=== PATIENT | male | born 1950 | race Caucasian/White ===

== ENCOUNTER → 2017-08-14 14:09 | Outpatient (CLI) | payer MEDICARE, OTHER, SELFPAY ==
--- NOTE | 2017-08-14 14:46 | RAD_ITS ---
STUDY: X-RAY - ORBITS REASON FOR EXAM: Male, 66 years old. This study is being performed as a clearance examination for exclusion of orbital metal, prior to the performance of an MRI examination. TECHNIQUE: 2 view(s) of the orbits (looking up and looking down) were obtained. COMPARISON: None. FINDINGS: Normal bilateral orbits without a metallic orbital foreign body. Normal visualized facial bones. Normal paranasal sinuses. The soft tissue structures are unremarkable. RAD/Orbits for Foreign Body IMPRESSION: No demonstrated metallic orbital foreign body. The patient is cleared for an MRI examination. Electronically Signed: Roberth Mcfarland MD at 15:44 EST , Service support ,
[2017-08-14 15:30] LABS: Creatinine, Serum 1.25 mg/dL (0.70-1.30); EST Glomerular Filtration Rate 62 mL/min (>60); Est Glom Filt Rate - Afr Amer 74 mL/min (>60)
== END ==
PROVIDERS: Family Provider Family Medicine; PCP Family Medicine; Visit Provider Orthopaedic Surgery
DX: M48.061 Spinal stenosis, lumbar region without neurogenic claudication (principal)
CPT/HCPCS: 36415; 70030; 82565

== ENCOUNTER → 2017-09-05 10:27 | Outpatient (CLI) | payer MEDICARE, OTHER, SELFPAY ==
[2017-09-05 12:12] LABS: Absolute Lymphocyte Count 1.59 X10^3/ul (0.83-4.51); Absolute Neutrophil Count 5.8 X10^3/uL (2.0-7.7); Basophil# 0.04 X10^3/uL; Basophil% 0.5 % (0-1); Eosinophil# 0.51 X10^3/uL; Eosinophils% 5.9 % (0-5); Hematocrit 40.7 % (40-54); Hemoglobin 13.5 g/dl (13.0-16.5); Lymphocyte # 1.59 X10^3/ul (4.0); Lymphocyte % 18.5 % (19-41); Mean Corp Hgb Conc 33.2 g/gl (32-36); Mean Corpuscular Hgb 29.7 pg (27.0-32.0); Mean Corpuscular Volume 89.5 fL (80-94); Mean Platelet Vol. 11.3 fl (6.2-12.0); Monocyte# 0.65 X10^3/uL; Monocyte% 7.6 % (0-10); Neutrophil # 5.78 X10^3/uL (2.7-7.7); Neutrophil % 67.3 % (47-70); Platelet Count 188 K/mm3 (150-450); RBC Distribution Width CV 14.3 % (11.6-14.6); RBC Distribution Width SD 46.7 fl (35.1-43.9); Red Blood Count 4.55 M/mm3 (4.6-6.2); White Blood Count 8.6 K/mm3 (4.4-11.0)
[2017-09-05 12:28] LABS: POSITIVE COUNT NO; POSITIVE DIFFERENTIAL NO; POSITIVE MORPHOLOGY NO
[2017-09-05 12:36] LABS: ALB/GLOB Ratio 1.1 RATIO (0.9-2.4); AST(SGOT) 24 U/L (15-37); Alanine Aminotransfer ALT/SGPT 26 U/L (16-61); Albumin, Serum 3.9 g/dL (3.2-5.0); Alkaline Phosphatase 67 U/L (45-117); Anion Gap 7 (5-15); BUN 30 mg/dL (7-18); BUN/Creat Ratio 24.2 RATIO (10-20); Calcium,Total 8.8 mg/dL (8.5-10.1); Chloride 109 mmol/L (98-107); Cholesterol 122 mg/dL (200); Creatinine, Serum 1.24 mg/dL (0.70-1.30); EST Glomerular Filtration Rate 62 mL/min (>60); Est Glom Filt Rate - Afr Amer 75 mL/min (>60); Globulin 3.5 g/dL (2.2-4.2); Glucose 93 mg/dL (74-106); High Density Lipoprotein 37 mg/dL; Protein, Total 7.4 g/dL (6.4-8.2); Sodium Level 141 mmol/L (136-145); Thyroid Stim Hormone (TSH) 0.94 uIU/mL (0.358-3.74); Triglycerides 99 mg/dL; Very Low Density Lipoprotein 20 mg/dL (5-40)
[2017-09-05 12:48] LABS: Microalbumin,Random Urine 6.2 mg/L (NO RANGE EST.); Microalbumin:Creatinine Ratio 6.3 mg/g CRE (<30 mg/g CRE)
[2017-09-05 13:25] LABS: Vitamin D,25 Hydroxy 61.8 ng/mL (29.95-100.01)
== END ==
PROVIDERS: Family Provider Family Medicine; PCP Family Medicine; Visit Provider Family Medicine
DX: R07.89 Other chest pain (principal); I10 Essential (primary) hypertension; E55.9 Vitamin D deficiency, unspecified
CPT/HCPCS: 36415; 80053; 80061; 82043; 82306; 82570; 84443; 85025

== ENCOUNTER → 2018-03-08 09:29 | Outpatient (CLI) | payer MEDICARE, OTHER, SELFPAY ==
[2018-03-08 12:07] LABS: Absolute Lymphocyte Count 1.42 X10^3/ul (0.83-4.51); Absolute Neutrophil Count 6.1 X10^3/uL (2.0-7.7); Basophil# 0.03 X10^3/uL; Basophil% 0.3 % (0-1); Eosinophil# 0.34 X10^3/uL; Eosinophils% 3.9 % (0-5); Hematocrit 40.9 % (40-54); Hemoglobin 13.3 g/dl (13.0-16.5); Lymphocyte # 1.42 X10^3/ul (4.0); Lymphocyte % 16.4 % (19-41); Mean Corp Hgb Conc 32.5 g/gl (32-36); Mean Corpuscular Hgb 29.4 pg (27.0-32.0); Mean Corpuscular Volume 90.5 fL (80-94); Mean Platelet Vol. 11.1 fl (6.2-12.0); Monocyte# 0.73 X10^3/uL; Monocyte% 8.4 % (0-10); Neutrophil # 6.13 X10^3/uL (2.7-7.7); Neutrophil % 70.8 % (47-70); Platelet Count 189 K/mm3 (150-450); RBC Distribution Width CV 14.3 % (11.6-14.6); RBC Distribution Width SD 46.8 fl (35.1-43.9); Red Blood Count 4.52 M/mm3 (4.6-6.2); White Blood Count 8.7 K/mm3 (4.4-11.0)
[2018-03-08 12:13] LABS: POSITIVE COUNT NO; POSITIVE DIFFERENTIAL NO; POSITIVE MORPHOLOGY NO
[2018-03-08 12:25] LABS: Vitamin D,25 Hydroxy 69.4 ng/mL (29.95-100.01)
[2018-03-08 12:30] LABS: AST(SGOT) 25 U/L (15-37); Alanine Aminotransfer ALT/SGPT 27 U/L (16-61); Albumin, Serum 3.8 g/dL (3.2-5.0); Alkaline Phosphatase 63 U/L (45-117); Anion Gap 8 (5-15); BUN 31 mg/dL (7-18); BUN/Creat Ratio 24.8 RATIO (10-20); Chloride 105 mmol/L (98-107); Creatinine, Serum 1.25 mg/dL (0.70-1.30); EST Glomerular Filtration Rate 61 mL/min (>60); Est Glom Filt Rate - Afr Amer 74 mL/min (>60); Glucose 91 mg/dL (74-106); Potassium 4.7 mmol/L (3.5-5.1); Protein, Total 7.8 g/dL (6.4-8.2); Sodium Level 137 mmol/L (136-145); Thyroid Stim Hormone (TSH) 1.19 uIU/mL (0.358-3.74)
== END ==
PROVIDERS: Family Provider Family Medicine; PCP Family Medicine; Visit Provider Family Medicine
DX: R53.83 Other fatigue (principal); E55.9 Vitamin D deficiency, unspecified
CPT/HCPCS: 36415; 80053; 82306; 84443; 85025

== ENCOUNTER 2018-03-20 08:30 | Emergency (ER) | payer MEDICARE, OTHER, SELFPAY ==
[2018-03-20 08:32] VITALS: BP 130/86; PULSE 63; RESP 15; TEMP 36.2; O2SAT 98
--- NOTE | 2018-03-20 08:48 | RAD_ITS ---
STUDY: X-RAY - UNILATERAL RIBS ( RIGHT ) WITH CHEST REASON FOR EXAM: Male, 67 years old. Posterior right shoulder pain and rib pain following a fall. TECHNIQUE - RIBS: 4 view(s) of the ribs. TECHNIQUE - CHEST: Single PA view of the chest. COMPARISON: None. FINDINGS - RIBS: There is a nondisplaced fracture involving the posterior-lateral aspect of the right fourth rib. FINDINGS - CHEST: The lungs are clear and expanded. There is no demonstrated pleural abnormality. Normal size heart. Normal mediastinum and gilbert. Normal visualized pulmonary arteries. There is atherosclerotic calcification of the aortic arch with tortuosity. There are diffuse degenerative changes of the visualized thoracic spine. Normal visualized ribs, clavicles, and shoulders. There is no demonstrated abnormality of the visualized soft tissue structures of the upper abdomen. RAD/Ribs Uni Min 3V w/PA Chest IMPRESSION: RIBS: Nondisplaced fracture of the posterolateral aspect of the right fourth rib. CHEST: Normal x-ray examination of the chest. Electronically Signed: Miguelito Holland MD at 9:30 EDT Tel [phone], Service support ,
--- NOTE | 2018-03-20 08:48 | RAD_ITS ---
STUDY: X-RAY - RIGHT SHOULDER REASON FOR EXAM: Male, 67 years old. Posterior right shoulder pain following a fall. TECHNIQUE: 4 view(s) of the shoulder. COMPARISON: Comparison is made with prior study dated April 10, 2009. FINDINGS: Nondisplaced fracture along the posterolateral aspect of the right fourth rib. Normal glenohumeral articulation. Normal acromioclavicular joint. Normal acromion. Normal humeral head and visualized proximal humerus. Soft tissue swelling. Normal visualized pulmonary apex. RAD/Shoulder min 2 Views IMPRESSION: Nondisplaced fracture along the posterolateral aspect of the right fourth rib. Electronically Signed: Miguelito Holland MD at 9:20 EDT Tel [phone], Service support ,
--- NOTE | 2018-03-20 09:33 | ED.VISSUMM ---
- ER Visit Summary Date of Service: 03/20/18 Chief Complaint: Fall History of Present Illness: The patient is a 67 M who fell while getting down off of a tractor last night. He estimates the height of the fall between 3-4 feet. He fell onto his right side. He states that he was dazed and saw stars but there was no loss of consciousness. He states he felt dizzy initially for a few minutes but then this rapidly resolved. He denies headache loss of consciousness or amnesia. He denies any paresthesias or weakness. He does complain of right upper posterior chest pain and shortness of breath. He also complains of right shoulder pain. No abdominal pain. No back pain. No nausea or vomiting. Physical Examination: Afebrile vitals are unremarkable Neck nontender to palpation Heart regular rate and rhythm Lungs are clear with equal breath sounds bilaterally No reproducible chest tenderness Active full range of motion x4 extremities without pain Alert and oriented with a GCS of 15 no focal or lateralizing neurological deficits Test Results: X-rays were obtained of the right shoulder and rib series with a PA chest was obtained. These show a right posterolateral rib fracture. No pneumothorax. Emergency Department Course and Treatment: Patient declined any medications here. He is resting comfortably no distress. X-rays as above. He was given an incentive spirometer. I did write a prescription for short course of [place] in case he would need it at home and he was also instructed on supportive care. He was instructed on specific signs and symptoms to monitor for and understands to return for new or worsening symptoms. He will otherwise follow-up with his primary care physician. Treatment Plan: [] Disposition: Discharge Impression: Fracture of right fourth rib This note was generated with [employer] dictation software. It may contain incorrect words, spelling, and punctuation that were not noted in review of the chart prior to signing ED Disposition - Plan for ED Patient: Chief Complaint: Upper Extremity Injury Referrals: Jose L Li MD [Primary Care Provider] -
--- NOTE | 2018-03-20 09:36 | ED.DCSUM_ITS ---
- ER Visit Summary Date of Service: 03/20/18 Chief Complaint: Fall History of Present Illness: The patient is a 67 M who fell while getting down off of a tractor last night. He estimates the height of the fall between 3-4 feet. He fell onto his right side. He states that he was dazed and saw stars but there was no loss of consciousness. He states he felt dizzy initially for a few minutes but then this rapidly resolved. He denies headache loss of consciousness or amnesia. He denies any paresthesias or weakness. He does complain of right upper posterior chest pain and shortness of breath. He also complains of right shoulder pain. No abdominal pain. No back pain. No nausea or vomiting. Physical Examination: Afebrile vitals are unremarkable Neck nontender to palpation Heart regular rate and rhythm Lungs are clear with equal breath sounds bilaterally No reproducible chest tenderness Active full range of motion x4 extremities without pain Alert and oriented with a GCS of 15 no focal or lateralizing neurological deficits Test Results: X-rays were obtained of the right shoulder and rib series with a PA chest was obtained. These show a right posterolateral rib fracture. No pneumothorax. Emergency Department Course and Treatment: Patient declined any medications here. He is resting comfortably no distress. X-rays as above. He was given an incentive spirometer. I did write a prescription for short course of [place] in case he would need it at home and he was also instructed on supportive care. He was instructed on specific signs and symptoms to monitor for and understands to return for new or worsening symptoms. He will otherwise follow-up with his primary care physician. Treatment Plan: [] Disposition: Discharge Impression: Fracture of right fourth rib This note was generated with [employer] dictation software. It may contain incorrect words, spelling, and punctuation that were not noted in review of the chart pr ior to signing ED Disposition - Plan for ED Patient: Chief Complaint: Upper Extremity Injury Referrals: Jose L Li MD [Primary Care Provider] -
--- NOTE | 2018-03-20 09:36 | ED.DEP ---
ED Disposition - Plan for ED Patient: Chief Complaint: Upper Extremity Injury Instructions: ED Fx Rib Prescriptions: Hydrocodone Bitart/Apap 5-325 [Heath 5MG-325MG] 1 tab PO Q6H PRN PRN 3 Days #10 tab PRN Reason: Pain Referrals: Jose L Li MD [Primary Care Provider] -
[2018-03-20 10:05] VITALS: BP 124/77; PULSE 68; RESP 15; O2SAT 98
== END 2018-03-20 10:06 | disposition home or self-care (01) ==
PROVIDERS: Emergency Provider Emergency Medicine; Family Provider Family Medicine; PCP Family Medicine
DX: S22.31XA Fracture of one rib, right side, initial encounter for closed fracture (principal); W17.89XA Other fall from one level to another, initial encounter; Y93.9 Activity, unspecified; Y92.89 Other specified places as the place of occurrence of the external cause; Y99.9 Unspecified external cause status; I10 Essential (primary) hypertension; E78.00 Pure hypercholesterolemia, unspecified; Z86.73 Personal history of transient ischemic attack (TIA), and cerebral infarction without residual deficits
CPT/HCPCS: 71101; 73030; 99282

== ENCOUNTER → 2018-09-06 11:20 | Outpatient (CLI) | payer MEDICARE, OTHER, SELFPAY ==
[2018-09-06 14:18] LABS: Absolute Lymphocyte Count 1.74 X10^3/ul (0.83-4.51); Absolute Neutrophil Count 6.3 X10^3/uL (2.0-7.7); Basophil# 0.05 X10^3/uL; Basophil% 0.5 % (0-1); Eosinophil# 0.28 X10^3/uL; Eosinophils% 3.1 % (0-5); Hematocrit 40.5 % (40-54); Hemoglobin 12.7 g/dl (13.0-16.5); Lymphocyte # 1.74 X10^3/ul (4.0); Mean Corp Hgb Conc 31.4 g/gl (32-36); Mean Corpuscular Hgb 28.5 pg (27.0-32.0); Mean Platelet Vol. 11.4 fl (6.2-12.0); Monocyte# 0.78 X10^3/uL; Monocyte% 8.5 % (0-10); Neutrophil # 6.28 X10^3/uL (2.7-7.7); Neutrophil % 68.7 % (47-70); Platelet Count 209 K/mm3 (150-450); RBC Distribution Width CV 14.4 % (11.6-14.6); RBC Distribution Width SD 47.7 fl (35.1-43.9); Red Blood Count 4.45 M/mm3 (4.6-6.2); White Blood Count 9.2 K/mm3 (4.4-11.0)
[2018-09-06 14:19] LABS: POSITIVE COUNT NO; POSITIVE DIFFERENTIAL NO; POSITIVE MORPHOLOGY NO
[2018-09-06 14:25] LABS: ALB/GLOB Ratio 1.1 RATIO (0.9-2.4); AST(SGOT) 25 U/L (15-37); Alanine Aminotransfer ALT/SGPT 25 U/L (16-61); Albumin, Serum 3.8 g/dL (3.2-5.0); Alkaline Phosphatase 87 U/L (45-117); Anion Gap 7 (5-15); BUN 26 mg/dL (7-18); Chloride 108 mmol/L (98-107); Cholesterol 104 mg/dL (200); Creatinine, Serum 1.24 mg/dL (0.70-1.30); EST Glomerular Filtration Rate 62 mL/min (>60); Est Glom Filt Rate - Afr Amer 75 mL/min (>60); Globulin 3.6 g/dL (2.2-4.2); Glucose 89 mg/dL (74-106); High Density Lipoprotein 39 mg/dL; Potassium 4.7 mmol/L (3.5-5.1); Protein, Total 7.4 g/dL (6.4-8.2); Sodium Level 139 mmol/L (136-145); Triglycerides 46 mg/dL; Very Low Density Lipoprotein 9 mg/dL (5-40)
[2018-09-06 14:40] LABS: Microalbumin,Random Urine < 5.0 mg/L (NO RANGE EST.)
== END ==
PROVIDERS: Family Provider Family Medicine; PCP Family Medicine; Referring Provider Family Medicine; Visit Provider Family Medicine
DX: I10 Essential (primary) hypertension (principal)
CPT/HCPCS: 36415; 80053; 80061; 82043; 82570; 85025

== ENCOUNTER → 2018-11-26 06:06 | Outpatient (CLI) | payer MEDICARE, OTHER, SELFPAY ==
[2018-11-14 13:59] VITALS: BMI 26.6
--- NOTE | 2018-11-26 14:14 | STRESSREP ---
Stress Test Report Exercise myocardial perfusion stress test. 67-year-old male with a history of chest pain. Medications: Clopidogrel metoprolol and losartan rosuvastatin. Stress protocol: Resting EKG demonstrates normal sinus rhythm with a rate of 53 bpm normal intervals are noted resting blood pressures 118/72 mmHg. The patient exercised according to regular Edouard protocol for a total duration of 8 minutes and 37 seconds. The maximum heart rate attained was 134 bpm which was 87% of maximum predicted heart rate. Patient completed 2 minutes and 37 seconds into stage III of the Edouard protocol. The maximum workload attained was 10.1 metabolic equivalents. At rest there were no ST or T wave changes noted suggest ischemia peak exercise upsloping ST changes only were noted with no meet the criteria for ischemia. No clinical angina was noted. The test was terminated due to leg fatigue. Myocardial perfusion protocol. 11.2 mCi of technetium 99m sestamibi was injected at rest. The patient exercised according to regular Edouard protocol for 8 minutes and 30 seconds. At peak exercise 32.7 mCi of technetium 99m sestamibi was injected stress images were obtained stress and rest images were reconstructed and compared in the short axis vertical long horizontal long axis. Gated images were also obtained Perfusion SPECT analysis: Review of the stress images demonstrate normal uptake of tracer noted in all areas of the myocardium. The resting images similarly demonstrate normal uptake of tracer noted in all areas of the myocardium. No areas of reversibility are noted suggest ischemia no previous infarct is noted. Gated SPECT analysis: The gated ejection fraction is noted to be 70% with no wall motion abnormalities present. Conclusion: Normal exercise myocardial perfusion stress test with no evidence of ischemia at a high workload. Preserved ejection fraction. Excellent functional aerobic capacity.
== END ==
PROVIDERS: Family Provider Family Medicine; PCP Family Medicine; Referring Provider Internal Medicine Cardiovascular Disease; Visit Provider Internal Medicine Cardiovascular Disease
DX: R07.9 Chest pain, unspecified (principal)
CPT/HCPCS: 78452; 93017; A9500; A4216

== ENCOUNTER 2019-02-03 18:39 | Emergency (ER) | payer MEDICARE, OTHER, SELFPAY ==
[2018-11-14 13:59] VITALS: BMI 26.6
[2019-02-03] VITALS (7 sets, daily range): BP systolic 101–138; BP diastolic 59–89; PULSE 54–76; RESP 13–22; TEMP 36.1; O2SAT 91–99; BMI 26.6
--- NOTE | 2019-02-03 19:40 | RAD_ITS ---
STUDY: X-RAY - RIGHT SHOULDER REASON FOR EXAM: Male, 68 years old. Right shoulder pain, working on the forearm. TECHNIQUE: 2 view(s) of the shoulder. COMPARISON: 03/20/2018. FINDINGS: Complete anterior dislocation of the shoulder. No demonstrated fracture. Mild degenerative arthrosis of the acromioclavicular joint and lateral acromion. The soft tissue structures are unremarkable. Normal visualized pulmonary apex. RAD/Shoulder min 2 Views IMPRESSION: Anterior shoulder dislocation. Electronically Signed: Kelsey Anand MD at 20:06 EDT Tel , Service support ,
[2019-02-03] MEDS: Ondansetron 4 MG/2 ML Vial IV (20:17)
[2019-02-03] MEDS: Morphine 4 MG/ML Syringe IV (20:17)
--- NOTE | 2019-02-03 20:42 | RAD_ITS ---
STUDY: X-RAY - RIGHT SHOULDER REASON FOR EXAM: Male, 68 years old. Post reduction. TECHNIQUE: 2 view(s) of the shoulder. COMPARISON: 03/20/2018. FINDINGS: Normal shoulder alignment status post reduction. No acute fracture or dislocation. Old healed right fourth rib fracture is noted. Soft tissues and bony structures are otherwise unremarkable. RAD/Shoulder min 2 Views IMPRESSION: Anatomic alignment status post reduction of the right shoulder. Electronically Signed: Kelsey Anand MD at 21:59 EDT Tel , Service support ,
--- NOTE | 2019-02-03 20:48 | ED.DCSUM_ITS ---
- ER Visit Summary Date of Service: 02/03/19 Chief Complaint: Right shoulder pain History of Present Illness: The patient is a 68 M history of TIA and hypertension.. Patient states he was pulling himself up to step into a tractor. And he felt a pop and pain immediately in his right shoulder with decreased range of motion. He states about a week ago he did something similar but it seemed to resolve on its own. He is never had right shoulder surgery or any significant injury to the shoulder. He is right-hand dominant. Physical Examination: Older male complaining of pain. Vital signs are stable he is afebrile. He does not look septic or toxic. He is on his right shoulder w ith his right elbow flexed at 90 degrees. HEENT exam unremarkable. Neck nontender. Lungs clear to auscultation. Heart regular rhythm no murmur. Abdomen soft nontender. Left upper and both lower extremities are unremarkable. Right shoulder appears to be deformed and appears to have an anterior shoulder dislocation. Distal humerus, elbow, forearm, wrist and hand are nontender neurovascular intact he has normal tensile tester strength in his right hand. Normal sensation. Palpable radial pulse. Neurologically is awake and alert. Test Results: X-ray right shoulder 2 view shows an anterior right shoulder dislocation. Postreduction x-ray shows proper alignment. Emergency Department Course and Treatment: Patient appears to have a right anterior shoulder dislocation. He was consented for conscious sedation. He was given a total of 70 mg of IV propofol. And using traction countertraction the shoulder went back in the place. He was then placed in a sling and post reduction films were obtained. Patient tolerated the conscious sedation well. His vital signs and pulse ox were unremarkable the entire time. He never became hypoxic. Repeat exam at 20 1:15 PM patient is doing well. He feels comfortable being discharged home. I did go over his x-rays with him. Treatment Plan: Sling and swath. Follow-up with local orthopedic physician. Disposition: Discharge Impression: Acute right shoulder anterior dislocation Conscious sedation using propofol by ER physician Right shoulder dislocation reduction by ER using traction and countertraction. This note was generated with [employer] dictation software. It may contain incorrect words, spelling, and punctuation that were not noted in review of the chart prior to signing ED Disposition - Plan for ED Patient: Disposition: Home or Assisted Living Instructions: DISLOCATION: SHOULDER (Reduced) Referrals: Wesley Bird DO [STAFF PHYSICIAN] - As soon as possible Additional Instructions: You to dislocated right shoulder. We put it back in place. Need to follow-up with orthopedic doctor. You may or may not have damage to the tendons and ligaments of your right shoulder called the rotator cuff.
[2019-02-03] MEDS: Propofol 200 MG/20 ML Vial IV BOLUS (20:50)
--- NOTE | 2019-02-03 20:51 | ED.DEP ---
ED Disposition - Plan for ED Patient: Disposition: Home or Assisted Living Instructions: DISLOCATION: SHOULDER (Reduced) Referrals: Wesley Bird DO [STAFF PHYSICIAN] - As soon as possible Additional Instructions: You to dislocated right shoulder. We put it back in place. Need to follow-up with orthopedic doctor. You may or may not have damage to the tendons and ligaments of your right shoulder called the rotator cuff.
== END 2019-02-03 21:28 | disposition home or self-care (01) ==
PROVIDERS: Emergency Provider Emergency Medicine; Family Provider Family Medicine; PCP Family Medicine
DX: S43.014A Anterior dislocation of right humerus, initial encounter (principal); X50.9XXA Other and unspecified overexertion or strenuous movements or postures, initial encounter; Y93.89 Activity, other specified; Y92.818 Other transport vehicle as the place of occurrence of the external cause; Y99.9 Unspecified external cause status; I10 Essential (primary) hypertension; Z86.73 Personal history of transient ischemic attack (TIA), and cerebral infarction without residual deficits
CPT/HCPCS: 23650; 73030; 96374; 96375; 99284; A4216; J2405

== ENCOUNTER → 2019-02-14 11:22 | Outpatient (CLI) | payer MEDICARE, OTHER, SELFPAY ==
[2019-02-03 18:40] VITALS: BMI 26.6
[2019-02-14 14:35] LABS: Creatinine, Serum 1.33 mg/dL (0.70-1.30); EST Glomerular Filtration Rate 57 mL/min (>60); Est Glom Filt Rate - Afr Amer 69 mL/min (>60)
== END ==
PROVIDERS: Family Provider Family Medicine; PCP Family Medicine; Referring Provider Family Medicine; Visit Provider Orthopaedic Surgery
DX: Z01.812 Encounter for preprocedural laboratory examination (principal)
CPT/HCPCS: 36415; 82565

== ENCOUNTER 2019-03-23 10:25 | Emergency (ER) | payer MEDICARE, OTHER, SELFPAY ==
[2019-02-03 18:40] VITALS: BMI 26.6
[2019-03-23] VITALS (9 sets, daily range): BP systolic 93–148; BP diastolic 67–92; PULSE 47–60; RESP 10–19; TEMP 36.4; O2SAT 96–100; BMI 26.6
[2019-03-23] MEDS: Ondansetron 4 MG/2 ML Vial IV (10:52)
[2019-03-23] MEDS: morphine 8 MG/ML Syringe IV (10:54)
[2019-03-23] MEDS: LORazepam 2 MG/ML Syringe 1 MG IV (10:54)
--- NOTE | 2019-03-23 11:05 | RAD_ITS ---
STUDY: X-RAY - RIGHT SHOULDER REASON FOR EXAM: Male, 68 years old. Dislocation TECHNIQUE: 2 view(s) of the shoulder. COMPARISON: February 03, 2019, history of dislocation. FINDINGS: Study is limited. There is a visualized anterior inferior dislocation. There is visualized degenerative change in the acromioclavicular joint. RAD/Shoulder min 2 Views IMPRESSION: Anterior inferior dislocation of the right humeral head. Electronically Signed: Leonor Mchugh MD at 11:41 EDT Tel , Service support ,
--- NOTE | 2019-03-23 11:40 | RAD_ITS ---
STUDY: X-RAY - RIGHT SHOULDER REASON FOR EXAM: Male, 68 years old. Dislocation post reduction attempt 1 TECHNIQUE: 1 view(s) of the shoulder. COMPARISON: March 23, 2019 FINDINGS: There is persistent anterior inferior dislocation of the right humeral head. There is degenerative change of the acromioclavicular joint. RAD/Shoulder One View IMPRESSION: Persistent dislocation. Electronically Signed: Leonor Mchugh MD at 12:27 EDT Tel , Service support ,
--- NOTE | 2019-03-23 12:15 | ED.VIS.GEN ---
History of Present Illness Chief Complaint: Upper Extremity Injury Informant: Patient Onset: Today Current Severity: Mild Narrative: The patient presents complaining that basically he was some work he stretched his right arm out and he dislocated his right shoulder with the stretching motion, has a history of prior injury to the rotator cuff, rotator cuff tear, prior right shoulder dislocation a few months ago was seen into the emergency department, followed with orthopedics and there was no specific other therapy recommended. He had no direct trauma he has no numbness weeks paresthesias he has no other complaints he has hypertension has been stable he thought he was able to reposition his body in such a way that he self reduced the shoulder but he presents complaining of pain, He had no direct trauma his health is been very good Past Medical History - Allergies and Home Meds Allergies/Adverse Reactions: Allergies Sulfa (Sulfonamide Antibiotics) Allergy (Intermediate, Verified 03/23/19 10:30) fever, hives Penicillins [PCN] Allergy (Verified 03/23/19 10:30) Unknown lisinopril Adverse Reaction (Intermediate, Verified 03/23/19 10:30) cough Primary Care Physician: Jose L Li MD [Primary Care Provider] - Past Medical History: - - As above Smoking Status: Never smoker Review of Systems General: Denies: Chills, Fever, Sweats Eyes: Denies: Visual changes - bilaterally, Diplopia ENT: Denies: Rhinorrhea, Sore throat Cardiovascular: Denies: Chest pain, Palpitations Respiratory: Denies: Dyspnea, Cough, Dyspnea on exertion Gastrointestinal: Denies: Abdominal pain, Nausea, Vomiting, Diarrhea, Melena, Hematochezia Genitourinary: Denies: Dysuria, Hematuria, Frequency Musculoskeletal: Reports: Extremity Pain. Denies: Back pain Skin: Denies: Rash, Wounds Neurological: Denies: Headache, Weakness, Numbness Physical Exam Vital Signs/Narrative: Vital Signs Temp Pulse Pulse Pulse Pulse Pulse Pulse 03/23/19 12:11 52 L 03/23/19 12:01 47 L 50 L 52 L 57 L 60 03/23/19 11:59 48 L 03/23/19 10:26 97.5 F L 59 L Resp Resp Resp Resp Resp Resp BP 03/23/19 12:11 12 121/78 H 03/23/19 12:01 16 13 11 L 19 H 13 10/05/19 11:59 11 L 03/23/19 10:26 18 148/92 H BP BP BP BP Pulse Ox 03/23/19 12:11 99 03/23/19 12:01 122/81 H 117/77 120/75 120/75 03/23/19 11:59 96 03/23/19 10:26 97 General: Well nourished, Well developed, No Acute Distress Head: Normocephalic, Atraumatic Eyes: Perrl, EOMI ENT: Moist mucous membranes, No rhinorrhea Neck: Supple, Nontender Cardiovascular: Regular rate, Regular rhythm, No murmurs Respiratory: No distress, CTA bilaterally, Chest nontender Abdomen: Soft, Nontender, Nondistended, Normal bowel sounds Back: Nontender, Normal Inspection Extremities: No edema, Tenderness, - - He appears to have a anterior dislocated right shoulder there is a defect over the glenoid area, he has no direct trauma his head neck chest abdomen upper lower extremities otherwise unremarkable hand function is normal elbow forearm wrist function unremarkable neurovascular normal Skin: Normal color, No rash Neurological: Alert, Oriented x3, Cranial nerves II-XII grossly intact, Normal Strength, Normal Sensation Psychological: Normal affect, Normal Mood Diagnostic/Tx/Re-eval - Medical Decision Making Had a long conversation with the patient x-ray does showed anterior dislocation see that report, no fracture, we did medicate the patient with IM morphine, Ativan, he was awake and alert we did try to gently manipulate using local Melick type technique that was ineffective in reducing the shoulder, he then underwent conscious sedation protocol timeout he was medicated with incremental doses of fentanyl Versed and propofol, and then we used gentle countertraction with reduction of the shoulder, he tolerated procedure well with no complications normal vital signs throughout, he woke with no complaints remains hemodynamically stable respiratory stable, reports feeling much better Postprocedure x-ray shows appropriate reduction see those reports discussed all the above with him, he is seen orthopedics has had this condition before he is fitted with a sling and swath device she will follow with orthopedic surgeon Seema for pain ice elevation in the return for change in symptoms Home stable Final impression Right anterior shoulder dislocation, conscious sedation, reduction of shoulder dislocation ED Disposition - Plan for ED Patient: Diagnosis: Shoulder dislocation Instructions: DISLOCATION: SHOULDER (Reduced) Prescriptions: Naproxen [Naprosyn] 500 mg PO BID PRN #20 tab Prescription Printed Referrals: Jose L Li MD [Primary Care Provider] - Additional Instructions: Follow-up with your orthopedic surgeon sling and swath ice rest return for change in symptoms
[2019-03-23] MEDS: fentaNYL 100 MCG/2 ML Ampul IV (12:20)
[2019-03-23] MEDS: Propofol 200 MG/20 ML Vial 30 MG IV BOLUS (12:20)
[2019-03-23] MEDS: Midazolam 2 MG/2 ML Syringe IV (12:21)
--- NOTE | 2019-03-23 12:28 | RAD_ITS ---
STUDY: X-RAY - RIGHT SHOULDER REASON FOR EXAM: Male, 68 years old. Post reduction shoulder dislocation TECHNIQUE: 2 view(s) of the shoulder. COMPARISON: Earlier today FINDINGS: Normal alignment of the glenohumeral articulation. Normal acromioclavicular joint. Normal acromion. Normal humeral head and visualized proximal humerus. The soft tissue structures are unremarkable. Normal visualized pulmonary apex. RAD/Shoulder min 2 Views IMPRESSION: Normal alignment of the glenohumeral joint. No fracture. Electronically Signed: Hitesh Farias MD ([place]) at 13:01 EDT , Service support ,
== END 2019-03-23 13:37 | disposition home or self-care (01) ==
LOC: ED 10:51
PROVIDERS: Emergency Provider Emergency Medicine; Family Provider Family Medicine; PCP Family Medicine
DX: M24.411 Recurrent dislocation, right shoulder (principal); I10 Essential (primary) hypertension; Z79.899 Other long term (current) drug therapy
CPT/HCPCS: 23650; 73020; 73030; 96361; 96374; 96375; 99285; J7030; J7040; A4216; J2405

== ENCOUNTER → 2019-06-25 15:28 | Outpatient (CLI) | payer MEDICARE, OTHER, SELFPAY ==
[2019-03-23 10:26] VITALS: BMI 26.6
[2019-06-25 17:46] LABS: Anion Gap 5 (5-15); BUN 36 mg/dL (7-18); BUN/Creat Ratio 27.7 RATIO (10-20); Calcium,Total 8.9 mg/dL (8.5-10.1); Chloride 109 mmol/L (98-107); EST Glomerular Filtration Rate 58 mL/min (>60); Est Glom Filt Rate - Afr Amer 71 mL/min (>60); Glucose 87 mg/dL (74-106); Potassium 5.1 mmol/L (3.5-5.1); Sodium Level 140 mmol/L (136-145)
== END ==
PROVIDERS: Family Provider Family Medicine; PCP Family Medicine; Referring Provider Family Medicine; Visit Provider Family Medicine
DX: E87.5 Hyperkalemia (principal)
CPT/HCPCS: 36415; 80048

== ENCOUNTER → 2019-09-02 09:14 | Outpatient (CLI) | payer MEDICARE, OTHER, SELFPAY ==
[2019-03-23 10:26] VITALS: BMI 26.6
[2019-09-02 12:45] LABS: Absolute Lymphocyte Count 1.84 X10^3/uL (0.83-4.51); Basophil# 0.07 X10^3/uL; Basophil% 0.8 % (0-1); Eosinophil# 0.24 X10^3/uL; Eosinophils% 2.7 % (0-5); Hematocrit 40.5 % (40-54); Hemoglobin 12.6 g/dL (13.0-16.5); Lymphocyte # 1.84 X10^3/ul (4.0); Lymphocyte % 20.5 % (19-41); Mean Corp Hgb Conc 31.1 g/dL (32-36); Mean Corpuscular Hgb 28.4 pg (27.0-32.0); Mean Corpuscular Volume 91.2 fL (80-94); Mean Platelet Vol. 10.8 fl (6.2-12.0); Monocyte# 0.81 X10^3/uL; NRBC Flagged by Analyzer 0 % (0-5); Neutrophil # 5.99 X10^3/uL (2.7-7.7); Neutrophil % 66.7 % (47-70); Platelet Count 199 K/mm3 (150-450); RBC Distribution Width SD 47.7 fl (35.1-43.9); Red Blood Count 4.44 M/mm3 (4.6-6.2)
[2019-09-02 13:03] LABS: Vitamin D,25 Hydroxy 65.4 ng/mL
[2019-09-02 13:06] LABS: Hemoglobin A1c 5.8 % (4.2-6.3)
[2019-09-02 13:39] LABS: ALB/GLOB Ratio 0.9 RATIO (0.9-2.4); AST(SGOT) 22 U/L (15-37); Alanine Aminotransfer ALT/SGPT 25 U/L (16-61); Albumin, Serum 3.6 g/dL (3.2-5.0); Alkaline Phosphatase 91 U/L (45-117); Anion Gap 7 (5-15); BUN 29 mg/dL (7-18); BUN/Creat Ratio 23.8 RATIO (10-20); Calcium,Total 9.3 mg/dL (8.5-10.1); Chloride 107 mmol/L (98-107); Creatinine, Serum 1.22 mg/dL (0.70-1.30); EST Glomerular Filtration Rate 63 mL/min (>60); Est Glom Filt Rate - Afr Amer 76 mL/min (>60); Ferritin 34 ng/mL (26-388); Globulin 4.2 g/dL (2.2-4.2); Glucose 92 mg/dL (74-106); Magnesium 2.2 mg/dL (1.6-2.6); Potassium 4.8 mmol/L (3.5-5.1); Protein, Total 7.8 g/dL (6.4-8.2); Sodium Level 137 mmol/L (136-145)
[2019-09-03 16:11] LABS: ANTINUCLEAR ANTIBODIES DIRECT Positive (Negative)
== END ==
PROVIDERS: PCP Family Medicine; Referring Provider Family Medicine; Visit Provider Family Medicine
DX: R20.2 Paresthesia of skin (principal); N18.3 Chronic kidney disease, stage 3 (moderate)
CPT/HCPCS: 36415; 80053; 82306; 82728; 83036; 83735; 83970; 85025; 86038

== ENCOUNTER → 2020-03-06 09:22 | Outpatient (CLI) | payer MEDICARE, OTHER, SELFPAY ==
[2019-11-14 09:25] VITALS: BMI 26.6
[2020-03-06 10:15] LABS: Absolute Lymphocyte Count 1.43 X10^3/uL (0.83-4.51); Absolute Neutrophil Count 4.1 X10^3/uL (2.0-7.7); Basophil# 0.06 X10^3/uL; Basophil% 0.9 % (0-1); Eosinophil# 0.38 X10^3/uL; Eosinophils% 5.7 % (0-5); Hematocrit 39.3 % (40-54); Hemoglobin 12.5 g/dL (13.0-16.5); Lymphocyte # 1.43 X10^3/ul (4.0); Lymphocyte % 21.4 % (19-41); Mean Corp Hgb Conc 31.8 g/dL (32-36); Mean Corpuscular Hgb 29.8 pg (27.0-32.0); Mean Corpuscular Volume 93.8 fL (80-94); Mean Platelet Vol. 11.1 fl (6.2-12.0); Monocyte% 10.5 % (0-10); NRBC Flagged by Analyzer 0 % (0-5); Neutrophil # 4.09 X10^3/uL (2.7-7.7); Neutrophil % 61.2 % (47-70); Platelet Count 174 K/mm3 (150-450); RBC Distribution Width CV 13.2 % (11.6-14.6); RBC Distribution Width SD 45.2 fl (35.1-43.9); Red Blood Count 4.19 M/mm3 (4.6-6.2); White Blood Count 6.7 K/mm3 (4.4-11.0)
[2020-03-06 11:03] LABS: ALB/GLOB Ratio 0.9 RATIO (0.9-2.4); AST(SGOT) 20 U/L (15-37); Alanine Aminotransfer ALT/SGPT 24 U/L (16-61); Albumin, Serum 3.7 g/dL (3.2-5.0); Alkaline Phosphatase 82 U/L (45-117); Anion Gap 5 (5-15); BUN 31 mg/dL (7-18); BUN/Creat Ratio 24.4 RATIO (10-20); Chloride 108 mmol/L (98-107); Cholesterol 108 mg/dL (200); Creatinine, Serum 1.27 mg/dL (0.70-1.30); EST Glomerular Filtration Rate 60 mL/min (>60); Est Glom Filt Rate - Afr Amer 73 mL/min (>60); Globulin 3.9 g/dL (2.2-4.2); Glucose 98 mg/dL (74-106); High Density Lipoprotein 36 mg/dL; Potassium 4.9 mmol/L (3.5-5.1); Protein, Total 7.6 g/dL (6.4-8.2); Sodium Level 138 mmol/L (136-145); Triglycerides 50 mg/dL; Very Low Density Lipoprotein 10 mg/dL (5-40)
[2020-03-06 12:46] LABS: Microalbumin,Random Urine 9.5 mg/L (NO RANGE EST.); Microalbumin:Creatinine Ratio 7.1 mg/g CRE (<30 mg/g CRE)
== END ==
PROVIDERS: PCP Family Medicine; Referring Provider Family Medicine; Visit Provider Family Medicine
DX: N18.3 Chronic kidney disease, stage 3 (moderate) (principal); E66.3 Overweight
CPT/HCPCS: 36415; 80053; 80061; 82043; 82570; 85025

== ENCOUNTER → 2020-03-09 10:43 | Outpatient (CLI) | payer MEDICARE, OTHER, SELFPAY ==
[2019-11-14 09:25] VITALS: BMI 26.6
--- NOTE | 2020-03-09 10:47 | VDLE_ITS ---
Reason For Study: Pain left calf Procedure LEFT Exam performed in department. GSV is normal. A preliminary report was called and/or faxed CFV is compressible, spontaneous, phasic, to Jolene. competent, and demonstrates normal augmentation. FV is compressible, spontaneous, phasic, competent and demonstrates normal augmentation. POP V is compressible, spontaneous, phasic, competent and demonstrates normal augmentation. T/P Trunk is compressible. PTV is compressible. LT PerV is compressible. Interpretation Summary Deep veins of the left lower extremity are patent and compressible segmentally. There is no evidence of left lower extremity deep vein thrombosis. Valvular competence appears intact within the proximal deep venous system on the left . The left great saphenous vein appears patent and compressible segmentally. Ordering Physician: Ro Fernández Referring Physician: Jose L Li MD Performed By: Natasha Gómez RVT and Student
== END ==
PROVIDERS: PCP Family Medicine; Referring Provider Nurse Practitioner Adult Health; Visit Provider Nurse Practitioner Adult Health
DX: M79.662 Pain in left lower leg (principal)
CPT/HCPCS: 93971

== ENCOUNTER → 2020-06-03 07:26 | Outpatient (CLI) | payer MEDICARE, OTHER, SELFPAY ==
[2019-11-14 09:25] VITALS: BMI 26.6
--- NOTE | 2020-06-03 07:36 | MRI_ITS ---
STUDY: MRI LEFT KNEE REASON FOR EXAM: Medial left knee pain since late January, osteoarthritis, concern for internal derangement. TECHNIQUE: Standardized fat and water weighted pulse sequences were obtained in all 3 orthogonal planes. COMPARISON: None. FINDINGS: There is tear/degeneration of the posterior horn and body of the medial meniscus (proton-density sagittal images 10-18; proton-density coronal images 19-22). There is arthrosis of the medial femorotibial compartment with chondral loss (T2 sagittal image 7). There is subchondral bone edema of the medial femoral condyle and tibial plateau (T2 coronal images 13-21), a stress phenomenon. There is mild periligamentous inflammation of the medial collateral ligament (T2 coronal image 18). Normal distal semimembranosus, gracilis and semitendinosus tendons. Normal lateral meniscus. Normal hyaline cartilage of the lateral femorotibial compartment. Normal lateral femoral condyle and tibial plateau. Normal proximal tibiofibular articulation. There is mild periligamentous inflammation of the fibular collateral ligament (T2 coronal image 15). Normal popliteus tendon. Normal biceps femoris tendon. Normal anterior cruciate ligament (ACL). Normal posterior cruciate ligament (PCL). Normal congruent patellofemoral articulation. There is a focal chondral defect of the lateral femoral trochlea (T2 sagittal image 18) measuring 1.7 cm in length. Normal medial and lateral patellar retinaculum. Normal visualized quadriceps tendon. Normal patellar tendon. Normal Hoffa''s fat pad. There is a [id number] sized joint effusion. There is a thin medial patellar plica. There is extravasated fluid from a ruptured popliteal cyst (T2 sagittal images 4-11). There is edema in the subcutis adipose space. There is a small metallic foreign body at the anterior lateral aspect of the tibial plateau. There is a small ganglion cyst posterior to the posterior cruciate ligament (T2 sagittal image 14) measuring 1 cm in length. The otherwise visualized osseous structures are unremarkable. MRI/Lower Ext Joint Only (Routine) IMPRESSION: Medial meniscal tear/degeneration. Subchondral bone edema of the medial femoral condyle and medial tibial plateau, a stress phenomenon. Arthrosis of the medial femorotibial compartment. Focal chondral defect of the lateral femoral trochlea. Mild periligamentous inflammation of the medial collateral and fibular collateral ligaments. Joint effusion. Ruptured popliteal cyst. Small ganglion cyst posterior to the posterior cruciate ligament. Electronically Signed: Albert Madden MD at 8:49 EST Tel , Service support ,
== END ==
PROVIDERS: PCP Family Medicine; Referring Provider Family Medicine; Visit Provider Family Medicine
DX: M17.12 Unilateral primary osteoarthritis, left knee (principal)
CPT/HCPCS: 73721

== ENCOUNTER → 2020-06-24 08:51 | Outpatient (CLI) | payer MEDICARE, OTHER, SELFPAY ==
[2019-11-14 09:25] VITALS: BMI 26.6
[2020-06-24 10:55] LABS: ALB/GLOB Ratio 0.9 RATIO (0.9-2.4); AST(SGOT) 17 U/L (15-37); Alanine Aminotransfer ALT/SGPT 22 U/L (16-61); Albumin, Serum 3.7 g/dL (3.2-5.0); Alkaline Phosphatase 88 U/L (45-117); Anion Gap 4 (5-15); BUN 32 mg/dL (7-18); BUN/Creat Ratio 24.8 RATIO (10-20); Calcium,Total 8.9 mg/dL (8.5-10.1); Chloride 110 mmol/L (98-107); Creatinine, Serum 1.29 mg/dL (0.70-1.30); EST Glomerular Filtration Rate 59 mL/min (>60); Est Glom Filt Rate - Afr Amer 71 mL/min (>60); Glucose 88 mg/dL (74-106); Protein, Total 7.7 g/dL (6.4-8.2); Sodium Level 138 mmol/L (136-145)
[2020-06-24 11:08] LABS: International Normalized Ratio 1.1; Prothrombin Time (Protime)PT. 13.8 SECONDS (11.7-14.9)
[2020-06-24 11:09] LABS: Partial Thromboplast Time 29.6 Seconds (24.1-36.2)
[2020-06-24 11:31] LABS: Absolute Lymphocyte Count 1.68 X10^3/uL (0.83-4.51); Absolute Neutrophil Count 5.6 X10^3/uL (2.0-7.7); Basophil# 0.08 X10^3/uL; Basophil% 0.9 % (0-1); Eosinophil# 0.51 X10^3/uL; Eosinophils% 5.8 % (0-5); Hematocrit 41.9 % (40-54); Hemoglobin 13.3 g/dL (13.0-16.5); Lymphocyte # 1.68 X10^3/ul (4.0); Lymphocyte % 19.1 % (19-41); Mean Corp Hgb Conc 31.7 g/dL (32-36); Mean Corpuscular Hgb 28.4 pg (27.0-32.0); Mean Corpuscular Volume 89.3 fL (80-94); Mean Platelet Vol. 11.6 fl (6.2-12.0); Monocyte# 0.91 X10^3/uL; Monocyte% 10.4 % (0-10); NRBC Flagged by Analyzer 0 % (0-5); Neutrophil # 5.56 X10^3/uL (2.7-7.7); Neutrophil % 63.3 % (47-70); Platelet Count 194 K/mm3 (150-450); RBC Distribution Width CV 13.6 % (11.6-14.6); RBC Distribution Width SD 44.4 fl (35.1-43.9); Red Blood Count 4.69 M/mm3 (4.6-6.2); White Blood Count 8.8 K/mm3 (4.4-11.0)
== END ==
PROVIDERS: PCP Family Medicine; Referring Provider Family Medicine; Visit Provider Family Medicine
DX: Z01.818 Encounter for other preprocedural examination (principal)
CPT/HCPCS: 36415; 80053; 85025; 85610; 85730

== ENCOUNTER → 2020-11-17 09:50 | Outpatient (CLI) | payer MEDICARE, OTHER, SELFPAY ==
[2020-11-17 09:03] VITALS: BMI 30.7
[2020-11-17 10:43] LABS: Absolute Lymphocyte Count 1.35 X10^3/uL (0.83-4.51); Absolute Neutrophil Count 6.8 X10^3/uL (2.0-7.7); Basophil# 0.04 X10^3/uL; Basophil% 0.4 % (0-1); Eosinophil# 0.23 X10^3/uL; Eosinophils% 2.4 % (0-5); Hematocrit 41.6 % (40-54); Hemoglobin 13.1 g/dL (13.0-16.5); Lymphocyte # 1.35 X10^3/ul (0.83-4.51); Lymphocyte % 14.2 % (19-41); Mean Corp Hgb Conc 31.5 g/dL (32-36); Mean Corpuscular Hgb 28.7 pg (27.0-32.0); Mean Platelet Vol. 10.8 fl (6.2-12.0); Monocyte# 1.04 X10^3/uL; Monocyte% 10.9 % (0-10); NRBC Flagged by Analyzer 0 % (0-5); Neutrophil # 6.82 X10^3/uL (2.7-7.7); Neutrophil % 71.7 % (47-70); Platelet Count 236 K/mm3 (150-450); RBC Distribution Width CV 13.6 % (11.6-14.6); RBC Distribution Width SD 45.8 fl (35.1-43.9); Red Blood Count 4.57 M/mm3 (4.6-6.2); White Blood Count 9.5 K/mm3 (4.4-11.0)
[2020-11-17 11:15] LABS: ALB/GLOB Ratio 0.7 RATIO (0.9-2.4); AST(SGOT) 22 U/L (15-37); Alanine Aminotransfer ALT/SGPT 23 U/L (16-61); Albumin, Serum 3.4 g/dL (3.2-5.0); Alkaline Phosphatase 81 U/L (45-117); Anion Gap 6 (5-15); BUN 36 mg/dL (7-18); BUN/Creat Ratio 25.9 RATIO (10-20); Bilirubin, Direct 0.22 mg/dL (0.00-0.30); Calcium,Total 9.5 mg/dL (8.5-10.1); Chloride 107 mmol/L (98-107); Cholesterol 98 mg/dL (200); Creatinine, Serum 1.39 mg/dL (0.70-1.30); EST Glomerular Filtration Rate 54 mL/min (>60); Est Glom Filt Rate - Afr Amer 65 mL/min (>60); Globulin 4.9 g/dL (2.2-4.2); Glucose 102 mg/dL (74-106); High Density Lipoprotein 35 mg/dL; Potassium 5.9 mmol/L (3.5-5.1); Protein, Total 8.3 g/dL (6.4-8.2); Sodium Level 137 mmol/L (136-145); Triglycerides 56 mg/dL; Very Low Density Lipoprotein 11 mg/dL (5-40)
== END ==
PROVIDERS: PCP Family Medicine; Referring Provider Nurse Practitioner Family; Visit Provider Nurse Practitioner Family
DX: G45.9 Transient cerebral ischemic attack, unspecified (principal); E78.5 Hyperlipidemia, unspecified; I10 Essential (primary) hypertension; Z79.02 Long term (current) use of antithrombotics/antiplatelets
CPT/HCPCS: 36415; 80053; 80061; 82248; 85025

== ENCOUNTER 2021-03-11 17:17 | Emergency (ER) | payer MEDICARE, OTHER, SELFPAY ==
[2021-03-11 17:18] VITALS: BP 142/89; PULSE 75; RESP 16; TEMP 35.4; O2SAT 98; BMI 30.7
--- NOTE | 2021-03-11 18:06 | US_ITS ---
STUDY: VENOUS DOPPLER ULTRASOUND - LEFT LOWER EXTREMITY REASON FOR EXAM: Male, 70 years old. LT KNEE REDNESS, PAIN SWELLING TECHNIQUE: Ultrasound evaluation of the deep vein system to include back-scale imaging and compression was performed. Back-scale imaging and Doppler sonographic evaluation, including duplex spectral analysis and qualitative color flow sonography, was performed. COMPARISON: None. FINDINGS: Common Femoral Vein: Normal compression, spontaneity and augmentation. Normal color Doppler. Common Femoral Vein/Greater Saphenous Junction: Normal compression, spontaneity and augmentation. Normal color Doppler. Femoral Proximal: Normal compression, spontaneity and augmentation. Normal color Doppler. Femoral Middle: Normal compression, spontaneity and augmentation. Normal color Doppler. Femoral Distal: Normal compression, spontaneity and augmentation. Normal color Doppler. Popliteal Vein: Normal compression, spontaneity and augmentation. Normal color Doppler. Posterior Tibial Vein: Normal compression, spontaneity and augmentation. Normal color Doppler. Peroneal Vein: Normal compression, spontaneity and augmentation. Normal color Doppler. Debris-filled small Buckner''s cyst noted in the posterior aspect of the knee joint. Mild of subcutaneous edema is present in the left calf. The right common femoral vein was evaluated and is normal. US/Venous Duplex Imag/Limited/Uni IMPRESSION: 1. Normal venous Doppler ultrasound of the left lower extremity. 2. Mild of subcutaneous edema is present in the left calf. Electronically Signed: Brian Miller MD at 20:16 EDT , Service support ,
--- NOTE | 2021-03-11 18:09 | EDS_ITS ---
HPI History of Present Illness Chief Complaint: Lower Extremity Injury Narrative Narrative: Patient is a 70-year-old male who states that he had his left knee replaced approximately 1 year ago. He states he has been doing well but is been having some increased swelling off and on. He states that he saw the surgeon a few months ago and I told him that he needs to stop stressing the knee somewhat and he went through repeat physical therapy. Patient states this did help but he has noticed in the past few weeks increased redness and swelling of the lower leg from the knee down. He denies any injury fevers or chills. He denies any chest pain or shortness of breath. He states he went and saw his family doctor today who has concern for possible blood clot and therefore sent to the hospital for evaluation [facility] Medical History BPH (benign prostatic hyperplasia) Essential (primary) hypertension Hyperlipidemia Osteoarthritis Transient ischemic attack (12/2007) Varicose veins of both lower extremities Vitamin D deficiency Home Medications clopidogrel 75 mg tablet 75 mg PO DAILY 11/08/18 [History Last Taken Unknown] ergocalciferol (vitamin D2) 1,250 mcg (50,000 unit) capsule 50,000 unit PO QWEEK 11/08/18 [History Last Taken Unknown] folic acid 0.8 mg capsule 0.8 mg PO DAILY 11/08/18 [History Last Taken Unknown] losartan 100 mg tablet 100 mg PO DAILY 11/08/18 [History Last Taken Unknown] metoprolol tartrate 25 mg tablet 25 mg PO BID 11/08/18 [History Last Taken Unknown] rosuvastatin 5 mg tablet 5 mg PO QHS 11/08/18 [History Last Taken Unknown] tamsulosin 0.4 mg capsule 0.4 mg PO QHS 11/08/18 [History Last Taken Unknown] loratadine 10 mg PO DAILY 02/03/19 [History Last Taken Unknown] ipratropium bromide 21 mcg (0.03 %) nasal spray 2 spray INTRANASAL BID 11/14/19 [History Last Taken Unknown] Allergy/AdvReac Type Severity Reaction Status Date / Time Sulfa (Sulfonamide Allergy Intermediate fever, Verified 03/11/21 17:18 Antibiotics) hives Penicillins [PCN] Allergy Unknown Verified 03/11/21 17:18 lisinopril AdvReac Intermediate cough Verified 03/11/21 17:18 Family History (Reviewed 11/17/20 @ 09:08 by Cooper Linton MACHINE SHOP REPAIR TECHNICIAN, MACHINE SHOP REPAIR TECHNICIAN-C) Father Cancer Mother Heart disease Surgical History (Updated 03/11/21 @ 17:50 by Yobani Pollard) History of carpal tunnel release History of left heart catheterization (02/04/08) History of lumbar spinal fusion (06/2019) History of shoulder replacement (03/2019) History of total left knee replacement (~06/19/20) History of total right knee replacement Social History (Reviewed 11/17/20 @ 09:08 by Cooper Linton MACHINE SHOP REPAIR TECHNICIAN, MACHINE SHOP REPAIR TECHNICIAN-C) Smoking Status: Never smoker ROS ROS ED Constitutional Constitutional ED: Denies chills or fever(s) ENT ENT ED: Denies sore throat Cardiovascular Cardiovascular: Denies chest pain Respiratory/Chest Respiratory/Chest: Denies cough or dyspnea Gastrointestinal Gastrointestinal: Denies abdominal pain, diarrhea, nausea or vomiting Genitourinary Genitourinary ED: Denies dysuria Musculoskeletal Musculoskeletal: Reports other Details: Positive left knee/leg pain ; Denies myalgias Integumentary Denies rash Neurologic Neurologic: Denies headache(s) Hematologic/Lymphatic Hematologic/Lymphatic: Denies easy bleeding or easy bruising EXAM Physical Exam Const Vital Signs: 03/11/21 17:18 03/11/21 19:34 Temperature 95.8 F L Temperature Source Temporal Pulse Rate 75 67 Respiratory Rate 16 16 Blood Pressure 142/89 H 139/88 H Blood Pressure Mean 106 105 Pulse Ox 98 99 Oxygen Delivery Method Room Air Room Air Positive well nourished and well developed General Appearance ED: well developed HEENT Reports moist mucous membranes Eyes PERRL and EOMs intact bilaterally Neck supple Chest Wall palpation of chest normal Resp normal respiratory effort and clear to auscultation bilaterally Cardio regular rate and regular rhythm GI normal to inspection, nondistended, normoactive bowel sounds, non-tender and non-distended Auscultation: normoactive bowel sounds Palpation: soft Extremity Extremity Narrative: Left lower extremity is neurovascularly intact. He has asymmetric pitting edema to the left leg compared to right. There is also some faint overlying erythema but no excessive or asymmetric warmth. No obvious cellulitis or lymphangitic streaking. Negative Homans' sign bilaterally Neuro oriented x3 and CN's II-XII intact bilaterally Sensorium / Orientation: alert Psych mental status grossly normal Skin Skin Narrative: Soft tissue changes to the left lower leg as documented above MDM MDM MDM Narrative Medical decision making narrative: Patient presented to the ER afebrile and was able to walk on his leg. He did have asymmetric swelling and there was concern for DVT so a duplex was obtained which was negative. I also concern for possible infected joint so I did perform basic labs. His white count and lactic acid are normal but his ESR and CRP are elevated. I did discuss the case with orthopedics on-call but as the joint is a prosthetic joint the patient is able to bend and ambulate does not have a fever or white count I do not feel this is truly infected. Therefore patient will follow up with his orthopedic surgeon and have the area possibly tapped secondary to the soft tissue changes but I do not feel there is need for further work-up in the ER Lab Data Attestation: I reviewed the patient's lab results. Labs: Laboratory Results - last 24 hr 03/11/21 03/11/21 03/11/21 18:20 18:20 18:20 WBC 10.2 RBC 4.27 L Hgb 11.6 L Hct 37.7 L MCV 88.3 MCH 27.2 MCHC 30.8 L RDW Std Deviation 46.6 H RDW Coeff of Mary 14.6 Plt Count 293 MPV 10.3 Immature Gran % (Auto) 0.400 Neut % (Auto) 65.8 Lymph % (Auto) 18.5 L [place] % (Auto) 11.8 H Eos % (Auto) 3.0 Baso % (Auto) 0.5 Absolute Neuts (auto) 6.7 Absolute Lymphs (auto) 1.89 Nucleated RBC % 0 ESR 29 H Sodium 135 L Potassium 4.5 Chloride 106 Carbon Dioxide 26.0 Anion Gap 3 L BUN 30 H Creatinine 1.12 Estim Creat Clear Calc 56.17 Est GFR (MDRD) Af Amer 84 Est GFR (MDRD) Non-Af 69 BUN/Creatinine Ratio 26.8 H Glucose 98 Lactic Acid 0.7 Calcium 9.2 C-React Prot Ext Range 47.60 H Radiography Diagnostic Testing: Radiology Impression Venous Duplex 03/11/21 18:06 IMPRESSION: 1. Normal venous Doppler ultrasound of the left lower extremity. 2. Mild of subcutaneous edema is present in the left calf. Electronically Signed: Brian Miller MD at 20:16 EDT , Service support , Knee X-Ray 03/11/21 18:41 IMPRESSION: 1. Mild to moderate anterior soft tissue swelling. Small to moderate size joint effusion. Electronically Signed: Brian Miller MD at 19:49 EDT , Service support , Discharge Plan Triage Chief Complaint: Lower Extremity Injury ED Provider: Jovani Figueroa Dx/Rx/DC Orders Clinical Impression: Effusion of knee joint, left Instructions: ED Knee Effusion Prescriptions: No Action metoprolol tartrate 25 mg tablet 25 mg PO BID RF: 0 losartan 100 mg tablet 100 mg PO DAILY RF: 0 clopidogrel 75 mg tablet 75 mg PO DAILY RF: 0 folic acid 0.8 mg capsule 0.8 mg PO DAILY RF: 0 tamsulosin 0.4 mg capsule 0.4 mg PO QHS RF: 0 rosuvastatin 5 mg tablet 5 mg PO QHS RF: 0 ergocalciferol (vitamin D2) 50,000 unit capsule 50,000 unit PO QWEEK RF: 0 ipratropium bromide 0.03 % spray,non-aerosol 2 spray INTRANASAL BID RF: 0 loratadine 10 MG tablet 10 mg PO DAILY RF: 0 Primary Care Provider: Jose L Li Referrals: Jose L Li MD [Primary Care Provider] - Disposition Disposition: Home, Self Care
[2021-03-11 18:36] LABS: Absolute Lymphocyte Count 1.89 X10^3/uL (0.83-4.51); Absolute Neutrophil Count 6.7 X10^3/uL (2.0-7.7); Basophil# 0.05 X10^3/uL; Basophil% 0.5 % (0-1); Eosinophil# 0.31 X10^3/uL; Hematocrit 37.7 % (40-54); Hemoglobin 11.6 g/dL (13.0-16.5); Lymphocyte # 1.89 X10^3/ul (0.83-4.51); Lymphocyte % 18.5 % (19-41); Mean Corp Hgb Conc 30.8 g/dL (32-36); Mean Corpuscular Hgb 27.2 pg (27.0-32.0); Mean Corpuscular Volume 88.3 fL (80-94); Mean Platelet Vol. 10.3 fl (6.2-12.0); Monocyte% 11.8 % (0-10); NRBC Flagged by Analyzer 0 % (0-5); Neutrophil # 6.71 X10^3/uL (2.7-7.7); Neutrophil % 65.8 % (47-70); Platelet Count 293 K/mm3 (150-450); RBC Distribution Width CV 14.6 % (11.6-14.6); RBC Distribution Width SD 46.6 fl (35.1-43.9); Red Blood Count 4.27 M/mm3 (4.6-6.2); White Blood Count 10.2 K/mm3 (4.4-11.0)
--- NOTE | 2021-03-11 18:41 | RAD_ITS ---
STUDY: X-RAY - LEFT KNEE REASON FOR EXAM: Male, 70 years old. pain TECHNIQUE: 3 view(s) of the knee. COMPARISON: MRI of the left knee dated June 03, 2020 FINDINGS: Tricompartmental knee prosthetic components noted demonstrating good bony contact and alignment. No demonstrated hardware complications. A small to moderate size joint effusion is present and mild to moderate anterior soft tissue swelling is also visualized. Normal proximal tibiofibular articulation. There is no demonstrated fracture. Ossification of the quadriceps tendon noted. RAD/Knee 3 Views IMPRESSION: 1. Mild to moderate anterior soft tissue swelling. Small to moderate size joint effusion. Electronically Signed: Brian Miller MD at 19:49 EDT , Service support ,
[2021-03-11 18:42] LABS: Erythrocyte Sedimentation Rate 29 mm/hr (0-20)
[2021-03-11 19:06] LABS: Anion Gap 3 (5-15); BUN 30 mg/dL (7-18); BUN/Creat Ratio 26.8 RATIO (10-20); Calcium,Total 9.2 mg/dL (8.5-10.1); Chloride 106 mmol/L (98-107); Creatinine, Serum 1.12 mg/dL (0.70-1.30); EST Glomerular Filtration Rate 69 mL/min (>60); Est Glom Filt Rate - Afr Amer 84 mL/min (>60); Estimated Creatinine Clearance 56.17 ml/min; Glucose 98 mg/dL (74-106); Potassium 4.5 mmol/L (3.5-5.1); Sodium Level 135 mmol/L (136-145)
[2021-03-11 19:09] LABS: Lactic Acid 0.7 mmol/L (0.4-1.9)
[2021-03-11 19:34] VITALS: BP 139/88; PULSE 67; RESP 16; O2SAT 99
[2021-03-11 21:14] VITALS: BP 139/78; PULSE 84; RESP 20; O2SAT 97
--- NOTE | 2021-03-11 21:15 | ED.RN ---
THIS NURSE REVIEWED D/C INSTRUCTIONS WITH PT. PT VERBALIZED UNDERSTANDING OF INSTRUCTIONS. IV D/C IV CATHETER INTACT. PT TOLERATED WELL. PT DENIES FURTHER NEEDS OR QUESTIONS AT THIS TIME. PT AMBULATES FROM ROOM ON OWN WITHOUT ASISTANCE FROM STAFF
== END 2021-03-11 21:16 | disposition home or self-care (01) ==
PROVIDERS: Emergency Provider Emergency Medicine; PCP Family Medicine
DX: M25.462 Effusion, left knee (principal); R60.0 Localized edema; E78.5 Hyperlipidemia, unspecified; I10 Essential (primary) hypertension; M19.90 Unspecified osteoarthritis, unspecified site; N40.0 Benign prostatic hyperplasia without lower urinary tract symptoms; Z86.73 Personal history of transient ischemic attack (TIA), and cerebral infarction without residual deficits; Z79.899 Other long term (current) drug therapy
CPT/HCPCS: 73562; 80048; 83605; 85025; 85652; 86140; 93971; 99283

== ENCOUNTER → 2021-03-29 09:09 | Outpatient (CLI) | payer MEDICARE, OTHER, SELFPAY ==
[2021-03-29 10:30] LABS: PSA,Total - Annual Screen 2.79 ng/mL (0.00-4.00)
== END ==
PROVIDERS: Nurse Practitioner Family; PCP Family Medicine; Visit Provider Family Medicine
DX: N40.0 Benign prostatic hyperplasia without lower urinary tract symptoms (principal)
CPT/HCPCS: 36415; 84153; G0103

== ENCOUNTER → 2021-04-07 12:13 | Outpatient (CLI) | payer MEDICARE, OTHER, SELFPAY ==
[2021-04-07 13:12] LABS: Absolute Lymphocyte Count 1.93 X10^3/uL (0.83-4.51); Absolute Neutrophil Count 5.9 X10^3/uL (2.0-7.7); Basophil# 0.07 X10^3/uL; Basophil% 0.8 % (0-1); Eosinophil# 0.36 X10^3/uL; Eosinophils% 3.9 % (0-5); Hematocrit 35.9 % (40-54); Hemoglobin 11.3 g/dL (13.0-16.5); Lymphocyte # 1.93 X10^3/ul (0.83-4.51); Lymphocyte % 20.9 % (19-41); Mean Corp Hgb Conc 31.5 g/dL (32-36); Mean Corpuscular Hgb 27.2 pg (27.0-32.0); Mean Corpuscular Volume 86.3 fL (80-94); Mean Platelet Vol. 10.4 fl (6.2-12.0); Monocyte# 0.95 X10^3/uL; Monocyte% 10.3 % (0-10); NRBC Flagged by Analyzer 0 % (0-5); Neutrophil # 5.89 X10^3/uL (2.7-7.7); Neutrophil % 63.7 % (47-70); Platelet Count 296 K/mm3 (150-450); RBC Distribution Width CV 14.4 % (11.6-14.6); RBC Distribution Width SD 45.3 fl (35.1-43.9); Red Blood Count 4.16 M/mm3 (4.6-6.2); White Blood Count 9.2 K/mm3 (4.4-11.0)
[2021-04-07 13:23] LABS: Erythrocyte Sedimentation Rate 62 mm/hr (0-20)
== END ==
PROVIDERS: PCP Family Medicine
DX: Z47.1 Aftercare following joint replacement surgery (principal); Z96.652 Presence of left artificial knee joint
CPT/HCPCS: 36415; 85025; 85652; 86140

== ENCOUNTER → 2021-06-17 16:26 | Outpatient (CLI) | payer MEDICARE, OTHER, SELFPAY | PROVIDERS: PCP Family Medicine; Visit Provider Family Medicine | DX: U07.1 COVID-19 (principal) | CPT/HCPCS: 87635; U0003; U0005 ==

== ENCOUNTER 2021-06-22 13:05 | Outpatient (CLI) | payer MEDICARE, OTHER, SELFPAY ==
[2021-06-22 13:32] VITALS: BP 143/79; PULSE 69; RESP 16; TEMP 36.6; O2SAT 98; BMI 29.0
[2021-06-22] MEDS: 0.9% Saline Lock 10 ML Syringe IV (13:38)
[2021-06-22 14:00] VITALS: BP 112/72; PULSE 65; RESP 16; TEMP 37.1; O2SAT 99
[2021-06-22 14:52] VITALS: BP 139/94; PULSE 73; RESP 18; TEMP 36.7; O2SAT 100
== END 2021-06-22 23:59 | disposition home or self-care (01) ==
LOC: MS3OUT 13:05 → MS3 13:06
PROVIDERS: PCP Family Medicine; Referring Provider Nurse Practitioner Adult Health; Visit Provider Nurse Practitioner Adult Health
DX: U07.1 COVID-19 (principal)
CPT/HCPCS: J7050; M0243; A4216; Q0240

== ENCOUNTER → 2021-10-08 | Outpatient (CLI) | payer MEDICARE, OTHER, SELFPAY ==
[2021-10-08 10:20] LABS: Absolute Lymphocyte Count 1.88 X10^3/uL (0.83-4.51); Absolute Neutrophil Count 5.1 X10^3/uL (2.0-7.7); Basophil# 0.07 X10^3/uL; Basophil% 0.9 % (0-1); Eosinophil# 0.25 X10^3/uL; Eosinophils% 3.1 % (0-5); Hematocrit 39.7 % (40-54); Hemoglobin 12.4 g/dL (13.0-16.5); Lymphocyte # 1.88 X10^3/ul (0.83-4.51); Lymphocyte % 23.3 % (19-41); Mean Corp Hgb Conc 31.2 g/dL (32-36); Mean Corpuscular Hgb 28.8 pg (27.0-32.0); Mean Corpuscular Volume 92.1 fL (80-94); Mean Platelet Vol. 10.9 fl (6.2-12.0); Monocyte# 0.79 X10^3/uL; Monocyte% 9.8 % (0-10); NRBC Flagged by Analyzer 0 % (0-5); Neutrophil # 5.06 X10^3/uL (2.7-7.7); Neutrophil % 62.7 % (47-70); Platelet Count 228 K/mm3 (150-450); RBC Distribution Width CV 13.8 % (11.6-14.6); RBC Distribution Width SD 47.1 fl (35.1-43.9); Red Blood Count 4.31 M/mm3 (4.6-6.2); White Blood Count 8.1 K/mm3 (4.4-11.0)
[2021-10-08 10:34] LABS: ALB/GLOB Ratio 0.8 RATIO (0.9-2.4); AST(SGOT) 21 U/L (15-37); Alanine Aminotransfer ALT/SGPT 23 U/L (16-61); Albumin, Serum 3.8 g/dL (3.2-5.0); Alkaline Phosphatase 90 U/L (45-117); Anion Gap 5 (5-15); BUN 32 mg/dL (7-18); BUN/Creat Ratio 24.8 RATIO (10-20); CRP 4.38 mg/L (0.0-3.0); Calcium,Total 8.9 mg/dL (8.5-10.1); Chloride 109 mmol/L (98-107); Creatinine, Serum 1.29 mg/dL (0.70-1.30); EST Glomerular Filtration Rate 59 mL/min (>60); Est Glom Filt Rate - Afr Amer 71 mL/min (>60); Globulin 4.7 g/dL (2.2-4.2); Glucose 104 mg/dL (74-106); Potassium 4.8 mmol/L (3.5-5.1); Protein, Total 8.5 g/dL (6.4-8.2); Sodium Level 137 mmol/L (136-145)
[2021-10-08 10:47] LABS: Microalbumin,Random Urine 74.4 mg/L (NO RANGE EST.); Microalbumin:Creatinine Ratio 70.9 mg/g CRE (<30 mg/g CRE)
== END | disposition home or self-care (01) ==
LOC: MTLAB 08:28
PROVIDERS: PCP Family Medicine; Referring Provider Family Medicine; Visit Provider Family Medicine
DX: I10 Essential (primary) hypertension (principal); Z96.652 Presence of left artificial knee joint
CPT/HCPCS: 36415; 80053; 82043; 82570; 85025; 86140

== ENCOUNTER 2021-11-19 08:30 | Outpatient (RCR) | payer MEDICARE, OTHER, SELFPAY ==
--- NOTE | 2021-09-17 11:11 | HP.PTEVAL ---
Patient's Visit Information JEREMY ARVIZU is a 70 year old M referred to Physical Therapy by BERNICE MARION with a diagnosis of LEFT TKR. Date of Evaluation: 09/17/21 Physical Therapist: Isael Up, PT, Cert MDT, OCS - Visit Plan Frequency: 3x /Week Duration: 5 WEEKS Plan: PT INTERVETIONS FOCUS ON ROM,STRETCHING KNEE ,STRENGTH QUADS/HAMS/HIP ,FUNCTIONALD STRENGTH AND GAIT/BALNCE TRAINING ,CP - Subjective This 70 y/o male presents to physical therapy for left TKR. Patient initially had left TKR Jun 2020. Patient had pain then in October pain worsen with with loss ROM and had fall . Seen December return to PT wasn't getting better . Looked at back which was -. Then developed abscess which worsen .Eventually, had infection then Apr 07 placed antibiotic spacer. Patient had left knee immobilizer with fww TTDW ,also had IV antibiotic for 6weeks for Staph infection but developed COVID . Then eventually had TKR revision August 20 at [facility] done by DR Collier . Patient had [facility] PT for 6weeks. Seen DR Collier next . Patient has no paresthesia /tingling. Patient able able dress patient has some assist with bathing. Patient family has assist with food. Home situation 1 story with 3 steps rail. Walkii shower ,grab bars and elevated toilet seat. 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 PMH: right TKR ,RTS RIGHT, lumbar fusion fusion x2, CTS ,elbow surgery .Patient. condition of TKR affects QOL and function .MEDS: oxycodone,. VOCATION: [employer]. SOCIAL: single. - Pain Left Knee Pain Intensity (Out of 10): 4 Pain Intensity Range: 10 - Objective POSTURE: mild forward posture. GAIT: ambulates with mild decrease stance time and swing phase left leg. STAIR: one step at time with rail. BALANCE: fair+. GIRTH PATELLA: 45.1 CM. GIRTH 6 SUPRAPATELLA: 48.2. AAROM: 5-97 degrees supine flexion. MMT (peak force): quads 29.2,hamstrings 27.5,hip flexion 24.8 - Balance/Special Test Scores Lower Extremity Functional Score: 13 TUG Test Time Seconds: 11.9 WOMAC Total Score: 57 WOMAC Percentatge: 35.2300 - Goals Goal 1:: Patient to be I with HEP TKR Goal Time Frame: 4-6 Weeks Goal 2:: Patient to normalize gait pattern no gait Goal Time Frame: 4-6 Weeks Goal 3:: Patient to improve WOMAC score by 10 points to improve gait Goal Time Frame: 4-6 Weeks Goal 4:: Patient to improve AROM 0-110 knee flexion to improve stairs alternating. 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 Rehabilitation Potential: Good - Anticipated Interventions Patient/Client Instruction: Educate patient on: Condition, Plan of Care For the Purpose of:: To decrease pain, To increase ROM, To improve muscle performance and motor function, To improve ability to perform ADL's, To increase tolerance to activity/condition/position, To improve performance and independence with ADL's, To improve ability of physical actions for home/community/work/leisure, To decrease soft tissue restriction, To increase flexibility/ROM, To improve endurance, To improve balance Therapeutic Exercise to Include: Strength training, Endurance training, Balance training, Flexibilty training, Passive ROM, Active ROM Comment: QUADS/HAMS/HIP For the Purpose of:: To decrease pain, To increase ROM, To improve muscle performance and motor function, To increase tolerance to activity/condition/position, To improve performance and independence with ADL's, To improve ability of physical actions for home/community/work/leisure, To improve health of tissue, To decrease soft tissue restriction, To increase flexibility/ROM, To improve endurance, To improve balance Thank you for the opportunity to evaluate your patient. For Medicare and Medicare HMO plans, please review the plan of care and approve it. It will need to be FAXED BACK to us at [phone] for Medicare purposes. For Medicare only, by signing this I certify the plan of care. Please let me know if there are questions or concerns regarding this plan of care. Physician Signature: Date:
--- NOTE | 2021-09-17 17:30 | HP.PTEVAL ---
Patient's Visit Information JEREMY ARVIZU is a 70 year old M referred to Physical Therapy by BERNICE MARION with a diagnosis of LEFT TKR. Date of Evaluation: 09/17/21 Physical Therapist: Isael Up, PT, Cert MDT, OCS - Visit Plan Frequency: 3x /Week Duration: 5 WEEKS Plan: PT INTERVETIONS FOCUS ON ROM,STRETCHING KNEE ,STRENGTH QUADS/HAMS/HIP ,FUNCTIONALD STRENGTH AND GAIT/BALNCE TRAINING ,CP - Subjective This 70 y/o male presents to physical therapy for left TKR. Patient initially had left TKR Jun 2020. Patient had pain then in October pain worsen with with loss ROM and had fall . Seen December return to PT wasn't getting better . Looked at back which was -. Then developed abscess which worsen .Eventually, had infection then Apr 07 placed antibiotic spacer. Patient had left knee immobilizer with fww TTDW ,also had IV antibiotic for 6weeks for Staph infection but developed COVID . Then eventually had TKR revision August 20 at [facility] done by DR Collier . Patient had [facility] PT for 6weeks. Seen DR Collier next . Patient has no paresthesia /tingling. Patient able able dress patient has some assist with bathing. Patient family has assist with food. Home situation 1 story with 3 steps rail. Walkii shower ,grab bars and elevated toilet seat. 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 PMH: right TKR ,RTS RIGHT, lumbar fusion fusion x2, CTS ,elbow surgery .Patient. condition of TKR affects QOL and function .MEDS: oxycodone,. VOCATION: [employer]. SOCIAL: single. - Pain Left Knee Pain Intensity (Out of 10): 4 Pain Intensity Range: 10 - Objective POSTURE: mild forward posture. GAIT: ambulates with mild decrease stance time and swing phase left leg. STAIR: one step at time with rail. BALANCE: fair+. SKIN: well approximate with sterry strips intact. GIRTH PATELLA: 45.1 CM. GIRTH 6 SUPRAPATELLA: 48.2. AAROM: 5-97 degrees supine flexion. MMT (peak force): quads 29.2,hamstrings 27.5,hip flexion 24.8 - Balance/Special Test Scores Lower Extremity Functional Score: 13 TUG Test Time Seconds: 11.9 WOMAC Total Score: 57 WOMAC Percentatge: 35.2300 - Goals Goal 1:: Patient to be I with HEP TKR Goal Time Frame: 4-6 Weeks Goal 2:: Patient to normalize gait pattern no gait Goal Time Frame: 4-6 Weeks Goal 3:: Patient to improve WOMAC score by 10 points to improve gait Goal Time Frame: 4-6 Weeks Goal 4:: Patient to improve AROM 0-110 knee flexion to improve stairs alternating. 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 Rehabilitation Potential: Good - Anticipated Interventions Patient/Client Instruction: Educate patient on: Condition, Plan of Care For the Purpose of:: To decrease pain, To increase ROM, To improve muscle performance and motor function, To improve ability to perform ADL's, To increase tolerance to activity/condition/position, To improve performance and independence with ADL's, To improve ability of physical actions for home/community/work/leisure, To decrease soft tissue restriction, To increase flexibility/ROM, To improve endurance, To improve balance Therapeutic Exercise to Include: Strength training, Endurance training, Balance training, Flexibilty training, Passive ROM, Active ROM Comment: QUADS/HAMS/HIP For the Purpose of:: To decrease pain, To increase ROM, To improve muscle performance and motor function, To increase tolerance to activity/condition/position, To improve performance and independence with ADL's, To improve ability of physical actions for home/community/work/leisure, To improve health of tissue, To decrease soft tissue restriction, To increase flexibility/ROM, To improve endurance, To improve balance Thank you for the opportunity to evaluate your patient. For Medicare and Medicare HMO plans, please review the plan of care and approve it. It will need to be FAXED BACK to us at [phone] for Medicare purposes. For Medicare only, by signing this I certify the plan of care. Please let me know if there are questions or concerns regarding this plan of care. Physician Signature: Date:
--- NOTE | 2021-10-19 09:27 | HP.PTREVAL_ITS ---
BERNICE MARION, It has been my pleasure to treat JEREMY ARVIZU over the last 14 visits for LEFT TKR. Please see the progress note below for an update on the physical therapy plan of care! 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 STAIRS: ascend/descend 12steps with rail. AROM: 2 -115 supine knee flexion. MMT( peak force) quads 47.3,hamstrings 27.6 Plan Plan: PT INTERVENTIONS FOCUS ON ROM/STRETCHING OF KNEE, STRENGTH QUADS/HAMS/HIP, FUNCTIONAL STRENGTH AND GAIT/BALANCE TRAINING, CP Balance/Gait/Functional tests - Balance/Special Test Scores Lower Extremity Functional Score: 49 TUG Test Time Seconds: 11.9 Tug Test: <20 sec.=mostly independent WOMAC Total Score: 57 WOMAC Percentage: 35.2300 Goals Goal 1:: Patient to be I with HEP TKR Goal Time Frame: 4-6 Weeks Goal Progress: Progressing Goal 2:: Patient to normalize gait pattern no gait Goal Time Frame: 4-6 Weeks Goal Progress: Progressing Goal 3:: Patient to improve WOMAC score by 10 points to improve gait Goal Time Frame: 4-6 Weeks Goal Progress: Progressing Goal 4:: Patient to improve AROM 0-110 knee flexion to improve stairs alter nating.(goal met). 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) Goal Time Frame: 4-6 Weeks Goal 6:: Patient to improve LFES score by 10 points to improve QOL and function Goal Time Frame: 4-6 Weeks Goal Progress: Progressing Anticipated Interventions Patient/Client Instruction: Educate patient on: Condition, Plan of Care For the Purpose of:: To decrease pain, To increase ROM, To improve muscle performance and motor function, To improve ability to perform ADL's, To increase tolerance to activity/condition/position, To improve performance and independence with ADL's, To improve ability of physical actions for home/community/work/leisure, To decrease soft tissue restriction, To increase flexibility/ROM, To improve endurance, To improve balance Therapeutic Exercise to Include: Strength training, Endurance training, Balance training, Flexibilty training, Passive ROM, Active ROM Comment: QUADS/HAMS/HIP For the Purpose of:: To decrease pain, To increase ROM, To improve muscle performance and motor function, To increase tolerance to activity/condition/position, To improve performance and independence with ADL's, To improve ability of physical actions for home/community/work/leisure, To improve health of tissue, To decrease soft tissue restriction, To increase flexibility/ROM, To improve endurance, To improve balance Please do not hesitate to contact me at [phone] by phone or if you have questions or concerns regarding this new plan of care! Sincerely, Isael Up, PT, Cert MDT, OCS
--- NOTE | 2021-11-19 09:28 | HP.PTDCSUM ---
It has been my pleasure to treat JEREMY ARVIZU referred by BERNICE MARION, with the diagnosis of LEFT TKR for a total of 23 visit(s). Discharge Date: 11/19/21 Please see the following information for a summary of their discharge status. Subjective: Doing well.. ready for d/c Left Knee Pain Intensity (Out of 10): 0 % Improvement: 75 Objective/Function: STAIRS: alternating with steps. GAIT: reciprocal pattern. MMT: 58.8 QUADS,HAMS 54.4. AAROM: 0-120 DEGREES Goal 1:: Patient to be I with HEP TKR Goal Progress: Progressing Goal 2:: Patient to normalize gait pattern no gait Goal Progress: Goal Met Goal 3:: Patient to improve WOMAC score by 10 points to improve gait Goal Progress: Goal Met Goal 4:: Patient to improve AROM 0-110 knee flexion to improve stairs alternating.(goal met). 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 Thank you for the referral of this patient. Sincerely, Isael Up, PT, Cert MDT, OCS Balance/Gait/Functional tests - Balance/Special Test Scores Lower Extremity Functional Score: 67 TUG Test Time Seconds: 11.9 Tug Test: <10 sec.=free mobile WOMAC Total Score: 8 WOMAC Percentage: 91.6700
== END 2021-11-19 19:00 | disposition home or self-care (01) ==
LOC: PT 08:30
PROVIDERS: PCP Family Medicine
DX: Z47.1 Aftercare following joint replacement surgery (principal)
CPT/HCPCS: 97110; 97162

== ENCOUNTER → 2022-04-21 | Outpatient (CLI) | payer MEDICARE, OTHER, SELFPAY ==
[2022-04-21 12:56] LABS: ALB/GLOB Ratio 0.9 RATIO (0.9-2.4); AST(SGOT) 24 U/L (15-37); Alanine Aminotransfer ALT/SGPT 25 U/L (16-61); Albumin, Serum 3.8 g/dL (3.2-5.0); Alkaline Phosphatase 86 U/L (45-117); Anion Gap 7 (5-15); BUN 33 mg/dL (7-18); BUN/Creat Ratio 27.5 RATIO (10-20); Calcium,Total 9.3 mg/dL (8.5-10.1); Chloride 107 mmol/L (98-107); EST Glomerular Filtration Rate 64 mL/min (>60); Est Glom Filt Rate - Afr Amer 77 mL/min (>60); Globulin 4.3 g/dL (2.2-4.2); Glucose 95 mg/dL (74-106); Potassium 5.1 mmol/L (3.5-5.1); Protein, Total 8.1 g/dL (6.4-8.2); Sodium Level 137 mmol/L (136-145)
[2022-04-21 13:14] LABS: Microalbumin,Random Urine 32.5 mg/L (NO RANGE EST.); Microalbumin:Creatinine Ratio 73.4 mg/g CRE (<30 mg/g CRE)
== END | disposition home or self-care (01) ==
LOC: MFPLAB 10:32
PROVIDERS: PCP Family Medicine; Referring Provider Family Medicine; Visit Provider Family Medicine
DX: I10 Essential (primary) hypertension (principal)
CPT/HCPCS: 36415; 80053; 82043; 82570

== ENCOUNTER → 2022-07-13 | Outpatient (CLI) | payer MEDICARE, OTHER, SELFPAY ==
--- NOTE | 2022-07-13 12:00 | CT_ITS ---
STUDY: CT ABDOMEN AND PELVIS WITHOUT CONTRAST REASON FOR EXAM: Male, 71 years old. Hematuria RADIATION DOSAGE (If Supplied By Facility): CTDIvol = ( 9.55 ) mGy, DLP = ( 527.33 ) mGycm TECHNIQUE: Transaxial images were obtained from the dome of the diaphragm to the symphysis pubis without oral contrast, and without intravenous contrast. Sagittal and coronal images were reconstructed. Individualized dose optimization techniques were used for this CT. COMPARISON: None. FINDINGS: The visualized lung bases are unremarkable. Coronary calcifications. Normal liver. Normal gallbladder and extrahepatic biliary system. Normal spleen. Normal pancreas. Normal bilateral adrenal glands. Normal right kidney. Normal left kidney. There is a small hiatal hernia. Normal small intestine. There are multiple colonic diverticula consistent with diverticulosis. The appendix is visualized and appears normal. There is scattered atherosclerotic calcification of the abdominal aorta and major visceral branches, without a demonstrated aneurysm. Normal inferior vena cava. There is borderline retroperitoneal lymphadenopathy with enlarged nodes no greater than 10mm in the short axis diameter. Mild bladder wall thickening. There is enlargement of the prostate gland. The prostate measures 4.5 cm x 4.4 cm. This causes indentation at the bladder base. Central prostatic calcification. Normal abdominal wall. Prior screw and mindy fixation at the L2-L3 and L3-L4 levels. Stable anterolisthesis of L4 on L5 with a marked degree of disc space narrowing. CT/Abdomen/Pelvis without Cont IMPRESSION: Prostatic enlargement with an indentation at the bladder base. Mild degree of bladder wall thickening. Sigmoid diverticulosis. Electronically Signed: Miguelito Holland MD at 12:53 EST ,
[2022-07-13 12:48] LABS: Hemoglobin 13.3 g/dL (13.0-16.5); Mean Corp Hgb Conc 30.9 g/dL (32-36); Mean Corpuscular Hgb 28.7 pg (27.0-32.0); Mean Corpuscular Volume 92.7 fL (80-94); Mean Platelet Vol. 11.2 fl (6.2-12.0); Platelet Count 220 K/mm3 (150-450); RBC Distribution Width CV 13.7 % (11.6-14.6); RBC Distribution Width SD 47.3 fl (35.1-43.9); Red Blood Count 4.64 M/mm3 (4.6-6.2); White Blood Count 9.8 K/mm3 (4.4-11.0)
[2022-07-13 13:11] LABS: Anion Gap 6 (5-15); BUN 41 mg/dL (7-18); BUN/Creat Ratio 31.1 RATIO (10-20); Calcium,Total 9.6 mg/dL (8.5-10.1); Chloride 108 mmol/L (98-107); Creatinine, Serum 1.32 mg/dL (0.70-1.30); EST Glomerular Filtration Rate 57 mL/min (>60); Est Glom Filt Rate - Afr Amer 69 mL/min (>60); Glucose 95 mg/dL (74-106); PSA,Total- Diagnostic 2.63 ng/mL (0.0-4.0); Potassium 5.6 mmol/L (3.5-5.1); Sodium Level 137 mmol/L (136-145)
== END | disposition home or self-care (01) ==
PROVIDERS: PCP Family Medicine; Referring Provider Family Medicine; Visit Provider Family Medicine
DX: R31.9 Hematuria, unspecified (principal)
CPT/HCPCS: 36415; 74176; 80048; 84153; 85027; 87077; 87086; 87088; 87186

== ENCOUNTER → 2022-07-19 | Outpatient (CLI) | payer MEDICARE, OTHER, SELFPAY ==
--- NOTE | 2022-07-19 12:47 | EKG12_ITS ---
Test Reason : PRE OP Blood Pressure : / mmHG Vent. Rate : 059 BPM Atrial Rate : 059 BPM P-R Int : 208 ms QRS Dur : 082 ms QT Int : 416 ms P-R-T Axes : 063 -48 003 degrees QTc Int : 411 ms Sinus bradycardia with Premature atrial complexes Left axis deviation Inferior infarct , age undetermined Anterior infarct , age undetermined Abnormal ECG Confirmed by ANNALISA TRUJILLO, JILLIAN ([id number]), sports editor LUKE MCNAMARA ([id number]) on 07/21/2022 10:20:37 AM Referred By: Arnulfo Felder Confirmed By:JILLIAN FANG MD
== END | disposition home or self-care (01) ==
LOC: PSN 12:36
PROVIDERS: PCP Family Medicine; Referring Provider Urology; Visit Provider Urology
DX: Z01.810 Encounter for preprocedural cardiovascular examination (principal); R00.1 Bradycardia, unspecified
CPT/HCPCS: 93005

== ENCOUNTER → 2022-07-29 | Outpatient (CLI) | payer MEDICARE, OTHER, SELFPAY ==
--- NOTE | 2022-07-29 08:00 | BLA_PTH ---
PATIENT: JEREMY ARVIZU LOC: [facility] U#:[id number] AGE/SX: 71/M ROOM: RE07/29/[address]: Dr. Arnulfo Felder MD : [id number] BED: DIS: 07/29/2022 SPEC #: [id number] RECD: 07/29/22 14:50 STATUS: MEAGHAN NAIDA #: [id number] NANCIE: 07/29/22 08:[address]: Arnulfo Felder DEPT: SURGICAL PATHOLOGY RECD BY: Nataliya Quinones ENTERED: 08/01/22 11:22 SP TYPE: BLADDER BX OTHR DR: Dr. Jose L Li MD [facility] Tissues: A - Urinary bladder, NOS B - Urinary bladder, NOS C - Urinary bladder, NOS Procedures: Surgery Specimen Level IV HEADER OPERATION: Transurethral resection bladder tumor, cystoscopy with retrograde pyelogram PRE-OP DIAGNOSIS: Neoplasm of bladder, gross hematuria TISSUE SUBMITTED: A ? Left lateral wall, B ? Trigone, C ? Right lateral wall MICROSCOPIC DIAGNOSIS A. Urinary bladder, left lateral wall, transurethral resection: Urothelium with acute and chronic inflammation. B. Urinary bladder, trigone region, transurethral resection: Urothelium with acute and chronic inflammation. Mild urothelial atypia, favor reactive. C. Urinary bladder, right lateral wall, transurethral resection: Acute and chronic inflammation. AM:elizabeth 08/02/2022 MICROSCOPIC DESCRIPTION Slides are reviewed. GROSS DESCRIPTION A - Received in fixative is one container labeled with the patient's name and designated left lateral wall. The specimen consists of one irregular fragment of light mosley soft tissue that measures 0.2 x 0.1 x 0.1 cm. The specimen is totally submitted in one cassette. B - Received in fixative is one container labeled with the patient's name and designated trigone. The specimen consists of two irregular fragments of light mosley soft tissue that in aggregate measure 0.3 x 0.2 x 0.1 cm. The specimen is totally submitted in one cassette. C - Received in fixative is one container labeled with the patient's name and designated right lateral wall. The specimen consists of one irregular fragment of light mosley soft tissue that measures 0.4 x 0.1 x 0.1 cm. The specimen is totally submitted in one cassette. / SJ:elizabeth 08/01/2022 TC:2 CPT: 37488 x3
== END | disposition home or self-care (01) ==
LOC: LABSPEC 15:04
PROVIDERS: PCP Family Medicine; Visit Provider Urology
DX: D41.4 Neoplasm of uncertain behavior of bladder (principal); R31.0 Gross hematuria
CPT/HCPCS: 88305

== ENCOUNTER → 2022-10-04 | Outpatient (CLI) | payer MEDICARE, OTHER, SELFPAY ==
[2022-10-04 10:19] LABS: Absolute Lymphocyte Count 1.74 X10^3/uL (0.83-4.51); Basophil# 0.06 X10^3/uL; Basophil% 0.8 % (0-1); Eosinophil# 0.21 X10^3/uL; Eosinophils% 2.7 % (0-5); Hematocrit 42.2 % (40-54); Hemoglobin 13.2 g/dL (13.0-16.5); Lymphocyte # 1.74 X10^3/ul (0.83-4.51); Lymphocyte % 22.3 % (19-41); Mean Corp Hgb Conc 31.3 g/dL (32-36); Mean Corpuscular Hgb 28.9 pg (27.0-32.0); Mean Corpuscular Volume 92.5 fL (80-94); Mean Platelet Vol. 10.8 fl (6.2-12.0); Monocyte# 0.71 X10^3/uL; Monocyte% 9.1 % (0-10); NRBC Flagged by Analyzer 0 % (0-5); Neutrophil # 5.04 X10^3/uL (2.7-7.7); Neutrophil % 64.7 % (47-70); Platelet Count 198 K/mm3 (150-450); RBC Distribution Width CV 13.8 % (11.6-14.6); RBC Distribution Width SD 47.1 fl (35.1-43.9); Red Blood Count 4.56 M/mm3 (4.6-6.2); White Blood Count 7.8 K/mm3 (4.4-11.0)
[2022-10-04 11:00] LABS: ALB/GLOB Ratio 0.9 RATIO (0.9-2.4); AST(SGOT) 20 U/L (15-37); Alanine Aminotransfer ALT/SGPT 24 U/L (16-61); Albumin, Serum 3.7 g/dL (3.2-5.0); Alkaline Phosphatase 82 U/L (45-117); Anion Gap 1 (5-15); BUN 36 mg/dL (7-18); BUN/Creat Ratio 30.3 RATIO (10-20); Calcium,Total 9.1 mg/dL (8.5-10.1); Chloride 112 mmol/L (98-107); Cholesterol 108 mg/dL (200); Creatinine, Serum 1.19 mg/dL (0.70-1.30); EST Glomerular Filtration Rate 64 mL/min (>60); Est Glom Filt Rate - Afr Amer 78 mL/min (>60); Globulin 4.2 g/dL (2.2-4.2); Glucose 105 mg/dL (74-106); High Density Lipoprotein 37 mg/dL; Protein, Total 7.9 g/dL (6.4-8.2); Sodium Level 136 mmol/L (136-145)
[2022-10-05 05:07] LABS: LDL, Direct 120295 59 mg/dL (0-99)
== END | disposition home or self-care (01) ==
LOC: MFPLAB 09:17
PROVIDERS: PCP Family Medicine; Visit Provider Family Medicine
DX: G45.9 Transient cerebral ischemic attack, unspecified (principal); N18.1 Chronic kidney disease, stage 1; E78.00 Pure hypercholesterolemia, unspecified
CPT/HCPCS: 36415; 80053; 82465; 83718; 83721; 85025

== ENCOUNTER → 2022-10-07 | Outpatient (CLI) | payer MEDICARE, OTHER, SELFPAY ==
--- NOTE | 2022-10-07 11:08 | MRI_ITS ---
EXAM: MR HEAD WITHOUT INTRAVENOUS CONTRAST CLINICAL INDICATION: change in mentation after surgery, hx of TIA TECHNIQUE: Multiplanar and multisequence MR images of the brain were obtained without intravenous contrast. This report was created using [employer] report [employer] technology. COMPARISON: None. FINDINGS: BRAIN AND EXTRA-AXIAL SPACES: Unremarkable. No intra- or extra-axial hemorrhage. No intracranial mass or mass effect. Posterior fossa structures are unremarkable. Ventricles are appropriate for age. No hydrocephalus. Basal cisterns are patent. No diffusion restriction to suspect acute or subacute ischemic infarct. SELLA: Unremarkable. Normal sella turcica, pituitary gland, infundibular stalk, optic chiasm and hypothalamus. AUDITORY SYSTEM: Unremarkable. The internal auditory canals are patent. BONES/JOINTS: Unremarkable. No discrete lytic or blastic abnormalities. SINUSES: Unremarkable as visualized. Clear. MASTOID AIR CELLS: Unremarkable as visualized. Clear. ORBITS: Unremarkable as visualized. Both globes, extraocular muscles, optic nerves and retrobulbar fat appear unremarkable. VASCULATURE: Unremarkable as visualized. Normal flow voids in the major intracranial circulation. MRI/Brain without Contrast IMPRESSION: Negative MRI brain without intravenous contrast. Electronically Signed: Roberth Mcfarland MD at 14:44 EDT ,
== END | disposition home or self-care (01) ==
LOC: MRI 11:08
PROVIDERS: PCP Family Medicine; Referring Provider Family Medicine; Visit Provider Family Medicine
DX: G45.9 Transient cerebral ischemic attack, unspecified (principal)
CPT/HCPCS: 70551

== ENCOUNTER → 2022-11-09 | Outpatient (CLI) | payer MEDICARE, OTHER, SELFPAY ==
[2022-11-09 10:34] LABS: Absolute Lymphocyte Count 1.95 X10^3/uL (0.83-4.51); Absolute Neutrophil Count 5.2 X10^3/uL (2.0-7.7); Basophil# 0.06 X10^3/uL; Basophil% 0.7 % (0-1); Eosinophil# 0.24 X10^3/uL; Eosinophils% 2.9 % (0-5); Hematocrit 40.5 % (40-54); Hemoglobin 12.6 g/dL (13.0-16.5); Lymphocyte # 1.95 X10^3/ul (0.83-4.51); Lymphocyte % 23.3 % (19-41); Mean Corp Hgb Conc 31.1 g/dL (32-36); Mean Corpuscular Hgb 29.1 pg (27.0-32.0); Mean Corpuscular Volume 93.5 fL (80-94); Mean Platelet Vol. 11.2 fl (6.2-12.0); Monocyte# 0.92 X10^3/uL; NRBC Flagged by Analyzer 0 % (0-5); Neutrophil # 5.17 X10^3/uL (2.7-7.7); Neutrophil % 61.9 % (47-70); Platelet Count 185 K/mm3 (150-450); RBC Distribution Width CV 13.8 % (11.6-14.6); RBC Distribution Width SD 47.3 fl (35.1-43.9); Red Blood Count 4.33 M/mm3 (4.6-6.2); White Blood Count 8.4 K/mm3 (4.4-11.0)
[2022-11-09 10:54] LABS: BNP,B-Type NATRIURETIC PEPTIDE 194.9 pg/mL (0-100)
[2022-11-09 10:56] LABS: Anion Gap 6 (5-15); BUN 36 mg/dL (7-18); BUN/Creat Ratio 28.8 RATIO (10-20); Calcium,Total 9.1 mg/dL (8.5-10.1); Chloride 111 mmol/L (98-107); Creatinine, Serum 1.25 mg/dL (0.70-1.30); EST Glomerular Filtration Rate 61 mL/min (>60); Est Glom Filt Rate - Afr Amer 73 mL/min (>60); Glucose 103 mg/dL (74-106); Potassium 4.9 mmol/L (3.5-5.1); Sodium Level 139 mmol/L (136-145)
== END | disposition home or self-care (01) ==
LOC: LAB 09:55
PROVIDERS: PCP Family Medicine; Referring Provider Nurse Practitioner Gerontology; Visit Provider Nurse Practitioner Gerontology
DX: R06.09 Other forms of dyspnea (principal)
CPT/HCPCS: 36415; 80048; 83880; 85025

== ENCOUNTER → 2022-11-15 | Outpatient (CLI) | payer MEDICARE, OTHER, SELFPAY ==
[2022-11-15 12:00] LABS: Anion Gap 7 (5-15); BUN 73 mg/dL (7-18); BUN/Creat Ratio 44.5 RATIO (10-20); Chloride 109 mmol/L (98-107); Creatinine, Serum 1.64 mg/dL (0.70-1.30); EST Glomerular Filtration Rate 44 mL/min (>60); Est Glom Filt Rate - Afr Amer 54 mL/min (>60); Glucose 103 mg/dL (74-106); Potassium 4.9 mmol/L (3.5-5.1); Sodium Level 139 mmol/L (136-145)
== END | disposition home or self-care (01) ==
LOC: LAB 10:16
PROVIDERS: PCP Family Medicine; Visit Provider Nurse Practitioner Gerontology
DX: R06.09 Other forms of dyspnea (principal)
CPT/HCPCS: 36415; 80048

== ENCOUNTER → 2022-11-17 | Outpatient (CLI) | payer MEDICARE, OTHER, SELFPAY ==
--- NOTE | 2022-11-17 06:27 | ECHOD_ITS ---
Reason For Study: YANEZ, PRE OP Procedure This was a 2D Doppler, Color Flow transthoracic echocardiogram. Exam performed in department. Left Ventricle Normal LV size. Moderate concentric left ventricular hypertrophy. Left ventricular systolic function is normal. The estimated ejection fraction is 60 %. Stage 1 diastolic dysfunction. No regional wall motion abnormalities noted. Right Ventricle Normal RV size. Normal systolic function. Atria Normal left atrium. Normal right atrium. Mitral Valve Normal mitral valve. Tricuspid Valve Normal tricuspid valve. Mild tricuspid valve insufficiency. Pulmonary artery systolic pressure is 24 mmHg. Aortic Valve Trisinus/trileaflet aortic valve. Mild focal aortic valve thickening. Pulmonic Valve Normal pulmonic valve. Mild (1+) pulmonic valve insufficiency. Great Vessels Mildly dilated aortic root. The pulmonary artery is normal size. Inferior vena cava collapse with respiration. Pericardium/Pleural No pericardial effusion. MMode/2D Measurements & Calculations LVIDd: 4.2 cm IVSd: 1.6 cm Ao root diam: 4.0 cm LVIDs: 3.0 cm LVPWd: 1.3 cm RVDd: 2.9 cm FS: 28.6 % LAV(MOD-bp): 55.5 ml LVAd ap4: 36.2 cm2 LVAd ap2: 31.1 cm2 LAV(MOD-bp) Indexed: 28.1 ml/m2 LVLd ap4: 8.6 cm LVLd ap2: 8.2 cm LAV(MOD-sp2): 51.3 ml EDV(MOD-sp4): 124.2 ml EDV(MOD-sp2): 100.1 ml LAV(MOD-sp4): 55.4 ml EDV(sp4-el): 129.8 ml EDV(sp2-el): 100.6 ml LVAs ap4: 20.9 cm2 LVAs ap2: 17.8 cm2 LVLs ap4: 7.3 cm LVLs ap2: 6.8 cm ESV(MOD-sp4): 49.6 ml ESV(MOD-sp2): 41.0 ml ESV(sp4-el): 50.5 ml ESV(sp2-el): 39.4 ml EF(MOD-sp4): 60.0 % EF(MOD-sp2): 59.0 % EF(sp4-el): 61.1 % SV(MOD-sp4): 74.5 ml SV(MOD-sp2): 59.1 ml SV(sp4-el): 79.3 ml LA dimension(2D): 4.2 cm LA A4 area: 19.4 cm2 RA A4 area: 18.4 cm2 Time Measurements MV dec time: 0.31 sec Doppler Measurements & Calculations MV E max stanford: 49.8 cm/sec Lat Peak E' Stanford: 6.0 cm/sec Med Peak E' Stanford: 4.6 cm/sec MV A max stanford: 71.2 cm/sec E/E' lat: 8.4 E/E' med: 10.9 MV E/A: 0.70 MV dec slope: 164.2 cm/sec2 Ao V2 max: 138.8 cm/sec LV V1 max: 89.7 cm/sec Ao max P.7 mmHg LV V1 max P.2 mmHg Ao V2 mean: 94.9 cm/sec LV V1 mean P.0 mmHg Ao mean P.1 mmHg LV V1 mean: 68.6 cm/sec Ao V2 VTI: 30.9 cm LV V1 VTI: 19.8 cm AV (velocity ratio): 0.64 PA V2 max: 83.6 cm/sec TR max stanford: 225.5 cm/sec PA V2 mean: 59.4 cm/sec TR max P.3 mmHg ECHO/Echo Complete Interpretation Summary Normal LV size. Moderate concentric left ventricular hypertrophy. Left ventricular systolic function is normal. The estimated ejection fraction is 60 %. Stage 1 diastolic dysfunction. Ordering Physician: Jess Trent Referring Physician: Jose L Li Performed By: Nida Puri, CHRIS, RVT
--- NOTE | 2022-11-17 12:14 | STRESSREP ---
Stress Test Report Exercise myocardial perfusion stress test. 71-year-old man with a history of dyspnea on exertion preoperative cardiac evaluation Stress protocol: Resting EKG demonstrates sinus rhythm with a rate of 61 bpm resting blood pressure is 152/70 mmHg. The patient exercised according to the regular Edouard protocol for a total duration of 6 minutes attaining a maximum heart rate of 142 bpm which was 94% of maximum predicted heart rate; the maximum workload was 7.2 metabolic equivalents. At rest there were no ST or T wave changes noted to suggest ischemia and at peak exercise upsloping ST changes only were noted which did not meet the criteria for ischemia. No clinical angina was noted the test was terminated due to the target heart rate being achieved/fatigue. The peak blood pressure was 162/98 mmHg. Rate-pressure product was 19,400. Myocardial perfusion protocol. 11.9 mCi of technetium 99m sestamibi was injected at rest. The patient exercised according to regular Edouard protocol for total duration of 6 minutes and at peak exercise 34.2 mCi of technetium 99m sestamibi was injected stress images were obtained stress and rest images were reconstructed in comparing the short axis vertical long and horizontal long axis. Gated images were also obtained. Perfusion SPECT analysis: Review of the stress images demonstrate normal uptake of tracer noted in all areas of the myocardium. The resting images similarly demonstrate normal uptake of tracer noted in all areas of the myocardium. No areas of reversibility are noted to suggest ischemia no previous infarct was noted. Gated SPECT analysis: The gated ejection fraction is 56%. Conclusion: Normal exercise myocardial perfusion stress test at a moderate workload Preserved ejection fraction.
== END | disposition home or self-care (01) ==
LOC: CVS 06:24
PROVIDERS: PCP Family Medicine; Referring Provider Nurse Practitioner Gerontology; Visit Provider Nurse Practitioner Gerontology
DX: Z01.810 Encounter for preprocedural cardiovascular examination (principal); R06.09 Other forms of dyspnea
CPT/HCPCS: 78452; 93017; 93306; A9500; A4216

== ENCOUNTER → 2023-03-14 | Outpatient (CLI) | payer MEDICARE, OTHER, SELFPAY ==
[2023-03-14 15:22] LABS: Absolute Lymphocyte Count 1.81 X10^3/uL (0.83-4.51); Absolute Neutrophil Count 5.5 X10^3/uL (2.0-7.7); Basophil# 0.05 X10^3/uL; Basophil% 0.6 % (0-1); Eosinophil# 0.16 X10^3/uL; Eosinophils% 1.9 % (0-5); Hematocrit 39.9 % (40-54); Hemoglobin 12.8 g/dL (13.0-16.5); Lymphocyte # 1.81 X10^3/ul (0.83-4.51); Lymphocyte % 21.6 % (19-41); Mean Corp Hgb Conc 32.1 g/dL (32-36); Mean Corpuscular Hgb 29.8 pg (27.0-32.0); Mean Corpuscular Volume 92.8 fL (80-94); Mean Platelet Vol. 11.1 fl (6.2-12.0); Monocyte# 0.78 X10^3/uL; Monocyte% 9.3 % (0-10); NRBC Flagged by Analyzer 0 % (0-5); Neutrophil # 5.54 X10^3/uL (2.7-7.7); Neutrophil % 66.2 % (47-70); Platelet Count 195 K/mm3 (150-450); RBC Distribution Width CV 13.9 % (11.6-14.6); RBC Distribution Width SD 47.8 fl (35.1-43.9); White Blood Count 8.4 K/mm3 (4.4-11.0)
[2023-03-14 16:30] LABS: ALB/GLOB Ratio 0.8 RATIO (0.9-2.4); AST(SGOT) 22 U/L (15-37); Alanine Aminotransfer ALT/SGPT 25 U/L (16-61); Albumin, Serum 3.8 g/dL (3.2-5.0); Alkaline Phosphatase 92 U/L (45-117); Anion Gap 6 (5-15); BUN 37 mg/dL (7-18); BUN/Creat Ratio 29.1 RATIO (10-20); Calcium,Total 9.3 mg/dL (8.5-10.1); Chloride 107 mmol/L (98-107); Creatinine, Serum 1.27 mg/dL (0.70-1.30); EST Glomerular Filtration Rate 59 mL/min (>60); Est Glom Filt Rate - Afr Amer 72 mL/min (>60); Globulin 4.5 g/dL (2.2-4.2); Glucose 88 mg/dL (74-106); Potassium 4.6 mmol/L (3.5-5.1); Protein, Total 8.3 g/dL (6.4-8.2); Sodium Level 139 mmol/L (136-145)
== END | disposition home or self-care (01) ==
LOC: MTLAB 11:15
PROVIDERS: PCP Family Medicine; Referring Provider Family Medicine; Visit Provider Family Medicine
DX: M15.9 Polyosteoarthritis, unspecified (principal); I10 Essential (primary) hypertension
CPT/HCPCS: 36415; 80053; 85025

== ENCOUNTER → 2023-08-31 | Outpatient (CLI) | payer MEDICARE, OTHER, SELFPAY ==
[2023-08-31 10:10] LABS: Hematocrit 40.6 % (40-54); Mean Corpuscular Hgb 29.1 pg (27.0-32.0); Mean Platelet Vol. 11.1 fl (6.2-12.0); Platelet Count 186 K/mm3 (150-450); RBC Distribution Width CV 14.3 % (11.6-14.6); RBC Distribution Width SD 47.6 fl (35.1-43.9); Red Blood Count 4.46 M/mm3 (4.6-6.2); White Blood Count 8.3 K/mm3 (4.4-11.0)
--- OUTSIDE RECORDS SUMMARY | 2023-08-31 10:24 | XMS RPT_ITS | CCD ---
Author Name Unknown Address [address] [place] [address] Organization [facility] Care Team Providers Care Assistant [employer] Name Role Phone Jose L Li Primary Care Provider Amira TRUJILLO, Miles Lubin Unavailable [phone] Clint DICKERSON, Carl Brady Unavailable Allergies Allergy Classification Reported Allergen(s) Allergy Type Date of Onset Reaction(s) Facility (1 source) Penicillins Propensity to adverse reactions to drug 1 Hives [facility] (1 source) Sulfur Drug Allergy 1 Hives [facility] Work Phone: (2 sources) Doxycycline Drug Allergy 1 nausea and ill feeling [facility] Work Phone: (2 sources) Penicillin G Drug Allergy 2 hives and fever [facility] Work Phone: (2 sources) Sulfonamides (Antibiotic) drug allergy 8 hives and shortness of breath [facility] Work Phone: Medications Current Medications Medication Drug Class(es) Dates Sig (Normalized) Sig (Original) cholecalciferol 1.25 mg oral capsule (1 source) Vitamin D Cholecalciferol (VITAMIN D3) 1.25 MG (62642 UT) CAPS Take by mouth Medication is taken on Saturdays. 0 Active Completed/Discontinued Medications Medication Drug Class(es) Dates Sig (Normalized) Sig (Original) 8 hr acetaminophen 650 mg extended release oral tablet (3 sources) TYLENOL 8 HOUR ARTHRITIS PAIN 650 MG CR-TABS 2 tablet by mouth as needed for pain acetaminophen [id number] Renea Toney LPN Problems Active Problems Problem Classification Problem Date Documented Date Episodic/Chronic Osteoarthritis (6 sources) Unilateral primary osteoarthritis, left knee; Translations: [Osteoarthrosis, localized, primary, lower leg] Onset: 10-09-2018 04-07-2020 Chronic Other aftercare (4 sources) Aftercare following joint replacement surgery; Translations: [Aftercare following joint replacement] Onset: 07-30-2020 04-22-2021 Chronic Other connective tissue disease (2 sources) Infection of total knee joint prosthesis; Translations: [Presence of unspecified artificial knee joint] Onset: 04-22-2021 04-22-2021 Chronic Other connective tissue disease (4 sources) Pain due to knee joint prosthesis; Translations: [Presence of left artificial knee joint] Onset: 01-07-2021 04-07-2021 Chronic Other connective tissue disease (2 sources) Presence of right artificial shoulder joint; Translations: [Shoulder joint replacement] Onset: 04-12-2019 04-12-2019 Chronic Other connective tissue disease (2 sources) History of total knee arthroplasty; Translations: [Presence of right artificial knee joint] Onset: 07-09-2015 07-09-2015 Chronic Spondylosis; intervertebral disc disorders; other back problems (8 sources) Degeneration of cervical intervertebral disc; Translations: [Other cervical disc degeneration, unspecified cervical region] Onset: 07-19-2017 02-14-2019 Chronic Past or Other Problems Problem Classification Problem Date Documented Date Episodic/Chronic Complication of device; implant or graft (4 sources) Infection of total knee joint prosthesis; Translations: [Infection and inflammatory reaction due to other internal joint prosthesis, initial encounter] Onset: 04-07-2021 04-22-2021 Episodic Complications of surgical procedures or medical care (2 sources) Postoperative wound abscess; Translations: [Infection following a procedure, other surgical site, initial encounter] Onset: 04-07-2021 04-07-2021 Episodic Joint disorders and dislocations; trauma-related (2 sources) Acute meniscal tear, medial; Translations: [Other tear of medial meniscus, current injury, left knee, initial encounter] Onset: 06-11-2020 06-11-2020 Episodic Joint disorders and dislocations; trauma-related (2 sources) Unspecified dislocation of right shoulder joint, initial encounter; Translations: [Closed dislocation of shoulder, unspecified] Onset: 02-05-2019 02-05-2019 Episodic Other acquired deformities (2 sources) Lumbar spondylolisthesis; Translations: [Spondylolisthesis, lumbar region] Onset: 03-28-2019 03-28-2019 Episodic Other connective tissue disease (2 sources) History of lumbar fusion; Translations: [Arthrodesis status] Onset: 07-11-2019 07-11-2019 Episodic Other connective tissue disease (2 sources) Disorder of rotator cuff; Translations: [Unspecified rotator cuff tear or rupture of right shoulder, not specified as traumatic] Onset: 02-05-2019 02-05-2019 Episodic Other connective tissue disease (2 sources) History of operative procedure on lumbar spinal structure; Translations: [Arthrodesis status] Onset: 07-19-2017 09-14-2017 Episodic Other connective tissue disease (2 sources) Triggering of digit; Translations: [Trigger finger, left middle finger] Onset: 06-01-2015 06-01-2015 Episodic Other non-traumatic joint disorders (2 sources) Swelling of knee joint; Translations: [Effusion, left knee] Onset: 04-02-2021 04-02-2021 Episodic Spondylosis; intervertebral disc disorders; other back problems (4 sources) Spinal stenosis of lumbar region; Translations: [Spinal stenosis, lumbar region without neurogenic claudication] Onset: 08-10-2017 02-14-2019 Episodic Unclassified (2 sources) Problem Results Test Name Value Interpretation Reference Range Facil ity Vital Signs Date Time Vital Sign Value Performing Clinician Facility NEGATED: Highlighted [id number] 14:48-0400 Body height 170.18 cm Tonja Faith AT [facility] Work Phone: NEGATED: Highlighted [id number] 14:48-0400 Body height 170 cm Tonja Faith AT [facility] Work Phone: NEGATED: Highlighted [id number] 14:48040 Body mass index (BMI) [Ratio] 29.08 kg/m2 Tonja Faith AT [facility] Work Phone: NEGATED: Highlighted [id number] 14:48-0400 Body weight 83.92 kg Tonja Faith AT [facility] Work Phone: NEGATED: Highlighted [id number] 14:48-0400 Body weight 84 kg Tonja Cuevas AT [facility] [place] [facility] Work Phone: NEGATED: Highlighted [id number] 13:11-0400 Body height 170.18 cm Adelaida Leroy [employer] [facility] [place] [facility] Work Phone: NEGATED: Highlighted [id number] 13:11-0400 Body height 170 cm Adelaida Leroy [employer] [facility] [place] [facility] Work Phone: NEGATED: Highlighted [id number] 13:11-0400 Body mass index (BMI) [Ratio] 29.08 kg/m2 Adelaida Leroy [employer] [facility] Work Phone: NEGATED: Highlighted [id number] 13:11-0400 Body weight 83.92 kg Adelaida Leroy [employer] [facility] [place] [facility] Work Phone: NEGATED: Highlighted [id number] 13:11-0400 Body weight 84 kg Adelaida Leroy LPN [facility] Work Phone: Encounters Encounter Date Encounter Type Care Provider Facility Start: 06-01-2021 End: 06-01-2021 Subsequent hospital visit by physician Sylvain Payton MD Work Phone: [facility] Start: 04-07-2021 End: 04-07-2021 Subsequent hospital visit by physician Carl HARRIS Work Phone: [facility] Procedures Date Procedure Procedure Detail Performing Clinician Start: 09-23-2021 End: 09-24-2021 BP scrn no perf at interval Carl Jaramillo PA-C Work Phone: Start: 09-23-2021 End: 09-24-2021 Calc BMI abv up chema f/u Carl Jaramillo PA-C Work Phone: Start: 09-23-2021 End: 09-24-2021 Current tobacco non-user cad cap copd pv dm Chance W Mitan PA-C Work Phone: Start: 09-23-2021 End: 09-24-2021 Docrev cur meds by shania Henry W Mitan PA-C Work Phone: Start: 09-23-2021 End: 09-24-2021 Pain doc pos and plan Chance W Mitan PA- C Work Phone: Start: 09-23-2021 End: 09-24-2021 Patient encounter procedure Chance Jose Antonio Clint PA-C Work Phone: Start: 09-02-2021 End: 09-02-2021 BP scrn no perf at interval Miles Collier MD Work Phone: Start: 09-02-2021 End: 09-02-2021 Calc BMI out nrm chema nof/u Miles Collier MD Work Phone: Start: 09-02-2021 End: 09-02-2021 Current tobacco non-user cad cap copd pv dm Miles Collier MD Work Phone: Start: 09-02-2021 End: 09-02-2021 Docrev cur meds by [facility] sadie Collier MD Work Phone: Start: 09-02-2021 End: 09-02-2021 Pain doc pos and plan Miles Collier MD Work Phone: Start: 09-02-2021 End: 09-02-2021 Patient encounter procedure Miles Collier MD Work Phone: Start: 09-02-2021 End: 09-02-2021 Radiologic examination knee 3 views Miles Collier MD Work Phone: Start: 04-07-2021 Cell count misc body fluids w/differential count Carl Jaramillo PA Work Phone: Start: 04-07-2021 DIFFERENTIAL, BODY FLUID Carl HARRIS Work Phone: Start: 04-07-2021 Cul prsmptv pthgnc organism scrn w/colony estimj Carl HARRIS Work Phone: NEGATED: Highlighted rowStart: 09-23-2021 End: 09-23-2021 Documentation of current medications Tonja Faith AT NEGATED: Highlighted rowStart: 09-02-2021 End: 09-02-2021 Documentation of current medications Adelaida Leroy LPN Plan of Treatment Date Care Activity Detail Author Start: 11-04-2021 End: 11-04-2021 Patient encounter procedure Appointment [facility] Work Phone: Start: 09-23-2021 End: 09-23-2021 Patient encounter procedure Appointment [facility] Work Phone: Start: 09-02-2021 End: 09-02-2021 Patient encounter procedure Appointment [facility] Work Phone: Start: 04-07-2021 Annual Wellness Visit (AWV) Annual Wellness Visit (AWV) [facility] Start: 02-17-2021 Influenza vaccination Flu vaccine (#1) [facility] Start: 04-24-2018 Pneumococcal 65+ years Vaccine (2 of 2 - PPSV23) Pneumococcal 65+ years Vaccine (2 of 2 - PPSV23) [facility] Start: 08-28-2007 DTaP/Tdap/Td vaccine (1 - Tdap) DTaP/Tdap/Td vaccine (1 - Tdap) [facility] Start: 12-06-2001 Shingles Vaccine (1 of 2) Shingles Vaccine (1 of 2) [facility] Start: 12-06-1996 Screening for malignant neoplasm of colon Colon cancer screen colonoscopy [facility] Start: 12-06-1986 Diabetes screen Diabetes screen [facility] Start: 1963 COVID-19 Vaccine (1) COVID-19 Vaccine (1) [facility] Start: 12-06-1961 Lipid panel Lipid screen [facility] Start: 1950 Hepatitis C screening Hepatitis C screen [facility] Culture, Anaerobic a nd Aerobic Culture, Anaerobic and Aerobic Microbiology STAT 04/07/2021 6:04 PM EDT [facility] Work Phone: Payers Date Payer Category Payer Unknown [id number] 2016 Medicare MEDICARE MEDICAR E PART A AND B [id number] 2016-Present [phone] [place] [address] [id number] Social History Date Type Detail Facility Tobacco smoking status ORIS Unknown if ever smoked [employer] Work Phone: Start: 1950 Sex Assigned At Not on file [employer] Work Phone: Start: 05-19-2021 Tobacco smoking status NHIS Never smoked tobacco [employer] Work Phone: Start: 05-19-2021 Tobacco use and exposure Smokeless tobacco non-user [employer] Work Phone: Start: 05-19-2021 Alcohol intake Current drinke r of alcohol (finding) [employer] Work Phone: Start: 05-19-2021 History SDOH Alcohol Comment occassionally [employer] Work Phone: Exposure to SARS-CoV-2 (event) Not sure [facility] Start: 09-02-2021 End: 09-24-2021 Assertion Unknown if ever smoked [facility] Work Phone: NEGATED: Highlighted rowStart: 09-23-2021 End: 09-23-2021 Employment detail Employment detail [facility] Work Phone: Evaluation note Note Date & Type Note Facility Evaluation note There may be informa tion available, but it has not been provided by the sender. [facility] Work Phone: Instructions Note Date & Type Note Facility Instructions No information available. [facility] Work Phone: Instructions Note Date & Type Note Facility [facility] Work Phone: Chief Complaint Chief Complaint Description Start Date left knee post Repeat irriga tion and debridement of left knee, Explant of antibiotic spacer, left knee and 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 Preliminary chief co mplaint data, not yet signed by the author as of Chief Complaint Description Start Date left knee post Repeat irriga tion and debridement of left knee Explant of antibiotic spacer left knee 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 Preliminary chief co mplaint data, not yet signed by the author as of Advance Directives There may be information available, but it has not been provided by the sender. There may be information available, but it has not been provided by the sender. No Advanced Directives Records Found Family History There may be information available, but it has not been provided by the sender.There may be information available, but it has not been provided by the sender.No Family History Records Found Summary Purpose Additional Source Comments Care Teams (unrecognized sec tion and content) Reason for Visit (unrecogniz ed section and content) Reason For Visit Description Start Date Postop - subsequent visit Preliminary reason f or visit data, not yet signed by the author as of left knee post Repeat irriga tion and debridement of left knee Explant of antibiotic spacer left knee 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 (unrecognized sect ion and content) No Status Records Found INFORMATION SOURCE (unrecogn ized section and content) FOR RECORDS PERTAINING TO PATIENTS WHO ARE OR HAVE BEEN ENROLLED IN A CHEMICAL DEPENDENCY/SUBSTANCEABUSE PROGRAM, SOME INFORMATION MAY BE OMITTED. This clinical summary was aggregated from multiple sources. Caution should be exercised in using it in the provision of clinical care. This summary normalizes information from multiple sources, and as a consequence, information in this document may materially change the coding, format and clinical context of patient data. In addition, data may be omitted in some cases. CLINICAL DECISIONS SHOULD BE BASED ON THE PRIMARY CLINICAL RECORDS. [facility], [facility]. provides no warranty or guarantee of the accuracy or completeness of information in this document.
[2023-08-31 11:21] LABS: ALB/GLOB Ratio 0.8 RATIO (0.9-2.4); AST(SGOT) 23 U/L (15-37); Alanine Aminotransfer ALT/SGPT 23 U/L (16-61); Albumin, Serum 3.6 g/dL (3.2-5.0); Alkaline Phosphatase 89 U/L (45-117); Anion Gap 7 (5-15); BUN 42 mg/dL (7-18); BUN/Creat Ratio 28.2 RATIO (10-20); Calcium,Total 9.2 mg/dL (8.5-10.1); Chloride 105 mmol/L (98-107); Creatinine, Serum 1.49 mg/dL (0.70-1.30); EST Glomerular Filtration Rate 49 mL/min (>60); Est Glom Filt Rate - Afr Amer 60 mL/min (>60); Globulin 4.3 g/dL (2.2-4.2); Glucose 109 mg/dL (74-106); PSA,Total - Annual Screen 2.42 ng/mL (0.00-4.00); Potassium 4.6 mmol/L (3.5-5.1); Protein, Total 7.9 g/dL (6.4-8.2); Sodium Level 138 mmol/L (136-145)
== END | disposition home or self-care (01) ==
LOC: MFPLAB 09:02
PROVIDERS: PCP Family Medicine; Visit Provider Family Medicine
DX: N18.32 Chronic kidney disease, stage 3b (principal); Z12.5 Encounter for screening for malignant neoplasm of prostate
CPT/HCPCS: 36415; 80053; 84153; 85027; G0103

== ENCOUNTER → 2024-02-27 | Outpatient (CLI) | payer MEDICARE, OTHER, SELFPAY ==
[2024-02-27 10:00] LABS: Absolute Lymphocyte Count 1.88 X10^3/uL (0.83-4.51); Absolute Neutrophil Count 3.8 X10^3/uL (2.0-7.7); Basophil# 0.06 X10^3/uL; Basophil% 0.9 % (0-1); Eosinophil# 0.25 X10^3/uL; Eosinophils% 3.7 % (0-5); Hematocrit 39.8 % (40-54); Hemoglobin 12.4 g/dL (13.0-16.5); Lymphocyte # 1.88 X10^3/ul (0.83-4.51); Lymphocyte % 27.7 % (19-41); Mean Corp Hgb Conc 31.2 g/dL (32-36); Mean Corpuscular Hgb 28.8 pg (27.0-32.0); Mean Corpuscular Volume 92.3 fL (80-94); Mean Platelet Vol. 11.2 fl (6.2-12.0); Monocyte# 0.75 X10^3/uL; Monocyte% 11.1 % (0-10); NRBC Flagged by Analyzer 0 % (0-5); Neutrophil # 3.81 X10^3/uL (2.7-7.7); Neutrophil % 56.2 % (47-70); Platelet Count 173 K/mm3 (150-450); RBC Distribution Width CV 13.7 % (11.6-14.6); RBC Distribution Width SD 46.9 fl (35.1-43.9); Red Blood Count 4.31 M/mm3 (4.6-6.2); White Blood Count 6.8 K/mm3 (4.4-11.0)
[2024-02-27 10:26] LABS: Microalbumin,Random Urine 11.2 mg/L (NO RANGE EST.); Microalbumin:Creatinine Ratio 12.5 mg/g CRE (<30 mg/g CRE)
[2024-02-27 11:03] LABS: ALB/GLOB Ratio 0.9 RATIO (0.9-2.4); AST(SGOT) 22 U/L (15-37); Alanine Aminotransfer ALT/SGPT 24 U/L (16-61); Albumin, Serum 3.6 g/dL (3.2-5.0); Alkaline Phosphatase 66 U/L (45-117); Anion Gap 3 (5-15); BUN 39 mg/dL (7-18); BUN/Creat Ratio 27.9 RATIO (10-20); Calcium,Total 9.7 mg/dL (8.5-10.1); Chloride 105 mmol/L (98-107); Cholesterol 120 mg/dL (200); EST Glomerular Filtration Rate 53 mL/min (>60); Est Glom Filt Rate - Afr Amer 64 mL/min (>60); Globulin 4.1 g/dL (2.2-4.2); Glucose 104 mg/dL (74-106); High Density Lipoprotein 38 mg/dL; Magnesium 2.2 mg/dL (1.6-2.6); Potassium 5.2 mmol/L (3.5-5.1); Protein, Total 7.7 g/dL (6.4-8.2); Sodium Level 135 mmol/L (136-145); Triglycerides 82 mg/dL; Very Low Density Lipoprotein 16 mg/dL (5-40)
== END | disposition home or self-care (01) ==
LOC: MFPLAB 09:09
PROVIDERS: PCP Family Medicine; Visit Provider Family Medicine
DX: I12.9 Hypertensive chronic kidney disease with stage 1 through stage 4 chronic kidney disease, or unspecified chronic kidney disease (principal); N18.32 Chronic kidney disease, stage 3b; E78.00 Pure hypercholesterolemia, unspecified
CPT/HCPCS: 36415; 80053; 80061; 82043; 82306; 82570; 83735; 85025

== ENCOUNTER → 2024-03-07 | Outpatient (CLI) | payer MEDICARE, OTHER, SELFPAY ==
--- NOTE | 2024-03-07 07:57 | ART_ITS ---
Reason For Study: PVD Procedure A bilateral lower extremity continuous wave Doppler with analog waveform analysis,segmental pressures,and ankle brachial indexes with exercise. Left Segmental Pressures Left brachial= 105mmHg. Left posterior tibial artery = 141mmHg. Left dorsalis pedis artery = 131mmHg. Left digit = 146 mmHg. The left posterior tibial artery waveforms are triphasic. The left dorsalis pedis waveforms are triphasic. Right Segmental Pressures Right brachial= 102mmHg. Right posterior tibial artery = 131mmHg. Right dorsalis pedis artery = 135mmHg. Right digit = 105 mmHg. The right posterior tibial artery waveforms are triphasic. The right dorsalis pedis waveforms are triphasic. Indices The right ankle brachial index by the posterior tibial artery is 1.25. The right ankle brachial index by the dorsalis pedis is 1.29. The right digital-brachial index is 1.00. The right post exercise ankle brachial index is 1.30. The left ankle brachial index by the posterior tibial artery is 1.34. The left ankle brachial index by the dorsalis pedis is 1.25. The left digital-brachial index is 1.39. The left post exercise ankle brachial index is 1.25. VL/Lower Ext Art Exam w/ Exercise Interpretation Summary Right ZOILA 1.29, normal. TBI and Doppler/PVR waveforms of the right leg normal a t rest. Right lower extremity exhibits normal response to exercise. Left ZOILA 1.34, normal. TBI and Doppler/PVR waveforms of the left leg normal at rest. Left lower extremity exhibits normal response to exercise. Ordering Physician: Jose L Li Referring Physician: JOSE L LI MD Performed By: CARLOS MCARTHUR [facility]
== END | disposition home or self-care (01) ==
LOC: CVS 07:56
PROVIDERS: PCP Family Medicine; Referring Provider Family Medicine; Visit Provider Family Medicine
DX: I73.9 Peripheral vascular disease, unspecified (principal)
CPT/HCPCS: 93924

== ENCOUNTER → 2024-08-19 | Outpatient (CLI) | payer MEDICARE, OTHER, SELFPAY ==
[2024-08-19 10:30] LABS: PSA,Total- Diagnostic 2.18 ng/mL (0.00-4.00)
== END | disposition home or self-care (01) ==
PROVIDERS: PCP Family Medicine; Referring Provider Urology; Visit Provider Urology
DX: N40.0 Benign prostatic hyperplasia without lower urinary tract symptoms (principal)
CPT/HCPCS: 36415; 84153

== ENCOUNTER → 2024-08-28 | Outpatient (CLI) | payer MEDICARE, OTHER, SELFPAY ==
[2024-08-28 09:50] LABS: Hematocrit 40.2 % (40-54); Hemoglobin 13.1 g/dL (13.0-16.5); Mean Corp Hgb Conc 32.6 g/dL (32-36); Mean Corpuscular Hgb 29.6 pg (27.0-32.0); Mean Corpuscular Volume 90.7 fL (80-94); Platelet Count 180 K/mm3 (150-450); RBC Distribution Width CV 13.9 % (11.6-14.6); RBC Distribution Width SD 45.9 fl (35.1-43.9); Red Blood Count 4.43 M/mm3 (4.6-6.2); White Blood Count 8.4 K/mm3 (4.4-11.0)
[2024-08-28 10:37] LABS: ALB/GLOB Ratio 1.3 RATIO (0.9-2.4); AST(SGOT) 27 U/L (<=37); Alanine Aminotransfer ALT/SGPT 22 U/L (<=46); Albumin, Serum 4.3 g/dL (3.4-4.8); Alkaline Phosphatase 77 U/L (40-129); Anion Gap 11 (5-15); BUN 33 mg/dL (4-19); BUN/Creat Ratio 24.7 RATIO (10-20); Calcium,Total 9.6 mg/dL (7.6-11.0); Carbon Dioxide 23.5 mmol/L (21.0-32.0); Chloride 103 mmol/L (98-108); Cholesterol 117 mg/dL (<=200); Creatinine, Serum 1.34 mg/dL (0.70-1.20); EST Glomerular Filtration Rate 56 (>60); Globulin 3.4 g/dL (2.2-4.2); Glucose 95 mg/dL (70-99); High Density Lipoprotein 43 mg/dL; Low Density Lipoprotein Calc. 63 mg/dL; Potassium 4.9 mmol/L (3.3-5.1); Protein, Total 7.7 g/dL (5.9-8.4); Sodium Level 137 mmol/L (133-145); Total Bilirubin 0.85 mg/dL (0.00-1.30); Triglycerides 57 mg/dL; Very Low Density Lipoprotein 11 mg/dL (5-40); cholesterol:hdl ratio screen 2.72
== END | disposition home or self-care (01) ==
LOC: LAB 09:09
PROVIDERS: PCP Family Medicine; Referring Provider Physician Assistant Medical; Visit Provider Physician Assistant Medical
DX: I10 Essential (primary) hypertension (principal); E78.5 Hyperlipidemia, unspecified; E55.9 Vitamin D deficiency, unspecified; Z86.73 Personal history of transient ischemic attack (TIA), and cerebral infarction without residual deficits
CPT/HCPCS: 36415; 80053; 80061; 82652; 85027

== ENCOUNTER → 2024-08-29 | Outpatient (CLI) | payer MEDICARE, OTHER, SELFPAY ==
--- NOTE | 2024-08-29 09:25 | CT_ITS ---
PROCEDURE: CTA HEAD AND NECK W/ CONTRAST REASON FOR EXAM: TIA Recent cervical fusion. TECHNIQUE: CTA imaging of the head and neck from the aortic arch to the skull vertex with intravenous contrast. 3D reconstructions. CONTRAST: 94 cc of Isovue 370. COMPARISON: None. FINDINGS: Aortic Arch: Normal size and branching pattern. Mild atherosclerotic plaque. Brachiocephalic and Subclavians: Unremarkable RIGHT Carotid: Right CCA: Unremarkable. Right ICA: Minimal calcific plaque. Maximum stenosis (NASCET): <50 % Right ECA: Unremarkable. LEFT Carotid: Left CCA: Unremarkable. Left ICA: Unremarkable. Maximum stenosis (NASCET): % Left ECA: Unremarkable. Vertebrals: Codominant. Arise from the subclavians. Both vertebrals form the basilar. RIGHT Vertebral: Small right vertebral artery. LEFT Vertebral: Unremarkable. No intracranial aneurysms or large vascular malformations are identified. Anterior cerebral arteries: Unremarkable. Middle cerebral arteries: Unremarkable. Basilar artery: Unremarkable. Posterior cerebral arteries: Unremarkable. Other major branches of the posterior circulation: Unremarkable. Major venous structures: Unremarkable. Other findings: No lymphadenopathy. Lung apices are clear. Bones are unremarkable. CT/CTA Head AND Neck W/ Contrast IMPRESSION: RIGHT CAROTID: Minimal plaque at the origin of the right internal carotid arter y causing less than 50% narrowing. LEFT CAROTID: Unremarkable VERTEBRALS: Dominant left vertebral artery INTRACRANIAL: Unremarkable One or more dose reduction techniques were used (e.g., Automated exposure contr ol, adjustment of the mA and/or kV according to patient size, use of iterative reconstruction technique). Reading Location: [id number]
== END | disposition home or self-care (01) ==
LOC: CT 09:22
PROVIDERS: PCP Family Medicine; Referring Provider Physician Assistant Medical; Visit Provider Physician Assistant Medical
DX: G45.9 Transient cerebral ischemic attack, unspecified (principal)
CPT/HCPCS: 70496; 70498; Q9967

== ENCOUNTER → 2025-03-04 | Outpatient (CLI) | payer MEDICARE, OTHER, SELFPAY ==
[2025-03-04 11:04] LABS: Hematocrit 38.8 % (40-54); Hemoglobin 12.5 g/dL (13.0-16.5); Immature Granulocytes Count 0.030 X10^3/uL (0.0-0.0); Mean Corp Hgb Conc 32.2 g/dL (32-36); Mean Corpuscular Volume 91.7 fL (80-94); Mean Platelet Vol. 11.2 fl (6.2-12.0); NRBC Flagged by Analyzer 0 % (0-5); Platelet Count 187 K/mm3 (150-450); RBC Distribution Width CV 13.9 % (11.6-14.6); RBC Distribution Width SD 46.4 fl (35.1-43.9); Red Blood Count 4.23 M/mm3 (4.6-6.2); White Blood Count 8.0 K/mm3 (4.4-11.0)
[2025-03-04 12:41] LABS: Creatinine, Urine (random) 134.00 mg/dL (39.00-259.00); Microalbumin,Random Urine < 12.0 mg/L (<20 mg/L)
[2025-03-04 12:44] LABS: AST(SGOT) 27 U/L (<=37); Alanine Aminotransfer ALT/SGPT 19 U/L (<=46); Albumin, Serum 4.2 g/dL (3.4-4.8); Alkaline Phosphatase 69 U/L (40-129); Anion Gap 12 (5-15); BUN 49 mg/dL (4-19); BUN/Creat Ratio 28.1 RATIO (10-20); Calcium,Total 9.7 mg/dL (7.6-11.0); Carbon Dioxide 21.0 mmol/L (21.0-32.0); Chloride 106 mmol/L (98-108); Globulin 3.4 g/dL (2.2-4.2); Glucose 109 mg/dL (70-99); Potassium 4.9 mmol/L (3.3-5.1)
[2025-03-04 12:57] LABS: CRP < 3.00 mg/L (0.0-3.0)
== END | disposition home or self-care (01) ==
LOC: MTLAB 09:23
PROVIDERS: PCP Family Medicine; Referring Provider Family Medicine; Visit Provider Family Medicine
DX: N18.32 Chronic kidney disease, stage 3b (principal); K55.1 Chronic vascular disorders of intestine
CPT/HCPCS: 36415; 80053; 82043; 82570; 83605; 85025; 85652; 86140

== ENCOUNTER → 2025-03-18 | Outpatient (CLI) | payer MEDICARE, OTHER, SELFPAY ==
--- NOTE | 2025-03-18 06:23 | CT_ITS ---
PROCEDURE: CTA CHST, ABD, PEL W AND/OR WO 03/18/2025 REASON FOR EXAM: EXERTIONAL ABDOMINAL PAIN. KNOWN CAD, ARTERIAL VISCERAL DZ, AND P TECHNIQUE: Procedure Code: CTCTA.CHAP.2 Modality: CT Procedure: CTA CHST, ABD, PEL W AND/OR WO Coronal and Sagittal reconstruction series were provided. One or more dose reduction techniques were used (e.g., Automated exposure control, adjustment of the mA and/or kV according to patient size, use of iterative reconstruction technique. CONTRAST: Isovue 370 VOLUME: 100 mL RADIATION DOSE SUMMARY: CTDlvol: 49.12 mGy DLP: 1006.42 mGycm COMPARISON: None FINDINGS: CHEST: Lungs are expanded, with chronic interstitial changes. No superimposed infiltrate or effusion. No suspicious noncalcified mass or nodule. Nonspecific pleural thickening in both hemithoraces. Soft tissue windows show a normal-appearing thyroid gland. No suspicious axillary, mediastinal or perihilar adenopathy. Thoracic aorta tapers normally, no aneurysm or dissection. No filling defects noted within the pulmonary arteries to suspect PE. Bony structures show degenerative change. ABDOMEN AND PELVIS: Liver: Unremarkable. Gallbladder: Unremarkable Spleen: Normal size. Pancreas: Normal size without evidence of mass surrounding inflammation or ductal dilation. Adrenals: Unremarkable Kidneys: No obstructive uropathy or suspicious solid renal lesion Bladder: Bladder is unremarkable aside from impingement upon its inferior aspect from an enlarged prostate. Reproductive Organs: No suspicious pelvic mass Bowel: Nondistended fluid-filled small bowel loops consistent with ileus. There is retained stool throughout the colon with scattered colonic diverticula, particularly in the sigmoid colon. There is nonspecific thickening of the sigmoid without CT evidence of acute diverticulitis but an underlying lesion can not be excluded. Normal appendix seen on coronal recon images 19 through 21 Vasculature: The abdominal aorta tapers normally. No significant atherosclerotic disease Peritoneum / Retroperitoneum: No free air or fluid Bones: Degenerative and postsurgical changes noted in the lumbar spine, hardware is free of complication Fat containing ventral hernia CT/CTA Chst, Abd, Pel W and/or WO IMPRESSION: Chronic interstitial changes in both lung weeks without a superimposed acute p ulmonary process or suspicious noncalcified mass or nodule No suspicious adenopathy Fatty liver, no discrete lesion Small-bowel ileus Retained stool throughout the colon with scattered diverticula particularly in the sigmoid colon, no CT evidence of acute diverticulitis but there is nonspecific thickening of the sigmoid and an underl anabell lesion can not be excluded No free intraperitoneal fluid, air, or suspicious adenopathy, normal appendix v isualized Enlarged prostate impinging upon the inferior aspect of the bladder Degenerative bony changes Reading Location: [id number]
== END | disposition home or self-care (01) ==
LOC: CT 06:22
PROVIDERS: PCP Family Medicine; Referring Provider Family Medicine; Visit Provider Family Medicine
DX: K55.1 Chronic vascular disorders of intestine (principal)
CPT/HCPCS: 71275; 74174; Q9967

== ENCOUNTER 2025-04-17 12:22 | Day surgery (SDC) | payer MEDICARE, OTHER, SELFPAY ==
--- NOTE | 2025-04-15 17:25 | PAT.ANESEVAL ---
Pre-Assessment Diagnosis/Proposed Procedure Planned Operative Procedure(s): CSCOPE Anesthesia History Anesthesia History - investigator vice: Anesthesia History - investigator vice Hx Hospitalization No 04/15/25 14:32 Any Problems With Anesthesia No 04/15/25 14:32 Cholinesterase deficiency No 04/15/25 14:32 You/Your Family Experience No 04/15/25 14:32 fever (hyperthermia) with Relationship Recent Exposure to Contagious Disease Does patient have nerve No 04/15/25 14:32 stimulator Patient instructed to have device shut off --Does patient have Pacemaker or ICD? When Was Last Pacemaker Check QUESTION #4 FULL TEXT: You/Your Family Experience fever (hyperthermia) with Anesthesia Last Oral Intake Last Oral intake: Last Oral Intake NPO since Meds taken in AM with sips of water? Meds patient instructed to take am of surgery PONV PONV - investigator vice: PONV - investigator vice Female No 04/15/25 14:32 HX of Motion Sickness No 04/15/25 14:32 HX of N/V After Surgery No 04/15/25 14:32 Non-Smoker Yes 04/15/25 14:32 Duration of Surgery greater No 04/15/25 14:32 than 60 minutes Number of Risk Factors 1 04/15/25 14:32 PONV Score Low Risk 04/15/25 14:32 Height & Weight Height & Weight: Anesthesia: Height & Weight Height 5 ft 6 in 03/27/25 13:20 Respiratory Assessment Respiratory Assessment - investigator vice: Respiratory Tract Infection Hx - investigator vice Hx Respiratory Tract Infection No 04/15/25 14:32 STOP Sleep Apnea STOP Sleep Apnea - investigator vice: STOP Sleep Apnea - investigator vice Hx Hypertension Yes: CONTROLLED WITH MEDS 04/15/25 14:32 Hx Sleep Apnea No 04/15/25 14:32 CPAP BIPAP Do you snore loudly (louder No 04/15/25 14:32 than talking or can be heard Do you often feel tired/ No 04/15/25 14:32 fatigued/ sleepy during daytime? Has anyone observed you stop No 04/15/25 14:32 breathing during sleep? STOP Results Negative 04/15/25 14:32 QUESTION #5 FULL TEXT : Do you snore loudly (louder than talking or can be heard through closed doors)? 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 Specify any problems Hx of Preganancy in last 3 N/A 04/15/25 14:32 Months Nurse Filling Out Transfusion DSCHRIBER 04/15/25 14:32 & Questions: Date: 04/15/25 04/15/25 14:32 Time: 14:36 04/15/25 14:32 Patient unable to answer at this time (ie. confused, unrespo /Reproduction History /Reproductive History - investigator vice: /Reproductive Hx- investigator vice Hx Now No 04/15/25 14:32 Gestational Age (in weeks): EDC: Hx Hx Para Hx Section SAB No 04/15/25 14:32 PFSH Medical History (Updated 04/15/25 @ 14:47 by Erendira Pope) Loss of hearing Wears glasses History of edema Back pain Heartburn Shortness of breath on exertion Non-smoker History of pain when walking History of stress test History of echocardiogram Cardiology follow-up encounter COVID-19 (06/22/21) Essential (primary) hypertension Hyperlipidemia Transient ischemic attack (12/2007) Vitamin D deficiency Osteoarthritis BPH (benign prostatic hyperplasia) Varicose veins of both lower extremities Home Medications ?Medication ?Instructions ?Recorded ?Last Taken ?Type clopidogrel 75 mg tablet 75 mg PO DAILY 11/08/18 04/11/25 History folic acid 0.8 mg capsule 0.8 mg PO DAILY 11/08/18 Unknown History rosuvastatin 5 mg tablet 5 mg PO QHS 11/08/18 Unknown History ipratropium bromide 21 mcg (0.03 2 spray intranasal BID 11/14/19 Unknown History %) nasal spray zinc 50 mg tablet 50 mg PO DAILY 01/12/22 Unknown History acetaminophen 500 mg tablet 500 mg PO Q8H PRN pain 11/09/22 Unknown History (Tylenol Extra Strength) tamsulosin 0.4 mg capsule 0.4 mg PO BID 11/09/22 Unknown History metoprolol tartrate 25 mg tablet 25 mg PO DAILY 05/15/23 Unknown History loratadine 10 mg capsule 10 mg PO QDAY 05/01/24 Unknown History furosemide 40 mg tablet 40 mg PO Q OTHER DAY #45 TABLETS 11/04/24 Unknown Rx ergocalciferol (vitamin D2) 1,250 1,250 mcg PO SA 04/15/25 Unknown History mcg (50,000 unit) capsule losartan 50 mg tablet 50 mg PO QPM 04/15/25 Unknown History Allergy/AdvReac Type Severity Reaction Status Date / Time Penicillins (PCN) Allergy Intermediate Hives Verified 04/15/25 14:30 Sulfa (Sulfonamide Allergy Intermediate fever, Verified 04/15/25 14:30 Antibiotics) hives [id number] Reductase AdvReac Severe Nausea Verified 04/15/25 14:30 Inhibitor lisinopril AdvReac Intermediate cough Verified 04/15/25 14:30 Family History Father Cancer Mother Heart disease Surgical History (Updated 04/15/25 @ 14:47 by Erendira Pope) History of cardiac catheterization Hx of colonoscopy Hx of neck surgery (~11/2022) Hx of transurethral resection of prostate (~06/2022) History of total right knee replacement History of shoulder replacement (03/2019) History of lumbar spinal fusion (06/2019) History of left heart catheterization (02/04/08) History of total left knee replacement (08/20/21) History of carpal tunnel release Social History Smoking Status: Never smoker alcohol intake: current alcohol intake frequency: holidays/special occasions only substance use type: does not use caffeine: Yes Type: coffee Number of servings: 1 Audit: Pertinent Findings Pertinent Findings Stress test pertinent findings: Stress test 11/17/2049. Normal exercise myocardial perfusion stress test at a moderate workload. Preserved ejection fraction. EF 56% Echo (EF%) pertinent findings: Echo 11/17/2022. Normal LV size. Moderate concentric left ventricular hypertrophy. Left ventricular systolic function is normal. EF 60%. Stage I diastolic dysfunction. Consult pertinent findings: Cardiology note 08/28/2024. 73-year-old man who presents today for cardiovascular outpatient follow-up. He previously underwent repeat cardiac catheterization which demonstrated no obstructive coronary artery disease but a distal aortogram demonstrated a torturous distal right iliac vessel. His blood pressure is well-controlled in the office today. He will continue with his current medical therapy, along with monitoring his blood pressure at home. Recommendation Anesthesia Recommendation Anesthesia recommendation: OPTIMIZED for anesthesia
[2025-04-17] VITALS (9 sets, daily range): BP systolic 81–134; BP diastolic 51–103; PULSE 62–77; RESP 16–17; TEMP 36.1–36.4; O2SAT 77–97; BMI 28.4
[2025-04-17] MEDS: Lactated Ringers 1,000 ML 15 ML IV (12:43)
--- NOTE | 2025-04-17 13:19 | HP.PCM_ITS ---
History and Physical Date of Admission: 04/17/25 Date of Service: 03/27/25 MR#: [id number] Acct: [id number] Name: JEREMY ARVIZU Rep #: [id number] : 1950 Provider: Dr. Justin Lacy MD Age/Sex: 74/M Location: [facility] Status: Signed Intake Vital Signs 08/28/2506:36 03/27/2513:20 Height 5 ft 7 in 5 ft 6 in Weight: 177 lb BMI 28.5 BP 104/62 Blood Pressure Location Rt brachial Position Sitting Respiration 18 Pulse 53 L Pulse Source Monitor Temp 97.2 F L Temp Source Temporal Pulse Oximetry (%) 96 Oxygen Delivery Method room air Intake Visit Reasons: ABD PAIN, SWELLING IN COLON Chief Complaint: abd pain, swelling in colon Is patient in pain?: No Allergies Penicillins (PCN) Allergy (Intermediate, Verified 03/27/25 13:21) Hives Sulfa (Sulfonamide Antibiotics) Allergy (Intermediate, Verified 03/27/25 13:21) fever, hives [id number]-[id number] Reductase Inhibitor Adverse Reaction (Severe, Verified 03/27/25 13:21) Nausea lisinopril Adverse Reaction (Intermediate, Verified 03/27/25 13:21) cough Medications ?Medication ?Instructions ?Recorded ?Confirmed ?Type clopidogrel 75 mg tablet 75 mg PO DAILY 11/08/18 03/27/25 History folic acid 0.8 mg capsule 0.8 mg PO DAILY 11/08/18 03/27/25 Histor y rosuvastatin 5 mg tablet 5 mg PO QHS 11/08/18 03/27/25 History ipratropium bromide 21 mcg (0.03 2 spray intranasal BID 11/14/19 03/27/25 History %) nasal spray zinc 50 mg tablet 50 mg PO DAILY 01/12/22 03/27/25 History acetaminophen 500 mg tablet 500 mg PO Q8H PRN 11/09/22 03/27/25 Hist ory (Tylenol Extra Strength) tamsulosin 0.4 mg capsule 0.4 mg PO BID 11/09/22 03/27/25 History losartan 100 mg tablet 50 mg PO DAILY 05/15/23 03/27/25 History metoprolol tartrate 25 mg tablet 25 mg PO DAILY 05/15/23 03/27/25 History loratadine 10 mg capsule 10 mg PO QDAY 05/01/24 03/27/25 History furosemide 40 mg tablet 40 mg PO Q OTHER DAY #45 TABLETS 5 03/27/25 Rx Have you fallen in the past year?: No PFSH Medical History (Updated 03/27/25 @ 16:[address] Justin Lacy MD) Diarrhea COVID-19 (06/22/21) Essential (primary) hypertension Hyperlipidemia Transient ischemic attack (12/2007) Vitamin D deficiency Osteoarthritis BPH (benign prostatic hyperplasia) Varicose veins of both lower extremities Surgical History Hx of neck surgery (~11/2022) Hx of transurethral resection of prostate (~06/2022) History of total right knee replacement History of shoulder replacement (03/2019) History of lumbar spinal fusion (06/2019) History of left heart catheterization (02/04/08) History of total left knee replacement (08/20/21) History of carpal tunnel release Family History Father Cancer Mother Heart disease Social History Smoking Status: Never smoker alcohol intake: current alcohol intake frequency: holidays/special occasions only substance use type: does not use caffeine: Yes Type: coffee Number of servings: 1 HPI HPI HPI: The patient is a 74-year-old male with BPH, chronic back pain, and a history of multiple back surgeries, presenting for evaluation of bowel changes. He is referred from Dr. Jose L Li. 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 On good days, he has only 1 additional bowel movement later in the day, but on bad days, he may need to sit on the toilet every 1-1.5 hours, sometimes producing stool and sometimes not. By the end of these bad days, stools become loose and watery, but the pattern typically resets to baseline the following day. He estimates up to 10 bowel movements on the worst days, with normal days occurring about 50% of the time. He denies hematochezia or melena. He describes sudden, urgent need to defecate with occasional fecal incontinence, most recently this afternoon, though such episodes are infrequent and typically involve formed stool rather than diarrhea. He denies significant straining and reports that each bowel movement generally lasts less than 10 minutes. He recalls similar urgency dating back to the 1970s but notes that current symptoms are much more significant. He also reports progressive exertional dyspnea since 2021, with worsening shortness of breath over time. He can walk approximately 100-200 yards before needing to rest, with some days worse than others. He denies chest pain requiring him to stop, though he occasionally experiences brief chest discomfort lasting 5-10 seconds, most recently within the past 30 days. He attributes some symptoms to his chronic back pain and surgeries but is concerned about possible intestinal or stomach involvement. He reports urinary frequency and urgency, with dribbling after voiding and poor flow. He takes tamsulosin 0.4 mg twice daily and a diuretic every other day, which he feels improves his urinary flow. He denies urinary incontinence. He typically falls asleep in his recliner around 2100, wakes between [id number] to void and move to bed, then sleeps until [id number] when he voids again upon waking. 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 He denies significant abdominal pain. He has a history of knee replacement infection in 03/2021, with a new knee placed in 08/2021, which he associates with the onset of his current symptoms. He takes Plavix, reportedly prescribed by Dr. Li. His last colonoscopy was 6-10 years ago completed by Dr. Hinton with no polyps found. He has a family history of diverticulitis in his mother, who required surgical resection, but no family history of colon cancer. ROS General General: Yes fatigue; No weight change, appetite, colon cancer, breast cancer or weakness HEENT HEENT: No difficulty swallowing, eye injury, eye surgery, swollen glands or hoarseness Endo Endocrine: No thyroid disease, diabetes mellitus, thyroid cancer, Hair loss, heat intolerance or cold intolerance Skin Skin: No rash or changing moles Musc Musculoskeletal: Yes back problems and arthritis; No rheumatoid arthritis, gout or joint pain Cardio Cardiovascular: Yes high blood pressure; No murmur, pacemaker, heart disease, atrial fibrillation, heart attack, heart stent, palpitations, shortness of breath with exertion or chest pain Psych Psychiatric: No depression, anxiety or hearing voices Resp Respiratory: Yes shortness of breath, No sleep apnea, No cough, No COPD, No asthma, No emphysema and No wheezing Gastro Gastrointestinal: No abdominal pain, No nausea or vomiting, Yes diarrhea, No constipation, No blood in stool, No acid reflux, No hemorrhoids, No ulcers, No gallbladder problem and No black,tarry stools Cipriano Hematologic: Yes blood thinners, No blood disorders, No bleeding, No anemia and No blood clots Neuro Neurologic: No numbness, No tingling and No weakness Exam Const General: cooperative Orientation: alert, awake and oriented x3 Resp Effort & Inspection: normal respiratory effort GI Other: Hirsute, no scars, readily visible umbilical hernia. Abdomen is overall soft, nontender to palpation. Hernia contents are soft but only partially reducible and patient has discomfort when pressure is applied over the hernia defect. Given the inability to completely reduce the contents I cannot estimate the size of the fascial defect. Assessment and Plan Assessment and Plan (1) Change in bowel habits: Status: Chronic Comment: Patient is a 74-year-old male who is evaluated for change in bowel habits over the last 3 to 4 years. He notes frequency of stools as well as some incontinence. He generally denies any alarm symptoms like tapering of stools or signs of blood. It is difficult to elicit parts of his history as he initially denies any experience of abdominal pain but later in the visit suggest that lower abdominal pain may be present with exertion. He remarks that his difficulty stems from years of back pain which he simply dealt with and began to ignore more mild discomfort. Encouragingly, his abdominal exam is generally benign. He does have an umbilical hernia that appears to contain chronically incarcerated fat. 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 Given the changes to his bowel habits, changes noted within the sigmoid colon suggestive of colitis (or inability to exclude possible underlying lesion), and the duration since his last colonoscopy (up to a decade ago) I am recommending we pursue repeat colonoscopy with 2-day bowel prep. He will require a hold of his Plavix preprocedurally. Plan: ? 5-day hold on Plavix prior to procedure and plan for 48 hours post procedure. Seek clearance with PCP. ? Plan will be to complete colonoscopy on first mutually agreeable date under local MAC. Pre-procedure prep discussed and paper instructions provided. Patient is also made aware that he will need to have a locomotive driver with him the day of the procedure. Plan Details Additional Comments: Note was completed with the assistance of AI technology and ambient listening. Patient provided their consent for use of this technology during the duration of their visit. Provider has reviewed dictation prior to incorporation within the electronic medical record. I have examined the patient the following changes are noted: Patient denies any acute changes to his GI health?including bowel habits or abdominal pain. He notes some mild abdominal tenderness today but this is overall minimal and reassurance is obtained from his exam. He confirms he held his Plavix for the procedure and states that has been held for the last 6 days. He also confirms that he completed the prep for today's procedure and that his output is now clear. We discussed that we will follow-up via telephone with results as he does not trust that his ride will give him an accurate report. We also discussed that we will plan for biopsy in the region of the sigmoid colon to exclude any microscopic colitis even in the absence of any macroscopic findings. Any macroscopic findings will assuredly be addressed at the time of her exam. Patient advised to plan to resume his Plavix at 48 hours post procedure. Will reference post procedure instructions for further detail. Proceed to endoscopy suite for colonoscopy as planned based on recent change of bowel habits and CT imaging showing some nonspecific thickening of the sigmoid colon.
--- NOTE | 2025-04-17 13:29 | PCM.PRE.AN2 ---
ASA Classification* ASA Classification ASA Classification: 3 Assessment & Plan Anesthesia* Anesthesia Assessment Anesthesia Assessment: Discussed sedation and/or anesthesia options, risks, benefits, and alternatives with patient/parents/legal guardian/POA. Questions invited. The patient/parents/legal guardian/POA seems to understand and agrees to proceed with anesthesia plan. Reviewed the physical assessment, medical history, allergy history and patient home medications list prior to surgery/procedure/anesthetic and documented any changes. Performed airway and anesthesia risk assessments. Anesthesia Type Anesthesia Type: MAC History Source History Obtained from:: Patient and Chart Anesthesia Focused Assessment* Temperature: 97.3 F Pulse Rate: 77 Blood Pressure: 118/83 Respiratory Rate: 17 Pulse Ox: 77 Oxygen Delivery Method: Room Air Airway Assessment Mouth opens: >3 cm Mallampati Score: III Teeth Condition: Intact Neck Range of motion (ROM): Limited ROM (Insert 4.) Labs Anesthesia Preop lab: CBC WBC, (4.4-11.0) 8.0 K/mm3 03/04/25, : RBC, (4.6-6.2) 4.23 M/mm3 L 03/04/25, : Hgb, (13.0-16.5) 12.5 g/dL L 03/04/25, : Hct, (40-54) 38.8 % L 03/04/25, : Plt Count, (150-450) 187 K/mm3 03/04/25, : CHEMISTRY Potassium, (3.3-5.1) 4.9 mmol/L 03/04/25, : Sodium, (133-145) 139 mmol/L 03/04/25, : Magnesium, (1.6-2.6) 2.2 mg/dL 02/27/24, 09:09 BUN, (4-19) 49 mg/dL H 03/04/25, : Creatinine, (0.70-1.20) 1.75 mg/dL H 03/04/25, : Glucose, (70-99) 109 mg/dL H 03/04/25, : TSH, (0.358-3.74) 1.19 uIU/mL 03/08/18, 09:30 COAG PT, (11.7-14.9) 13.8 SECONDS 06/24/20, 08:56 Pre-Assessment Diagnosis/Proposed Procedure Planned Operative Procedure(s): CSCOPE Anesthesia History 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 When Was Last Pacemaker Check QUESTION #4 FULL TEXT: You/Your Family Experience fever (hyperthermia) with Anesthesia Last Oral Intake Last Oral intake: Last Oral Intake NPO since 20:30 04/17/25 12:44 Meds taken in AM with sips of No 04/17/25 12:44 water? Meds patient instructed to take am of surgery PONV PONV - shift production supervisor: PONV - shift production supervisor Female No 04/15/25 14:32 HX of Motion Sickness No 04/15/25 14:32 HX of N/V After Surgery No 04/15/25 14:32 Non-Smoker Yes 04/15/25 14:32 Duration of Surgery greater No 04/15/25 14:32 than 60 minutes Number of Risk Factors 1 04/15/25 14:32 PONV Score Low Risk 04/15/25 14:32 Height & Weight Height & Weight: Anesthesia: Height & Weight Height 5 ft 6 in 04/17/25 12:44 Weight: 80 kg 04/17/25 12:44 Body Mass Index (BMI) 28.4 04/17/25 12:44 Respiratory Assessment Respiratory Assessment - shift production supervisor: Respiratory Tract Infection Hx - shift production supervisor Hx Respiratory Tract Infection No 04/15/25 14:32 STOP Sleep Apnea STOP Sleep Apnea - shift production supervisor: STOP Sleep Apnea - shift production supervisor Hx Hypertension Yes: CONTROLLED WITH MEDS 04/15/25 14:32 Hx Sleep Apnea No 04/15/25 14:32 CPAP BIPAP Do you snore loudly (louder No 04/15/25 14:32 than talking or can be heard Do you often feel tired/ No 04/15/25 14:32 fatigued/ sleepy during daytime? Has anyone observed you stop No 04/15/25 14:32 breathing during sleep? STOP Results Negative 04/15/25 14:32 QUESTION #5 FULL TEXT : Do you snore loudly (louder than talking or can be heard through closed doors)? 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 Specify any problems Hx of Preganancy in last 3 N/A 04/15/25 14:32 Months Nurse Filling Out Transfusion DSCHRIBER 04/15/25 14:32 & Questions: Date: 04/15/25 04/15/25 14:32 Time: 14:36 04/15/25 14:32 Patient unable to answer at this time (ie. confused, unrespo /Reproduction History /Reproductive History - shift production supervisor: /Reproductive Hx- shift production supervisor Hx Now No 04/15/25 14:32 Gestational Age (in weeks): EDC: Hx Hx Para Hx Section SAB No 04/15/25 14:32 Active Medications Active Medications: Current Medications Generic Name Dose Route Start Last Admin Trade Name Freq PRN Reason Stop Dose Admin Lactated Ringer's 1,000 mls @ 15 mls/hr 04/17/25 12:30 04/17/25 12:43 IV 15 mls/hr .Q48H CYRUS Administration PFSH Medical History Loss of hearing Wears glasses History of edema Back pain Heartburn Shortness of breath on exertion Non-smoker History of pain when walking History of stress test History of echocardiogram Cardiology follow-up encounter COVID-19 (06/22/21) Essential (primary) hypertension Hyperlipidemia Transient ischemic attack (12/2007) Vitamin D deficiency Osteoarthritis BPH (benign prostatic hyperplasia) Varicose veins of both lower extremities Home Medications ?Medication ?Instructions ?Recorded ?Last Taken ?Type clopidogrel 75 mg tablet 75 mg PO DAILY 11/08/18 04/11/25 History folic acid 0.8 mg capsule 0.8 mg PO DAILY 11/08/18 04/16/25 History rosuvastatin 5 mg tablet 5 mg PO QHS 11/08/18 04/16/25 History ipratropium bromide 21 mcg (0.03 2 spray intranasal BID 11/14/19 04/16/25 History %) nasal spray zinc 50 mg tablet 50 mg PO DAILY 01/12/22 04/16/25 History acetaminophen 500 mg tablet 500 mg PO Q8H PRN pain 11/09/22 04/16/25 History (Tylenol Extra Strength) tamsulosin 0.4 mg capsule 0.4 mg PO BID 11/09/22 04/17/25 History metoprolol tartrate 25 mg tablet 25 mg PO DAILY 05/15/23 04/17/25 History loratadine 10 mg capsule 10 mg PO QDAY 05/01/24 04/16/25 History furosemide 40 mg tablet 40 mg PO Q OTHER DAY #45 TABLETS 11/04/24 04/16/25 Rx ergocalciferol (vitamin D2) 1,250 1,250 mcg PO SA 04/15/25 04/16/25 History mcg (50,000 unit) capsule losartan 50 mg tablet 50 mg PO QPM 04/15/25 04/16/25 History Allergy/AdvReac Type Severity Reaction Status Date / Time Penicillins (PCN) Allergy Intermediate Hives Verified 04/17/25 12:25 Sulfa (Sulfonamide Allergy Intermediate fever, Verified 04/17/25 12:25 Antibiotics) hives [id number] Reductase AdvReac Severe Nausea Verified 04/17/25 12:25 Inhibitor lisinopril AdvReac Intermediate cough Verified 04/17/25 12:25 Family History Father Cancer Mother Heart disease Surgical History History of cardiac catheterization Hx of colonoscopy Hx of neck surgery (~11/2022) Hx of transurethral resection of prostate (~06/2022) History of total right knee replacement History of shoulder replacement (03/2019) History of lumbar spinal fusion (06/2019) History of left heart catheterization (02/04/08) History of total left knee replacement (08/20/21) History of carpal tunnel release Social History Smoking Status: Never smoker alcohol intake: current alcohol intake frequency: holidays/special occasions only substance use type: does not use caffeine: Yes Type: coffee Number of servings: 1 Review of Systems (Anesthesia) ROS Narrative System reviewed and no additional complaints, except as documented.
--- NOTE | 2025-04-17 13:30 | COLBX_PTH ---
PATIENT: JEREMY ARVIZU LOC: EN U#:[id number] AGE/SX: 74/M ROOM: RE04/17/[address]: Dr. Justin Lacy MD : 1950 BED: DIS: 04/17/2025 SPEC #: [id number] RECD: 04/17/25 14:48 STATUS: MEAGHAN REJuanita #: [id number] NANCIE: 04/17/25 13:[address]: Justin Lacy DEPT: SURGICAL PATHOLOGY RECD BY: Pradeep Beebe ENTERED: 04/17/25 15:24 SP TYPE: COLON BX OTHR DR: Dr. Jose L Li MD Tissues: A - Sigmoid colon biopsy B - Sigmoid colon biopsy Procedures: Surgery Specimen Level IV HEADER OPERATION: Colonoscopy with biopsy PRE-OP DIAGNOSIS: Change in bowel habits TISSUE SUBMITTED: A- Sigmoid mucosa biopsy, B- Sigmoid mucosa biopsy x2 MICROSCOPIC DIAGNOSIS A. Sigmoid colon, biopsy: - no specific pathologic change. B. Sigmoid colon #2, biopsy: - no specific pathologic change. MICROSCOPIC DESCRIPTION Slides are reviewed. GROSS DESCRIPTION A. Received in fixative is one container labeled with the patient's name and designated Sigmoid mucosa biopsy. The specimen consists of two irregular fragments of mosley tissue that measure 0.3 and 0.6 cm. The specimen is totally submitted in one cassette. B. Received in fixative is one container labeled with the patient's name and designated Sigmoid mucosa biopsy #2. The specimen consists of one irregular fragment of mosley tissue that measures 0.6 cm. The specimen is totally submitted in one cassette. TN 04/17/2025 CPT:13286z6
--- NOTE | 2025-04-17 14:31 | OP.PROVAT_ITS ---
04/17/2025 Jose L Li [address] [place] [address] Re : Colonoscopy procedure for Cesar Ant Dear Dr. Li This procedure was performed on March. My impressions and recommendations are as follows: Impressions : - Perianal skin tags found on perianal exam. - Congested mucosa in the sigmoid colon. Biopsied. - Diverticulosis in the sigmoid colon. No specimens collected. - The examination was otherwise normal on direct and retroflexion views. Recommendations : - Discharge patient to home (via wheelchair). - Resume previous diet today. - No aspirin, ibuprofen, naproxen, or other non-steroidal anti-inflammatory drugs for 2 days after biopsy. - Resume Plavix (clopidogrel) at prior dose in 2 days. Refer to managing physician for further adjustment of therapy. - Await pathology results. - Repeat colonoscopy date to be determined after pending pathology results are reviewed for surveillance based on pathology results. - Telephone my office for pathology results in 1 week. My findings are described in the full procedure note, which is enclosed. If I can be of further assistance, please feel free to contact me at Doctor phone number(s): , Work: . Sincerely, Justin Lacy MD 04/17/2025 2:30:59 PM This report has been signed electronically.
--- NOTE | 2025-04-17 14:31 | OP.COLON_ITS ---
Patient Name: Cesar Cain Procedure Date: 04/17/2025 1:09 PM Date of : 1950 Age: 74 Procedure: Colonoscopy Indications: Generalized abdominal pain, Change in bowel habits, Fecal incontinence Providers: Justin Lacy MD Referring MD: Jose L Li Medicines: See the Anesthesia note for documentation of the administered medications Patient Profile: Last Colonoscopy: 9 years ago. Complications: No immediate complications. Estimated blood loss: Minimal. Procedure: Pre-Anesthesia Assessment: - The heart rate, respiratory rate, oxygen saturations, blood pressure, adequacy of pulmonary ventilation, and response to care were monitored throughout the procedure. After I obtained informed consent, the scope was passed under direct vision. Throughout the procedure, the patient's blood pressure, pulse, and oxygen saturations were monitored continuously. The Colonoscope was introduced through the anus and advanced to the cecum, identified by the appendiceal orifice, ileocecal valve and palpation. The colonoscopy was somewhat difficult due to poor bowel prep with stool present. Successful completion of the procedure was aided by lavage. The patient tolerated the procedure well. Scope In: 1:44:41 PM Scope Withdrawal Time 0 hours 22 minutes 39 seconds Scope Out: 2:18:36 PM Total Procedure Duration Time 0 hours 33 minutes 55 seconds Findings: Skin tags were found on perianal exam. An area of mildly congested mucosa was found in the sigmoid colon. Biopsies were taken with a cold forceps for histology. Estimated blood loss was minimal. Many small and large-mouthed diverticula were found in the sigmoid colon. No biopsies or other specimens were collected for this exam. The exam was otherwise without abnormality on direct and retroflexion views. Impression: - Perianal skin tags found on perianal exam. - Congested mucosa in the sigmoid colon. Biopsied. - Diverticulosis in the sigmoid colon. No specimens collected. - The examination was otherwise normal on direct and retroflexion views. Recommendation: - Discharge patient to home (via wheelchair). - Resume previous diet today. - No aspirin, ibuprofen, naproxen, or other non-steroidal anti-inflammatory drugs for 2 days after biopsy. - Resume Plavix (clopidogrel) at prior dose in 2 days. Refer to managing physician for further adjustment of therapy. - Await pathology results. - Repeat colonoscopy date to be determined after pending pathology results are reviewed for surveillance based on pathology results. - Telephone my office for pathology results in 1 week. Procedure Code(s): --- Professional --- 33786, Colonoscopy, flexible; with biopsy, single or multiple Diagnosis Code(s): --- Professional --- K63.89, Other specified diseases of intestine K64.4, Residual hemorrhoidal skin tags R10.84, Generalized abdominal pain R19.4, Change in bowel habit R15.9, Full incontinence of feces K57.30, Diverticulosis of large intestine without perforation or abscess without bleeding CPT copyright 2021 [employer]. All rights reserved. The codes documented in this report are preliminary and upon claims assistant review may be revised to meet current compliance requirements. Justin Lacy MD 04/17/2025 2:30:59 PM This report has been signed electronically. Number of Addenda: 0 Note Initiated On: 04/17/2025 1:09 PM
--- NOTE | 2025-04-17 14:42 | PCM.POST.ANE ---
Anesthesia: Postop Eval I Current Vital Signs Temperature: 97 F Pulse Rate: 67 Blood Pressure: 134/103 Respiratory Rate: 16 Pulse Ox: 93 Oxygen Delivery Method: Room Air Assessment Airway patent: Yes Spontaneous unlabored respirations: Yes Mental status: Awake and Calm nausea: No Vomiting: No Anesthesia Complication: No Fluid Hydration Crystalloid volume administer (ml): 400 Total IV fluid infused: 400 Progress Note Anesthesia document: Postop Eval 1 completed: Yes
--- NOTE | 2025-04-17 16:13 | PCM.POSTANE2 ---
Anesthesia Postop Eval I Sum Postop Eval Completion status Anesthesia document: Postop Eval 1 completed: Yes Anesthesia Postop Eval I Summary Anesthesia Postop Eval I Summary: Anesthesia Postop Eval I: Assessment Summary Airway patent Yes 04/17/25 14:43 INFORMATION TECHNOLOGY SECURITY MANAGER.[email or web address] Spontaneous unlabored Yes 04/17/25 14:43 INFORMATION TECHNOLOGY SECURITY MANAGER.GDOTT respirations Mental status Awake,Calm 04/17/25 14:43 INFORMATION TECHNOLOGY SECURITY MANAGER.GDOTT nausea No 04/17/25 14:43 INFORMATION TECHNOLOGY SECURITY MANAGER.GDOTT Vomiting No 04/17/25 14:43 INFORMATION TECHNOLOGY SECURITY MANAGER.GDOTT Anesthesia Postop Eval I: Fluid Summary Crystalloid volume administer 400 04/17/25 14:43 INFORMATION TECHNOLOGY SECURITY MANAGER.GDOTT (ml) Colloids volume administered ( ml) Blood Product volume administered (ml) Total IV fluid infused 400 04/17/25 14:43 INFORMATION TECHNOLOGY SECURITY MANAGER.GDOTT Anesthesia Postop Eval I: Summary Notes Anesthesia Complication No 04/17/25 14:43 INFORMATION TECHNOLOGY SECURITY MANAGER.GDOTT Anesthesia Complication Comment: Post-operative progress note Anesthesia: Postop Eval II Evaluation Mental status: Awake and Calm Pain Level: 0 nausea: No Vomiting: No Complications Anesthesia Complication: No
--- NOTE | 2025-04-17 16:13 | POSTOPAN2_ITS ---
Anesthesia Postop Eval I Sum Postop Eval Completion status Anesthesia document: Postop Eval 1 completed: Yes Anesthesia Postop Eval I Summary Anesthesia Postop Eval I Summary: Anesthesia Postop Eval I: Assessment Summary Airway patent Yes 04/17/25 14:43 CHURCH WORKER.[email or web address] Spontaneous unlabored Yes 04/17/25 14:43 CHURCH WORKER.GDOTT respirations Mental status Awake,Calm 04/17/25 14:43 CHURCH WORKER.GDOTT nausea No 04/17/25 14:43 CHURCH WORKER.GDOTT Vomiting No 04/17/25 14:43 CHURCH WORKER.GDOTT Anesthesia Postop Eval I: Fluid Summary Crystalloid volume administer 400 04/17/25 14:43 CHURCH WORKER.GDOTT (ml) Colloids volume administered ( ml) Blood Product volume administered (ml) Total IV fluid infused 400 04/17/25 14:43 CHURCH WORKER.GDOTT Anesthesia Postop Eval I: Summary Notes Anesthesia Complication No 04/17/25 14:43 CHURCH WORKER.GDOTT Anesthesia Complication Comment: Post-operative progress note Anesthesia: Postop Eval II Evaluation Mental status: Awake and Calm Pain Level: 0 nausea: No Vomiting: No Complications Anesthesia Complication: No
== END 2025-04-17 15:56 | disposition home or self-care (01) ==
LOC: EN 12:22 → AC 12:24
PROVIDERS: PCP Family Medicine; Referring Provider Family Medicine; Visit Provider Surgery
PROC: 0DJD8ZZ Inspection of Lower Intestinal Tract, Via Natural or Artificial Opening Endoscopic (ICD-10-PCS; CPT 45378; principal; 2025-04-17 13:25)
DX: R19.4 Change in bowel habit (principal); K57.30 Diverticulosis of large intestine without perforation or abscess without bleeding; E78.5 Hyperlipidemia, unspecified; I10 Essential (primary) hypertension; R15.9 Full incontinence of feces; K64.4 Residual hemorrhoidal skin tags; Z86.73 Personal history of transient ischemic attack (TIA), and cerebral infarction without residual deficits; N40.0 Benign prostatic hyperplasia without lower urinary tract symptoms; Z79.899 Other long term (current) drug therapy; Z79.02 Long term (current) use of antithrombotics/antiplatelets; Z96.653 Presence of artificial knee joint, bilateral; Z96.619 Presence of unspecified artificial shoulder joint; K63.89 Other specified diseases of intestine; R10.84 Generalized abdominal pain
CPT/HCPCS: 45380; 88305; J2405

== ENCOUNTER 2025-04-18 15:06 | Observation (INO) | payer MEDICARE, OTHER, SELFPAY ==
[2025-04-18 15:06] VITALS: BP 121/70; PULSE 67; RESP 16; TEMP 36.8; O2SAT 100; BMI 29.1
--- NOTE | 2025-04-18 15:29 | MRI_ITS ---
PROCEDURE: SPINE LUMBAR W/WO CONTRAST 04/18/2025 REASON FOR EXAM: BACK PAIN, INCONTINENCE TECHNIQUE: Procedure Code: [id number] Modality: MR Procedure: SPINE LUMBAR W/WO CONTRAST Multiplanar and multisequence images were obtained without and with intravenous gadolinium-based contrast administration. CONTRAST: Clarita scan VOLUME: 16 mL FINDINGS: Normal lumbar vertebral body height. No compression deformity. Posterior fusion with pedicle screws at L2, L3 and L4. Normal conus. Negative for discitis or osteomyelitis. T12-L1 is demonstrative of facet degeneration. At L1-2, concentric annular bulge and facet degeneration results in mild canal narrowing with moderate foraminal narrowing. No recurrent central stenosis at L2-3 status post decompression and fusion. No recurrent spinal stenosis at L3-L4 status post decompression and fusion. Mild inferior foraminal narrowing on the right. At L4-5 disc space narrowing with no central stenosis. Mild bony foraminal narrowing bilaterally with grade 1 subluxation. L5-S1 unremarkable. Postcontrast images demonstrate no abnormal enhancement. No retroperitoneal abnormality MRI/Spine Lumbar W/WO Contrast IMPRESSION: Postsurgical changes as described above. Negative for cauda equina or conus co mpression. Reading [facility]
--- NOTE | 2025-04-18 15:32 | ED.VIS.BACK ---
HPI History of Present Illness Chief Complaint: Back Informant: patient Onset/Context/Timing Onset: Weeks Context: Gradual Onset Timing: Continuous Quality: Aching Location: Lumbar, Right Leg and Left Leg Worsened by: improves with Movement Relieved by: Nothing Associated Symptoms Associated Symptoms: Numbness, Tingling, Radiation to Right Leg, Radiation to Left Leg, Abdominal Pain, Urinary Incontinence and Fecal Incontinence; Negative for Fever, Dysuria, Unable to Ambulate, Unable to Transfer, Urinary Retention or Constipation Narrative Narrative: Patient presents with back pain that has been getting worse over the past week. Patient states he has a history of chronic back pain and has had 4 back surgeries. Patient went to [facility] urgent care today. Patient reported stool and urinary incontinence. Patient was then referred to the emergency department. Patient states his pain radiates down both lower extremities. Patient states sometimes it is on the right and sometimes is on the left. Patient also admits to some numbness and tingling. Patient denies any fevers or chills. Patient states he has been having some weakness in his legs and has been using his walker more frequently. Patient also admits to some pain in his shoulders and back when he walks approximately 25 yards. Patient admits to some shortness of breath at that time as well. [facility] Medical History Colonoscopy planned Loss of hearing Wears glasses History of edema Back pain Heartburn Shortness of breath on exertion Non-smoker History of pain when walking History of stress test History of echocardiogram Cardiology follow-up encounter COVID-19 (06/22/21) Essential (primary) hypertension Hyperlipidemia Transient ischemic attack (12/2007) Vitamin D deficiency Osteoarthritis BPH (benign prostatic hyperplasia) Varicose veins of both lower extremities Home Medications ?Medication ?Instructions ?Recorded ?Last Taken ?Type clopidogrel 75 mg tablet 75 mg PO DAILY 11/08/18 04/11/25 History folic acid 0.8 mg capsule 0.8 mg PO DAILY 11/08/18 04/16/25 History rosuvastatin 5 mg tablet 5 mg PO QHS 11/08/18 04/16/25 History ipratropium bromide 21 mcg (0.03 2 spray intranasal BID 11/14/19 04/16/25 History %) nasal spray zinc 50 mg tablet 50 mg PO DAILY 01/12/22 04/16/25 History acetaminophen 500 mg tablet 500 mg PO Q8H PRN pain 11/09/22 04/16/25 History (Tylenol Extra Strength) tamsulosin 0.4 mg capsule 0.4 mg PO BID 11/09/22 04/17/25 History metoprolol tartrate 25 mg tablet 25 mg PO DAILY 05/15/23 04/17/25 History loratadine 10 mg capsule 10 mg PO QDAY 05/01/24 04/16/25 History furosemide 40 mg tablet 40 mg PO Q OTHER DAY #45 TABLETS 11/04/24 04/16/25 Rx ergocalciferol (vitamin D2) 1,250 1,250 mcg PO SA 04/15/25 04/16/25 History mcg (50,000 unit) capsule losartan 50 mg tablet 50 mg PO QPM 04/15/25 04/16/25 History Allergy/AdvReac Type Severity Reaction Status Date / Time Penicillins (PCN) Allergy Intermediate Hives Verified 04/18/25 15:10 Sulfa (Sulfonamide Allergy Intermediate fever, Verified 04/18/25 15:10 Antibiotics) hives [id number] Reductase AdvReac Severe Nausea Verified 04/18/25 15:10 Inhibitor lisinopril AdvReac Intermediate cough Verified 04/18/25 15:10 Family History Father Cancer Mother Heart disease Surgical History History of cardiac catheterization Hx of colonoscopy Hx of neck surgery (~11/2022) Hx of transurethral resection of prostate (~06/2022) History of total right knee replacement History of shoulder replacement (03/2019) History of lumbar spinal fusion (06/2019) History of left heart catheterization (02/04/08) History of total left knee replacement (08/20/21) History of carpal tunnel release Social History Smoking Status: Never smoker alcohol intake: current alcohol intake frequency: holidays/special occasions only substance use type: does not use caffeine: Yes Type: coffee Number of servings: 1 ROS ROS ED Constitutional Constitutional ED: Denies chills or fever(s) Eyes Eyes: Reports change in vision; Denies blurry vision ENT ENT ED: Denies rhinorrhea or sore throat Cardiovascular Cardiovascular: Reports chest pain; Denies palpitations Respiratory/Chest Respiratory/Chest: Reports dyspnea; Denies cough Gastrointestinal Gastrointestinal: Denies nausea or vomiting Genitourinary Genitourinary ED: Denies dysuria or hematuria Musculoskeletal Musculoskeletal: Reports back pain; Denies neck pain Integumentary Denies abscess or rash Neurologic Neurologic: Reports paresthesias and weakness; Denies headache(s) Allergic/Immunologic Allergic/Immunologic ED: Denies mouth swelling or urticaria EXAM Physical Exam Const Vital Signs: 04/18/25 15:06 04/18/25 19:00 04/18/25 20:34 Temperature 98.3 F 98.8 F Temperature Source Oral Pulse Rate 67 62 65 Respiratory Rate 16 18 18 Blood Pressure 121/70 H 121/71 H 109/75 Blood Pressure Mean 87 87 86 Pulse Ox 100 99 98 Oxygen Delivery Method Room Air Room Air Positive well nourished and well developed Constitutional Narrative: BMI is 29.1. General Appearance ED: well developed and NAD HEENT Reports moist mucous membranes Neck supple and no JVD Resp normal respiratory effort and clear to auscultation bilaterally Cardio regular rate and regular rhythm GI soft to palpation and non-tender Back/Spine Back/Spine Narrative: There is tenderness to palpation over the right lumbar paraspinal muscles. There is no bony crepitance or step-off. There is no deformity noted. There is good flexion of the lumbar spine. Range of motion was limited in extension of the lumbar spine. Strength is 5/5 bilaterally in the lower extremities. There are no sensory deficits noted. There is no saddle anesthesia. Deep tendon reflexes are 2/4 bilaterally in lower extremities. Lumbar Spine / Lower Back: ROM limited and straight leg raise negative bilaterally Neuro oriented x3 and no sensory deficits noted Sensorium / Orientation: alert Motor Exam: strength 5/5 throughout Deep Tendon Reflexes: Rt Patellar (L4): 2+, Lt Patellar (L4): 2+, Rt Ankle (S1): 2+ and Lt Ankle (S1): 2+ Deep Tendon Reflexes Back: Rt Patellar (L4): 2+, Lt Patellar (L4): 2+, Rt Ankle (S1): 2+ and Lt Ankle (S1): 2+ Psych mental status grossly normal MDM MDM MDM Narrative Medical decision making narrative: Differential diagnosis includes cauda equina syndrome, lumbosacral strain, urinary tract infection, cardiac dysrhythmia, cardiac ischemia, pneumonia, bronchitis, viral illness, and anxiety. MRI of the lumbar spine will be obtained to assess for cauda equina syndrome. EKG will be obtained to assess for cardiac dysrhythmia and cardiac ischemia. Chest x-ray will be obtained to assess for pneumonia or bronchitis. CBC will be obtained to assess for leukocytosis and anemia. Basic metabolic profile will be obtained to assess for electrolyte abnormality renal function. Urinalysis will be obtained to assess for urinary tract infection and hematuria. High-sensitivity troponin will be obtained to assess for cardiac ischemia. History & Record Review Additional record(s) reviewed:: Prior labs Lab Data Attestation: I reviewed the patient's lab results. Lab results narrative: CBC was reviewed and was within normal limits. Basic metabolic profile was reviewed. BUN was elevated at 60 and creatinine was elevated at 2.7. These were increased from previous results. Glucose was mildly elevated at 105. Initial high-sensitivity troponin was reviewed and was elevated at 119. 2-hour repeat high-sensitivity troponin was reviewed and was improved at 103. Urinalysis was reviewed. There is no evidence of urinary tract infection or hematuria. Labs: Laboratory Results - last 24 hr 04/18/25 04/18/25 04/18/25 15:41 18:16 19:01 WBC 10.3 RBC 4.41 L Hgb 13.1 Hct 39.3 L MCV 89.1 MCH 29.7 MCHC 33.3 RDW Std Deviation 44.2 H RDW Coeff of Mary 13.5 Plt Count 236 MPV 10.9 Immature Gran % (Auto) 0.400 Neut % (Auto) 58.2 Lymph % (Auto) 26.0 [place] % (Auto) 12.8 H Eos % (Auto) 2.0 Baso % (Auto) 0.6 Absolute Neuts (auto) 6.0 Absolute Lymphs (auto) 2.66 Nucleated RBC % 0 Sodium 136 Potassium 4.4 Chloride 101 Carbon Dioxide 20.3 L Anion Gap 14 BUN 60 H Creatinine 2.70 H Estim Creat Clear Calc 24.48 L Est GFR (MDRD) Non-Af 24 L BUN/Creatinine Ratio 22.1 H Glucose 105 H Calcium 9.5 Troponin T High Sens 119 H* Troponin T Hi Sens 2 Hr 103 H* Urine Color Yellow Urine Clarity Clear Urine pH 5.0 Ur Specific [place] 1.015 Urine Protein Negative Urine Glucose (UA) Normal Urine Ketones Negative Urine Occult Blood Negative Urine Nitrite Negative Urine Bilirubin Negative Urine Urobilinogen Normal Ur Leukocyte Esterase Negative Urine RBC 0-5 SEEN Urine WBC 0-5 SEEN Ur Squamous Epith Cells 0-5 SEEN Urine Bacteria 0 SEEN Urine Mucus 0 SEEN Radiography Diagnostic Testing: Clinical Impression(s) from Imaging Studies Lumbar Spine MRI 04/18/25 15:29 IMPRESSION: Postsurgical changes as described above. Negative for cauda equina or conus compression. Reading Location: [facility] MRI of the lumbar spine was obtained. There are postsurgical changes noted. There is no evidence of cauda equina or cord compression. This was interpreted by the radiologist and was also independently reviewed by myself. EKG Initial EKG: Attestation: I personally reviewed and interpreted this EKG as follows: Interpretation: Sinus Rhythm (61), AV Block (First-degree) and Non-Specific ST Changes Comments: EKG was obtained. On my independent interpretation, it showed sinus rhythm with first-degree AV block with a rate of 61. WI interval was prolonged at 210 ms. QRS interval was normal at 82 ms. QTc interval was normal at 436 ms. There is left axis deviation at -54. There are nonspecific ST-T wave changes noted. Prior EKG tracings: available for review Prior: Unchanged (11/09/2022) Treatment and Re-Evaluation Narrative: Patient was given aspirin. Patient was given IV fluids. Patient was advised of his findings. Case was discussed with the hospitalist. She will admit the patient to her service. Patient and family understood and were agreeable with the plan. All questions were answered. Discharge Plan Dx/Rx/DC Orders Clinical Impression: Acute kidney injury, Elevated troponin, Essential (primary) hypertension Disposition Disposition: Acute Care Hospital [facility]
--- NOTE | 2025-04-18 15:39 | EKG12_ITS ---
Test Reason : Blood Pressure : */* mmHG Vent. Rate : 61 BPM Atrial Rate : 61 BPM P-R Int : 210 ms QRS Dur : 82 ms QT Int : 434 ms P-R-T Axes : * -54 7 degrees QTcB Int : 436 ms Sinus rhythm with 1st degree A-V block Left axis deviation Cannot rule out Inferior infarct , age undetermined Anterolateral infarct , age undetermined Abnormal ECG Confirmed by Justin Hobbs ([id number]), slot editor LUKE MCNAMARA ([id number]) on 04/21/2025 1:06:53 PM Referred By: Confirmed By: Justin Hobbs
[2025-04-18 15:53] LABS: Hematocrit 39.3 % (40-54); Hemoglobin 13.1 g/dL (13.0-16.5); Immature Granulocytes Count 0.040 X10^3/uL (0.0-0.0); Mean Corp Hgb Conc 33.3 g/dL (32-36); Mean Corpuscular Volume 89.1 fL (80-94); Mean Platelet Vol. 10.9 fl (6.2-12.0); NRBC Flagged by Analyzer 0 % (0-5); Platelet Count 236 K/mm3 (150-450); RBC Distribution Width CV 13.5 % (11.6-14.6); RBC Distribution Width SD 44.2 fl (35.1-43.9); Red Blood Count 4.41 M/mm3 (4.6-6.2); White Blood Count 10.3 K/mm3 (4.4-11.0)
[2025-04-18 16:14] LABS: Anion Gap 14 (5-15); BUN 60 mg/dL (4-19); BUN/Creat Ratio 22.1 RATIO (10-20); Calcium,Total 9.5 mg/dL (7.6-11.0); Carbon Dioxide 20.3 mmol/L (21.0-32.0); Chloride 101 mmol/L (98-108); Estimated Creatinine Clearance 24.48 ml/min (50-250); Glucose 105 mg/dL (70-99); Potassium 4.4 mmol/L (3.3-5.1)
[2025-04-18 16:17] LABS: Troponin T High Sensitivity 119 ng/L (<=22)
[2025-04-18] MEDS: 0.9% Normal Saline (1000mL) 1,000 ML 1000 ML IV (16:29)
--- NOTE | 2025-04-18 17:52 | ED.RN ---
DELAY IN SECOND TROPONIN D/T PT BEING IN IMAGING
[2025-04-18 18:42] LABS: Troponin T High Sens 2 HR 103 ng/L (<=22)
[2025-04-18 19:00] VITALS: BP 121/71; PULSE 62; RESP 18; O2SAT 99
[2025-04-18 19:14] LABS: Color, Urine Yellow (Yellow); Glucose, Dipstick Normal (Normal); Ketone-Dipstick Negative (Negative); Leukocyte Esterase-Dipstick Negative /ul (Negative); Nitrite-Dipstick Negative (Negative); Occult Blood-Urine Negative /ul (Negative); Protein-Dipstick Negative (Negative); Specific Gravity, Urine 1.015 (1.002-1.030); Urine Bilirubin Dipstick Negative (Negative)
[2025-04-18 19:15] LABS: Mucous, Urine 0 SEEN /hpf (<or=2+)
[2025-04-18 19:33] LABS: Red Blood Cells-Urine 0-5 SEEN /hpf (0-5); Squamous Epithelial Cells - UA 0-5 SEEN /hpf (0-5)
[2025-04-18 20:34] VITALS: BP 109/75; PULSE 65; RESP 18; TEMP 37.1; O2SAT 98
--- NOTE | 2025-04-18 20:51 | PCM.HP.STD ---
HPI - General General Date of Admission: 04/18/25 Date of Service: 04/18/25 Chief Complaint: Sent secondary to concerns stool incontinence with chronic radiculopathy, back pain. HPI Narrative The patient is a 74 y/o M w/ PMHx: HTN, HLD, Hx TIA, CKD stage III unclear subtype or GFR trending, BPH with obstructive pathology, Allergic rhinitis, Chronic back pain with chronic radiculopathy who presents to [facility] ED on 04/18/2025 with onset of concern for possible stool incontinence in the setting of chronic lumbar back pain with chronic bilateral lower extremity radiculopathy however upon further discussion patient actually underwent a bowel prep and a colonoscopy on 04/17/2025 and noted that it was not that he could not control it at all it was that he had to hurry to try and make it to the restroom to be able to not have an accident in addition he reports poor oral intake on current day of presentation following his scope with considerable bowel output following his prep with incidentally noted upon ED evaluation elevated troponins and patient reporting that for several years he has exertional shortness of breath and will occasionally have midsternal zinging sharp chest discomfort that will last only seconds with radiation to his bilateral shoulders that is unchanged with most recent cardiac evaluation in 2022 with negative stress testing at that time as well as previous cardiac catheterization with no marked coronary disease noted at that time however he rediscussed this in the ED upon his evaluation again in the setting of incidentally noted elevated troponin. Current evaluation he denies any chest discomfort or dyspnea but notes this is primarily exertion. He is able to walk in the emergency room with no concerns or perineal paresthesias with appropriate reflexes. Workup in the ED included T98.3, heart rate 67, BP 121/70, respiratory rate 16, 100% on room air with most recent repeat labs T98.8, heart rate 65, BP 109/75, respiratory rate 18, 98% on room air, CBC with WC 10.3, hemoglobin 13.1, platelet 236 without marked shift, BMP with carbon oxide 20.3, BUN/creatinine 60/2.70, GFR 24, glucose 105, troponin initial 119 with repeat delta 103, urinalysis unremarkable, lumbar spine MRI with postsurgical changes but no concerning findings, EKG with sinus rhythm with no acute evidence of ischemia with nonspecific ST-T changes similar to previous. In the ED patient administered 1 L normal saline and full-strength aspirin therapy. [facility] Medical History Colonoscopy planned Loss of hearing Wears glasses History of edema Back pain Heartburn Shortness of breath on exertion Non-smoker History of pain when walking History of stress test History of echocardiogram Cardiology follow-up encounter COVID-19 (06/22/21) Essential (primary) hypertension Hyperlipidemia Transient ischemic attack (12/2007) Vitamin D deficiency Osteoarthritis BPH (benign prostatic hyperplasia) Varicose veins of both lower extremities Home Medications ?Medication ?Instructions ?Recorded ?Last Taken ?Type clopidogrel 75 mg tablet 75 mg PO DAILY 11/08/18 04/11/25 History folic acid 0.8 mg capsule 0.8 mg PO DAILY 11/08/18 04/16/25 History rosuvastatin 5 mg tablet 5 mg PO QHS 11/08/18 04/16/25 History ipratropium bromide 21 mcg (0.03 2 spray intranasal BID 11/14/19 04/16/25 History %) nasal spray zinc 50 mg tablet 50 mg PO DAILY 01/12/22 04/16/25 History acetaminophen 500 mg tablet 500 mg PO Q8H PRN pain 11/09/22 04/16/25 History (Tylenol Extra Strength) tamsulosin 0.4 mg capsule 0.4 mg PO BID 11/09/22 04/17/25 History metoprolol tartrate 25 mg tablet 25 mg PO DAILY 05/15/23 04/17/25 History loratadine 10 mg capsule 10 mg PO QDAY 05/01/24 04/16/25 History furosemide 40 mg tablet 40 mg PO Q OTHER DAY #45 TABLETS 11/04/24 04/16/25 Rx ergocalciferol (vitamin D2) 1,250 1,250 mcg PO SA 04/15/25 04/16/25 History mcg (50,000 unit) capsule losartan 50 mg tablet 50 mg PO QPM 04/15/25 04/16/25 History Allergy/AdvReac Type Severity Reaction Status Date / Time Penicillins (PCN) Allergy Intermediate Hives Verified 04/18/25 15:10 Sulfa (Sulfonamide Allergy Intermediate fever, Verified 04/18/25 15:10 Antibiotics) hives [id number] Reductase AdvReac Severe Nausea Verified 04/18/25 15:10 Inhibitor lisinopril AdvReac Intermediate cough Verified 04/18/25 15:10 Family History Father Cancer Mother Heart disease Surgical History History of cardiac catheterization Hx of colonoscopy Hx of neck surgery (~11/2022) Hx of transurethral resection of prostate (~06/2022) History of total right knee replacement History of shoulder replacement (03/2019) History of lumbar spinal fusion (06/2019) History of left heart catheterization (02/04/08) History of total left knee replacement (08/20/21) History of carpal tunnel release Social History household members: none Smoking Status: Never smoker alcohol intake: current alcohol intake frequency: holidays/special occasions only substance use type: does not use caffeine: Yes Type: coffee Number of servings: 1 ROS ROS Narrative Admission Review of Systems: CONSTITUTIONAL: No weight loss, fever, chills, + weakness or fatigue. HEENT: Eyes: No visual loss, blurred vision, double vision or yellow sclerae. Ears, Nose, Throat: No hearing loss, sneezing, congestion, runny nose or sore throat. SKIN: No rash or itching, lesions, wounds except + occasional stage ecchymoses, abrasions. CARDIOVASCULAR: + Chronic midsternal sharp shooting/zinging chest discomfort with radiation to the shoulders primarily with exertion ongoing for several years. No palpitations, edema, orthopnea, syncopal events. RESPIRATORY: + Dyspnea, primarily exertion. No marked cough or sputum, wheezing, hemoptysis. GASTROINTESTINAL: +anorexia, abdominal cramping with recent bowel prep, diarrhea, some concern initially for incontinence but likely related with bowel prep. No nausea, vomiting, melena, BRBPR. GENITOURINARY: + BPH status post TURP with chronic obstructive pathology, urinary frequency. No dysuria or urgency. NEUROLOGICAL: + Chronic bilateral lower extremity radiculopathy/paresthesias with chronic lumbar back pain. No headache, dizziness, syncope, paralysis, ataxia, focal weakness, change in bowel or bladder control, seizure. MUSCULOSKELETAL: + muscle, back pain, joint pain or stiffness. HEMATOLOGIC: No anemia. + Easy bleeding/bruising. LYMPHATICS: No enlarged nodes. No history of splenectomy. PSYCHIATRIC: No history of depression or anxiety. ENDOCRINOLOGIC: No reports of sweating, cold or heat intolerance. No polyuria or polydipsia. ALLERGIES: + History of allergic rhinitis, hives. Vital Signs Vital Signs Vital Signs: 04/18/25 15:06 04/18/25 19:00 04/18/25 20:34 Temperature 98.3 F 98.8 F Temperature Source Oral Pulse Rate 67 62 65 Respiratory Rate 16 18 18 Blood Pressure 121/70 H 121/71 H 109/75 Blood Pressure Mean 87 87 86 Pulse Ox 100 99 98 Oxygen Delivery Method Room Air Room Air Weight Weight: 180 lb 8 oz Body Mass Index (BMI) 29.1 Physical Exam Narrative Physical Examination: General: Awake, alert, oriented x 3 and cooperative, seated upright in the ED bed, eating, denies any chest discomfort or issues at this time. Skin: Normal color, normal turgor, no icterus, no cyanosis except occasional staged ecchymoses, abrasion. HEENT: AT/NC, EOMI, PERRLA, mildly dry MM, no carotid bruits or JVD noted. Lungs: Mildly diminished, greater bases, appropriate effort, no rales, ronchi or wheezing. Heart: Regular rate and rhythm; no gallop, rub audible, no reproducible chest discomfort with palpation of the anterior chest. Abdomen: Soft, overweight, NTTP, ND, hyperactive BS, no appreciated HSM. Extremities: No cyanosis, no clubbing, no significant distal edema. Neurological: Patient awake, alert, oriented as noted, cognitive function intact; pupils equally reactive to light and accommodation, cranial nerves grossly normal, moving all 4 extremities, no focal deficits, strength moderately globally decreased which suspect is chronic given his chronic lumbar back pain. Psychiatric: Affect appears normal, no acute evidence of depressive or anxiety feelings. Results Lab / Micro Data 04/18/25 15:41 04/18/25 15:41 Labs: Laboratory Results - last 24 hr 04/18/25 15:41: WBC 10.3, RBC 4.41 L, Hgb 13.1, Hct 39.3 L, MCV 89.1, MCH 29.7, MCHC 33.3, RDW Std Deviation 44.2 H, RDW Coeff of Mary 13.5, Plt Count 236, MPV 10.9, Immature Gran % (Auto) 0.400, Neut % (Auto) 58.2, Lymph % (Auto) 26.0, Robertson % (Auto) 12.8 H, Eos % (Auto) 2.0, Baso % (Auto) 0.6, Absolute Neuts (auto) 6.0, Absolute Lymphs (auto) 2.66, Nucleated RBC % 0, Sodium 136, Potassium 4.4, Chloride 101, Carbon Dioxide 20.3 L, Anion Gap 14, BUN 60 H, Creatinine 2.70 H, Estim Creat Clear Calc 24.48 L, Est GFR (MDRD) Non-Af 24 L, BUN/Creatinine Ratio 22.1 H, Glucose 105 H, Calcium 9.5, Troponin T High Sens 119 H* 04/18/25 18:16: Troponin T Hi Sens 2 Hr 103 H* 04/18/25 19:01: Urine Color Yellow, Urine Clarity Clear, Urine pH 5.0, Ur Specific [place] 1.015, Urine Protein Negative, Urine Glucose (UA) Normal, Urine Ketones Negative, Urine Occult Blood Negative, Urine Nitrite Negative, Urine Bilirubin Negative, Urine Urobilinogen Normal, Ur Leukocyte Esterase Negative, Urine RBC 0-5 SEEN, Urine WBC 0-5 SEEN, Ur Squamous Epith Cells 0-5 SEEN, Urine Bacteria 0 SEEN, Urine Mucus 0 SEEN Imaging Radiology Impression Lumbar Spine MRI 04/18/25 15:29 IMPRESSION: Postsurgical changes as described above. Negative for cauda equina or conus compression. Reading [facility] Assessment & Plan Assessment/Plan (1) Acute kidney injury: (2) Elevated troponin: PLAN: Plan The patient is a 74 y/o M w/ PMHx: HTN, HLD, Hx TIA, CKD stage III unclear subtype or GFR trending, BPH with obstructive pathology, Allergic rhinitis, Chronic back pain with chronic radiculopathy who presents to [facility] ED on 04/18/2025 with onset of concern for possible stool incontinence in the setting of chronic lumbar back pain with chronic bilateral lower extremity radiculopathy however upon further discussion patient actually underwent a bowel prep and a colonoscopy on 04/17/2025 and noted that it was not that he could not control it at all it was that he had to hurry to try and make it to the restroom to be able to not have an accident in addition he reports poor oral intake on current day of presentation following his scope with considerable bowel output following his prep with incidentally noted upon ED evaluation elevated troponins and patient reporting that for several years he has exertional shortness of breath and will occasionally have midsternal zinging sharp chest discomfort that will last only seconds with radiation to his bilateral shoulders. #1. Prolonged history of intermittent exertional dyspnea/chest pain with indeterminate cardiac enzymes of unclear significance: EKG in ED with sinus rhythm with no acute evidence of ischemia with nonspecific ST-T changes, initial trop 119 with repeat 103. Will admit to PCU, place on a monitored bed to assure no acute myocardial infarction with serial cardiac enzymes and EKGs. Given enzymes are trending down and this has been ongoing for several years with previous nonobstructive cardiac catheterization 11/2022 and last echocardiogram unremarkable in 2022 we will pursue repeat stress testing at this time if additional troponins do not further elevate and continue to trend downward. If enzymes instead trend upward or there are any EKG concerning findings then low threshold just to involve cardiology for consideration repeat catheterization. Magnesium level requested. FLP in AM. ECHO requested. Continue plavix therapy. Of note post scope instructions were for holding any NSAIDs or aspirin for at least 2 days following intervention 04/17/2025 and Plavix for 2 days following intervention. Will need to closely monitor given recent addition of antiplatelet sooner. #2. Acute kidney injury on CKD stage III unclear subtype per previous GFR trending: Secondary to suspected GI losses with recent bowel prep primarily as well as poor oral intake. Admission BUN/Cr 60/2.70, GFR 24, prior baseline creatinine noted to be primarily 1.4-1.7. Will hydrate, hold nephrotoxic medications and repeat chemistry in AM. If no improvement would plan FeNa assessment. #3. Chronic back pain with chronic radiculopathy: MRI of the lumbar spine with no concerning findings, likely stool episode of incontinence related to recent bowel prep based on description, no concerning perineal paresthesias or weakness/debility, encouraged follow-up outpatient and possibly outpatient PT/OT if necessary. #4. History of TIA: Will continue patient Plavix, statin, metoprolol, temporally holding additional hypertensive regimen given ROSS as noted, add back once appropriate, no diabetic history. #5. Hypertension: Will continue patient home metoprolol regimen, holding Lasix as well as losartan given ROSS, add back once clinically appropriate. As needed IV hydralazine. #6. Hyperlipidemia: Continue home statin regimen. AM FLP. #7. BPH with obstructive pathology: Status post TURP, will continue patient Flomax regimen, monitor for retention. #8. Allergic rhinitis: Will continue patient home ipratropium nasal spray as well as her loratadine regimen. #9. DVT prophylaxis: SCDs, will defer chemoprophylaxis given recent scope with recommended hold on antiplatelet thus given we are already giving him antiplatelet given #1 will defer this at this time. #10. CODE status: Patient ELLIS is his friend Jerson Tijerina and living will is currently in place. Discussed CODE status at length including difference between FULL code, DNR-CCA and DNR-CC status. Following discussions about the differences in these status, requested Full Code status. Charges/Coding Visit Charges Inpatient E&M: 63558 Init Hosp L3
[2025-04-18 21:01] LABS: Troponin T High Sens 4 HR 109 ng/L (<=22)
--- NOTE | 2025-04-18 21:06 | EKG12_ITS ---
Test Reason : ADM EKG Blood Pressure : */* mmHG Vent. Rate : 64 BPM Atrial Rate : 64 BPM P-R Int : 226 ms QRS Dur : 82 ms QT Int : 422 ms P-R-T Axes : 249 -53 -10 degrees QTcB Int : 435 ms Unusual P axis, possible ectopic atrial rhythm Left axis deviation Inferior infarct , age undetermined Anterolateral infarct , age undetermined Abnormal ECG When compared with ECG of 18-Apr-2025 15:47, MANUAL COMPARISON REQUIRED DATA IS UNCONFIRMED Confirmed by Justin Hobbs ([id number]), map editor LUKE MCNAMARA ([id number]) on 04/22/2025 7:54:00 AM Referred By: OSMIN Confirmed By: Justin Hobbs
--- OUTSIDE RECORDS SUMMARY | 2025-04-18 21:17 | XMS RPT_ITS | CCD ---
[facility] Providers Care Lawn Service Supervisor Name Role Phone Jose L Li Primary Care Provider Amira TRUJILLO, Miles Lubin Unavailable Carl Jaramillo PA-C Unavailable Dr. Jose L Li Primary Care Provider 1([facility])[phone] Dr. Mark Middleton Attending Provider 1([facility])[phone] Arnulfo Felder Referring Provider 1([facility] )[phone] Dr. Jose L Li Primary Care Provider 1([facility])[phone] Dr. Mark Middleton Attending Provider 1([facility])[phone] Arnulfo Felder Referring Provider Dr. Jose L Li Primary Care Provider 1([facility])[phone] Dr. Jose L Li Referring Provider 1([facility])[phone] Twan OLVERA, FACTORY PROCESS WORKERS-C Jess Attending Provider Dr. Mark Middleton Attending Provider 1([facility])[phone] Mark Middleton Referring Provider 1([facility])[phone] Jose L Li Primary Care Provider Dr. Jose L Li Referring Provider [phone] Twan OLVERA, FACTORY PROCESS WORKERS-C Jess Attending Provider Dr. Jose L Li MD Primary Care Provider 1([facility])[phone] Bradford TRUJILLO, Dr. Arnulfo Arnold Attending Provider Dr. Arnulfo Felder MD Referring Provider Dr. Jose L Li MD Referring Provider 1([facility])[phone] Chelsi Mccurdy Attending Provider Chelsi Mccurdy Referring Provider Guillermo TRUJILLO, Dr. Domingo Primary Care Physician Guillermo TRUJILLO, Dr. Domingo Attending Physician Dr. Jose L Li MD Referring Provider Bambi TRUJILLO, Dr. Anderson Attending Physician Arnulfo Felder Referring Unavailable Li, Jose L Primary Care Unavailable Arnulfo Felder Attending Unavailable Li, Jose L Referring Unavailable Li, Jose L Primary Care Unavailable Li, Jose L Attending Unavailable Li, Jose L Referring Unavailable Li, Jose L Primary Care Unavailable Justin Lacy Attending Unavailable Li, Jose L Attending Unavailable Li, Jose L Referring Unavailable Li, Jose L Primary Care Unavailable Chelsi Mccurdy Attending Unavail able Chelsi Mccurdy Referring Unavail able Li, Jose L Primary Care Unavailable Chelsi Mccurdy Attending Unavail able Li, Jose L Referring Unavailable Li, Jose L Primary Care Unavailable Li, Jose L Referring Unavailable Li, Jose L Primary Care Unavailable Vielka Morris Attending Unavailable Li, Jose L Referring Unavailable Li, Jose L Primary Care Unavailable Justin Lacy Attending Unavailable hCelsi Mccurdy Attending Unavail able Chelsi Mccurdy Referring Unavail able Li, Jose L Primary Care Unavailable Padmini DICKERSON, Zena Stark Unavailable NONE, NONE Unavailable Unavailable Guillermo TRUJILLO, Jose L Quintanilla Unavailable Allergies Allergy Classification Reported Allergen(s) Allergy Type Date of Onset Reaction(s) Facility (18 sources) Penicillins; Translations: [Penicillins] Propensity to adverse reactions to drug 1 Hives [facility] (1 source) Sulfur Drug Allergy 1 Hives [facility] Work Phone: (3 sources) Doxycycline Drug Allergy 1 nausea and ill feeling [facility] Work Phone: (2 sources) Penicillin G Drug Allergy 2 hives and fever [facility] Work Phone: (3 sources) Sulfonamides (Antibiotic) drug allergy 8 hives and shortness of breath [facility] Work Phone: (16 sources) Lisinopril Drug Allergy 2 cough [facility] (17 sources) Sulfonamides (Antibiotic); Translations: [Sulfa (Sulfonamide Antibiotics)] Allergy to substance 2 fever, hives [facility] (17 sources) Lmfiets-Sow-Scf Reductase Inhibitor; Translations: [Voqfhgj-Jce-Peg Reductase Inhibitor] Propensity to adverse reactions 2 Nausea [facility] (1 source) Lisinopril Drug Allergy 5 [facility] Repository (1 source) Penicillin G Drug Allergy 2 [facility] Medications Current Medications Medication Drug Class(es) Dates Sig (Normalized) Sig (Original) acetaminophen 500 mg oral tablet (20 sources) Start: 11-09-2022 take 1 tablet by mouth every eight hours as needed Start: 01-12-2022 End: 11-09-2022 take 1 tablet by mouth every six hours as needed Acetaminophen (Tylenol Extra Strength) 500 mg tablet Discontinued 500 mg PO EVERY 6 HOURS as needed January 12, 2022 12:00am November 09, 2022 8:35am take 1 tablet by aidan three times daily Tylenol Extra Strength 500 mg tablet 1 tablet by mouth three times a day active Ernestine Cosby AT [facility] TYLENOL 8 HOUR A RTHRITIS PAIN 650 MG CR-TABS 2 tablet by mouth as needed for pain acetaminophen [id number] Renea Toney LPN Acetaminophen (T YLENOL PO) Take by mouth 0 Active cholecalciferol 1.25 mg oral capsule (1 source) Vitamin D Cholecalciferol (VITAMIN D3) 1.25 MG (59954 UT) CAPS Take by mouth Medication is taken on Saturdays. 0 Active clopidogrel 75 mg oral tablet (20 sources) P2Y12 Platelet Inhibitor Start: 07-19-19 13 take 1 tablet by mouth once daily Clopidogrel Bisu lfate (PLAVIX PO) Take by mouth 0 Active folic acid 0.8 mg oral capsu le (19 sources) Start: 11-08-2018 take 1 capsule by mo uth once daily Start: 07-19-2012 take 1 tablet by aidan th once daily FOLIC ACID 800 MCG TABS Take 1 tablet by mouth once a day folic acid [id number] Obdulia Dobson LPN ipratropium bromide 0.021 mg /actuat metered dose nasal spray (17 sources) Anticholinergic Start: 11-14-2019 Start: 11-14-2019 take 1 spray(s) nasa l route twice daily Ipratropium [place] Active 2 SPRAY INTRANASAL TWICE A DAY November 14, 2019 12:00am administer into each nostril take 1 spray(s) nasa l route twice daily ipratropium bromide 21 mcg (0.03 %) nasal spray 1 spray into both nostrils twice a day active [facility] [place] [facility] loratadine 10 mg oral capsul e (20 sources) Start: 05-01-2024 take 1 capsule by mo [facility] once daily Start: 02-03-2019 End: 05-15-2023 take 1 tablet by mouth once daily Allergy Relief (loratadine) 10 mg tablet 1 tablet by mouth once a day active Obdulia Dobson LPN [facility] Loratadine (CLAR ITIN PO) Take by mouth 0 Active losartan potassium 100 mg or al tablet (20 sources) Angiotensin 2 Receptor Ama Start: 05-15-2023 Start: 05-15-2023 take 50 mg by mouth once daily Losartan Active 50 MG PO DAILY May 15, 2023 10:09am Start: 07-19-2012 End: 05-15-2023 take 1 tablet by mouth once daily Losartan 100 mg tablet Discontinued 100 mg PO DAILY November 08, 2018 12:00am May 15, 2023 10:11am take 1 tablet by aidan once daily losartan 50 mg tablet 1 tablet by mouth once a day active Ernestine Cosby AT [facility] [place] [facility] metoprolol tartrate 25 mg oral tablet (20 sources) beta-Adrenergic Ama Start: 05-15-2023 take 1 tablet by mouth once daily Start: 11-08-2018 End: 05-15-2023 take 1 tablet by mouth twice daily Metoprolol Tartrate 25 mg tablet Discontinued 25 mg PO TWICE A DAY November 08, 2018 12:00am May 15, 2023 10:11am Start: 07-19-2017 take 1 tablet by aidan th once daily LOPRESSOR 100 MG TABS Take 1 tablet by mouth once a day metoprolol tartrate [id number] Obdulia Dobson [employer]LL PRESS OPERATOR rosuvastatin calcium 5 mg oral tablet (20 sources) HMG-CoA Reductase Inhibitor Start: 07-19-2017 take 1 tablet by mouth at bedtime Rosuvastatin [place] (CRESTOR PO) Take by mouth 0 Active tamsulosin hydrochloride 0.4 mg oral capsule (20 sources) alpha-Adrenergic Ama Start: 11-08-2018 End: 11-09-2022 take 1 capsule by mouth twice daily Start: 07-19-2012 take 0.4 mg by mouth at bedtim e Tamsulosin Active 0.4 MG PO AT BEDTIME November 08, 2018 12:00am Tamsulosin HCl ( FLOMAX PO) Take by mouth 0 Active VITAMIN D (ERGOCALCIFEROL) (ERGOCALCIFEROL) 98847 UNIT CAPS (1 source) take 1 capsule by mouth every week ergocalciferol (vitamin D2) 1,250 mcg (50,000 unit) capsule 1 capsule by mouth once a week active [facility] Zinc (15 sources) Start: 01-12-2022 take 1 tablet by mouth once daily Start: 01-12-2022 take 1 tablet by mouth once da ryne Zinc 50 mg tablet Active 50 mg PO DAILY January 12, 2022 12:00am Start: 01-12-2022 take 50 mg by mouth once daily Zinc Active 50 MG PO DAILY January 12, 2022 12:00am Start: 01-12-2022 take 50 mg by mouth once daily Zinc Active 50 MG PO DAILY January 11, 2022 11:00pm zinc acetate 50 mg oral capsule (1 source) take 1 capsule by mo ut once daily zinc acetate 50 mg (zinc) capsule 1 capsule by mouth once a day active [facility] Completed/Discontinued Medications Medication Drug Class(es) Dates Sig (Normalized) Sig (Original) acetaminophen 325 mg / HYDROcodone bitartrate 5 mg oral tablet (16 sources) Opioid Agonist Start: 03-20-2018 End: 03-23-2018 take 1 tablet by mouth every six hours as needed for pain Hydrocodone-Acetami nophen 1 TABLET tablet Discontinued 1 {tbl} PO EVERY 6 HOURS NEEDED as needed for Pain 10 3 0 March 20, 2018 12:00am March 22, 2018 12:00am March 23, 2018 12:10am Fracture of rib Fracture of one rib, unspecified side, initial encounter for closed fracture Start: 03-20-2018 End: 03-23-2018 take 1 tablet by mouth every six hours as needed Hydrocodone-Acetaminophen Discontinued 1 TABLET PO EVERY 6 HOURS NEEDED 10 3 March 20, 2018 12:00am March 23, 2018 12:10am ascorbic acid 500 mg oral tablet (20 sources) Vitamin C Start: 11-09-2022 End: 05-15-2023 take 1 g by mouth once daily Ascorbic Acid (Vitamin C) Discontinued 1 GM PO DAILY November 09, 2022 8:35am May 15, 2023 10:09am Start: 01-12-2022 End: 05-15-2023 take 1 g by mouth once daily Ascorbic Acid (Vitamin C) 500 mg tablet Discontinued 1 g PO DAILY November 09, 2022 8:35am May 15, 2023 10:09am cetirizine hydrochloride 10 mg oral capsule (6 sources) Histamine-1 Receptor Antagonist Start: 12-11-2023 End: 05-01-2024 take 1 capsule by mouth once daily as needed Cetirizine (Zyrtec) 10 mg capsule Discontinued 10 mg PO DAILY as needed December 11, 2023 12:00am May 01, 2024 10:28am ergocalciferol 1.25 mg oral capsule (16 sources) Provitamin D2 Compound Start: 11-08-2018 End: 05-01-2024 Ergocalciferol (Vitamin D2) 50,000 unit capsule Discontinued 23598 U PO EVERY WEEK November 08, 2018 12:00am May 01, 2024 10:31am fluticasone propionate 0.05 mg/actuat metered dose nasal spray (2 sources) Corticosteroid Start: 04-07-2020 FLONASE ALLERGY RELIEF 50 MCG/ACT SUSP Use as directed fluticasone propionate [id number] Obdulia Dobson LPN furosemide 40 mg oral tablet (20 sources) Loop Diuretic Start: 11-17-2022 End: 11-04-2024 take 1 tablet by mouth every other day Furosemide (Lasix) 40 mg tablet Discontinued 40 mg PO every other day 45 3 October 31, 2024 8:36am November 04, 2024 11:12am Start: 11-09-2022 End: 11-17-2022 take 1 tablet by mouth once daily Furosemide (Lasix) 40 mg tablet Discontinued 40 mg PO DAILY 5 0 November 09, 2022 12:00am November 17, 2022 5:38pm gabapentin 300 mg oral capsule (16 sources) Anti-epileptic Agent Start: 11-14-2019 End: 11-17-2020 take 1 capsule by mouth twice daily Gabapentin 300 mg capsule Discontinued 300 mg PO TWICE A DAY November 14, 2019 12:00am November 17, 2020 9:04am iv antibiotics (2 sources) iv antibiotics a t home via iv line iv antibiotics Renea Toney LPN naproxen 500 mg oral tablet (20 sources) Nonsteroidal Anti-inflammatory Drug Start: 03-23-2019 End: 11-14-2019 take 1 tablet by mouth twice daily as needed Naproxen 500 MG tablet Discontinued 500 mg PO TWICE DAILY NEEDED March 23, 2019 12:00am November 14, 2019 9:20am Start: 11-14-2018 End: 11-14-2019 take 1 tablet by mouth twice daily as needed for pain Naproxen Sodium (Aleve) 220 mg tablet Discontinued 220 mg PO TWICE A DAY as needed for Pain November 14, 2018 2:01pm November 14, 2019 9:22am Start: 11-08-2018 End: 11-14-2018 take 2 tablets by mouth once daily as needed Naproxen Sodium (Aleve) 220 mg tablet Discontinued 440 mg PO DAILY as needed November 08, 2018 12:00am November 14, 2018 2:01pm Start: 07-09-2015 take 1 tablet by aidan th twice daily ALEVE 220 MG CAPS 1 tablet by mouth twice a day naproxen sodium [id number] Obdulia Dobson LPN oxyCODONE hydrochloride 5 mg oral tablet (8 sources) Opioid Agonist Start: 05-15-2023 End: 12-11-2023 take 1 tablet by mouth once daily as needed Oxycodone 5 mg tablet Discontinued 5 mg PO DAILY as needed May 15, 2023 1:00am December 11, 2023 9:23am take 1 capsule by mouth once OXY CODONE HCL 5 MG CAPS 1 capsule by mouth every twelve hours oxycodone [id number] Renea Toney LPN Problems Active Problems Problem Classification Problem Date Documented Da te Episodic/Chronic Chronic kidney disease (1 source) Chronic kidney disease; Translations: [Chronic kidney disease, stage 3b] Onset: 03-17-2025 Disorders of lipid metabolism (20 sources) Hyperlipidemia; Translations: [Hyperlipidemia, unspecified] Onset: 08-28-2024 03-23-2019 Chronic Essential hypertension (20 sources) Essential hypertension; Translations: [Essential (primary) hypertension] Onset: 09-06-2024 03-23-2019 Chronic Hyperplasia of prostate (1 source) Benign prostatic hyperplasia without lower urinary tract symptoms; Translations: [Benign prostatic hyperplasia without lower urinary tract symptoms] Onset: 08-30-2024 Chronic Nonspecific chest pain (16 sources) Chest pain; Translations: [Chest pain, unspecified] 11-13-2019 Episodic Nutritional deficiencies (7 sources) Vitamin D deficiency; Translations: [Vitamin D deficiency, unspecified] Onset: 08-28-2024 08-28-2024 Chronic Osteoarthritis (9 sources) Unilateral primary osteoarthritis, left knee; Translations: [Osteoarthrosis, localized, primary, lower leg] Onset: 10-09-2018 04-07-2020 Chronic Other aftercare (6 sources) Aftercare following joint replacement surgery; Translations: [Aftercare following joint replacement] Onset: 07-30-2020 04-22-2021 Chronic Other aftercare (5 sources) Patient encounter status; Translations: [Encounter for therapeutic drug level monitoring] 11-17-2022 Episodic Other aftercare (6 sources) Long-term current use of diuretic; Translations: [Encounter for therapeutic drug level monitoring] 11-17-2022 Episodic Other connective tissue disease (3 sources) Infection of total knee joint prosthesis; Translations: [Presence of unspecified artificial knee joint] Onset: 04-22-2021 04-22-2021 Chronic Other connective tissue disease (6 sources) Pain due to knee joint prosthesis; Translations: [Presence of left artificial knee joint] Onset: 01-07-2021 04-07-2021 Chronic Other connective tissue disease (3 sources) Presence of right artificial shoulder joint; Translations: [Shoulder joint replacement] Onset: 04-12-2019 04-12-2019 Chronic Other connective tissue disease (3 sources) History of total knee arthroplasty; Translations: [Presence of right artificial knee joint] Onset: 07-09-2015 07-09-2015 Chronic Other gastrointestinal disorders (4 sources) Altered bowel function; Translations: [Change in bowel habit] 03-27-2025 Episodic Comment on above: Patient is a 74-year -old male who is evaluated for change in bowel habits over the last 3 to 4 years. He notes frequency of stools as well as some incontinence. He generally denies any alarm symptoms like tapering of stools or signs of blood. It is difficult to elicit parts of his history as he initially denies any experience of abdominal pain but later in the visit suggest that lower abdominal pain may be present with exertion. He remarks that his difficulty stems from years of back pain which he simply dealt with and began to ignore more mild discomfort. Encouragingly, his abdominal exam is generally benign. He does have an umbilical hernia that appears to contain chronically incarcerated fat. 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 Given the changes to his bowel habits, changes noted within the sigmoid colon suggestive of colitis (or inability to exclude possible underlying lesion), and the duration since his last colonoscopy (up to a decade ago) I am recommending we pursue repeat colonoscopy with 2-day bowel prep. He will require a hold of his Plavix preprocedurally. Other gastrointestinal disorders (2 sources) Diarrhea; Translations: [Diarrhea, unspecified] 03-27-2025 Episodic Other gastrointestinal disorders (2 sources) Incontinence of feces; Translations: [Full incontinence of feces] Onset: 04-18-2025 04-18-2025 Episodic Other lower respiratory disease (16 sources) Dyspnea; Translations: [Dyspnea, unspecified] 11-13-2019 Episodic Other lower respiratory disease (11 sources) Dyspnea on exertion; Translations: [Other forms of dyspnea] 11-09-2022 Episodic Other lower respiratory disease (3 sources) Other forms of dyspnea; Translations: [Other respiratory abnormalities] 11-09-2022 Episodic Other non-traumatic joint disorders (16 sources) Effusion of joint of left knee; Translations: [Effusion, left knee] 03-19-2021 Episodic Peripheral and visceral atherosclerosis (1 source) Chronic vascular disorders of intestine; Translations: [Chronic vascular disorders of intestine] Onset: 03-29-2025 Chronic Spondylosis; intervertebral disc disorders; other back problems (12 sources) Degeneration of cervical intervertebral disc; Translations: [Other cervical disc degeneration, unspecified cervical region] Onset: 07-19-2017 02-14-2019 Chronic Transient cerebral ischemia (20 sources) Transient cerebral ischemia; Translations: [Transient cerebral ischemic attack, unspecified] Onset: 12-18-2007 03-23-2019 Chronic Past or Other Problems Problem Classification Problem Date Documented Date Episodic/Chronic Complication of device; implant or graft (6 sources) Infection of total knee joint prosthesis; Translations: [Infection and inflammatory reaction due to other internal joint prosthesis, initial encounter] Onset: 04-07-2021 04-22-2021 Episodic Complications of surgical procedures or medical care (3 sources) Postoperative wound abscess; Translations: [Infection following a procedure, other surgical site, initial encounter] Onset: 04-07-2021 04-07-2021 Episodic Conditions associated with dizziness or vertigo (1 source) Dizziness and giddiness; Translations: [Dizziness and giddiness] Onset: 08-28-2024 Episodic Joint disorders and dislocations; trauma-related (19 sources) Acute meniscal tear, medial; Translations: [Other tear of medial meniscus, current injury, left knee, initial encounter] Onset: 06-11-2020 06-11-2020 Episodic Joint disorders and dislocations; trauma-related (3 sources) Unspecified dislocation of right shoulder joint, initial encounter; Translations: [Closed dislocation of shoulder, unspecified] Onset: 02-05-2019 02-05-2019 Episodic Other acquired deformities (3 sources) Lumbar spondylolisthesis; Translations: [Spondylolisthesis, lumbar region] Onset: 03-28-2019 03-28-2019 Episodic Other connective tissue disease (3 sources) History of lumbar fusion; Translations: [Arthrodesis status] Onset: 07-11-2019 07-11-2019 Episodic Other connective tissue disease (3 sources) Disorder of rotator cuff; Translations: [Unspecified rotator cuff tear or rupture of right shoulder, not specified as traumatic] Onset: 02-05-2019 02-05-2019 Episodic Other connective tissue disease (3 sources) History of operative procedure on lumbar spinal structure; Translations: [Arthrodesis status] Onset: 07-19-2017 09-14-2017 Episodic Other connective tissue disease (3 sources) Triggering of digit; Translations: [Trigger finger, left middle finger] Onset: 06-01-2015 06-01-2015 Episodic Other connective tissue disease (1 source) Full thickness rotator cuff tear; Translations: [Complete rotator cuff tear or rupture of left shoulder, not specified as traumatic] Onset: 10-12-2022 10-12-2022 Episodic Other connective tissue disease (1 source) Complete rotator cuff tear or rupture of left shoulder, not specified as traumatic; Translations: [Complete rupture of rotator cuff] Onset: 10-12-2022 04-18-2025 Episodic Other non-traumatic joint disorders (3 sources) Swelling of knee joint; Translations: [Effusion, left knee] Onset: 04-02-2021 04-02-2021 Episodic Spondylosis; intervertebral disc disorders; other back problems (7 sources) Spinal stenosis of lumbar region; Translations: [Spinal stenosis, lumbar region without neurogenic claudication] Onset: 08-10-2017 02-14-2019 Episodic Unclassified (2 sources) Problem Viral infection (16 sources) Disease caused by 2019-nCoV; Translations: [COVID-19] Onset: 06-22-2021 11-17-2021 Episodic Results Test Name Value Interpretation Reference Range Facility Relevant diagnostic tests/la boratory data Narrativeon 04-18-2025 MEDS REVIEW Done [facility] Work Phone: MEDS REVIEWD Medications reviewed without changes [facility] Work Phone: MR/PAT.ANEon 04-15-2025 MR/PAT.ANE [facility] Medical Records Department [address] [place] [address] PAT - Anesthesia 04/15/25 1725 MR#: [id number] Acct: [id number] Name: JEREMY CAIN Rep #: [id number] : 1950 74 From: [place] Tubbs MD PCP: Dr. Jose L Li MD Status:PRE SDC Y Race: C Location: EN Pre-Assessment Diagnosis/Proposed Procedure Planned Operative Procedure(s): CSCOPE Anesthesia History Anesthesia History - manager reading: Anesthesia History - manager reading Hx Hospitalization No 04/15/25 14:32 Any Problems With Anesthesia No 04/15/25 14:32 Cholinesterase deficiency No 04/15/25 14:32 You/Your Family Experience No 04/15/25 14:32 fever (hyperthermia) with Relationship Recent Exposure to Contagious Disease Does patient have nerve No 04/15/25 14:32 stimulator Patient instructed to have device shut off --Does patient have Pacemaker or ICD? When Was Last Pacemaker Check QUESTION #4 FULL TEXT: You/Your Family Experience fever (hyperthermia) with Anesthesia Last Oral Intake Last Oral intake: Last Oral Intake NPO since Meds taken in AM with sips of water? Meds patient instructed to take am of surgery PONV PONV - manager reading: PONV - manager reading Female No 04/15/25 14:32 HX of Motion Sickness No 04/15/25 14:32 HX of N/V After Surgery No 04/15/25 14:32 Non-Smoker Yes 04/15/25 14:32 Duration of Surgery greater No 04/15/25 14:32 than 60 minutes Number of Risk Factors 1 04/15/25 14:32 PONV Score Low Risk 04/15/25 14:32 Height Weight Height Weight: Anesthesia: Height Weight Height 5 ft 6 in 03/27/25 13:20 Respiratory Assessment Respiratory Assessment - manager reading: Respiratory Tract Infection Hx - manager reading Hx Respiratory Tract Infection No 04/15/25 14:32 STOP Sleep Apnea STOP Sleep Apnea - manager reading: STOP Sleep Apnea - manager reading Hx Hypertension Yes: CONTROLLED WITH MEDS 04/15/25 14:32 Hx Sleep Apnea No 04/15/25 14:32 CPAP BIPAP Do you snore loudly (louder No 04/15/25 14:32 than talking or can be heard Do you often feel tired/ No 04/15/25 14:32 fatigued/ sleepy during daytime? Has anyone observed you stop No 04/15/25 14:32 breathing during sleep? STOP Results Negative 04/15/25 14:32 QUESTION #5 FULL TEXT : Do you snore loudly (louder than talking or can be heard through closed doors)? 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 Specify any problems Hx of Preganancy in last 3 N/A 04/15/25 14:32 Months Nurse Filling Out Transfusion DSCHRIBER 04/15/25 14:32 Questions: Date: 04/15/25 04/15/25 14:32 Time: 14:36 04/15/25 14:32 Patient unable to answer at this time (ie. confused, unrespo /Reproducti on History /Reproducti ve History - manager reading: /Reproducti ve Hx- manager reading Hx Now No 04/15/25 14:32 Gestational Age (in weeks): EDC: Hx Hx Para Hx Section SAB No 04/15/25 14:32 PFSH Medical History (Updated 04/15/25 @ 14:47 by Erendira Pope) Loss of hearing Wears glasses History of edema Back pain Heartburn Shortness of breath on exertion Non-smoker History of pain when walking History of stress test History of echocardiogram Cardiology follow-up encounter COVID-19 (06/22/21) Essential (primary) hypertension Hyperlipidemia Transient ischemic attack (12/2007) Vitamin D deficiency Osteoarthritis BPH (benign prostatic hyperplasia) Varicose veins of both lower extremities Home Medications ???Medication ???Instructions ???Recorded ???Last Taken ???Type clopidogrel 75 mg tablet 75 mg PO DAILY 11/08/18 04/11/25 H istory folic acid 0.8 mg capsule 0.8 mg PO DAILY 11/08/18 Unknown H istory rosuvastatin 5 mg tablet 5 mg PO QHS 11/08/18 Unknown Histo ry ipratropium bromide 21 mcg (0.03 2 spray intranasal BID 11/14/19 Un known History %) nasal spray zinc 50 mg tablet 50 mg PO DAILY 01/12/22 Unknown Hi story aceta (more content not included)... Normal [facility] Surgery Visit Reporton 03-27 Surgery Visit Report [facility] [address] [place] [address] OFFICE VISIT Date of Service: 03/27/25 MR#: [id number] Acct: [id number] Name: JEREMY CAIN Rep #: [id number] : 1950 Provider: Dr. Justin hair MD Age/Sex: 74/M Location: [facility] Status: Signed Intake Vital Signs 08/28/24 07:36 03/27/25 13:20 Height 5 ft 7 in 5 ft 6 in Weight: 177 lb BMI 28.5 BP 104/62 Blood Pressure Location Rt brachial Position Sitting Respiration 18 Pulse 53 L Pulse Source Monitor Temp 97.2 F L Temp Source Temporal Pulse Oximetry (%) 96 Oxygen Delivery Method room air Intake Visit Reasons: ABD PAIN, SWELLING IN COLON Chief Complaint: abd pain, swelling in colon Is patient in pain?: No Allergies Penicillins (PCN) Allergy (Intermediate, Verified 03/27/25 13:21) Hives Sulfa (Sulfonamide Antibiotics) Allergy (Intermediate, Verified 03/27/25 13:21) fever, hives Rgthdax-GTJ-[id number] Reductase Inhibitor Adverse Reaction (Severe, Verified 03/27/25 13:21) Nausea lisinopril Adverse Reaction (Intermediate, Verified 03/27/25 13:21) cough Medications ???Medication ???Instructions ???Recorded ???Confirmed ???Type clopidogrel 75 mg tablet 75 mg PO DAILY 11/08/18 03/27/25 H istory folic acid 0.8 mg capsule 0.8 mg PO DAILY 11/08/18 03/27/25 History rosuvastatin 5 mg tablet 5 mg PO QHS 11/08/18 03/27/25 Hist ory ipratropium bromide 21 mcg (0.03 2 spray intranasal BID 11/14/19 History %) nasal spray zinc 50 mg tablet 50 mg PO DAILY 01/12/22 03/27/25 H istory acetaminophen 500 mg tablet 500 mg PO Q8H PRN 11/09/22 5 History (Tylenol Extra Strength) tamsulosin 0.4 mg capsule 0.4 mg PO BID 11/09/22 03/27/25 Hi story losartan 100 mg tablet 50 mg PO DAILY 05/15/23 03/27/25 H istory metoprolol tartrate 25 mg tablet 25 mg PO DAILY 05/15/23 03/27/25 H istory loratadine 10 mg capsule 10 mg PO QDAY 05/01/24 03/27/25 Hi story furosemide 40 mg tablet 40 mg PO Q OTHER DAY #45 TABLETS 0 11/04/24 03/27/25 Rx Have you fallen in the past year?: No PFSH Medical History (Updated 03/27/25 @ 16:[address] Justin Lacy MD) Diarrhea COVID-19 (06/22/21) Essential (primary) hypertension Hyperlipidemia Transient ischemic attack (12/2007) Vitamin D deficiency Osteoarthritis BPH (benign prostatic hyperplasia) Varicose veins of both lower extremities Surgical History Hx of neck surgery ( 11/2022) Hx of transurethral resection of prostate ( 06/2022) History of total right knee replacement History of shoulder replacement (03/2019) History of lumbar spinal fusion (06/2019) History of left heart catheterization (02/04/08) History of total left knee replacement (08/20/21) History of carpal tunnel release Family History Father Cancer Mother Heart disease Social History Smoking Status: Never smoker alcohol intake: current alcohol intake frequency: holidays/special occasions only substance use type: does not use caffeine: Yes Type: coffee Number of servings: 1 HPI HPI HPI: The patient is a 74-year-old male with BPH, chronic back pain, and a history of multiple back surgeries, presenting for evaluation of bowel changes. He is referred from Dr. Jose L Li. 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 On good days, he has only 1 additional bowel movement later in the day, but on bad days, he may need to sit on the toilet every 1-1.5 hours, sometimes producing stool and sometimes not. By the end of these bad days, stools become loose and watery, but the pattern typically resets to baseline the following day. He estimates up to 10 bowel movements on the worst days, with normal days occurring about 50% of the time. He denies hematochezia or melena. He describes sudden, urgent need to defecate with occasional fecal incontinence, most recently this afternoon, though such episodes are infrequent and typically involve formed stool rather than diarrhea. He denies significant straining and reports that each bowel movement generally lasts less than 10 minutes. He recalls similar urgency dating back to the 1970s but notes that current symptoms are much more significant. He also reports progressive exertional dyspnea since 2021, with worsening shortness of breath over time. He can walk approximately 100-200 yards before needing to rest, with some days worse than others. He denies chest pain requiring him to stop, though he occasionally experiences brief c (more content not included)... Normal [facility] CTA Chst, Abd, Pel W and/or WOon 03-18-2025 CTA Chst, Abd, Pel W and/or WO [facility] Imaging Services [address] [place], [place] [address] CTA Chst, Abd, Pel W and/or WO MR#: [id number] Acct: [id number] Name: JEREMY CAIN Rep #: [id number] : 1950 M 74 From: Jmienez Downey MD PCP: Dr. Jose L Li MD Status: [facility] CLI Study: CTA Chst, Abd, Pel W and/or WO Date of Exam: 0 03/18/25 Exam# [id number] Ordering Dr: Jose L Li MD PROCEDURE: CTA CHST, ABD, PEL W AND/OR WO 03/18/2025 REASON FOR EXAM: EXERTIONAL ABDOMINAL PAIN. KNOWN CAD, ARTERIAL VISCERAL DZ, AND P TECHNIQUE: Procedure Code: CTCTA.CHAP.2 Modality: CT Procedure: CTA CHST, ABD, PEL W AND/OR WO Coronal and Sagittal reconstruction series were provided. One or more dose reduction techniques were used (e.g., Automated exposure control, adjustment of the mA and/or kV according to patient size, use of iterative reconstruction technique. CONTRAST: Isovue 370 VOLUME: 100 mL RADIATION DOSE SUMMARY: CTDlvol: 49.12 mGy DLP: 1006.42 mGycm COMPARISON: None FINDINGS: CHEST: Lungs are expanded, with chronic interstitial changes. No superimposed infiltrate or effusion. No suspicious noncalcified mass or nodule. Nonspecific pleural thickening in both hemithoraces. Soft tissue windows show a normal-appearing thyroid gland. No suspicious axillary, mediastinal or perihilar adenopathy. Thoracic aorta tapers normally, no aneurysm or dissection. No filling defects noted within the pulmonary arteries to suspect PE. Bony structures show degenerative change. ABDOMEN AND PELVIS: Liver: Unremarkable. Gallbladder: Unremarkable Spleen: Normal size. Pancreas: Normal size without evidence of mass surrounding inflammation or ductal dilation. Adrenals: Unremarkable Kidneys: No obstructive uropathy or suspicious solid renal lesion Bladder: Bladder is unremarkable aside from impingement upon its inferior aspect from an enlarged prostate. Reproductive Organs: No suspicious pelvic mass Bowel: Nondistended fluid-filled small bowel loops consistent with ileus. There is retained stool throughout the colon with scattered colonic diverticula, particularly in the sigmoid colon. There is nonspecific thickening of the sigmoid without CT evidence of acute diverticulitis but an underlying lesion can not be excluded. Normal appendix seen on coronal recon images 19 through 21 Vasculature: The abdominal aorta tapers normally. No significant atherosclerotic disease Peritoneum / Retroperitoneum: No free air or fluid Bones: Degenerative and postsurgical changes noted in the lumbar spine, hardware is free of complication Fat containing ventral hernia CT/CTA Chst, Abd, Pel W and/or WO IMPRESSION: Chronic interstitial changes in both lung weeks without a superimposed acute pulmonary process or suspicious noncalcified mass or nodule No suspicious adenopathy Fatty liver, no discrete lesion Small-bowel ileus Retained stool throughout the colon with scattered diverticula particularly in the sigmoid colon, no CT evidence of acute diverticulitis but there is nonspecific thickening of the sigmoid and an underlying lesion can not be excluded No free intraperitoneal fluid, air, or suspicious adenopathy, normal appendix visualized Enlarged prostate impinging upon the inferior aspect of the bladder Degenerative bony changes Reading Location: [id number] CC: Dr. Jose L Li MD Production Illustrator: Signed Normal [facility] Absolute lymphocyte countOrd ered By: Jose L Li on 03-04-2025 Lymphocytes Auto (Unsp spec) [#/Vol] 1.55 10*3/uL 0.83-4.51 [facility] Absolute neutrophil countOrd ered By: Jose L Li on 03-04-2025 Neutrophils (Bld) [#/Vol] 5.6 10*3/uL 2.0-7.7 [facility] Anion gap in Serum or Plasma Ordered By: Jose L Li on 03-04-2025 Anion gap [Moles/Vol] 12 mmol/L 5-15 [facility] Automated lymphocyte count a s percentage of total leukocytesOrdered By: Jose L Li on 03-04-2025 Lymphocytes/100 WBC Auto (Unsp spec) 19.5 % - [facility] BUN/creatinine ratioOrdered By: Jose L Li on 03-04-2025 Urea nitrogen/Creatinine [Mass ratio] 28.1 mg/mg High 10- [facility] Basophil percentageOrdered B y: Jose L Li on 03-04-2025 Basophils/100 WBC (Bld) 0.8 % 0-1 [facility] Bilirubin, totalOrdered By: Jose L Li on 03-04-2025 Bilirubin [Mass/Vol] 0.52 mg/dL 0.00-1.30 [facility] CBC W/Diff, Automatedon 02-17 Absolute Lymph 1.55 X10 3/uL Normal 0.83-4.51 [facility] Comment on above: Performed By: #### L 501.6710, L502.0250, L503.6005, L500.4050, L100.0100, L101.9900 #### [facility] [address] [place], [address] Absolute Neut 5.6 X10 3/uL Normal 2.0-7.7 [facility] Comment on above: Performed By: #### L 501.6710, L502.0250, L503.6005, L500.4050, L100.0100, L101.9900 #### [facility] [address] [place], [address] Basophils/100 WBC (Bld) 0.8 % Normal 0-1 [facility] Comment on above: Performed By: #### L 501.6710, L502.0250, L503.6005, L500.4050, L100.0100, L101.9900 #### [facility] [address] [place], [address] Eosinophils/100 WBC (Bld) 1.1 % Normal 0-5 [facility] Comment on above: Performed By: #### L 501.6710, L502.0250, L503.6005, L500.4050, L100.0100, L101.9900 #### [facility] [address] [place], [address] Erythrocyte distribution width (RBC) [Ratio] 13.9 % Normal 11.6-14.6 [facility] Comment on above: Performed By: #### L 501.6710, L502.0250, L503.6005, L500.4050, L100.0100, L101.9900 #### [facility] [address] [place], [address] Hematocrit (Bld) [Volume fraction] 38.8 % Low 40-54 [facility] Comment on above: Performed By: #### L 501.6710, L502.0250, L503.6005, L500.4050, L100.0100, L101.9900 #### [facility] [address] [place], [address] Hemoglobin (Bld) [Mass/Vol] 12.5 g/dL Low 13.0-16.5 [facility] Comment on above: Performed By: #### L 501.6710, L502.0250, L503.6005, L500.4050, L100.0100, L101.9900 #### [facility] [address] [place], [address] IG% 0.400 Normal 0.0-0.9 [facility] Comment on above: Result Comment: IG% - Immature Granulocytes (promyelocytes, myelocytes and metamyelocytes) > 1% indicates that a LEFT SHIFT is Present. Performed By: #### L 501.6710, L502.0250, L503.6005, L500.4050, L100.0100, L101.9900 #### [facility] [address] [place], [address] Lymphocytes/100 WBC (Bld) 19.5 % Normal 19-41 [facility] Comment on above: Performed By: #### L 501.6710, L502.0250, L503.6005, L500.4050, L100.0100, L101.9900 #### [facility] [address] [place], [address] MCH (RBC) [Entitic mass] 29.6 pg Normal 27.0-32.0 [facility] Comment on above: Performed By: #### L 501.6710, L502.0250, L503.6005, L500.4050, L100.0100, L101.9900 #### [facility] [address] [place], [address] MCHC (RBC) [Mass/Vol] 32.2 g/dL Normal 32-36 [facility] Comment on above: Performed By: #### L 501.6710, L502.0250, L503.6005, L500.4050, L100.0100, L101.9900 #### [facility] [address] [place], [address] MCV (RBC) [Entitic vol] 91.7 fL Normal 80-94 [facility] Comment on above: Performed By: #### L 501.6710, L502.0250, L503.6005, L500.4050, L100.0100, L101.9900 #### [facility] [address] [place], [address] Monocytes/100 WBC (Bld) 8.3 % Normal 0-10 [facility] Comment on above: Performed By: #### L 501.6710, L502.0250, L503.6005, L500.4050, L100.0100, L101.9900 #### [facility] [address] [place], [address] Neutrophils/100 WBC (Bld) 69.9 % Normal 47-70 [facility] Comment on above: Performed By: #### L 501.6710, L502.0250, L503.6005, L500.4050, L100.0100, L101.9900 #### [facility] [address] [place], [address] Nucleated RBC (Bld) [#/Vol] 0 10*3/uL Normal 0-5 [facility] Comment on above: Performed By: #### L 501.6710, L502.0250, L503.6005, L500.4050, L100.0100, L101.9900 #### [facility] [address] [place], [address] Platelet mean volume (Bld) [Entitic vol] 11.2 fL Normal 6.2-12.0 [facility] Comment on above: Performed By: #### L 501.6710, L502.0250, L503.6005, L500.4050, L100.0100, L101.9900 #### [facility] [address] [place], [address] Platelets (Bld) [#/Vol] 187 10*3/uL Normal 150-450 [facility] Comment on above: Performed By: #### L 501.6710, L502.0250, L503.6005, L500.4050, L100.0100, L101.9900 #### [facility] [address] [place], [address] RBC (Bld) [#/Vol] 4.23 10*6/uL Low 4.6-6.2 [facility] Comment on above: Performed By: #### L 501.6710, L502.0250, L503.6005, L500.4050, L100.0100, L101.9900 #### [facility] [address] [place], [address] RDW SD 46.4 fl High 35.1-43.9 [facility] Comment on above: Performed By: #### L 501.6710, L502.0250, L503.6005, L500.4050, L100.0100, L101.9900 #### [facility] [address] [place], [address] WBC (Bld) [#/Vol] 8.0 10*3/uL Normal 4.4-11.[address] [facility] Comment on above: Performed By: #### L 501.6710, L502.0250, L503.6005, L500.4050, L100.0100, L101.9900 #### [facility] [address] [place], [address] CRPon 03-04-2025 C-REACTIVE PROT < 3.00 Normal 0.0-3.0 [facility] Comment on above: Performed By: #### L 501.6710, L502.0250, L503.6005, L500.4050, L100.0100, L101.9900 ####[facility] [address] [place], [address] Carbon dioxide, total [Moles /volume] in Central venous bloodOrdered By: Jose L Li on 03-04-2025 CO2 [Moles/Vol] 21.0 mmol/L 21.0-32.0 [facility] Chloride assayOrdered By: Stevan Li on 03-04-2025 Chloride [Moles/Vol] 106 mmol/L 98-108 [facility] Comprehensive Metabolic Prof ilon 03-04-2025 Albumin [Mass/Vol] 4.2 g/dL Normal 3.4-4.[address] [facility] Comment on above: Performed By: #### L 501.6710, L502.0250, L503.6005, L500.4050, L100.0100, L101.9900 #### [facility] [address] [place], [address] Albumin/Globulin [Mass ratio] 1.2 {ratio} Normal 0.9-2.4 [facility] Comment on above: Performed By: #### L 501.6710, L502.0250, L503.6005, L500.4050, L100.0100, L101.9900 #### [facility] [address] [place], [address] ALK PHOS 69 U/L Normal 40-129 [facility] Comment on above: Performed By: #### L 501.6710, L502.0250, L503.6005, L500.4050, L100.0100, L101.9900 #### [facility] [address] [place], [address] ALT [Catalytic activity/Vol] 19 U/L Normal <=46 [facility] Comment on above: Performed By: #### L 501.6710, L502.0250, L503.6005, L500.4050, L100.0100, L101.9900 #### [facility] [address] [place], [address] AST [Catalytic activity/Vol] 27 U/L Normal <=37 [facility] Comment on above: Performed By: #### L 501.6710, L502.0250, L503.6005, L500.4050, L100.0100, L101.9900 #### [facility] [address] [place], [address] Bilirubin [Mass/Vol] 0.52 mg/dL Normal 0.00-1.30 [facility] Comment on above: Performed By: #### L 501.6710, L502.0250, L503.6005, L500.4050, L100.0100, L101.9900 #### [facility] [address] [place], [address] BUN/CRE 28.1 RATIO High 10-20 [facility] Comment on above: Performed By: #### L 501.6710, L502.0250, L503.6005, L500.4050, L100.0100, L101.9900 #### [facility] [address] [place], [address] Calcium [Mass/Vol] 9.7 mg/dL Normal 7.6-11.[address] [facility] Comment on above: Performed By: #### L 501.6710, L502.0250, L503.6005, L500.4050, L100.0100, L101.9900 #### [facility] [address] [place], [address] Chloride [Moles/Vol] 106 mmol/L Normal 98-108 [facility] Comment on above: Performed By: #### L 501.6710, L502.0250, L503.6005, L500.4050, L100.0100, L101.9900 #### [facility] [address] [place], [address] CO2 [Moles/Vol] 21.0 mmol/L Normal 21.0-32.0 [facility] Comment on above: Performed By: #### L 501.6710, L502.0250, L503.6005, L500.4050, L100.0100, L101.9900 #### [facility] [address] [place], [address] Creatinine [Mass/Vol] 1.75 mg/dL High 0.70-1.20 [facility] Comment on above: Performed By: #### L 501.6710, L502.0250, L503.6005, L500.4050, L100.0100, L101.9900 #### [facility] [address] [place], [address] GAP 12 Normal 5-15 [facility] Comment on above: Performed By: #### L 501.6710, L502.0250, L503.6005, L500.4050, L100.0100, L101.9900 #### [facility] [address] [place], [address] GFR/1.73 sq M.predicted among non-blacks MDRD (S/P/Bld) [Vol rate/Area] 41 mL/min/{1.73_m2} Low >60 [facility] Comment on above: Result Comment: mL/m in/1.73m2 CKD-EPI Creatinine Equation (2020) Performed By: #### L 501.6710, L502.0250, L503.6005, L500.4050, L100.0100, L101.9900 #### [facility] [address] [place], [address] Globulin (S) [Mass/Vol] 3.4 g/dL Normal 2.2-4.2 [facility] Comment on above: Performed By: #### L 501.6710, L502.0250, L503.6005, L500.4050, L100.0100, L101.9900 #### [facility] [address] [place], [address] Glucose [Mass/Vol] 109 mg/dL High 70-[address] [facility] Comment on above: Performed By: #### L 501.6710, L502.0250, L503.6005, L500.4050, L100.0100, L101.9900 #### [facility] [address] [place], [address] Potassium [Moles/Vol] 4.9 mmol/L Normal 3.3-5.1 [facility] Comment on above: Performed By: #### L 501.6710, L502.0250, L503.6005, L500.4050, L100.0100, L101.9900 #### [facility] [address] [place], [address] Sodium [Moles/Vol] 139 mmol/L Normal 133-[address] [facility] Comment on above: Performed By: #### L 501.6710, L502.0250, L503.6005, L500.4050, L100.0100, L101.9900 #### [facility] [address] [place], [address] T PROT 7.6 g/dL Normal 5.9-8.4 [facility] Comment on above: Performed By: #### L 501.6710, L502.0250, L503.6005, L500.4050, L100.0100, L101.9900 #### [facility] [address] [place], [address] Urea nitrogen [Mass/Vol] 49 mg/dL High 4-19 [facility] Comment on above: Performed By: #### L 501.6710, L502.0250, L503.6005, L500.4050, L100.0100, L101.9900 #### [facility] [address] [place], [address] Eosinophil percentageOrdered By: Jose L Li on 03-04-2025 Eosinophils/100 WBC (Bld) 1.1 % 0-5 [facility] Erythrocyte Sed Rateon 03-04 SED RATE 13 mm/hr Normal 0-20 [facility] Comment on above: Performed By: #### L 501.6710, L502.0250, L503.6005, L500.4050, L100.0100, L101.9900 #### [facility] [address] [place], [place], [id number] Erythrocyte distribution wid th ratioOrdered By: Jose L Li on 03-04-2025 Erythrocyte distribution width (RBC) [Ratio] 13.9 % 11.6-14.6 [facility] Erythrocyte distribution wid th standard deviationOrdered By: Jose L Li on 03-04-2025 Erythrocyte distribution width (RBC) [Ratio] 46.4 fl High 35.1-43.9 [facility] Erythrocyte sedimentation ra teOrdered By: Jose L Li on 03-04-2025 ESR (Bld) [Velocity] 13 mm/h 0-20 [facility] Glomerular filtration rate ( GFR) estimation/1.73 sq m using serum, plasma, or whole bOrdered By: Jose L Li on 03-04-2025 GFR/1.73 sq M.predicted among non-blacks MDRD (S/P/Bld) [Vol rate/Area] 41 mL/min/{1.73_m2} Low >60 [facility] Comment on above: mL/min/1.73m2 CKD-EP I Creatinine Equation (2020) Hematocrit Auto (Bld) [Volum e fraction]Ordered By: Jose L Li on 03-04-2025 Hematocrit (Bld) [Volume fraction] 38.8 % Low 40-54 [facility] Hemoglobin measurementOrdere d By: Jose L Li on 03-04-2025 Hemoglobin (Bld) [Mass/Vol] 12.5 g/dL Low 13.0-16.5 [facility] Immature granulocytes/100 WB C Auto (Bld)Ordered By: Jose L Li on 03-04-2025 Immature granulocytes/100 WBC (Bld) 0.400 % 0.0-0.9 [facility] Comment on above: IG% - Immature Granu locytes (promyelocytes, myelocytes and metamyelocytes) > 1% indicates that a LEFT SHIFT is Present. Laboratory - Chemistry and C hemistry - challengeOrdered By: Jose L Li on 03-04-2025 AST [Catalytic activity/Vol] 27 U/L <38 [facility] Lactic Acidon 03-04-2025 Lactate [Moles/Vol] mmol/L Normal 0.0-2.0 [facility] [facility] Comment on above: Order Comment: N Performed By: #### L 501.6710, L502.0250, L503.6005, L500.4050, L100.0100, L101.9900 #### [facility] [address] [place], [place], [id number] Lactic acid measurementOrder ed By: Jose L Li on 03-04-2025 Lactate [Moles/Vol] mmol/L 0.0-2.0 [facility] MCV (mean corpuscular volume ) determinationOrdered By: Jose L Li on 03-04-2025 MCV (RBC) [Entitic vol] 91.7 fL 80-94 [facility] Mean corpuscular hemoglobin (MCH) determinationOrdered By: Jose L Li on 03-04-2025 MCH (RBC) [Entitic mass] 29.6 pg 27.0-32.0 [facility] Mean corpuscular hemoglobin concentration (MCHC) determinationOrdered By: Jose L Li on 03-04-2025 MCHC (RBC) [Mass/Vol] 32.2 g/dL 32-36 [facility] Mean platelet volume determi nationOrdered By: Jose L Li on 03-04-2025 Platelet mean volume (Bld) [Entitic vol] 11.2 fL 6.2-12.0 [facility] Microalb:Creat Ratio,Random URon 03-04-2025 Creatinine [Mass/Vol] 134.00 mg/dL Normal 39.00-259.00 [facility] Comment on above: Performed By: #### L 501.6710, L502.0250, L503.6005, L500.4050, L100.0100, L101.9900 #### [facility] [address] [place], [place], [id number] MALB:CREAT UNABLE TO CALCULATE Normal <30 mg/g CRE [facility] Comment on above: Performed By: #### L 501.6710, L502.0250, L503.6005, L500.4050, L100.0100, L101.9900 #### [facility] [address] [place], [address] MICROALBUMIN,UR < 12.0 Normal <20 mg/L [facility] Comment on above: Performed By: #### L 501.6710, L502.0250, L503.6005, L500.4050, L100.0100, L101.9900 #### [facility] [address] [place], [address] Microalbumin/creat ratio urO rdered By: Jose L Li on 03-04-2025 Urine microalbumin/creatinine ratio measurement UNABLE TO CALCULATE mg/g CRE <30 [facility] Monocyte percentageOrdered B y: Jose L Li on 03-04-2025 Monocytes/100 WBC (Bld) 8.3 % 0-10 [facility] Neutrophil percentageOrdered By: Jose L Li on 03-04-2025 Neutrophils/100 WBC (Bld) 69.9 % 47-70 [facility] Nucleated red blood cell per centageOrdered By: Jose L Li on 03-04-2025 Nucleated RBC/100 WBC (Bld) [Ratio] 0 % 0-5 [facility] Platelet countOrdered By: Stevan Li on 03-04-2025 Platelets (Bld) [#/Vol] 187 10*3/uL 150-450 [facility] Potassium measurement (mass/ volume)Ordered By: Jose L Li on 03-04-2025 Potassium (Unsp spec) [Mass/Vol] 4.9 mmol/L 3.3-5.1 [facility] RBC Auto (Bld) [#/Vol]Ordere d By: Jose L Li on 03-04-2025 RBC (Bld) [#/Vol] 4.23 10*6/uL Low 4.6-6.2 [facility] Random urine creatinine cortney urement (mass/volume)Ordered By: Jose L Li on 03-04-2025 Creatinine Unsp time (U) [Mass/Vol] 134.00 mg/dL 39.00-259.00 [facility] Serum creatinine measurement (mass/volume)Ordered By: Jose L Li on 03-04-2025 Creatinine [Mass/Vol] 1.75 mg/dL High 0.70-1.20 [facility] Serum globulin measurementOr dered By: Jose L Li on 03-04-2025 Globulin (S) [Mass/Vol] 3.4 g/dL 2.2-4.2 [facility] Serum glucose measurement (m ass/volume)Ordered By: Jose L Li on 03-04-2025 Glucose [Mass/Vol] 109 mg/dL High 70-[address] [facility] Serum or plasma C reactive p rotein measurement (mass/volume)Ordered By: Jose L Li on 03-04-2025 CRP [Mass/Vol] mg/L 0.0-3.0 [facility] Serum or plasma alanine fields otransferase (ALT) measurementOrdered By: Jose L Li on 03-04-2025 ALT [Catalytic activity/Vol] 19 U/L <47 [facility] Serum or plasma albumin cortney urement (mass/volume)Ordered By: Jose L Li on 03-04-2025 Albumin [Mass/Vol] 4.2 g/dL 3.4-4.[address] [facility] Serum or plasma albumin/glob ulin mass ratioOrdered By: Jose L Li on 03-04-2025 Albumin/Globulin [Mass ratio] 1.2 {ratio} 0.9-2.4 [facility] Serum or plasma alkaline lg sphatase measurementOrdered By: Jose L Li on 03-04-2025 ALP [Catalytic activity/Vol] 69 U/L 40-129 [facility] Serum or plasma calcium cortney urement (mass/volume)Ordered By: Jose L Li on 03-04-2025 Calcium [Mass/Vol] 9.7 mg/dL 7.6-11.[address] [facility] Serum or plasma urea nitroge n measurement (mass/volume)Ordered By: Jose L Li on 03-04-2025 Urea nitrogen [Mass/Vol] 49 mg/dL High 4-19 [facility] Sodium levelOrdered By: Jose L Li on 03-04-2025 Sodium [Moles/Vol] 139 mmol/L 133-[address] [facility] Total proteinOrdered By: Christina Li on 03-04-2025 Protein [Mass/Vol] 7.6 g/dL 5.9-8.[address] [facility] Urine albumin measurement [facility] detection limit of 20 mg/L or less (mass/volume)Ordered By: Jose L Li on 03-04-2025 Albumin DL <= 20 mg/L (U) [Mass/Vol] < 12.0 mg/L <20 mg/L [facility] White blood cell (WBC) count Ordered By: Jose L Li on 03-04-2025 WBC (Bld) [#/Vol] 8.0 10*3/uL 4.4-11.[address] [facility] Vitamin D 1,25-Dihydroxyon 0 09-02-2024 VIT D 1,25 DIHY 47.0 pg/mL Normal 24.8-81.5 [facility] Comment on above: Result Comment: Perf ormed at: BN - [facility] [address] [id number] Data Reduction Technician: Vesna Falcon MD, Phone: [phone] Performed By: #### L 500.8368, L3300.1413, L100.0500, L500.2620 ####[facility] [address] [place], [place], [id number] CTA Head AND Neck W/ Contras ton 08-29-2024 CTA Head AND Neck W/ Contrast [facility] Imaging Services [address] [place], [place] [address] CTA Head AND Neck W/ Contrast MR#: [id number] Acct: [id number] Name: JEREMY CAIN Rep #: [id number] : 1950 M 73 From: Miguelito nadersen MD PCP: Dr. Jose L Li MD Status: REG CLI Study: CTA Head AND Neck W/ Contrast Date of Exam: Exam# [id number] Ordering Dr: Chelsi Swenson PA PROCEDURE: CTA HEAD AND NECK W/ CONTRAST REASON FOR EXAM: TIA Recent cervical fusion. TECHNIQUE: CTA imaging of the head and neck from the aortic arch to the skull vertex with intravenous contrast. 3D reconstructions. CONTRAST: 94 cc of Isovue 370. COMPARISON: None. FINDINGS: Aortic Arch: Normal size and branching pattern. Mild atherosclerotic plaque. Brachiocephalic and Subclavians: Unremarkable RIGHT Carotid: Right CCA: Unremarkable. Right ICA: Minimal calcific plaque. Maximum stenosis (NASCET): <50 % Right ECA: Unremarkable. LEFT Carotid: Left CCA: Unremarkable. Left ICA: Unremarkable. Maximum stenosis (NASCET): % Left ECA: Unremarkable. Vertebrals: Codominant. Arise from the subclavians. Both vertebrals form the basilar. RIGHT Vertebral: Small right vertebral artery. LEFT Vertebral: Unremarkable. No intracranial aneurysms or large vascular malformations are identified. Anterior cerebral arteries: Unremarkable. Middle cerebral arteries: Unremarkable. Basilar artery: Unremarkable. Posterior cerebral arteries: Unremarkable. Other major branches of the posterior circulation: Unremarkable. Major venous structures: Unremarkable. Other findings: No lymphadenopathy. Lung apices are clear. Bones are unremarkable. CT/CTA Head AND Neck W/ Contrast IMPRESSION: RIGHT CAROTID: Minimal plaque at the origin of the right internal carotid artery causing less than 50% narrowing. LEFT CAROTID: Unremarkable VERTEBRALS: Dominant left vertebral artery INTRACRANIAL: Unremarkable One or more dose reduction techniques were used (e.g., Automated exposure control, adjustment of the mA and/or kV according to patient size, use of iterative reconstruction technique). Reading Location: [facility]D-[id number]-A CC: Dr. Jose L Li MD; STEVEN [employer] Production Illustrator: Signed Normal [facility] 1,25-dihydroxyvitamin D3 [Ma ss/Vol]Ordered By: Chelsi Swenson on 08-28-2024 Vitamin D 1,25-Dihydroxy 47.0 pg/mL 24.8-81.5 [facility] Comment on above: Performed at: [address] [id number] Director: Vesna Falcon MD, Phone: [phone] Anion gap in Serum or Plasma Ordered By: Chelsi Swenson on 08-28-2024 Anion gap [Moles/Vol] 11 mmol/L 5-15 [facility] BUN/creatinine ratioOrdered By: Chelsi Swenson on 08-28-2024 Urea nitrogen/Creatinine [Mass ratio] 24.7 mg/mg High 10-20 [facility] Bilirubin, totalOrdered By: Chelsi Swenson on 08-28-2024 Bilirubin [Mass/Vol] 0.85 mg/dL 0.00-1.30 [facility] CBC-Complete Blood Cnt No Di ffon 08-28-2024 Erythrocyte distribution width (RBC) [Ratio] 13.9 % Normal 11.6-14.6 [facility] Comment on above: Performed By: #### L 500.4100, L3300.0960, L100.0500, L500.4050 ####[facility] [address] [place], [address] Hematocrit (Bld) [Volume fraction] 40.2 % Normal 40-54 [facility] Comment on above: Performed By: #### L 500.4100, L3300.0960, L100.0500, L500.4050 ####[facility] [address] [place], [address] Hemoglobin (Bld) [Mass/Vol] 13.1 g/dL Normal 13.0-16.5 [facility] Comment on above: Performed By: #### L 500.4100, L3300.0960, L100.0500, L500.4050 ####[facility] [address] [place], [address] MCH (RBC) [Entitic mass] 29.6 pg Normal 27.0-32.0 [facility] Comment on above: Performed By: #### L 500.4100, L3300.0960, L100.0500, L500.4050 ####[facility] [address] [place], [address] MCHC (RBC) [Mass/Vol] 32.6 g/dL Normal 32-36 [facility] Comment on above: Performed By: #### L 500.4100, L3300.0960, L100.0500, L500.4050 ####[facility] [address] [place], [address] MCV (RBC) [Entitic vol] 90.7 fL Normal 80-94 [facility] Comment on above: Performed By: #### L 500.4100, L3300.0960, L100.0500, L500.4050 ####[facility] [address] [place], [address] Platelet mean volume (Bld) [Entitic vol] 11.0 fL Normal 6.2-12.0 [facility] Comment on above: Performed By: #### L 500.4100, L3300.0960, L100.0500, L500.4050 ####[facility] [address] [place], [address] Platelets (Bld) [#/Vol] 180 10*3/uL Normal 150-450 [facility] Comment on above: Performed By: #### L 500.4100, L3300.0960, L100.0500, L500.4050 ####[facility] [address] [place], [address] RBC (Bld) [#/Vol] 4.43 10*6/uL Low 4.6-6.2 [facility] Comment on above: Performed By: #### L 500.4100, L3300.0960, L100.0500, L500.4050 ####[facility] [address] [place], [address] RDW SD 45.9 fl High 35.1-43.9 [facility] Comment on above: Performed By: #### L 500.4100, L3300.0960, L100.0500, L500.4050 ####[facility] [address] [place], [address] WBC (Bld) [#/Vol] 8.4 10*3/uL Normal 4.4-11.[address] [facility] Comment on above: Performed By: #### L 500.4100, L3300.0960, L100.0500, L500.4050 ####[facility] [address] [place], [address] Calculated very low density lipoprotein (VLDL) cholesterol measurementOrdered By: Chelsi Swenson on 08-28-2024 VLDL Cholesterol 11 mg/dL 5-40 [facility] Carbon dioxide, total [Moles /volume] in Central venous bloodOrdered By: Chelsi Swenson on 08-28-2024 CO2 [Moles/Vol] 23.5 mmol/L 21.0-32.0 [facility] Cardiology Visit Reporton Cardiology Visit Report [facility] [address] [place], [place] [address] OFFICE VISIT Date of Service: 08/28/24 MR#: [id number] Acct: [id number] Name: JEREMY CAIN Rep #: [id number] : 1950 Provider: STEVEN Bedolla Age/Sex: 73/M Location: [facility] Status: Signed HPI HPI History of Present Illness Details: Jeremy Cain is a 73-year-old man who presents today for a cardiovascular outpatient follow-up. He previously underwent repeat cardiac catheterization which demonstrated no obstructive coronary disease but with distal aortogram demonstrating a tortuous distal right iliac vessel. It demonstrated no obstructive coronary disease and preserved ejection fraction of 60%. He underwent an echocardiographic exam on 11/17/2022, which demonstrated an ejection fraction of 60% with stage I diastolic dysfunction and no significant valvular abnormalities. He underwent a stress test at that time as well, which was negative for ischemia. He also has a history of hypertension and hyperlipidemia. Pt had an episodes of dizziness at night approx one month ago. He felt his mind wasn't right. This lasted for a bit, when he woke up it was better. He isnt sure if this was a TIA.He does not have any chest discomfort/heaviness /tightness. His exercise tolerance is stable for his age. He does not have any worsening symptoms of shortness of breath. He denies any PND. He does not have any orthopnea. He does not have any symptoms of congestive heart failure. He does not have any palpitations that he is aware of. He does not have any near-syncope or syncope. He does not have any lower extremity edema. He does not have any symptoms of claudication. He does have balance issues. 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 Intake Vital Signs 12/11/23 09:07 08/28/24 07:36 Height 5 ft 7 in 5 ft 7 in Weight: 189 lb BMI 29.6 BP 128/89 H Blood Pressure Location Lt brachial Position Sitting Respiration 18 Pulse 66 Pulse Source Monitor Pulse Oximetry (%) 99 Intake Visit Reasons: 9 M FU Panel Sewer Required: No Is patient in pain?: No Allergies Penicillins (PCN) Allergy (Intermediate, Verified 05/01/24 09:26) Hives Sulfa (Sulfonamide Antibiotics) Allergy (Intermediate, Verified 05/01/24 09:26) fever, hives Jlvxfsv-SHF-HuR Reductase Inhibitor Adverse Reaction (Severe, Verified 05/01/24 09:26) Nausea lisinopril Adverse Reaction (Intermediate, Verified 05/01/24 09:26) cough Medications ???Medication ???Instructions ???Recorded ???Confirmed ???Type clopidogrel 75 mg tablet 75 mg PO DAILY 11/08/18 08/28/24 H istory folic acid 0.8 mg capsule 0.8 mg PO DAILY 11/08/18 08/28/24 History rosuvastatin 5 mg tablet 5 mg PO QHS 11/08/18 08/28/24 Hist ory ipratropium bromide 21 mcg (0.03 2 spray intranasal BID 11/14/19 History %) nasal spray zinc 50 mg tablet 50 mg PO DAILY 01/12/22 08/28/24 H istory acetaminophen 500 mg tablet 500 mg PO Q8H PRN 11/09/22 5 History (Tylenol Extra Strength) tamsulosin 0.4 mg capsule 0.4 mg PO BID 11/09/22 08/28/24 Hi story losartan 100 mg tablet 50 mg PO DAILY 05/15/23 08/28/24 H istory metoprolol tartrate 25 mg tablet 25 mg PO DAILY 05/15/23 08/28/24 H istory furosemide 40 mg tablet (Lasix) 40 mg PO Q OTHER DAY #45 tabs 10/1808/28/24 Rx loratadine 10 mg capsule 10 mg PO QDAY 05/01/24 05/01/24 Hi story Ejection fraction %: 60 Have you fallen in the past year?: Yes PFSH Medical History (Updated 08/28/24 @ 08:50 by Chelsi Swenson PA, PA) COVID-19 (06/22/21) Essential (primary) hypertension Hyperlipidemia Transient ischemic attack (12/2007) Vitamin D deficiency Osteoarthritis BPH (benign prostatic hyperplasia) Varicose veins of both lower extremities Surgical History Hx of neck surgery ( 11/2022) Hx of transurethral resection of prostate ( 06/2022) History of total right knee replacement History of shoulder replacement (03/2019) History of lumbar spinal fusion (06/2019) History of left heart catheterization (02/04/08) History of total left knee replacement (08/20/21) History of carpal tunnel release Family History Father Cancer Mother Heart disease Social History Smoking Status: Never smoker alcohol intake: current alcohol intake frequency: holidays/special occasions only substance use type: does not use caffeine: Yes Type: coffee Number of servings: 1 ROS Const Const: Negative for fatigue, weakness, headache(s) or frequent falls Eyes Eyes: Negative for blurry vision ENT ENT: Positive for dizziness; Negative for headache(s) or Nosebleed/epistaxis Cardio Chest Pain: No (more content not included)... Normal [facility] Chloride assayOrdered By: Jessica Swenson on 08-28-2024 Chloride [Moles/Vol] 103 mmol/L 98-108 [facility] Comprehensive Metabolic Prof ilon 08-28-2024 Albumin [Mass/Vol] 4.3 g/dL Normal 3.4-4.[address] [facility] Comment on above: Performed By: #### L 500.4100, L3300.0960, L100.0500, L500.4050 ####[facility] [address] [place], [address] Albumin/Globulin [Mass ratio] 1.3 {ratio} Normal 0.9-2.4 [facility] Comment on above: Performed By: #### L 500.4100, L3300.0960, L100.0500, L500.4050 ####[facility] [address] [place], [address] ALK PHOS 77 U/L Normal 40-129 [facility] Comment on above: Performed By: #### L 500.4100, L3300.0960, L100.0500, L500.4050 ####[facility] [address] [place], [address] ALT [Catalytic activity/Vol] 22 U/L Normal <=46 [facility] Comment on above: Performed By: #### L 500.4100, L3300.0960, L100.0500, L500.4050 ####[facility] [address] [place], [address] AST [Catalytic activity/Vol] 27 U/L Normal <=37 [facility] Comment on above: Performed By: #### L 500.4100, L3300.0960, L100.0500, L500.4050 ####[facility] [address] [place], [address] Bilirubin [Mass/Vol] 0.85 mg/dL Normal 0.00-1.30 [facility] Comment on above: Performed By: #### L 500.4100, L3300.0960, L100.0500, L500.4050 ####[facility] [address] [place], [address] BUN/CRE 24.7 RATIO High 10-20 [facility] Comment on above: Performed By: #### L 500.4100, L3300.0960, L100.0500, L500.4050 ####[facility] [address] [place], [address] Calcium [Mass/Vol] 9.6 mg/dL Normal 7.6-11.[address] [facility] Comment on above: Performed By: #### L 500.4100, L3300.0960, L100.0500, L500.4050 ####[facility] [address] [place], [address] Chloride [Moles/Vol] 103 mmol/L Normal 98-108 [facility] Comment on above: Performed By: #### L 500.4100, L3300.0960, L100.0500, L500.4050 ####[facility] [address] [place], [address] CO2 [Moles/Vol] 23.5 mmol/L Normal 21.0-32.0 [facility] Comment on above: Performed By: #### L 500.4100, L3300.0960, L100.0500, L500.4050 ####[facility] [address] [place], [address] Creatinine [Mass/Vol] 1.34 mg/dL High 0.70-1.20 [facility] Comment on above: Performed By: #### L 500.4100, L3300.0960, L100.0500, L500.4050 ####[facility] [address] [place], [address] GAP 11 Normal 5-15 [facility] Comment on above: Performed By: #### L 500.4100, L3300.0960, L100.0500, L500.4050 ####[facility] [address] [place], [address] GFR/1.73 sq M.predicted among non-blacks MDRD (S/P/Bld) [Vol rate/Area] 56 mL/min/{1.73_m2} Low >60 [facility] Comment on above: Result Comment: mL/m in/1.73m2 CKD-EPI Creatinine Equation (2020) Performed By: #### L 500.4100, L3300.0960, L100.0500, L500.4050 ####[facility] [address] [place], [address] Globulin (S) [Mass/Vol] 3.4 g/dL Normal 2.2-4.2 [facility] Comment on above: Performed By: #### L 500.4100, L3300.0960, L100.0500, L500.4050 ####[facility] [address] [place], [address] Glucose [Mass/Vol] 95 mg/dL Normal 70-[address] [facility] Comment on above: Performed By: #### L 500.4100, L3300.0960, L100.0500, L500.4050 ####[facility] [address] [place], [address] Potassium [Moles/Vol] 4.9 mmol/L Normal 3.3-5.1 [facility] Comment on above: Performed By: #### L 500.4100, L3300.0960, L100.0500, L500.4050 ####[facility] [address] [place], [address] Sodium [Moles/Vol] 137 mmol/L Normal 133-[address] [facility] Comment on above: Performed By: #### L 500.4100, L3300.0960, L100.0500, L500.4050 ####[facility] [address] [place], [address] T PROT 7.7 g/dL Normal 5.9-8.4 [facility] Comment on above: Performed By: #### L 500.4100, L3300.0960, L100.0500, L500.4050 ####[facility] [address] [place], [address] Urea nitrogen [Mass/Vol] 33 mg/dL High 4-19 [facility] Comment on above: Performed By: #### L 500.4100, L3300.0960, L100.0500, L500.4050 ####[facility] [address] [place], [address] Erythrocyte distribution wid th ratioOrdered By: Chelsi Swenson on 08-28-2024 Erythrocyte distribution width (RBC) [Ratio] 13.9 % 11.6-14.6 [facility] Erythrocyte distribution wid th standard deviationOrdered By: Chelsi Swenson on 08-28-2024 Erythrocyte distribution width (RBC) [Entitic vol] 45.9 fL High 35.1-43.9 [facility] GFR/1.73 sq M.predicted vielka g non-blacks MDRD (S/P/Bld) [Vol rate/Area]Ordered By: Chelsi Swenson on 08-28-2024 Estimated GFR (MDRD) Non-Af Amer 56 Low >60 [facility] Comment on above: mL/min/1.73m2 CKD-EP I Creatinine Equation (2020) Hematocrit Auto (Bld) [Volum e fraction]Ordered By: Chelsi Swenson on 08-28-2024 Hematocrit (Bld) [Volume fraction] 40.2 % 40-54 [facility] Hemoglobin measurementOrdere d By: Chelsi Swenson on 08-28-2024 Hemoglobin (Bld) [Mass/Vol] 13.1 g/dL 13.0-16.5 [facility] LDL calc ser/plasOrdered By: Chelsi Swenson on 08-28-2024 LDL Cholesterol, Calculated 63 mg/dL [facility] Comment on above: Feyvbfpxvm=605-902 m g/dL & Higher Ihxd=924 mg/dL or greater Laboratory - Chemistry and C hemistry - challengeOrdered By: Chelsi Swenson on 08-28-2024 AST [Catalytic activity/Vol] 27 U/L <38 [facility] Lipid Profileon 08-28-2024 CHOL:HDL 2.72 Normal [facility] Comment on above: Performed By: #### L 500.4100, L3300.0960, L100.0500, L500.4050 ####[facility] [address] [place], [address] Cholesterol [Mass/Vol] 117 mg/dL Normal <=200 [facility] Comment on above: Result Comment: Chol esterol level, Desirable <200 mg/dL Borderline high cholesterol 200-239 mg/dL High cholesterol >=240 mg/dL Recommendations of the NCEP Adult Treatment Panel for the following risk-cutoff thresholds for the [place] population. Performed By: #### L 500.4100, L3300.0960, L100.0500, L500.4050 ####[facility] [address] [place], [address] Cholesterol in HDL [Mass/Vol] 43 mg/dL Normal [facility] Comment on above: Result Comment: Carolyn onal Cholesterol Education Program (NCEP) guidelines: <40 mg/dL: Low HDL-cholesterol (major risk factor for CHD) >= 60 mg/dL: High HDL-cholesterol (negative risk factor for CHD) HDL-cholesterol is affected by a number of factors, e.g. smoking, exercise, hormones, sex and age. Performed By: #### L 500.4100, L3300.0960, L100.0500, L500.4050 ####[facility] [address] [place], [address] Cholesterol in LDL [Mass/Vol] 63 mg/dL Normal [facility] Comment on above: Result Comment: Bord cgfmqo=520-741 mg/dL Higher Rbpv=532 mg/dL or greater Performed By: #### L 500.4100, L3300.0960, L100.0500, L500.4050 ####[facility] [id number] [place], [address] Cholesterol in VLDL [Mass/Vol] 11 mg/dL Normal 5-40 [facility] Comment on above: Performed By: #### L 500.4100, L3300.0960, L100.0500, L500.4050 ####[facility] [id number] [place], [address] Triglyceride [Mass/Vol] 57 mg/dL Normal [facility] Comment on above: Result Comment: The drugs N-Acetylcysteine and Metamizole may falsely depress this assay. Normal range: <150 mg/dL Borderline High: 150-199 mg/dL High: 200-499 mg/dL Very High: >500 mg/dL Performed By: #### L 500.4100, L3300.0960, L100.0500, L500.4050 ####[facility] [id number] [facility] [place], [address] MCV (mean corpuscular volume ) determinationOrdered By: Chelsi Swenson on 08-28-2024 MCV (RBC) [Entitic vol] 90.7 fL 80-94 [facility] Mean corpuscular hemoglobin (MCH) determinationOrdered By: Chelsi Swenson on 08-28-2024 MCH (RBC) [Entitic mass] 29.6 pg 27.0-32.0 [facility] Mean corpuscular hemoglobin concentration (MCHC) determinationOrdered By: Chelsi Swenson on 08-28-2024 MCHC (RBC) [Mass/Vol] 32.6 g/dL 32-36 [facility] Mean platelet volume determi nationOrdered By: Chelsi Swenson on 08-28-2024 Platelet mean volume (Bld) [Entitic vol] 11.0 fL 6.2-12.0 [facility] Platelet countOrdered By: Jessica Swenson on 08-28-2024 Platelets (Bld) [#/Vol] 180 10*3/uL 150-450 [facility] Potassium (Unsp spec) [Mass/ Vol]Ordered By: Chelsi Swenson on 08-28-2024 Potassium [Moles/Vol] 4.9 mmol/L 3.3-5.1 [facility] RBC Auto (Bld) [#/Vol]Ordere d By: Chelsi Swenson on 08-28-2024 RBC (Bld) [#/Vol] 4.43 10*6/uL Low 4.6-6.2 [facility] Screening total cholesterol/ high density lipoprotein (HDL) cholesterol ratioOrdered By: Chelsi Swenson on 08-28-2024 Cholesterol.total/Mary sterol in HDL [Mass ratio] 2.72 {ratio} [facility] Serum creatinine measurement (mass/volume)Ordered By: Chelsi Swenson on 08-28-2024 Creatinine [Mass/Vol] 1.34 mg/dL High 0.70-1.20 [facility] Serum globulin measurementOr dered By: Chelsi Swenson on 08-28-2024 Globulin (S) [Mass/Vol] 3.4 g/dL 2.2-4.2 [facility] Serum glucose measurement (m ass/volume)Ordered By: Chelsi Swenson on 08-28-2024 Glucose [Mass/Vol] 95 mg/dL 70-[address] [facility] Serum or plasma alanine fields otransferase (ALT) measurementOrdered By: Chelsi Swenson on 08-28-2024 ALT [Catalytic activity/Vol] 22 U/L <47 [facility] Serum or plasma albumin cortney urement (mass/volume)Ordered By: Chelsi Swenson on 08-28-2024 Albumin [Mass/Vol] 4.3 g/dL 3.4-4.[address] [facility] Serum or plasma albumin/glob ulin mass ratioOrdered By: Chelsi Swenson on 08-28-2024 Albumin/Globulin [Mass ratio] 1.3 {ratio} 0.9-2.4 [facility] Serum or plasma alkaline lg sphatase measurementOrdered By: Chelsi Swenson on 08-28-2024 ALP [Catalytic activity/Vol] 77 U/L 40-129 [facility] Serum or plasma calcium cortney urement (mass/volume)Ordered By: Chelsi Swenson on 08-28-2024 Calcium [Mass/Vol] 9.6 mg/dL 7.6-11.[address] [facility] Serum or plasma cholesterol in HDL measurement (mass/volume)Ordered By: Chelsi Swenson on 08-28-2024 Cholesterol in HDL [Mass/Vol] 43 mg/dL >40 [facility] Comment on above: National Cholesterol Education Program (NCEP) guidelines:<40 mg/dL: Low HDL-cholesterol (major risk factor for CHD)>= 60 mg/dL: High HDL-cholesterol (negative risk factor for CHD)HDL-cholesterol is affected by a number of factors, e.g. smoking, exercise, hormones, sex and age. Serum or plasma cholesterol measurement (mass/volume)Ordered By: Chelsi Swenson on 08-28-2024 Cholesterol [Mass/Vol] 117 mg/dL <201 [facility] Comment on above: Cholesterol level, D esirable <200 mg/dLBorderline high cholesterol 200-239 mg/dLHigh cholesterol >=240 mg/dLRecommendations of the NCEP Adult Treatment Panel for the following risk-cutoff thresholds for the [place] population. Serum or plasma urea nitroge n measurement (mass/volume)Ordered By: Chelsi Swenson on 08-28-2024 Urea nitrogen [Mass/Vol] 33 mg/dL High 4-19 [facility] Sodium levelOrdered By: Navarro Swenson on 08-28-2024 Sodium [Moles/Vol] 137 mmol/L 133-[address] [facility] Total proteinOrdered By: Angelica Swenson on 08-28-2024 Protein [Mass/Vol] 7.7 g/dL 5.9-8.[address] [facility] Triglycerides measurementOrd ered By: Chelsi Swenson on 08-28-2024 Triglyceride [Mass/Vol] 57 mg/dL <199 [facility] Comment on above: The drugs N-Acetylcy steine and Metamizole may falsely depress this assay. Normal range: <150 mg/dLBorderline High: 150-199 mg/dLHigh: 200-499 mg/dLVery High: >500 mg/dL White blood cell (WBC) count Ordered By: Chelsi Swenson on 08-28-2024 WBC (Bld) [#/Vol] 8.4 10*3/uL 4.4-11.[address] [facility] Diagnostic total prostate sp ecific antigen (PSA) measurementOrdered By: Arnulfo Felder on 08-19-2024 Prostate Specific Antigen Total 2.18 ng/mL 0.00-4.00 [facility] Comment on above: This test was perfor med using the [employer] tPSA method. Measured values of a patient sample can vary depending on the testing procedure used. PSA values determined on patient samples by different testing procedures cannot be used interchangeably. If there is a change in PSA assays while monitoring therapy, sequential testing should be performed to confirm baseline values. PSA,Total- [employer] PSA, DIAGNOSTIC 2.18 ng/mL Normal 0.00-4.00 [facility] Comment on above: Result Comment: This test was performed using the [employer] tPSA method. Measured values of a patient??sample can vary depending on the testing procedure used. PSA values determined on patient samples by different testing procedures cannot be used interchangeably. If there is a change in PSA assays while monitoring therapy, sequential testing should be performed to confirm baseline values. Performed By: #### L 501.9940 ####[facility] [id number] [place], [place], [address] MR/Naima 05-01-2024 /STEPHANY [facility] Vascular Surgery [address] [place] [address] OFFICE VISIT Date of Service: 05/01/24 MR#: [id number] Acct: [id number] Name: JEREMY CAIN Rep #: [id number] : 1950 Provider: STEVEN Cope Age/Sex: 73/M Location: [facility] Status: Signed Intake Vital Signs 05/15/23 09:07 12/11/23 09:07 05/01/24 09:18 Height 5 ft 7 in 5 ft 7 in Weight: 185 lb BP 107/69 Blood Pressure Location Lt brachial Position Sitting Respiration 16 Pulse 67 Pulse Source Monitor Temp 98.2 F Temp Source Temporal Pulse Oximetry (%) 97 Oxygen Delivery Method room air Intake Visit Reasons: 7 M F/U Is patient in pain?: Yes Allergies Penicillins (PCN) Allergy (Intermediate, Verified 05/01/24 09:26) Hives Sulfa (Sulfonamide Antibiotics) Allergy (Intermediate, Verified 05/01/24 09:26) fever, hives [id number] Reductase Inhibitor Adverse Reaction (Severe, Verified 05/01/24 09:26) Nausea lisinopril Adverse Reaction (Intermediate, Verified 05/01/24 09:26) cough Medications ???Medication ???Instructions ???Recorded ???Confirmed ???Type clopidogrel 75 mg tablet 75 mg PO DAILY 11/08/18 05/01/24 History folic acid 0.8 mg capsule 0.8 mg PO DAILY 11/08/18 05/01/24 History rosuvastatin 5 mg tablet 5 mg PO QHS 11/08/18 05/01/24 History ipratropium bromide 21 mcg (0.03 2 spray intranasal BID 11/14/19 05/01/24 History %) nasal spray zinc 50 mg tablet 50 mg PO DAILY 01/12/22 05/01/24 History acetaminophen 500 mg tablet 500 mg PO Q8H PRN 11/09/22 05/01/24 History (Tylenol Extra Strength) tamsulosin 0.4 mg capsule 0.4 mg PO BID 11/09/22 05/01/24 History losartan 100 mg tablet 50 mg PO DAILY 05/15/23 05/01/24 History metoprolol tartrate 25 mg tablet 25 mg PO DAILY 05/15/23 05/01/24 History furosemide 40 mg tablet (Lasix) 40 mg PO Q OTHER DAY #45 tabs 11/08/23 05/01/24 Rx loratadine 10 mg capsule 10 mg PO QDAY 05/01/24 05/01/24 History Have you fallen in the past year?: No PFSH Medical History COVID-19 (06/22/21) Essential (primary) hypertension Hyperlipidemia Transient ischemic attack (12/2007) Vitamin D deficiency Osteoarthritis BPH (benign prostatic hyperplasia) Varicose veins of both lower extremities Surgical History Hx of neck surgery ( 11/2022) Hx of transurethral resection of prostate ( 06/2022) History of total right knee replacement History of shoulder replacement (03/2019) History of lumbar spinal fusion (06/2019) History of left heart catheterization (02/04/08) History of total left knee replacement (08/20/21) History of carpal tunnel release Family History Father Cancer Mother Heart disease Social History Smoking Status: Never smoker alcohol intake: current alcohol intake frequency: holidays/special occasions only substance use type: does not use caffeine: Yes Type: coffee Number of servings: 1 HPI HPI HPI: JEREMY CAIN, is a 73 M who presents to the office today for follow-up of his venous insufficiency and varicose veins. Since his last visit, he has been wearing compression stockings more consistently. He has noticed improvement in his lower leg swelling and a decrease in nocturnal leg cramps. He remains without recurrent ulceration (had remote ulceration s/p ablation) and without any other associated symptoms. At his last OV, he also had concern for PAD but he had palpable pulses on exam and did not feel his symptoms were consistent with arterial insufficiency. He did more recently complete an arterial study which did confirm normal ABIs and triphasic waveforms throughout. He does continue to have intermitting burning/tingling just within his feet and now feels this is likely related to his back. He does have a significant history of spine disease s/p prior cervical and lumbar fusions. He is following with a process laboratory specialist/pain management for this now. ROS General General: Yes fatigue and weakness; No weight change, appetite, colon cancer or breast cancer HEENT HEENT: No difficulty swallowing, eye injury, eye surgery, swollen glands or hoarseness Endo Endocrine: No thyroid disease, diabetes mellitus, thyroid cancer, Hair loss, heat intolerance or cold intolerance Skin Skin: No rash or changing moles Musc Musculoskeletal: Yes back problems and arthritis; No rheumatoid arthritis, gout or joint pain Cardio Cardiovascular: Yes high blood pressure and shortness of breat with exertion; No murmur, pacemaker, heart disease, atrial fibrillation, heart attack, heart stent, palpitations or chest pain Psych Psychiatric: (more content not included)... Normal [facility] Basophil percentageOrdered B y: Jose L Li on 08-31-2023 Bilirubin [Mass/Vol] 0.60 mg/dL 0.20-1.00 [facility] Comment on above: For patients on eltr ombopag therapy, use of Dimension [place] TBIL is not recommended. Chloride [Moles/Vol] 105 mmol/L 98-107 [facility] Glucose [Mass/Vol] 109 mg/dL 74-[address] [facility] Comment on above: Fasting Glucose resu lt from 100 to 125 mg/dL suggests IMPAIRED HOMEOSTASIS per A.D.A. criteria. Hemoglobin (Bld) [Mass/Vol] 13.0 g/dL 13.0-16.5 [facility] Potassium [Moles/Vol] 4.6 mmol/L 3.5-5.1 [facility] Protein [Mass/Vol] 7.9 g/dL 6.4-8.[address] [facility] Sodium [Moles/Vol] 138 mmol/L 136-[address] [facility] WBC (Bld) [#/Vol] 8.3 10*3/uL 4.4-11.[address] [facility] Determination of erythrocyte mean corpuscular volume (MCV)Ordered By: Jose L Li on 08-31-2023 MCV (RBC) [Entitic vol] 91.0 fL 80-94 [facility] Erythrocyte distribution wid th ratioOrdered By: Jose L Li on 08-31-2023 Erythrocyte distribution width (RBC) [Ratio] 14.3 % 11.6-14.6 [facility] Erythrocyte distribution wid th standard deviationOrdered By: Jose L Li on 08-31-2023 Erythrocyte distribution width (RBC) [Entitic vol] 47.6 fL 35.1-43.9 [facility] Hematocrit Auto (Bld) [Volum e fraction]Ordered By: Jose L Li on 08-31-2023 Hematocrit (Bld) [Volume fraction] 40.6 % 40-54 [facility] Laboratory - Chemistry and C hemistry - challengeOrdered By: Jose L Li on 08-31-2023 Albumin/Globulin [Mass ratio] 0.8 {ratio} 0.9-2.4 [facility] ALP [Catalytic activity/Vol] 89 U/L 45-117 [facility] ALT [Catalytic activity/Vol] 23 U/L 16-61 [facility] CO2 [Moles/Vol] 26.0 mmol/L 21.0-32.0 [facility] Globulin (S) [Mass/Vol] 4.3 g/dL 2.2-4.2 [facility] Urea nitrogen/Creatinine [Mass ratio] 28.2 mg/mg 10-20 [facility] Laboratory - Hematology and Cell countsOrdered By: Jose L Li on 08-31-2023 MCH (RBC) [Entitic mass] 29.1 pg 27.0-32.0 [facility] MCHC (RBC) [Mass/Vol] 32.0 g/dL 32-36 [facility] Platelet mean volume (Bld) [Entitic vol] 11.1 fL 6.2-12.0 [facility] Platelets (Bld) [#/Vol] 186 10*3/uL 150-450 [facility] No Panel InformationOrdered By: Jose L Li on 08-31-2023 Estimated GFR (MDRD) Amer 60 mL/min >60 [facility] Comment on above: GFR Calc Estimated GFR (MDRD) Non-Af Amer 49 mL/min >60 [facility] Comment on above: Non- GFR Calc Prostate Specific Antigen Screen 2.42 ng/mL 0.00-4.00 [facility] Comment on above: This test was perfor med using the TPSA assay method [facility]. Values obtained with differentassay methods cannot be used interchangably.When changing PSA assays in the course of monitoring apatient, additional sequential testing should be carriedout to confirm baseline values. RBC Auto (Bld) [#/Vol]Ordere d By: Jose L Li on 08-31-2023 RBC (Bld) [#/Vol] 4.46 10*6/uL 4.6-6.2 [facility] Serum or plasma calcium cortney urement (mass/volume)Ordered By: Jose L Li on 08-31-2023 Calcium [Mass/Vol] 9.2 mg/dL 8.5-10.[address] [facility] Serum or plasma creatinine m easurement (mass/volume)Ordered By: Jose L Li on 08-31-2023 Creatinine [Mass/Vol] 1.49 mg/dL 0.70-1.30 [facility] Comment on above: The validity of the calculated GFR & GFRAA in patients over 70 years has not been determined. Clinical correlation is essential. Serum or plasma urea nitroge n measurement (mass/volume)Ordered By: Jose L Li on 08-31-2023 Urea nitrogen [Mass/Vol] 42 mg/dL 7-18 [facility] Thin prep Papanicolaou smear with manual screeningOrdered By: Jose L Li on 08-31-2023 Thin prep Papanicolaou smear with manual screening 3.6 g/dL 3.2-5.0 [facility] Thin prep Papanicolaou smear with manual screening 23 U/L 15-37 [facility] Thin prep Papanicolaou smear with manual screening 7 5-15 [facility] Absolute lymphocyte countOrd ered By: Jose L Li on 03-14-2023 Lymphocytes Auto (Unsp spec) [#/Vol] 1.81 10*3/uL 0.83-4.51 [facility] Basophil percentageOrdered B y: Jose L Li on 03-14-2023 Basophils/100 WBC (Bld) 0.6 % 0-1 [facility] Bilirubin [Mass/Vol] 0.40 mg/dL 0.20-1.00 [facility] Comment on above: For patients on eltr ombopag therapy, use of Dimension [place] TBIL is not recommended. Chloride [Moles/Vol] 107 mmol/L 98-107 [facility] Eosinophils/100 WBC (Bld) 1.9 % 0-5 [facility] Glucose [Mass/Vol] 88 mg/dL 74-[address] [facility] Neutrophils (Bld) [#/Vol] 5.5 10*3/uL 2.0-7.7 [facility] Neutrophils/100 WBC (Bld) 66.2 % 47-70 [facility] Potassium [Moles/Vol] 4.6 mmol/L 3.5-5.1 [facility] Protein [Mass/Vol] 8.3 g/dL 6.4-8.[address] [facility] Sodium [Moles/Vol] 139 mmol/L 136-[address] [facility] WBC (Bld) [#/Vol] 8.4 10*3/uL 4.4-11.[address] [facility] Blood erythrocytes count (nu mber/volume)Ordered By: Jose L Li on 03-14-2023 RBC (Bld) [#/Vol] 4.30 10*6/uL 4.6-6.2 [facility] Blood hemoglobin measurement (mass/volume)Ordered By: Jose L Li on 03-14-2023 Hemoglobin (Bld) [Mass/Vol] 12.8 g/dL 13.0-16.5 [facility] Blood lymphocytes/100 leukoc ytesOrdered By: Jose L Li on 03-14-2023 Lymphocytes/100 WBC (Bld) 21.6 % 19-41 [facility] Blood monocytes/100 leukocyt esOrdered By: Jose L Li on 03-14-2023 Monocytes/100 WBC (Bld) 9.3 % 0-10 [facility] Blood platelet mean volumeOr dered By: Jose L Li on 03-14-2023 Platelet mean volume (Bld) [Entitic vol] 11.1 fL 6.2-12.0 [facility] Determination of erythrocyte mean corpuscular volume (MCV)Ordered By: Jose L Li on 03-14-2023 MCV (RBC) [Entitic vol] 92.8 fL 80-94 [facility] Hematocrit Auto (Bld) [Volum e fraction]Ordered By: Jose L Li on 03-14-2023 Hematocrit (Bld) [Volume fraction] 39.9 % 40-54 [facility] Laboratory - Chemistry and C hemistry - challengeOrdered By: Jose L Li on 03-14-2023 ALP [Catalytic activity/Vol] 92 U/L 45-117 [facility] ALT [Catalytic activity/Vol] 25 U/L 16-61 [facility] CO2 [Moles/Vol] 26.0 mmol/L 21.0-32.0 [facility] Globulin (S) [Mass/Vol] 4.5 g/dL 2.2-4.2 [facility] Urea nitrogen/Creatinine [Mass ratio] 29.1 mg/mg 10-20 [facility] Laboratory - Hematology and Cell countsOrdered By: Jose L Li on 03-14-2023 Erythrocyte distribution width (RBC) [Entitic vol] 47.8 fL 35.1-43.9 [facility] Erythrocyte distribution width (RBC) [Ratio] 13.9 % 11.6-14.6 [facility] Immature granulocytes/100 WBC (Bld) 0.400 % 0.0-0.9 [facility] Comment on above: IG% - Immature Granu locytes (promyelocytes, myelocytes and metamyelocytes) > 1% indicates that a LEFT SHIFT is Present. MCH (RBC) [Entitic mass] 29.8 pg 27.0-32.0 [facility] Nucleated RBC/100 WBC (Bld) [Ratio] 0 % 0-5 [facility] MCHC Auto (RBC) [Mass/Vol]Or dered By: Jose L Li on 03-14-2023 MCHC (RBC) [Mass/Vol] 32.1 g/dL 32-36 [facility] No Panel InformationOrdered By: Jose L Li on 03-14-2023 Estimated GFR (MDRD) Amer 72 mL/min >60 [facility] Comment on above: GFR Calc Estimated GFR (MDRD) Non-Af Amer 59 mL/min >60 [facility] Comment on above: Non- GFR Calc Platelets bldOrdered By: Christina Li on 03-14-2023 Platelets (Bld) [#/Vol] 195 10*3/uL 150-450 [facility] Serum or plasma albumin cortney urement (mass/volume)Ordered By: Jose L Li on 03-14-2023 Albumin [Mass/Vol] 3.8 g/dL 3.2-5.[address] [facility] Serum or plasma albumin/glob ulin mass ratioOrdered By: Jose L Li on 03-14-2023 Albumin/Globulin [Mass ratio] 0.8 {ratio} 0.9-2.4 [facility] Serum or plasma calcium cortney urement (mass/volume)Ordered By: Jose L Li on 03-14-2023 Calcium [Mass/Vol] 9.3 mg/dL 8.5-10.[address] [facility] Serum or plasma creatinine m easurement (mass/volume)Ordered By: Jose L Li on 03-14-2023 Creatinine [Mass/Vol] 1.27 mg/dL 0.70-1.30 [facility] Comment on above: The validity of the calculated GFR & GFRAA in patients over 70 years has not been determined. Clinical correlation is essential. Serum or plasma urea nitroge n measurement (mass/volume)Ordered By: Jose L Li on 03-14-2023 Urea nitrogen [Mass/Vol] 37 mg/dL 7-18 [facility] Thin prep Papanicolaou smear with manual screeningOrdered By: Jose L Li on 03-14-2023 Thin prep Papanicolaou smear with manual screening 22 U/L 15-37 [facility] Thin prep Papanicolaou smear with manual screening 6 5-15 [facility] Basophil percentageOrdered B y: Jess Trent on 11-15-2022 Chloride [Moles/Vol] 109 mmol/L 98-107 [facility] Glucose [Mass/Vol] 103 mg/dL 74-[address] [facility] Comment on above: Fasting Glucose resu lt from 100 to 125 mg/dL suggests IMPAIRED HOMEOSTASIS per A.D.A. criteria. Potassium [Moles/Vol] 4.9 mmol/L 3.5-5.1 [facility] Sodium [Moles/Vol] 139 mmol/L 136-[address] [facility] Laboratory - Chemistry and C hemistry - challengeOrdered By: Jess Trent on 11-15-2022 CO2 [Moles/Vol] 23.0 mmol/L 21.0-32.0 [facility] Urea nitrogen/Creatinine [Mass ratio] 44.5 mg/mg 10-20 [facility] No Panel InformationOrdered By: Jess Trent on 11-15-2022 Estimated GFR (MDRD) Amer 54 mL/min >60 [facility] Comment on above: GFR Calc Estimated GFR (MDRD) Non-Af Amer 44 mL/min >60 [facility] Comment on above: Non- GFR Calc Serum or plasma calcium cortney urement (mass/volume)Ordered By: Jess Trent on 11-15-2022 Calcium [Mass/Vol] 9.0 mg/dL 8.5-10.[address] [facility] Serum or plasma creatinine m easurement (mass/volume)Ordered By: Jess Trent on 11-15-2022 Creatinine [Mass/Vol] 1.64 mg/dL 0.70-1.30 [facility] Comment on above: The validity of the calculated GFR & GFRAA in patients over 70 years has not been determined. Clinical correlation is essential. Serum or plasma urea nitroge n measurement (mass/volume)Ordered By: Jess Trent on 11-15-2022 Urea nitrogen [Mass/Vol] 73 mg/dL 7-18 [facility] Thin prep Papanicolaou smear with manual screeningOrdered By: Jess Trent on 11-15-2022 Thin prep Papanicolaou smear with manual screening 7 5-15 [facility] Absolute lymphocyte countOrd ered By: Jess Trent on 11-09-2022 Lymphocytes Auto (Unsp spec) [#/Vol] 1.95 10*3/uL 0.83-4.51 [facility] Basophil percentageOrdered B y: Jess Trent on 11-09-2022 Basophils/100 WBC (Bld) 0.7 % 0-1 [facility] Chloride [Moles/Vol] 111 mmol/L 98-107 [facility] Eosinophils/100 WBC (Bld) 2.9 % 0-5 [facility] Glucose [Mass/Vol] 103 mg/dL 74-[address] [facility] Comment on above: Fasting Glucose resu lt from 100 to 125 mg/dL suggests IMPAIRED HOMEOSTASIS per A.D.A. criteria. Neutrophils (Bld) [#/Vol] 5.2 10*3/uL 2.0-7.7 [facility] Neutrophils/100 WBC (Bld) 61.9 % 47-70 [facility] Potassium [Moles/Vol] 4.9 mmol/L 3.5-5.1 [facility] Sodium [Moles/Vol] 139 mmol/L 136-[address] [facility] WBC (Bld) [#/Vol] 8.4 10*3/uL 4.4-11.[address] [facility] Blood erythrocytes count (nu mber/volume)Ordered By: Jess Trent on 11-09-2022 RBC (Bld) [#/Vol] 4.33 10*6/uL 4.6-6.2 [facility] Blood hemoglobin measurement (mass/volume)Ordered By: Jess Trent on 11-09-2022 Hemoglobin (Bld) [Mass/Vol] 12.6 g/dL 13.0-16.5 [facility] Blood lymphocytes/100 leukoc ytesOrdered By: Jess Trent on 11-09-2022 Lymphocytes/100 WBC (Bld) 23.3 % 19-41 [facility] Blood monocytes/100 leukocyt esOrdered By: Jess Trent on 11-09-2022 Monocytes/100 WBC (Bld) 11.0 % 0-10 [facility] Blood platelet mean volumeOr dered By: Jess Trent on 11-09-2022 Platelet mean volume (Bld) [Entitic vol] 11.2 fL 6.2-12.0 [facility] Determination of erythrocyte mean corpuscular volume (MCV)Ordered By: Jess Trent on 11-09-2022 MCV (RBC) [Entitic vol] 93.5 fL 80-94 [facility] Hematocrit Auto (Bld) [Volum e fraction]Ordered By: Jess Trent on 11-09-2022 Hematocrit (Bld) [Volume fraction] 40.5 % 40-54 [facility] Laboratory - Chemistry and C hemistry - challengeOrdered By: Jess Trent on 11-09-2022 CO2 [Moles/Vol] 22.0 mmol/L 21.0-32.0 [facility] Natriuretic peptide B (Bld) [Mass/Vol] 194.9 pg/mL 0-100 [facility] Urea nitrogen/Creatinine [Mass ratio] 28.8 mg/mg 10-20 [facility] Laboratory - Hematology and Cell countsOrdered By: Jess Trent on 11-09-2022 Erythrocyte distribution width (RBC) [Entitic vol] 47.3 fL 35.1-43.9 [facility] Erythrocyte distribution width (RBC) [Ratio] 13.8 % 11.6-14.6 [facility] Immature granulocytes/100 WBC (Bld) 0.200 % 0.0-0.9 [facility] Comment on above: IG% - Immature Granu locytes (promyelocytes, myelocytes and metamyelocytes) > 1% indicates that a LEFT SHIFT is Present. MCH (RBC) [Entitic mass] 29.1 pg 27.0-32.0 [facility] Nucleated RBC/100 WBC (Bld) [Ratio] 0 % 0-5 [facility] MCHC Auto (RBC) [Mass/Vol]Or dered By: Jess Trent on 11-09-2022 MCHC (RBC) [Mass/Vol] 31.1 g/dL 32-36 [facility] No Panel InformationOrdered By: Jess Trent on 11-09-2022 Estimated GFR (MDRD) Amer 73 mL/min >60 [facility] Comment on above: GFR Calc Estimated GFR (MDRD) Non-Af Amer 61 mL/min >60 [facility] Comment on above: Non- GFR Calc Platelets bldOrdered By: Tk Trent on 11-09-2022 Platelets (Bld) [#/Vol] 185 10*3/uL 150-450 [facility] Serum or plasma calcium cortney urement (mass/volume)Ordered By: Jess Trent on 11-09-2022 Calcium [Mass/Vol] 9.1 mg/dL 8.5-10.[address] [facility] Serum or plasma creatinine m easurement (mass/volume)Ordered By: Jess Trent on 11-09-2022 Creatinine [Mass/Vol] 1.25 mg/dL 0.70-1.30 [facility] Comment on above: The validity of the calculated GFR & GFRAA in patients over 70 years has not been determined. Clinical correlation is essential. Serum or plasma urea nitroge n measurement (mass/volume)Ordered By: Jess Trent on 11-09-2022 Urea nitrogen [Mass/Vol] 36 mg/dL 18 [facility] Thin prep Papanicolaou smear with manual screeningOrdered By: Jess Trent on 11-09-2022 Thin prep Papanicolaou smear with manual screening 6 5-15 [facility] Absolute lymphocyte countOrd ered By: Dr. Li on 10-04-2022 Lymphocytes Auto (Unsp spec) [#/Vol] 1.74 10*3/uL 0.83-4.51 [facility] Basophil percentageOrdered B y: Dr. Li on 10-04-2022 Basophils/100 WBC (Bld) 0.8 % 0-1 [facility] Bilirubin [Mass/Vol] 0.40 mg/dL 0.20-1.00 [facility] Comment on above: For patients on eltr ombopag therapy, use of Dimension [place] TBIL is not recommended. Chloride [Moles/Vol] 112 mmol/L 98-107 [facility] Cholesterol [Mass/Vol] 108 mg/dL <200 [facility] Comment on above: <200 mg/dL Desirable 200-240 mg/dL Borderline >240 mg/dL High Risk Eosinophils/100 WBC (Bld) 2.7 % 0-5 [facility] Glucose [Mass/Vol] 105 mg/dL 74-[address] [facility] Comment on above: Fasting Glucose resu lt from 100 to 125 mg/dL suggests IMPAIRED HOMEOSTASIS per A.D.A. criteria. Neutrophils (Bld) [#/Vol] 5.0 10*3/uL 2.0-7.7 [facility] Neutrophils/100 WBC (Bld) 64.7 % 47-70 [facility] Potassium [Moles/Vol] 5.0 mmol/L 3.5-5.1 [facility] Protein [Mass/Vol] 7.9 g/dL 6.4-8.[address] [facility] Sodium [Moles/Vol] 136 mmol/L 136-[address] [facility] WBC (Bld) [#/Vol] 7.8 10*3/uL 4.4-11.[address] [facility] Blood erythrocytes count (nu mber/volume)Ordered By: Dr. Li on 10-04-2022 RBC (Bld) [#/Vol] 4.56 10*6/uL 4.6-6.2 [facility] Blood hemoglobin measurement (mass/volume)Ordered By: Dr. Li on 10-04-2022 Hemoglobin (Bld) [Mass/Vol] 13.2 g/dL 13.0-16.5 [facility] Blood lymphocytes/100 leukoc ytesOrdered By: Dr. Li on 10-04-2022 Lymphocytes/100 WBC (Bld) 22.3 % 19-41 [facility] Blood monocytes/100 leukocyt esOrdered By: Dr. Li on 10-04-2022 Monocytes/100 WBC (Bld) 9.1 % 0-10 [facility] Blood platelet mean volumeOr dered By: Dr. Li on 10-04-2022 Platelet mean volume (Bld) [Entitic vol] 10.8 fL 6.2-12.0 [facility] Cholesterol in LDL Direct as say [Mass/Vol]Ordered By: Dr. Li on 10-04-2022 Cholesterol in LDL [Mass/Vol] 59 mg/dL 0-99 [facility] Comment on above: Performed at: - [address] [id number] Director: Santiago Marrufo PhD, Phone: [phone] Determination of erythrocyte mean corpuscular volume (MCV)Ordered By: Dr. Li on 10-04-2022 MCV (RBC) [Entitic vol] 92.5 fL 80-94 [facility] Hematocrit Auto (Bld) [Volum e fraction]Ordered By: Dr. Li on 10-04-2022 Hematocrit (Bld) [Volume fraction] 42.2 % 40-54 [facility] Laboratory - Chemistry and C hemistry - challengeOrdered By: Dr. Li on 10-04-2022 ALP [Catalytic activity/Vol] 82 U/L 45-117 [facility] ALT [Catalytic activity/Vol] 24 U/L 16-61 [facility] CO2 [Moles/Vol] 23.0 mmol/L 21.0-32.0 [facility] Globulin (S) [Mass/Vol] 4.2 g/dL 2.2-4.2 [facility] Urea nitrogen/Creatinine [Mass ratio] 30.3 mg/mg 10-20 [facility] Laboratory - Hematology and Cell countsOrdered By: Dr. Li on 10-04-2022 Erythrocyte distribution width (RBC) [Entitic vol] 47.1 fL 35.1-43.9 [facility] Erythrocyte distribution width (RBC) [Ratio] 13.8 % 11.6-14.6 [facility] Immature granulocytes/100 WBC (Bld) 0.400 % 0.0-0.9 [facility] Comment on above: IG% - Immature Granu locytes (promyelocytes, myelocytes and metamyelocytes) > 1% indicates that a LEFT SHIFT is Present. MCH (RBC) [Entitic mass] 28.9 pg 27.0-32.0 [facility] Nucleated RBC/100 WBC (Bld) [Ratio] 0 % 0-5 [facility] Laboratory - Miscellaneous t estsOrdered By: Dr. Li on 10-04-2022 Service comment (Unsp spec) [Interp] TNP [facility] Comment on above: Test not performed MCHC Auto (RBC) [Mass/Vol]Or dered By: Dr. Li on 10-04-2022 MCHC (RBC) [Mass/Vol] 31.3 g/dL 32-36 [facility] No Panel InformationOrdered By: Dr. Li on 10-04-2022 Estimated GFR (MDRD) Amer 78 mL/min >60 [facility] Comment on above: GFR Calc Estimated GFR (MDRD) Non-Af Amer 64 mL/min >60 [facility] Comment on above: Non- GFR Calc Platelets bldOrdered By: Dr. Li on 10-04-2022 Platelets (Bld) [#/Vol] 198 10*3/uL 150-450 [facility] Serum or plasma albumin cortney urement (mass/volume)Ordered By: Dr. Li on 10-04-2022 Albumin [Mass/Vol] 3.7 g/dL 3.2-5.[address] [facility] Serum or plasma albumin/glob ulin mass ratioOrdered By: Dr. Li on 10-04-2022 Albumin/Globulin [Mass ratio] 0.9 {ratio} 0.9-2.4 [facility] Serum or plasma calcium cortney urement (mass/volume)Ordered By: Dr. Li on 10-04-2022 Calcium [Mass/Vol] 9.1 mg/dL 8.5-10.[address] [facility] Serum or plasma cholesterol in HDL measurement (mass/volume)Ordered By: Dr. Li on 10-04-2022 Cholesterol in HDL [Mass/Vol] 37 mg/dL >40 [facility] Comment on above: The drugs N-Acetylcy steine and Metamizole may falsely depress this assay. Reference Range HDL <40 mg/dL Low HDL Cholesterol HDL >or= 60 mg/dL High HDL Cholesterol Serum or plasma creatinine m easurement (mass/volume)Ordered By: Dr. Li on 10-04-2022 Creatinine [Mass/Vol] 1.19 mg/dL 0.70-1.30 [facility] Comment on above: The validity of the calculated GFR & GFRAA in patients over 70 years has not been determined. Clinical correlation is essential. Serum or plasma urea nitroge n measurement (mass/volume)Ordered By: Dr. Li on 10-04-2022 Urea nitrogen [Mass/Vol] 36 mg/dL 7-18 [facility] Thin prep Papanicolaou smear with manual screeningOrdered By: Dr. Li on 10-04-2022 Thin prep Papanicolaou smear with manual screening 20 U/L 15-37 [facility] Thin prep Papanicolaou smear with manual screening 1 5-15 [facility] Culture, urineOrdered By: Dr Leon Juarez on 07-15-2022 Bacteria identified Cx Nom (U) Proteus mirabilis [facility] Basophil percentageOrdered B y: Dr. Juarez on 07-13-2022 Chloride [Moles/Vol] 108 mmol/L 98-107 [facility] Glucose [Mass/Vol] 95 mg/dL 74-[address] [facility] Potassium [Moles/Vol] 5.6 mmol/L 3.5-5.1 [facility] Sodium [Moles/Vol] 137 mmol/L 136-[address] [facility] WBC (Bld) [#/Vol] 9.8 10*3/uL 4.4-11.[address] [facility] Blood erythrocytes count (nu mber/volume)Ordered By: Dr. Juarez on 07-13-2022 RBC (Bld) [#/Vol] 4.64 10*6/uL 4.6-6.2 [facility] Blood hemoglobin measurement (mass/volume)Ordered By: Dr. Juarez on 07-13-2022 Hemoglobin (Bld) [Mass/Vol] 13.3 g/dL 13.0-16.5 [facility] Blood platelet mean volumeOr dered By: Dr. Juarez on 07-13-2022 Platelet mean volume (Bld) [Entitic vol] 11.2 fL 6.2-12.0 [facility] Determination of erythrocyte mean corpuscular volume (MCV)Ordered By: Dr. Juarez on 07-13-2022 MCV (RBC) [Entitic vol] 92.7 fL 80-94 [facility] Hematocrit Auto (Bld) [Volum e fraction]Ordered By: Dr. Juarez on 07-13-2022 Hematocrit (Bld) [Volume fraction] 43.0 % 40-54 [facility] Laboratory - Chemistry and C hemistry - challengeOrdered By: Dr. Juarez on 07-13-2022 CO2 [Moles/Vol] 23.0 mmol/L 21.0-32.0 [facility] Urea nitrogen/Creatinine [Mass ratio] 31.1 mg/mg 10-20 [facility] Laboratory - Hematology and Cell countsOrdered By: Dr. Juarez on 07-13-2022 Erythrocyte distribution width (RBC) [Entitic vol] 47.3 fL 35.1-43.9 [facility] Erythrocyte distribution width (RBC) [Ratio] 13.7 % 11.6-14.6 [facility] MCH (RBC) [Entitic mass] 28.7 pg 27.0-32.0 [facility] MCHC Auto (RBC) [Mass/Vol]Or dered By: Dr. Juarez on 07-13-2022 MCHC (RBC) [Mass/Vol] 30.9 g/dL 32-36 [facility] No Panel InformationOrdered By: Dr. Juarez on 07-13-2022 Estimated GFR (MDRD) Amer 69 mL/min >60 [facility] Comment on above: GFR Calc Estimated GFR (MDRD) Non-Af Amer 57 mL/min >60 [facility] Comment on above: Non- GFR Calc Prostate Specific Antigen Total 2.63 ng/mL 0.0-4.0 [facility] Comment on above: This test was perfor med using the TPSA assay method [facility]. Values obtained with differentassay methods cannot be used interchangably.When changing PSA assays in the course of monitoring apatient, additional sequential testing should be carriedout to confirm baseline values. Platelets bldOrdered By: Dr. Juarez on 07-13-2022 Platelets (Bld) [#/Vol] 220 10*3/uL 150-450 [facility] Serum or plasma calcium cortney urement (mass/volume)Ordered By: Dr. Juarez on 07-13-2022 Calcium [Mass/Vol] 9.6 mg/dL 8.5-10.[address] [facility] Serum or plasma creatinine m easurement (mass/volume)Ordered By: Dr. Juarez on 07-13-2022 Creatinine [Mass/Vol] 1.32 mg/dL 0.70-1.30 [facility] Comment on above: The validity of the calculated GFR & GFRAA in patients over 70 years has not been determined. Clinical correlation is essential. Serum or plasma urea nitroge n measurement (mass/volume)Ordered By: Dr. Juarez on 07-13-2022 Urea nitrogen [Mass/Vol] 41 mg/dL 7-18 [facility] Thin prep Papanicolaou smear with manual screeningOrdered By: Dr. Juarez on 07-13-2022 Thin prep Papanicolaou smear with manual screening 6 5-15 [facility] Basophil percentageOrdered B y: Dr. Li on 04-21-2022 Bilirubin [Mass/Vol] 0.50 mg/dL 0.20-1.00 [facility] Comment on above: For patients on eltr ombopag therapy, use of Dimension [place] TBIL is not recommended. Chloride [Moles/Vol] 107 mmol/L 98-107 [facility] Glucose [Mass/Vol] 95 mg/dL 74-[address] [facility] Potassium [Moles/Vol] 5.1 mmol/L 3.5-5.1 [facility] Protein [Mass/Vol] 8.1 g/dL 6.4-8.[address] [facility] Sodium [Moles/Vol] 137 mmol/L 136-[address] [facility] Laboratory - Chemistry and C hemistry - challengeOrdered By: Dr. Li on 04-21-2022 ALP [Catalytic activity/Vol] 86 U/L 45-117 [facility] ALT [Catalytic activity/Vol] 25 U/L 16-61 [facility] CO2 [Moles/Vol] 23.0 mmol/L 21.0-32.0 [facility] Globulin (S) [Mass/Vol] 4.3 g/dL 2.2-4.2 [facility] Urea nitrogen/Creatinine [Mass ratio] 27.5 mg/mg 10-20 [facility] No Panel InformationOrdered By: Dr. Li on 04-21-2022 Estimated GFR (MDRD) Amer 77 mL/min >60 [facility] Comment on above: GFR Calc Estimated GFR (MDRD) Non-Af Amer 64 mL/min >60 [facility] Comment on above: Non- GFR Calc Urine Microalbumin/Creatinine Ratio 73.4 mg/g CRE <30 [facility] Serum or plasma albumin cortney urement (mass/volume)Ordered By: Dr. Li on 04-21-2022 Albumin [Mass/Vol] 3.8 g/dL 3.2-5.[address] [facility] Serum or plasma albumin/glob ulin mass ratioOrdered By: Dr. Li on 04-21-2022 Albumin/Globulin [Mass ratio] 0.9 {ratio} 0.9-2.4 [facility] Serum or plasma calcium cortney urement (mass/volume)Ordered By: Dr. Li on 04-21-2022 Calcium [Mass/Vol] 9.3 mg/dL 8.5-10.[address] [facility] Serum or plasma creatinine m easurement (mass/volume)Ordered By: Dr. Li on 04-21-2022 Creatinine [Mass/Vol] 1.20 mg/dL 0.70-1.30 [facility] Comment on above: The validity of the calculated GFR & GFRAA in patients over 70 years has not been determined. Clinical correlation is essential. Serum or plasma urea nitroge n measurement (mass/volume)Ordered By: Dr. Li on 04-21-2022 Urea nitrogen [Mass/Vol] 33 mg/dL 7-18 [facility] Thin prep Papanicolaou smear with manual screeningOrdered By: Dr. Li on 04-21-2022 Thin prep Papanicolaou smear with manual screening 24 U/L 15-37 [facility] Thin prep Papanicolaou smear with manual screening 7 5-15 [facility] Thin prep Papanicolaou smear with manual screening 32.5 mg/L NO RANGE EST. [facility] Urine creatinine measurement (mass/volume)Ordered By: Dr. Li on 04-21-2022 Creatinine (U) [Mass/Vol] 44.30 mg/dL NO RANGE EST. [facility] Absolute lymphocyte counton 10-08-2021 Lymphocytes Auto (Unsp spec) [#/Vol] 1.88 10*3/uL 0.83-4.51 [facility] Work Phone: [phone] Basophil percentageon 2021 Basophils/100 WBC (Bld) 0.9 % 0-1 [facility] Work Phone: Bilirubin [Mass/Vol] 0.40 mg/dL 0.20-1.00 [facility] Work Phone: Comment on above: For patients on eltr ombopag therapy, use of Dim[place] TBIL is not recommended. Chloride [Moles/Vol] 109 mmol/L 98-107 [facility] Work Phone: [phone] Eosinophils/100 WBC (Bld) 3.1 % 0-5 [facility] Work Phone: Glucose [Mass/Vol] 104 mg/dL 74-[address] [facility] Work Phone: Comment on above: Fasting Glucose resu lt from 100 to 125 mg/dL suggests IMPAIRED HOMEOSTASIS per A.D.A. criteria. Neutrophils (Bld) [#/Vol] 5.1 10*3/uL 2.0-7.7 [facility] Work Phone: Neutrophils/100 WBC (Bld) 62.7 % 47-70 [facility] Work Phone: Potassium [Moles/Vol] 4.8 mmol/L 3.5-5.1 [facility] Work Phone: Protein [Mass/Vol] 8.5 g/dL 6.4-8.[address] [facility] Work Phone: [phone] Sodium [Moles/Vol] 137 mmol/L 136-[address] [facility] Work Phone: WBC (Bld) [#/Vol] 8.1 10*3/uL 4.4-11.[address] [facility] Work Phone: Blood erythrocytes count (nu mber/volume)on 10-08-2021 RBC (Bld) [#/Vol] 4.31 10*6/uL 4.6-6.2 [facility] Work Phone: Blood hemoglobin measurement (mass/volume)on 10-08-2021 Hemoglobin (Bld) [Mass/Vol] 12.4 g/dL 13.0-16.5 [facility] Work Phone: Blood lymphocytes/100 leukoc yteson 10-08-2021 Lymphocytes/100 WBC (Bld) 23.3 % 19-41 [facility] Work Phone: Blood monocytes/100 leukocyt eson 10-08-2021 Monocytes/100 WBC (Bld) 9.8 % 0-10 [facility] Work Phone: Blood platelet mean volumeon 10-08-2021 Platelet mean volume (Bld) [Entitic vol] 10.9 fL 6.2-12.0 [facility] Work Phone: Determination of erythrocyte mean corpuscular volume (MCV)on 10-08-2021 MCV (RBC) [Entitic vol] 92.1 fL 80-94 [facility] Work Phone: Hematocrit Auto (Bld) [Volum e fraction]on 10-08-2021 Hematocrit (Bld) [Volume fraction] 39.7 % 40-54 [facility] Work Phone: Laboratory - Chemistry and C hemistry - challengeon 10-08-2021 ALP [Catalytic activity/Vol] 90 U/L 45-117 [facility] Work Phone: ALT [Catalytic activity/Vol] 23 U/L 16-61 [facility] Work Phone: CO2 [Moles/Vol] 23.0 mmol/L 21.0-32.0 [facility] Work Phone: Globulin (S) [Mass/Vol] 4.7 g/dL 2.2-4.2 [facility] Work Phone: Urea nitrogen/Creatinine [Mass ratio] 24.8 mg/mg 10-20 [facility] Work Phone: Laboratory - Hematology and Cell countson 10-08-2021 Erythrocyte distribution width (RBC) [Entitic vol] 47.1 fL 35.1-43.9 [facility] Work Phone: Erythrocyte distribution width (RBC) [Ratio] 13.8 % 11.6-14.6 [facility] Work Phone: Immature granulocytes/100 WBC (Bld) 0.200 % 0.0-0.9 [facility] Work Phone: Comment on above: IG% - Immature Granu locytes (promyelocytes, myelocytes and metamyelocytes) > 1% indicates that a LEFT SHIFT is Present. MCH (RBC) [Entitic mass] 28.8 pg 27.0-32.0 [facility] Work Phone: Nucleated RBC/100 WBC (Bld) [Ratio] 0 % 0-5 [facility] Work Phone: MCHC Auto (RBC) [Mass/Vol]on 10-08-2021 MCHC (RBC) [Mass/Vol] 31.2 g/dL 32-36 [facility] Work Phone: No Panel Informationon 10-08 Estimated GFR (MDRD) Amer 71 mL/min >60 [facility] Work Phone: Comment on above: GFR Calc Estimated GFR (MDRD) Non-Af Amer 59 mL/min >60 [facility] Work Phone: Comment on above: Non- GFR Calc Urine Microalbumin/Creatinine Ratio 70.9 mg/g CRE <30 [facility] Work Phone: Platelets bldon 10-08-2021 Platelets (Bld) [#/Vol] 228 10*3/uL 150-450 [facility] Work Phone: Serum or plasma C reactive p rotein measurement (mass/volume)on 10-08-2021 CRP [Mass/Vol] 4.38 mg/L 0.0-3.0 [facility] Work Phone: Comment on above: C-Reactive Protein ( CRP) provides useful information for thediagnosis, therapy and monitoring of inflammatory processesand associated diseases. For the evaluation of Relative Riskfor Cardiovascular Disease, a High Sensitivity CRP (HSCRP)should be ordered. Serum or plasma albumin cortney urement (mass/volume)on 10-08-2021 Albumin [Mass/Vol] 3.8 g/dL 3.2-5.[address] [facility] Work Phone: Serum or plasma albumin/glob ulin mass ratioon 10-08-2021 Albumin/Globulin [Mass ratio] 0.8 {ratio} 0.9-2.4 [facility] Work Phone: Serum or plasma calcium cortney urement (mass/volume)on 10-08-2021 Calcium [Mass/Vol] 8.9 mg/dL 8.5-10.[address] [facility] Work Phone: Serum or plasma creatinine m easurement (mass/volume)on 10-08-2021 Creatinine [Mass/Vol] 1.29 mg/dL 0.70-1.30 [facility] Work Phone: Comment on above: The validity of the calculated GFR & GFRAA in patients over 70 years has not been determined. Clinical correlation is essential. Serum or plasma urea nitroge n measurement (mass/volume)on 10-08-2021 Urea nitrogen [Mass/Vol] 32 mg/dL 7-18 [facility] Work Phone: Thin prep Papanicolaou smear with manual screeningon 10-08-2021 Thin prep Papanicolaou smear with manual screening 21 U/L 15-37 [facility] Work Phone: Thin prep Papanicolaou smear with manual screening 5 5-15 [facility] Work Phone: Thin prep Papanicolaou smear with manual screening 74.4 mg/L NO RANGE EST. [facility] Work Phone: Urine creatinine measurement (mass/volume)on 10-08-2021 Creatinine (U) [Mass/Vol] 105.00 mg/dL NO RANGE EST. [facility] Work Phone: Clinical Summary: Evie grayson 09-23-2021 MC75 OP Visit Invalid Interpretation Code [facility] Work Phone: Clinical Summary: Evie grayson 09-02-2021 MC75 OP Visit Invalid Interpretation Code [facility] Work Phone: CULT/STAIN - AEROBIC AND ALAN EROBICon 06-15-2021 CULT/STAIN - AEROBIC AND ANAEROBIC STAIN GRAM --> Status: F Few polymorphonuclear cells/lpf. No organisms seen. No organisms seen. CULT./ST. BACTERIA --> Status: F No growth at 3 days. CULTURE ANAEROBE --> Status: F No growth of anaerobes at 5 days. Normal [facility] Comment on above: Performed By: #### C KAUSHAL #### [facility] [address] [place] [phone] CULT/STAIN - AEROBIC AND ALAN EROBICon 04-10-2021 CULT/STAIN - AEROBIC AND ANAEROBIC STAIN GRAM --> Status: F Many polymorphonuclear cells/lpf. No organisms seen. No organisms seen. CULTURE ANAEROBE --> Status: F No growth of anaerobes at 5 days. 1 Organism (Coagulase-negative) Staphylococcus epidermidis Rare 1 Organism Antibiotic Result Intrp Nafcillin/Oxacillin( ANGELICA) >= 4 R Inducible Clindamycin Resistant(ANGELICA)Neg Neg Clindamycin(ANGELICA) >= 4 R Vancomycin(ANGELICA) 2 S Trimeth/Sulfa(ANGELICA) <= 10 S Linezolid(ANGELICA) 1 S Gentamicin(ANGELICA) <= 0.5 S Doxycycline(ANGELICA) 4 S Tigecycline(ANGELICA) <= 0.12 S Rifampin(ANGELICA) <= 0.5 S Normal [facility] Comment on above: Performed By: #### C KAUSHAL #### [address] [place] [address] [address] [place], [place] [id number] Body Fluid Cell Count with D ifferentialOrdered By: Carl Jaramillo on 04-07-2021 Fluid Type [facility] Work Phone: Nucl Cell, Fluid [id number] {cells}/uL [facility] Work Phone: Test Performed by [address] [address] [facility] [facility] Work Phone: [facility] Work Phone: Cell Count,Body Fluidon 03-20 Nucleated Cells [id number] {cells}/uL Normal [facility] Comment on above: Performed By: #### F LDCC, AMOR #### [address] [place] [address] Fluid Type SYNOVIAL Normal [facility] Comment on above: Performed By: #### F LDCC, DIFBF #### [address] [place] [address] Differential, Body FluidOrde red By: Carl Jaramillo on 04-07-2021 Differential Count 100 [facility] Work Phone: Lymphocytes/100 WBC (Bld) 2 % [facility] Work Phone: Monocytes/100 WBC (Bld) 2 % [facility] Work Phone: Neutrophils/100 WBC (Bld) 96 % [facility] Work Phone: Test Performed by [address] [place] [address] [facility] Work Phone: [facility] Work Phone: Differential,Body Fluidson 1 Lymphocytes/100 WBC (Bld) 2 % Normal [facility] Comment on above: Performed By: #### F LDCC, DIFBF #### [facility] [address] [place] [address] Monocytes/100 WBC (Bld) 2 % Normal [facility] Comment on above: Performed By: #### F LDCC, DIFBF #### [facility] [address] [place] [address] Neutrophils/100 WBC (Bld) 96 % Normal [facility] Comment on above: Performed By: #### F LDCC, DIFBF #### [facility] [address] [place] [address] Cells Counted for Diff 100 Normal [facility] Comment on above: Performed By: #### F LDCC, DIFBF #### [facility] [address] [place] [address] Vital Signs Date Time Vital Sign Value Performing Clinician Facility 04-18-2025 13:19-0400 Body height 170 cm Zena HARRIS-C Work Phone: [facility] 04-18-2025 13:19-0400 Body height 170.18 cm Zena Washington PA-C Work Phone: [facility] 04-18-2025 13:19-0400 Body mass index (BMI) [Ratio] 27.51 kg/m2 Zena Washington PA-C Work Phone: [facility] 04-18-2025 13:19-0400 Body weight 80 kg Zena Washington PA-C Work Phone: [facility] 04-18-2025 13:19-0400 Body weight 79.38 kg Zena Washington PA-C Work Phone: [facility] 04-18-2025 13:19-0400 BP SITE #1 Zena Washington PA-C Work Phone: [facility] 04-18-2025 13:19-0400 Diastolic blood pressure 67 mm[Hg] Zena Duganier PA-C Work Phone: [facility] 04-18-2025 13:19-0400 Heart rate 62 /min Zena Duganier PA-C Work Phone: [facility] 04-18-2025 13:19-0400 HGHTCHNVIS Zena Duganier PA-C Work Phone: [facility] 04-18-2025 13:19-0400 Systolic blood pressure 101 mm[Hg] Zena Duganier PA-C Work Phone: [facility] 04-18-2025 13:19-0400 VITALSDONE Zena Duganier PA-C Work Phone: [facility] 03-27-2025 13:20-0400 Body height 167.[address] Jose L Li MD Work Phone: [facility] 03-27-2025 13:20-0400 Body mass index (BMI) [Ratio] 28.5 kg/m2 Dr. Jose L Li MD Work Phone: [facility] 03-27-2025 13:20-0400 Body temperature 97.2 [degF] Dr. Jose L Li MD Work Phone: [facility] 03-27-2025 13:20-0400 Body weight 80.[address] Jose L Li MD Work Phone: [facility] 03-27-2025 13:20-0400 Diastolic blood pressure 62 mm[Hg] Dr. Jose L Li MD Work Phone: [facility] 03-27-2025 13:20-0400 Heart rate 53 /min Dr. Jose L Li MD Work Phone: [facility] 03-27-2025 13:20-0400 Respiratory rate 18 /min Dr. Jose L Li MD Work Phone: 6(418)858-751166 [place] [address] 03-27-2025 13:20-0400 SaO2% (BldA) [Mass fraction] 96 % Dr. Jose L Li MD Work Phone: 4(497)574-445111 [place] [address] 03-27-2025 13:20-0400 Systolic blood pressure 104 mm[Hg] Dr. Jose L Li MD Work Phone: 2(443)792-394911 [place] [address] 08-28-2024 07:36-0400 Body mass index (BMI) [Ratio] 29.6 kg/m2 Dr. Jose L Li MD Work Phone: 6(612)249-313411 [place] [address] 08-28-2024 07:36-0400 Body weight 85.[address] Jose L Li MD Work Phone: 5(413)523-901911 [place] [address] 08-28-2024 07:36-0400 Diastolic blood pressure 89 mm[Hg] Dr. Jose L Li MD Work Phone: 7(274)901-412211 [place] [address] 08-28-2024 07:36-0400 Heart rate 66 /min Dr. Jose L Li MD Work Phone: 8(975)611-945111 [place] [address] 08-28-2024 07:36-0400 Respiratory rate 18 /min Dr. Jose L Li MD Work Phone: 9(950)192-733011 [place] [address] 08-28-2024 07:36-0400 SaO2% (BldA) [Mass fraction] 99 % Dr. Jose L Li MD Work Phone: 4(779)589-694911 [place] [address] 08-28-2024 07:36-0400 Systolic blood pressure 128 mm[Hg] Dr. Jose L Li MD Work Phone: 2(249)829-364411 [place] [address] 05-15-2023 09:07-0500 Body height 170.[address] Jose L Li Work Phone: 7(724)017-990311 [place] [address] 05-15-2023 09:07-0500 Body mass index (BMI) [Ratio] 29.7 kg/m2 Dr. Jose L Li Work Phone: 4(395)625-098111 [place] [address] 05-15-2023 09:07-0500 Body weight 86.[address] Jose L Li Work Phone: [facility] 05-15-2023 09:07-0500 Diastolic blood pressure 83 mm[Hg] Dr. Jose L Li Work Phone: [facility] 05-15-2023 09:07-0500 Heart rate 67 /min Dr. Jose L Li Work Phone: [facility] 05-15-2023 09:07-0500 Respiratory rate 18 /min Dr. Jose L Li Work Phone: [facility] 05-15-2023 09:07-0500 SaO2% (BldA) [Mass fraction] 97 % Dr. Jose L Li Work Phone: [facility] 05-15-2023 09:07-0500 Systolic blood pressure 125 mm[Hg] Dr. Jose L Li Work Phone: [facility] 11-09-2022 08:31-0400 Body height 170.[address] Jose L Li Work Phone: [facility] 11-09-2022 08:31-0400 Body mass index (BMI) [Ratio] 29.7 kg/m2 Dr. Jose L Li Work Phone: [facility] 11-09-2022 08:31-0400 Body weight 86.[address] Jose L Li Work Phone: [facility] 11-09-2022 08:31-0400 Diastolic blood pressure 76 mm[Hg] Dr. Jose L Li Work Phone: [facility] 11-09-2022 08:31-0400 Heart rate 60 /min Dr. Jose L Li Work Phone: [facility] 11-09-2022 08:31-0400 Respiratory rate 18 /min Dr. Jose L Li Work Phone: [facility] 11-09-2022 08:31-0400 Systolic blood pressure 123 mm[Hg] Dr. Jose L Li Work Phone: [facility] NEGATED: Highlighted [id number] 14:48-0400 Body height 170.18 cm Tonja Faith AT [facility] [place] Work Phone: NEGATED: Highlighted [id number] 14:48-0400 Body height 170 cm Tonja Faith AT [facility] [place] [facility] Work Phone: NEGATED: Highlighted [id number] 14:48-0400 Body mass index (BMI) [Ratio] 29.08 kg/m2 Tonja Faith AT [facility] Work Phone: NEGATED: Highlighted [id number] 14:48-0400 Body weight 83.92 kg Tonja Faith AT [facility] [place] [facility] Work Phone: NEGATED: Highlighted [id number] 14:48-0400 Body weight 84 kg Tonja Faith AT [facility] [place] [facility] Work Phone: NEGATED: Highlighted [id number] 13:11-0400 Body height 170.18 cm Adelaida Mariaa [employer] [facility] Work Phone: NEGATED: Highlighted [id number] 13:11-0400 Body height 170 cm Adelaida Mariaa [employer] OPERATOR [facility] Work Phone: NEGATED: Highlighted [id number] 13:11-0400 Body mass index (BMI) [Ratio] 29.08 kg/m2 Adelaida Mariaa [employer] PR[employer] OPERATOR [facility] Work Phone: NEGATED: Highlighted [id number] 13:11-0400 Body weight 83.92 kg Adelaida Mariaa [employer] PR[employer] OPERATOR [facility] Work Phone: NEGATED: Highlighted [id number] 13:11-0400 Body weight 84 kg Adelaida Mariaa [employer] PR[employer] OPERATOR [facility] Work Phone: Encounters Encounter Date Encounter Type Care Provider Facility Start: 04-18-2025 Visit out of hours Zena Washington PA-C Work Phone: [facility] Work Phone: Start: 04-18-2025 In-person encounter Zena Washington PA-C Work Phone: [facility] Work Phone: Start: 04-17-2025 ambulatory Jose L Julian Facility:[facility] Start: 03-27-2025 End: 03-27-[address] Justin Lacy MD -[facility] Work Phone: Start: 03-27-2025 End: 03-27-[address] Jose L Li MD Work Phone: -[facility] Start: 03-18-2025 End: 03-18-[address] Jose L Li MD Work Phone: -Cat Scan [facility] Start: 03-18-2025 End: 03-18-[address] Jose L Li MD -Cat Scan [facility] Work Phone: Start: 03-18-2025 End: 03-18-2025 ambulatory Jose L Li Facility:[facility] Start: 03-04-2025 End: 03-04-[address] Jose L Li MD Work Phone: -[facility] Start: 03-04-2025 End: 03-04-[address] Jose L Li MD -[facility] Work Phone: Start: 03-04-2025 End: 03-04-2025 ambulatory Jose L Li Facility:[facility] Start: 08-29-2024 End: 08-29-[address] Jose L Li MD Work Phone: [facility] Work Phone: Start: 08-29-2024 End: 08-29-2024 Patient encounter procedure Chelsi Swenson PA -Cat Scan, [facility] Work Phone: Start: 08-28-2024 End: 08-28-2024 Patient encounter procedure Chelsi Swenson PA -Laboratory Work Phone: Start: 08-28-2024 End: 08-29-[address] Jose L Li MD Work Phone: [facility] Work Phone: Start: 08-28-2024 End: 08-28-2024 ambulatory Chelsi HARRIS Facility:[facility] Start: 08-19-2024 End: 08-19-[address] Jose L Li MD Work Phone: [facility] Work Phone: Start: 08-19-2024 End: 08-19-[address] Arnulfo Felder MD -Laboratory Work Phone: Start: 08-19-2024 End: 08-19-2024 ambulatory Arnulfo Felder Facility:[facility] Start: 05-01-2024 End: 05-01-2024 ambulatory Jose L Li Facility:[facility] Start: 08-31-2023 End: 08-31-[address] Jose L Li Work Phone: [facility] Work Phone: Start: 08-31-2023 End: 08-31-[address] Jose L Li Work Phone: [facility] Start: 05-15-2023 End: 05-15-[address] Jose L Li Work Phone: [facility] Work Phone: Start: 03-14-2023 End: 03-14-2023 ambulatory [facility] Work Phone: Start: 03-14-2023 End: 03-14-2023 Patient encounter procedure [facility] Work Phone: Start: 11-17-2022 Non-patient / Non-visit Dr. Stevan Li Work Phone: [facility] Start: 11-17-2022 End: 11-17-[address] Jose L Li Work Phone: [facility] Work Phone: Start: 11-17-2022 End: 11-17-[address] Jose L Li Work Phone: [facility]-Cardiovascular Services Start: 11-15-2022 End: 11-15-[address] Jose L Li Work Phone: [facility] Work Phone: Start: 11-15-2022 End: 11-15-[address] [facility] Start: 11-09-[address] Jose L Li Work Phone: [facility] Start: 11-09-2022 End: 11-09-[address] Jose L Li Work Phone: [facility] Work Phone: Start: 11-09-2022 End: 11-09-[address] Jose L Li Work Phone: [facility]-Laboratory Start: 11-09-2022 End: 11-09-2022 Admission to same day surgery center Dr. Jose L Li Work Phone: [facility] Start: 11-09-2022 End: 11-09-[address] Jose L Li Work Phone: [facility] Start: 10-07-2022 End: 10-07-[address] Jose L Li Work Phone: [facility] Work Phone: Start: 10-07-2022 End: 10-07-[address] Jose L Li Work Phone: [facility]-MRI - [facility] Start: 10-04-2022 End: 10-04-[address] Jose L Li [facility] Start: 07-29-2022 End: 07-29-[address] Jose L Li Work Phone: [facility] Work Phone: Start: 07-29-2022 End: 07-29-[address] Jose L Li Work Phone: [facility]-Laboratory, Specimen Start: 07-19-2022 End: 07-19-2022 Non-patient / Non-visit Dr. Jose L Li Work Phone: [facility] Start: 07-19-2022 End: 07-19-[address] Jose L Li Work Phone: [facility] Work Phone: Start: 07-19-2022 End: 07-19-[address] Jose L Li Work Phone: [facility]-Pulmonary Services/Neurology Start: 07-13-2022 End: 07-13-[address] Jose L Li Work Phone: [facility] Work Phone: Start: 07-13-2022 End: 07-13-[address] Jose L Li Work Phone: [facility]-Cat Scan, [facility] Start: 04-21-2022 End: 04-21-[address] Jose L Li [facility] Phone[facility] Start: 11-19-2021 End: 11-19-2021 Discharged Recurring [facility]-Physical Therapy Start: 10-08-2021 End: 10-08-2021 Patient encounter procedure [facility]-Laboratory, [place] Start: 06-01-2021 End: 06-01-2021 Subsequent hospital visit by physician Sylvain Payton MD [facility] Phone: [facility] Start: 04-07-2021 End: 04-07-2021 Subsequent hospital visit by physician Carl HARRIS Work Phone: [facility] Laboratory Procedures Date Procedure Procedure Detail Performing Clinician Start: 04-18-2025 Blood pressure withi n normal parameters - no follow-up required Zena T Duganier PA-C Work Phone: Start: 04-18-2025 BMI outside of mark l parameters - no follow-up plan/reason not given Zena T Duganier PA-C Work Phone: Start: 04-18-2025 Current tobacco non- user cad cap copd pv dm Zena T Duganier PA-C Work Phone: Start: 04-18-2025 Documentation of cur rent medications Zena T Duganier PA-C Work Phone: Start: 04-18-2025 Pain assessment documented as positive - no follow-up/reason not given Zena T Duganier PA-C Work Phone: Start: 03-18-2025 CT of thorax, abdome n and pelvis with contrast Dr. Jose L Li MD Work Phone: Start: 08-29-2024 CT angiography of he ad and neck Dr. Jose L Li MD Work Phone: Start: 11-17-2022 Radionuclide imaging of perfusion of myocardium under exercise stress Dr. Jose L Li Work Phone: Start: 10-07-2022 MRI of brain without contrast Dr. Jose L Li Work Phone: Start: 07-13-2022 CT of abdomen and pe lvis without contrast Dr. Jose L Li Work Phone: Start: 09-23-2021 End: 09-24-2021 BP scrn no perf at interval Chance W Mitan PA-C Work Phone: Start: 09-23-2021 End: 09-24-2021 Calc BMI abv up chema f/u Carl W [employer] PA-C Work Phone: Start: 09-23-2021 End: 09-24-2021 Current tobacco non-user cad cap copd pv dm Chance W [employer] PA-C Work Phone: Start: 09-23-2021 End: 09-24-2021 Docrev cur meds by elig clin Chance W [employer]an PA-C Work Phone: Start: 09-23-2021 End: 09-24-2021 Pain doc pos and plan Chance W [employer] PA- C Work Phone: Start: 09-23-2021 End: 09-24-2021 Patient encounter procedure Chance W Gilt [employer]oll[employer] PA-C Work Phone: Start: 09-02-2021 End: 09-02-2021 BP scrn no perf at interval Miles Collier MD Work Phone: Start: 09-02-2021 End: 09-02-2021 Calc BMI out nrm chema nof/u Miles Collier MD Work Phone: Start: 09-02-2021 End: 09-02-2021 Current tobacco non-user cad cap copd pv dm Miles Colleir MD Work Phone: Start: 09-02-2021 End: 09-02-2021 Docrev cur meds by betsy clin Miles Collier MD Work Phone: Start: 09-02-2021 End: 09-02-2021 Pain doc pos and plan Miles Collier MD Work Phone: Start: 09-02-2021 End: 09-02-2021 Patient encounter procedure Miles Collier MD Work Phone: Start: 09-02-2021 End: 09-02-2021 Radiologic examination knee 3 views Miles Collier MD Work Phone: Start: 04-07-2021 Cell count misc body fluids w/differential count Chance W Clint PA Work Phone: Start: 04-07-2021 DIFFERENTIAL, BODY FLUID Chance W Clint PA Work Phone: Start: 04-07-2021 Cul prsmptv pthgnc organism scrn w/colony estimj Chance W Clint HARRIS Work Phone: Urine culture Dr. Jose L Li Work Phone: Urine culture Dr. Jose L Li Work Phone: NEGATED: Highlighted rowStart: 09-23-2021 End: 09-23-2021 Documentation of current medications Tonja Cuevas AT NEGATED: Highlighted rowStart: 09-02-2021 End: 09-02-2021 Documentation of current medications Adelaida Leroy LPN Plan of Treatment Date Care Activity Detail Author Start: 04-18-2025 End: 04-18-2025 [employer] Work Phone: Start: 03-18-2025 CT of thorax, abdomen and pelvis with contrast CTA Chst, Abd, Pel W and/or WO [facility] Start: 08-28-2024 Vitamin D, 1,25-dihydroxy measurement [facility] Start: 11-04-2021 End: 11-04-2021 Patient encounter procedure Appointment [facility] Work Phone: Start: 09-23-2021 End: 09-23-2021 Patient encounter procedure Appointment [facility] Work Phone: Start: 09-02-2021 End: 09-02-2021 Patient encounter procedure Appointment [facility] Work Phone: Start: 04-07-2021 Annual Wellness [...] Work Phone: Payers Date Payer Category Payer Self-pay [id number] 2018 Unknown [id number] 2016 Medicare [id number] Unknown [id number] 2.16.8 [id number] Unknown [id number] 2.16.8 [id number] Unknown [id number] 2.16.8 [id number] Unknown [id number] 2.16.8 [id number] Unknown [id number] 2.16.8 [id number] Unknown [id number] 2.16.8 [id number] Unknown [id number] 2.16.8 [id number] Unknown [id number] 2.16.8 [id number] Unknown [id number] 2.16.8 [id number] Social History Date Type Detail Facility Tobacco smoking status NHIS Unknown if ever smoked [facility] Work Phone: Start: 1950 Sex Assigned At Not on file [facility] Work Phone: Start: 05-19-2021 End: 09-21-2023 Tobacco smoking status NHIS Never smoked tobacco [employer] Work Phone: Start: 05-19-2021 Tobacco use and exposure Smokeless tobacco non-user [employer] Work Phone: Start: 05-19-2021 Alcohol intake Current drinke r of alcohol (finding) [employer] Work Phone: Start: 05-19-2021 History SDOH Alcohol Comment occassionally [facility] Work Phone: Exposure to SARS-CoV-2 (event) Not sure [facility] Start: 11-18-2021 End: 05-15-2023 Assertion Unknown if ever smoked [facility] Work Phone: Start: 1950 Sex Assigned At Male [facility] Start: 08-30-2024 End: 09-09-2024 Sex Male (finding) [facility] Start: 04-18-2025 Sex [facility] NEGATED: Highlighted rowStart: 09-23-2021 End: 09-23-2021 Employment detail Employment detail [facility] [place] [facility] Work Phone: Clinical Notes 08-28-2024 to 03-27-2025 Note Date & Type Note Facility 03-27-2025 Evaluation note Diagnosis Onset Date Resolution Change in bowel habits chronic March 27 12:58pm [facility] Work Phone: 1(184) 772-286610-09-2025 [facility] [address] [place] [address] OFFICE VISIT Date of Service: 03/27/25 MR#: [id number] Acct: [id number] Name: JEREMY CAIN Rep #: [id number] : 1950 Provider: Dr. Navarro Lacy MD Age/Sex: 74/M Location: [facility] Status: Signed Intake Vital Signs 08/28/24 07:36 03/27/25 13:20 Height 5 ft 7 in 5 ft 6 in Weight: 177 lb BMI 28.5 BP 104/62 Blood Pressure Location Rt brachial Position Sitting Respiration 18 Pulse 53 L Pulse Source Monitor Temp 97.2 F L Temp Source Temporal Pulse Oximetry (%) 96 Oxygen Delivery Method room air Intake Visit Reasons: ABD PAIN, SWELLING IN COLON Chief Complaint: abd pain, swelling in colon Is patient in pain?: No Allergies Penicillins (PCN) Allergy (Intermediate, Verified 03/27/25 13:21) Hives Sulfa (Sulfonamide Antibiotics) Allergy (Intermediate, Verified 03/27/25 13:21) fever, hives [id number]-[id number] Reductase Inhibitor Adverse Reaction (Severe, Verified 03/27/25 13:21) Nausea lisinopril Adverse Reaction (Intermediate, Verified 03/27/25 13:21) cough Medications ?Medication ?Instructions ?Recorded ?Confirmed ?Type clopidogrel 75 mg tablet 75 mg PO DAILY 11/08/1803/13 History folic acid 0.8 mg capsule 0.8 mg PO DAILY 11/08/1803/13 History rosuvastatin 5 mg tablet 5 mg PO QHS 11/08/18 5 History ipratropium bromide 21 mcg (0.03 2 spray intranasal BI D 11/14/19 03/27/25 History %) nasal spray zinc 50 mg tablet 50 mg PO DAILY 01/12/2203/13 History acetaminophen 500 mg tablet 500 mg PO Q8H PRN 11/09/22 03/27/25 History (Tylenol Extra Strength) tamsulosin 0.4 mg capsule 0.4 mg PO BID 11/09/2203/27 History losartan 100 mg tablet 50 mg PO DAILY 05/15/2303/13 History metoprolol tartrate 25 mg tablet 25 mg PO DAILY 03/27/25 History loratadine 10 mg capsule 10 mg PO QDAY 05/01/2403/27 History furosemide 40 mg tablet 40 mg PO Q OTHER DAY #45 TAB LETS 11/04/24 03/27/25 Rx Have you fallen in the past year?: No PFSH Medical History (Updated 03/27/25 @ 16:[address] Justin Lacy MD) Diarrhea COVID-19 (06/22/21) Essential (primary) hypertension Hyperlipidemia Transient ischemic attack (12/2007) Vitamin D deficiency Osteoarthritis BPH (benign prostatic hyperplasia) Varicose veins of both lower extremities Surgical History Hx of neck surgery (~11/2022) Hx of transurethral resection of prostate (~06/2022) History of total right knee replacement History of shoulder replacement (03/2019) History of lumbar spinal fusion (06/2019) History of left heart catheterization (02/04/08) History of total left knee replacement (08/20/21) History of carpal tunnel release Family History Father Cancer Mother Heart disease Social History Smoking Status: Never smoker alcohol intake: current alcohol intake frequency: holidays/special occasions only substance use type: does not use caffeine: Yes Type: coffee Number of servings: 1 HPI HPI HPI: The patient is a 74-year-old male with BPH, chronic back pain, and a history of multiple back surgeries, presenting for evaluation of bowel changes. He is referred from Dr. Jose L Li. 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 On good days, he has only 1 additional bowel movement later in the day, but on bad days, he may need to sit on the t oilet every 1-1.5 hours, sometimes producing stool and sometimes not. By the end of these bad days,stools become loose and watery, but the pattern typically resetsto baseline the following day. He estimates up to 10 bowel movements on the worst days, with normal days occurring about 50% of the time. He denies hematochezia or melena. He describes sudden, urgent need to defecate with occasional fecal incontinence,most recently this afternoon, though such episodes are infrequent and typically involve formed stool rather than diarrhea. He denies significant straining and reports that each bowel movement generally lasts less than 10 minutes. He recalls similar urgency dating back to the 1970s but notes that current symptomsare much more significant. He also reports progressive exertional dyspnea since 2021, with worsening shortness of breath over time. He can walk approximately 100-200 yards before needing to rest, with some days worse than others. He denies chest pain requiring him to stop, though he occasionally experiences brief chest discom fortlasting 5-10 seconds, most recently within the past 30 days. He attributes some symptoms to hischronic back pain and surgeries but is concerned about possible intestinal or stomach involvement. He reports urinary frequency and urgency, with dribbling after voiding and poor flow. He takes tamsulosin 0.4 mg twice daily and a diuretic every other day, which he feels improves his urinary flow. He denies urinary incontinence. He typically falls asleep in his recliner around 2100, wakes [id number] to void and move to bed, then sleeps until [id number] when he voids again upon waking. 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 He denies significant abdominal pain. He has a history of knee replacement infection in 03/2021, with a new knee placed in 08/2021, which he associates with the onset of his current symptoms. He takes Plavix, reportedly prescribed by Dr. Li. His last colonoscopy was 6-10 years ago completed by Dr. Hinton with no polyps found. He has a family history of diverticulitis in his mother, who required surgical resection, but no family history of colon cancer. ROS General General: Yes fatigue; No weight change, appetite, colon cancer, breast cancer or weakness HEENT HEENT: No difficulty swallowing, eye injury, eye surgery, swollen glands or hoarseness Endo Endocrine: No thyroid disease, diabetes mellitus, thyroid cancer, Hair loss, heat intolerance or cold intolerance Skin Skin: No rash or changing moles Musc Musculoskeletal: Yes back problems and arthritis; No rheumatoid arthritis, gout or joint pain Cardio Cardiovascular: Yes high blood pressure; No murmur, pacemaker, heart disease, atrial fibrillation, heart attack, heart stent, palpitations, shortness of breath with exertion or chest pain Psych Psychiatric: No depression, anxiety or hearing voices Resp Respiratory: Yes shortness of breath, No sleep apnea, No cough, No COPD, No asthma, No emphysema and No wheezing Gastro Gastrointestinal: No abdominal pain, No nausea or vomiting, Yes diarrhea, No constipation, No bloodin stool, No acid reflux, No hemorrhoids, No ulcers, No gallbladder problem and No black,tarry stools Cipriano Hematologic: Yes blood thinners, No blood disorders, No bleeding, No anemia and No blood clots Neuro Neurologic: No numbness, No tingling and No weakness Exam Const General: cooperative Orientation: alert, awake and oriented x3 Resp Effort & Inspection: normal respiratory effort GI Other: Hirsute, no scars, readily visible umbilical hernia. Abdomen is overall soft, nontender to palpation. Hernia contents are soft but only partially reducible and patient has discomfort when pressure isapplied over the hernia defect. Given the inability to completely reduce the contents I cannot estimate the sizeof the fascial defect. Assessment and Plan Assessment and Plan (1) Change in bowel habits: Status: Chronic Comment: Patient is a 74-year-old male who is evaluated for change in bowel habits over the last 3 to 4 years. He notes frequency of stools as well as some incontinence. He generally denies any alarm symptomslike tapering of stools orsigns of blood. It is difficult to elicit parts of his history as he initially denies any experience of abdominal pain but later in the visit suggest that lower abdominal pain may be present with exertion. He remarks that his difficulty stems from years of back pain which he simply dealt with and began toignore more mild discomfort. Encouragingly, his abdominal exam is generally benign. He does have an umbilical hernia that appears to contain chronically incarcerated fat. 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 Given the changes to his bowel habits, changes noted within the sigmoidcolon suggestive of colitis (or inability to exclude possible underlying lesion), and the duration since his last colonoscopy (up to a decade ago) I am recommending we pursue repeat colonoscopy with 2-day bowel prep. He will require a hold of his Plavix preprocedurally. Plan: ? 5-day hold on Plavix prior to procedure and plan for 48 hours post procedure. Seek clearance withPCP. ? Plan will be to complete colonoscopy on first mutually agreeable date under local MAC. Pre-procedure prep discussed and paper instructions provided. Patient is also made aware that he will need to have a mule driver with him the day of the procedure. Plan Details Additional Comments: Note was completed with the assistance of AI technology and ambient listening. Patient provided their consent for use of this technology during the duration oftheir visit. Provider has reviewed dictation prior to incorporation within the electronic medical record. Coding Level of Care Code Off vis,new,level 4 Diagnoses Change in bowel habits R19.4 Time Spent (min) 30 Clinical Quality Measures Falls Risk Screening/Assistive Devices Have you fallen in the past year?: No 03/27/25 1606 MD> Date _ Justin Lacy MD Cosigner Signature: Date (if applicable) CC: ~ [facility]10-09-2025 Progress note Author Justin Lacy [facility] Note Date/Time March 27, 2025 2: 21pm [facility] [address] [place] [address]. [address] [place] [address] OFFICE VISIT Date of Service: 03/27/25 MR#: [id number] Acct: [id number] Name: LUHJEREMY Rep #: [id number] : 1950 Provider: Dr. Navarro Lacy MD Age/Sex: 74/M Location: [facility] Status: Signed Intake Vital Signs 08/28/24 07:36 03/27/25 13:20 Height 5 ft 7 in 5 ft 6 in Weight: 177 lb BMI 28.5 BP 104/62 Blood Pressure Location Rt brachial Position Sitting Respiration 18 Pulse 53 L Pulse Source Monitor Temp 97.2 F L Temp Source Temporal Pulse Oximetry (%) 96 Oxygen Delivery Method room air Intake Visit Reasons: ABD PAIN, SWELLING IN COLON Chief Complaint: abd pain, swelling in colon Is patient in pain?: No Allergies Penicillins (PCN) Allergy (Intermediate, Verified 03/27/25 13:21) Hives Sulfa (Sulfonamide Antibiotics) Allergy (Intermediate, Verified 03/27/25 13:21) fever, hives [id number] Reductase Inhibitor Adverse Reaction (Severe, Verified 03/27/25 13:21) Nausea lisinopril Adverse Reaction (Intermediate, Verified 03/27/25 13:21) cough Medications ?Medication ?Instructions ?Recorded ?Confirmed ?Type clopidogrel 75 mg tablet 75 mg PO DAILY 11/08/1803/13 History folic acid 0.8 mg capsule 0.8 mg PO DAILY 11/08/1803/13 History rosuvastatin 5 mg tablet 5 mg PO QHS 11/08/18 5 History ipratropium bromide 21 mcg (0.03 2 spray intranasal BI D 11/14/19 03/27/25 History %) nasal spray zinc 50 mg tablet 50 mg PO DAILY 01/12/2203/13 History acetaminophen 500 mg tablet 500 mg PO Q8H PRN 11/09/22 03/27/25 History (Tylenol Extra Strength) tamsulosin 0.4 mg capsule 0.4 mg PO BID 11/09/2203/27 History losartan 100 mg tablet 50 mg PO DAILY 05/15/2303/13 History metoprolol tartrate 25 mg tablet 25 mg PO DAILY 03/27/25 History loratadine 10 mg capsule 10 mg PO QDAY 05/01/2403/27 History furosemide 40 mg tablet 40 mg PO Q OTHER DAY #45 TAB LETS 11/04/24 03/27/25 Rx Have you fallen in the past year?: No PFSH Medical History (Updated 03/27/25 @ 16:[address] Justin Lacy MD) Diarrhea COVID-19 (06/22/21) Essential (primary) hypertension Hyperlipidemia Transient ischemic attack (12/2007) Vitamin D deficiency Osteoarthritis BPH (benign prostatic hyperplasia) Varicose veins of both lower extremities Surgical History Hx of neck surgery (~11/2022) Hx of transurethral resection of prostate (~06/2022) History of total right knee replacement History of shoulder replacement (03/2019) History of lumbar spinal fusion (06/2019) History of left heart catheterization (02/04/08) History of total left knee replacement (08/20/21) History of carpal tunnel release Family History Father Cancer Mother Heart disease Social History Smoking Status: Never smoker alcohol intake: current alcohol intake frequency: holidays/special occasions only substance use type: does not use caffeine: Yes Type: coffee Number of servings: 1 HPI HPI HPI: The patient is a 74-year-old male with BPH, chronic back pain, and a history of multiple back surgeries, presenting for evaluation of bowel changes. He is referred from Dr. Jose L Li. 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 On good days, he has only 1 additional bowel movement later in the day, but on bad days, he may need to sit on the toilet every 1-1.5 hours, sometimes producing stool and sometimes not. By the end of these bad days, stools become loose and watery, but the pattern typically resetsto baseline the following day. He estimates up to 10 bowel movements on the worst days, with normal days occurring about 50% of the time. He denies hematochezia or melena. He describes sudden, urgent need to defecate with occasional fecal incontinence,most recently this afternoon, though such episodes are infrequent and typically involve formed stool rather than diarrhea. He denies significant straining and reports that each bowel movement generally lasts less than 10 minutes. He recalls similar urgency dating back to the but notes that current symptomsare much more significant. He also reports progressive exertional dyspnea since 2021, with worsening shortness of breath over time. He can walk approximately 100-200 yards before needing to rest, with some days worse than others. He denies chest pain requiring him to stop, though he occasionally experiences brief chest discomfortlasting 5-10 seconds, most recently within the past 30 days. He attributes some symptoms to his chronic back pain and surgeries but is concerned about possible intestinal or stomach involvement. He reports urinary frequency and urgency, with dribbling after voiding and poor flow. He takes tamsulosin 0.4 mg twice daily and a diuretic every other day, which he feels improves his urinary flow. He denies urinary incontinence. He typically falls asleep in his recliner around 2100, wakes between 6309-1257 to void and move to bed, then sleeps until 1214-7407 when he voids again upon waking. 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 He denies significant abdominal pain. He has a history of knee replacement infection in 03/2021, with a new knee placed in 08/2021, which he associates with the onset of his current symptoms. He takes Plavix, reportedly prescribed by Dr. Li. His last colonoscopy was 6-10 years ago completed by Dr. Hinton with no polyps found. He has a family history of diverticulitis in his mother, who required surgical resection, but no family history of colon cancer. ROS General General: Yes fatigue; No weight change, appetite, colon cancer, breast cancer or weakness HEENT HEENT: No difficulty swallowing, eye injury, eye surgery, swollen glands or hoarseness Endo Endocrine: No thyroid disease, diabetes mellitus, thyroid cancer, Hair loss, heat intolerance or cold intolerance Skin Skin: No rash or changing moles Musc Musculoskeletal: Yes back problems and arthritis; No rheumatoid arthritis, gout or joint pain Cardio Cardiovascular: Yes high blood pressure; No murmur, pacemaker, heart disease, atrial fibrillation, heart attack, heart stent, palpitations, shortness of breath with exertion or chest pain Psych Psychiatric: No depression, anxiety or hearing voices Resp Respiratory: Yes shortness of breath, No sleep apnea, No cough, No COPD, No asthma, No emphysema and No wheezing Gastro Gastrointestinal: No abdominal pain, No nausea or vomiting, Yes diarrhea, No constipation, No blood in stool, No acid reflux, No hemorrhoids, No ulcers, No gallbladder problem and No black,tarry stools Cipriano Hematologic: Yes blood thinners, No blood disorders, No bleeding, No anemia and No blood clots Neuro Neurologic: No numbness, No tingling and No weakness Exam Const General: cooperative Orientation: alert, awake and oriented x3 Resp Effort & Inspection: normal respiratory effort GI Other: Hirsute, no scars, readily visible umbilical hernia. Abdomen is overall soft, nontender to palpation. Hernia contents are soft but only partially reducible and patient has discomfort when pressure is applied over the hernia defect. Given the inability to completely reduce the contents I cannot estimate the sizeof the fascial defect. Assessment and Plan Assessment and Plan (1) Change in bowel habits: Status: Chronic Comment: Patient is a 74-year-old male who is evaluated for change in bowel habits over the last 3 to 4 years. He notes frequency of stools as well as some incontinence. He generally denies any alarm symptoms like tapering of stools orsigns of blood. It is difficult to elicit parts of his history as he initially denies any experience of abdominal pain but later in the visit suggest that lower abdominal pain may be present with exertion. He remarks that his difficulty stems from years of back pain which he simply dealt with and began toignore more mild discomfort. Encouragingly, his abdominal exam is generally benign. He does have an umbilical hernia that appears to contain chronically incarcerated fat. 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 Given the changes to his bowel habits, changes noted within the sigmoidcolon suggestive of colitis (or inability to exclude possible underlying lesion), and the duration since his last colonoscopy (up to a decade ago) I am recommending we pursue repeat colonoscopy with 2-day bowel prep. He will require a hold of his Plavix preprocedurally. Plan: ? 5-day hold on Plavix prior to procedure and plan for 48 hours post procedure. Seek clearance with PCP. ? Plan will be to complete colonoscopy on first mutually agreeable date under local MAC. Pre-procedure prep discussed and paper instructions provided. Patient is also made aware that he will need to have a mule driver with him the day of the procedure. Plan Details Additional Comments: Note was completed with the assistance of AI technology and ambient listening. Patient provided their consent for use of this technology during the duration oftheir visit. Provider has reviewed dictation prior to incorporation within the electronic medical record. Coding Level of Care Code Off vis,new,level 4 Diagnoses Change in bowel habits R19.4 Time Spent (min) 30 Clinical Quality Measures Falls Risk Screening/Assistive Devices Have you fallen in the past year?: No 03/27/25 1606 <Electronically signed by Justin Lacy MD> Date _ Justin Lacy MD Cosigner Signature: Date (if applicable) CC: ~ [facility] [employer] Work Phone: [phone] 690-241910-01-2025 Radiology Diagnostic study note [facility] Imaging Services [address] [place], [place] [id number] CTA Chst, Abd, Pel W and/or WO MR#: [id number] Acct: [id number] Name: JEREMY CAIN Rep #: [id number] : 1950 M 74 From: Derik Downey MD PCP: Dr. Jose L Li MD Status: REG CLI Study:CTA Chst, Abd, Pel W and/or WO Date of Exam: 03/18/25 Exam# [id number] Ordering Dr: Stevan Li MD PROCEDURE: CTA CHST, ABD, PEL W AND/OR WO 03/18/2025 REASON FOR EXAM: EXERTIONAL ABDOMINAL PAIN. KNOWN CAD, ARTERIAL VISCERAL DZ, AND P TECHNIQUE: Procedure Code: CTCTA.CHAP.2 Modality: CT Procedure: CTA CHST, ABD, PEL W AND/ORWO Coronal and Sagittal reconstruction series were provided. One or more dose reduction techniques were used (e.g., Automated exposure control, adjustment of the mA and/or kV according to patient size, use of iterative reconstruction technique. CONTRAST: Isovue 370 VOLUME: 100 mL RADIATION DOSE SUMMARY: CTDlvol: 49.12 mGy DLP: 1006.42 mGycm COMPARISON: None FINDINGS: CHEST: Lungs are expanded, with chronic interstitial changes. No superimposed infiltrate or effusion. No suspicious noncalcified mass or nodule. Nonspecific pleural thickening in both hemithoraces. Soft tissue windows show a normal-appearing thyroid gland. No suspicious axillary, mediastinal or perihilar adenopathy. Thoracic aorta tapers normally, no aneurysm or dissection. No filling defects noted within the pulmonary arteries to suspect PE. Bony structures show degenerative change. ABDOMEN AND PELVIS: Liver: Unremarkable. Gallbladder: Unremarkable Spleen: Normal size. Pancreas: Normal size without evidence of mass surrounding inflammation or ductal dilation. Adrenals: Unremarkable Kidneys: No obstructive uropathy or suspicious solid renal lesion Bladder: Bladder is unremarkable aside from impingement upon its inferior aspectfrom an enlarged prostate. Reproductive Organs: No suspicious pelvic mass Bowel: Nondistended fluid-filled small bowel loops consistent with ileus. There is retained stool throughout the colon with scattered colonic diverticula, particularly in the sigmoid colon. There is nonspecific thickening of the sigmoid without CT evidence of acute diverticulitis but an underlying lesion can not be excluded. Normal appendix seenon coronal recon images 19 through 21 Vasculature: The abdominal aorta tapers normally. No significant atherosclerotic disease Peritoneum / Retroperitoneum: No free air or fluid Bones: Degenerative and postsurgical changes noted in the lumbar spine, hardwareis free of complication Fat containing ventral hernia CT/CTA Chst, Abd, Pel W and/or WO IMPRESSION: Chronic interstitial changes in both lung weeks without a superimposed acute pulmonary process or suspicious noncalcified mass or nodule No suspicious adenopathy Fatty liver, no discrete lesion Small-bowel ileus Retained stool throughout the colon with scattered diverticula particularly in the sigmoid colon, no CT evidence of acute diverticulitis but there is nonspecific thickening of the sigmoid and an underlying lesion can not be excluded No free intraperitoneal fluid, air, or suspicious adenopathy, normal appendix visualized Enlarged prostate impinging upon the inferior aspect of the bladder Degenerative bony changes Reading Location: [id number] CC: Dr. Jose L Li MD ~ Production Illustrator: Signed [facility]03-13-2025 Radiology Diagnostic study note [facility] Imaging Services [address] [place], [place] [address] CTA Head AND Neck W/ Contrast MR#: [id number] Acct: [id number] Name: JEREMY CAIN Rep #: [id number] : 1950 M 73 From: Ender Holland MD PCP: Dr. Jose L Li MD Status: REG CLI Study:CTA Head AND Neck W/ Contrast Date of E xam: 08/29/24 Exam# [id number] Ordering Dr: Chelsi Conde PROCEDURE: CTA HEAD AND NECK W/ CONTRAST REASON FOR EXAM: TIA Recent cervical fusion. TECHNIQUE: CTA imaging of the head and neck from the aortic arch to the skull vertex with intravenous contrast. 3D reconstructions. CONTRAST: 94 cc of Isovue 370. COMPARISON: None. FINDINGS: Aortic Arch: Normal size and branching pattern. Mild atherosclerotic plaque. Brachiocephalic and Subclavians: Unremarkable RIGHT Carotid: Right CCA: Unremarkable. Right ICA: Minimal calcific plaque. Maximum stenosis (NASCET): <50 % Right ECA: Unremarkable. LEFT Carotid: Left CCA: Unremarkable. Left ICA: Unremarkable. Maximum stenosis (NASCET): % Left ECA: Unremarkable. Vertebrals: Codominant. Arise from the subclavians. Both vertebrals form the basilar. RIGHT Vertebral: Small right vertebral artery. LEFT Vertebral: Unremarkable. No intracranial aneurysms or large vascular malformations are identified. Anterior cerebral arteries: Unremarkable. Middle cerebral arteries: Unremarkable. Basilar artery: Unremarkable. Posterior cerebral arteries: Unremarkable. Other major branches of the posterior circulation: Unremarkable. Major venous structures: Unremarkable. Other findings: No lymphadenopathy. Lung apices are clear. Bones are unremarkable. CT/CTA Head AND Neck W/ Contrast IMPRESSION: RIGHT CAROTID: Minimal plaque at the origin of the right internal carotid arterycausing less than 50% narrowing. LEFT CAROTID: Unremarkable VERTEBRALS: Dominant left vertebral artery INTRACRANIAL: Unremarkable One or more dose reduction techniques were used (e.g., Automated exposure control, adjustment of the mA and/or kV according to patient size, use of iterative reconstruction technique). Reading Location: [id number] CC: Dr. Jose L Li MD; STEVEN Ambriz ~ Production Illustrator: Signed [facility]03-12-2025 Evaluation note* Diagnosis Onset Date Resolution Status Admit Date Essential (primary) hypertension chr onic August 28, 2024 8:23am Hyperlipidemia chronic August 8:23am Transient ischemic attack December, chronic August 28, 2024 8:23am [facility] Work Phone: Evaluation noteThere may be information available, but it has not been provided by the sender.[facility] Work Phone: Evaluation noteNo assessment information available [facility] Work Phone: Evaluation note* Diagnosis Onset Date Resolution Status YANEZ (dyspnea on exertion) ac chitimacha Preoperative cardiovascular examination acute Essential (primary) hypertension chronic Hyperlipidemia [facility] Work Phone: Evaluation note* Diagnosis Onset Date Resolution Status Essential (primary) hypertension chronic Hyperlipidemia [facility] Work Phone: Evaluation note* Diagnosis Onset Date Resolution Status Admit Date Change in bowel habits chronic Oc tober 2024 12:58pm [facility] Work Phone: InstructionsNo information available.[facility] Work Phone: Instructions* Instruction Description Start Date Patient advised to follow-up with Primary Care Physician for BMI management. [facility] Work Phone: Reason for referral (narrative)No reason for referral information availableWSelect Medical [facility] Work Phone: Chief Complaint Chief Complaint Description [...] by the author as of Advance Directives Advance Directive Response Recorded Date/ Time Living Will Yes March 11, 2021 5:48pm Power of Clinical Supervisor Yes February 5:48pm Advance Directive Response Recorded Date/ Time Living Will Yes March 11, 2021 4:48pm Power of Clinical Supervisor Yes February 4:48pm Advance Directive Response Recorded Date/ Time Living Will Yes March 11, 2021 5:48pm Do you have a Healthcare Power of Clinical Supervisor? Yes March 11, 2021 5:48pm Family History Relationship Condition Age at Onset Recorded Date/T ava father Malignant neoplasm Unknown mother Cardiac disease Unknown Family Member Condition Mother Vascular disease Father Arthritis Father Mother Arthritis Mother Summary Purpose Chief Complaint and Reason for Visit Chief Complaint AFTER CARE JOINT REP LACEMENT/ RX HERE Chief Complaint hematuria/INT LABS PRE OP PRE OP Chief Complaint hematuria/INT LABS PRE OP PRE OP CHANGE IN MENTATION AFTER SURGERY, HX OF TIA Chief Complaint CHANGE IN MENTATION AFTER SURGERY, HX OF TIA SOB/ [facility] SE[facility]- CC PCP e order YANEZ, PREOP Reason for Visit YANEZ (dyspnea on exer tion) Preoperative cardiovascular examination Essential (primary) hypertension Hyperlipidemia Chief Complaint 6 M FU Reason for Visit Essential (primary) hypertension Hyperlipidemia Chief Complaint Admit Date 9 M FU August 28, 2024 8:2 3am E-ORDER August 28, 2024 9:0 8am TIA August 29, 2024 9:2 1am Reason for Visit Admit Date Essential (primary) hypertension August 172024 8:23am Hyperlipidemia August 28, 2024 8:2 3am Transient ischemic attack August 28 8:23am Chief Complaint Admit Date EXERTIONAL ABD PAIN, KNOWN CAD, ATRERIAL VISCERAL March 18, 2025 6:20am Chief Complaint Admit Date EXERTIONAL ABD PAIN, KNOWN CAD, ATRERIAL VISCERAL March 18, 2025 6:20am ABD PAIN, SWELLING IN COLON March 27, 2025 12:58pm Reason for Visit Admit Date Change in bowel habits March 27, 2025 12:58pm Additional Source Comments Care Teams (unrecognized sec tion and content) 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 Jose L Li MD Family Provider Active Dr. Jose L Li MD Primary Care Provider Active Team Status: Active Member Role Status Dates Dr. Jose L Li MD Primary Care Provider Active Dr. Mark Middleton MD Attending Provider Active Dr. Arnulfo Felder MD Referring Provider Active Team Status: Inactive Member Role Status Dates Dr. Jose L Li MD Primary Care Provide r, Attending Provider, Referring Provider Active Team Status: Inactive Member Role Status Dates Dr. Jose L Li MD Primary Care Provider Active Dr. Tristin Juarez MD Attending Provider, Referri ng Provider Active Team Status: Active Member Role Status Dates Dr. Jose L Li MD Primary Care Provider Active Dr. Arnulfo Felder MD Attending Provider, Referr ing Provider Active Team Status: Inactive Member Role Status Dates Dr. Jose L Li MD Primary Care Provider Active Dr. Arnulfo Felder MD Attending Provider, Referr ing Provider Active Team Status: Active Member Role Status Dates Dr. Jose L Li MD Primary Care Provider Active Dr. Arnulfo Felder MD Attending Provider Active Team Status: Inactive Member Role Status Dates Dr. Jose L Li MD Primary Care Provider Active Dr. Arnulfo Felder MD Attending Provider Active Team Status: Inactive Member Role Status Dates Dr. Jose L Li MD Primary Care Provider, Attending P rovider Active Team Status: Inactive Member Role Status Dates Dr. Jose L Li MD Primary Care Provider, Referring P rovider Active Jess Trent NP, [employer] Attending Provider Active Team Status: Active Member Role Status Dates Dr. Jose L Li MD Primary Care Provider Active Dr. Mark Middleton MD Attending Provider Active Team Status: Inactive Member Role Status Dates Dr. Jose L Li MD Primary Care Provider Active Jess Trent NP, [employer] Attending Provider, Referring P rovider Active Team Status: Active Member Role Status Dates Dr. Jose L Li MD Primary Care Provider Active Jess Trent [employer], [employer] Attending Provider, Referring P rovider Active Team Status: Active Member Role Status Dates Dr. Jose L Li MD Primary Care Provider Active Jess Trent [employer], [employer] Attending Provider Active Team Status: Active Member Role Status Dates Dr. Jose L Li MD Primary Care Provider Active Dr. Mark Middleton MD Attending Provider, Referring Pro vider Active Team Status: Inactive Member Role Status Dates Dr. Jose L Li MD Primary Care Provider Active Jess Trent [employer], [employer] Attending Provider Active Team Status: Active Member Role Status Dates Dr. Jose L Li MD Primary Care Provider Active Team Status: Inactive Member Role Status Dates Dr. Jose L Li MD Primary Care Provider Active Start: August 19, 2024 End: August 19, 2024 Dr. Arnulfo Felder MD Attending Provider Active Start: August 19, 2024 End: August 19, 2024 Dr. Arnulfo Felder MD Referring Provider Active Start: August 19, 2024 End: August 19, 2024 Team Status: Inactive Member Role Status Dates Dr. Jose L Li MD Primary Care Provider Active Start: August 28, 2024 End: August 28, 2024 Dr. Jose L Li MD Referring Provider Active St art: August 28, 2024 End: August 28, 2024 Chelsi Swenson PA, PA Attending Provider Active Start: August 28, 2024 End: August 28, 2024 Team Status: Active Member Role Status Dates Dr. Jose L Li MD Primary Care Provider Active Start: August 28, 2024 Chelsi Swenson PA, PA Attending Provider Active Start: August 28, 2024 Chelsi Swenson PA, PA Referring Provider Active Start: August 28, 2024 Team Status: Active Member Role Status Dates Dr. Jose L Li MD Primary Care Provider Active Start: August 29, 2024 Chelsi Swenson PA, PA Attending Provider Active Start: August 29, 2024 Chelsi Swenson PA, PA Referring Provider Active Start: August 29, 2024 Team Status: Inactive Member Role Status Dates Dr. Jose L Li MD Primary Care Provider Active Start: August 28, 2024 End: August 28, 2024 Chelsi Swenson PA, PA Attending Provider Active Start: August 28, 2024 End: August 28, 2024 STEVEN Delgadillo Referring Provider Active Start: August 28, 2024 End: August 28, 2024 Team Status: Inactive Member Role Status Dates Dr. Jose L Li MD Primary Care Provider Active Start: August 29, 2024 End: August 29, 2024 STEVEN Delgadillo Attending Provider Active Start: August 29, 2024 End: August 29, 2024 STEVEN Delgadillo Referring Provider Active Start: August 29, 2024 End: August 29, 2024 Team Status: Active Member Role/Relationship Status Dates Dr. Jose L Li MD Primary care physician Active Team Status: Inactive Member Role/Relationship Status Dates Dr. Jose L Li MD Primary care physician Active Start: March 04, 2025 End: March 04, 2025 Dr. Jose L Li MD Attending physician Active S tart: March 04, 2025 End: March 04, 2025 Dr. Jose L Li MD Referring Provider Active St art: March 04, 2025 End: March 04, 2025 Team Status: Active Member Role/Relationship Status Dates Dr. Jose L Li MD Primary care physician Active Start: March 18, 2025 Dr. Jose L Li MD Attending physician Active S tart: March 18, 2025 Dr. Jose L Li MD Referring Provider Active St art: March 18, 2025 Team Status: Inactive Member Role/Relationship Status Dates Dr. Jose L Li MD Primary care physician Active Start: March 18, 2025 End: March 18, 2025 Dr. Jose L Li MD Attending physician Active S tart: March 18, 2025 End: March 18, 2025 Dr. Jose L Li MD Referring Provider Active St art: March 18, 2025 End: March 18, 2025 Team Status: Inactive Member Role/Relationship Status Dates Dr. Jose L Li MD Primary care physician Active Start: March 27, 2025 End: March 27, 2025 Dr. Jose L Li MD Referring Provider Active St art: March 27, 2025 End: March 27, 2025 Dr. 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 Reason For Visit Description Start Date Postop - subsequent visit Preliminary reason f or visit data, not yet signed by the author as of left knee post Repeat irriga tion and debridement of left knee Explant of antibiotic spacer left knee 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 (unrecognized sect ion and content) No Status Records FoundNo Status Records Found INFORMATION SOURCE (unrecogn ized section and content) DATE CREATED AUTHOR 10/16/2021 [facility] [facility] [employer] DATE CREATED AUTHOR AUTHOR'S ORGANIZ ATION 04/16/2025 [facility] Goals (unrecognized section and content) Goals may be documented in a n alternate sectionGoals may be documented in an alternate sectionGoals may be documented in an alternate sectionGoals may be documented in an alternate sectionGoals may be documented in an alternate sectionGoals may be documented in an alternate sectionGoals may be documented in an alternate sectionGoals may be documented in an alternate sectionGoals may be documented in an alternate sectionGoals may be documented in an alternate sectionGoals may be documented in an alternate sectionGoals may be documented in an alternate sectionGoals may be documented in an alternate sectionGoals may be documented in an alternate sectionGoals may be documented in an alternate sectionGoals may be documented in an alternate section No Information Available FOR RECORDS PERTAINING TO PATIENTS WHO ARE [...] BE BASED ON THE PRIMARY CLINICAL RECORDS. [employer] [facility]. provides no warranty or guarantee of the accuracy or completeness of information in this document.
[2025-04-18 21:41] LABS: Magnesium 2.3 mg/dL (1.5-2.2)
[2025-04-18 21:43] VITALS: BP 112/71; PULSE 66; RESP 18; TEMP 36.2; O2SAT 94
[2025-04-18 21:45] VITALS: BMI 27.6
[2025-04-18] MEDS: 0.9% Normal Saline (1000mL) 1,000 ML 100 ML IV (22:29)
[2025-04-18] MEDS: 0.9% Saline Lock 10 ML Syringe IV (22:32)
[2025-04-18 23:15] LABS: Troponin T High Sensitivity 107 ng/L (<=22)
[2025-04-19 01:08] LABS: Troponin T High Sens 2 HR 102 ng/L (<=22)
[2025-04-19 02:54] LABS: Hematocrit 33.0 % (40-54); Hemoglobin 10.9 g/dL (13.0-16.5); Immature Granulocytes Count 0.020 X10^3/uL (0.0-0.0); Mean Corp Hgb Conc 33.0 g/dL (32-36); Mean Corpuscular Volume 89.7 fL (80-94); Mean Platelet Vol. 11.0 fl (6.2-12.0); NRBC Flagged by Analyzer 0 % (0-5); Platelet Count 177 K/mm3 (150-450); RBC Distribution Width CV 13.4 % (11.6-14.6); RBC Distribution Width SD 44.6 fl (35.1-43.9); Red Blood Count 3.68 M/mm3 (4.6-6.2); White Blood Count 8.2 K/mm3 (4.4-11.0)
[2025-04-19 03:17] VITALS: BP 105/67; PULSE 67; RESP 18; TEMP 36.1; O2SAT 96
[2025-04-19 03:27] LABS: Troponin T High Sens 4 HR 96 ng/L (<=22)
[2025-04-19 03:51] LABS: AST(SGOT) 45 U/L (<=37); Alanine Aminotransfer ALT/SGPT 27 U/L (<=46); Albumin, Serum 3.5 g/dL (3.4-4.8); Alkaline Phosphatase 57 U/L (40-129); Anion Gap 11 (5-15); BUN 54 mg/dL (4-19); BUN/Creat Ratio 25.7 RATIO (10-20); Calcium,Total 8.6 mg/dL (7.6-11.0); Carbon Dioxide 21.1 mmol/L (21.0-32.0); Chloride 105 mmol/L (98-108); Estimated Creatinine Clearance 30.90 ml/min (50-250); Globulin 2.6 g/dL (2.2-4.2); Glucose 144 mg/dL (70-99); Potassium 4.1 mmol/L (3.3-5.1)
[2025-04-19 05:09] LABS: Cholesterol 100 mg/dL (<=200); Low Density Lipoprotein Calc. 51 mg/dL; Triglycerides 71 mg/dL; Very Low Density Lipoprotein 14 mg/dL (5-40); cholesterol:hdl ratio screen 2.99
--- NOTE | 2025-04-19 05:55 | EKG12_ITS ---
Test Reason : AM EKG Blood Pressure : */* mmHG Vent. Rate : 62 BPM Atrial Rate : 62 BPM P-R Int : 216 ms QRS Dur : 78 ms QT Int : 412 ms P-R-T Axes : 268 -53 3 degrees QTcB Int : 418 ms Unusual P axis, possible ectopic atrial rhythm with Premature atrial complexes with Aberrant conduction Left axis deviation Inferior infarct , age undetermined Anterolateral infarct , age undetermined Abnormal ECG When compared with ECG of 18-Apr-2025 15:47, MANUAL COMPARISON REQUIRED DATA IS UNCONFIRMED Confirmed by ANNALISA TRUJILLO, JILLIAN ([id number]), photo editor KYM GORMAN ([id number]) on 04/21/2025 6:32:26 AM Referred By: OSMIN Confirmed By: JILLIAN FANG MD
--- NOTE | 2025-04-19 05:55 | ECHOD_ITS ---
Reason For Study Reason For Study: Dyspnea/SOB Procedure This was a 2D Doppler, Color Flow transthoracic echocardiogram. Myocardial strain analysis was performed in this exam to aid in the assessment of cardiac function. Exam performed in department. Left Ventricle Normal LV size. Severe concentric left ventricular hypertrophy. The left ventricular ejection fraction is 60 %. No regional wall motion abnormalities noted. Right Ventricle Normal RV size. Right ventricular appears to be thickened measuring 1.4 cm. Normal systolic function. Atria The left atrium is mildly enlarged. The right atrium is mildly enlarged. Bubble contrast study negative for right to left interatrial shunt. Mitral Valve Normal mitral valve. Mild (1+) eccentric mitral valve insufficiency. Tricuspid Valve Normal tricuspid valve. Moderate diffuse thickening of the tricuspid valve. Mild (1+) tricuspid valve insufficiency. Pulmonary artery systolic pressure is 22 mmHg. Aortic Valve Trisinus/trileaflet aortic valve. Mild focal aortic valve thickening. Pulmonic Valve Normal pulmonic valve. Mild (1+) pulmonic valve insufficiency identified. Great Vessels Mild to moderately dilated aortic root. Measures 4.4 cm in the mid ascending aorta. The pulmonary artery is normal size. Inferior vena cava collapse with respiration. Pericardium/Pleural No pericardial effusion. MMode/2D Measurements & Calculations LVIDd: 4.0 cm IVSd: 1.8 cm Ao root diam: 4.3 cm LVIDs: 2.6 cm LVPWd: 1.7 cm RVDd: 4.4 cm FS: 35.6 % LAV(MOD-bp): 80.4 ml LVAd ap4: 27.8 cm2 SV(MOD-sp4): 52.4 ml LAV(MOD-bp) Indexed: 42.9 ml/m2 LVLd ap4: 7.5 cm SI(MOD-sp4): 27.9 ml/m2 LAV(MOD-sp2): 83.4 ml EDV(MOD-sp4): 83.9 ml LAV(MOD-sp4): 76.0 ml EDV(sp4-el): 88.0 ml LVAs ap4: 15.5 cm2 LVLs ap4: 6.5 cm ESV(MOD-sp4): 31.5 ml ESV(sp4-el): 31.3 ml EF(MOD-sp4): 62.4 % EF(sp4-el): 64.4 % SV(sp4-el): 56.7 ml LA A4 area: 23.6 cm2 LA dimension(2D): 4.9 cm RA A4 area: 20.8 cm2 Time Measurements MV dec time: 0.24 sec Doppler Measurements & Calculations MV E max stanford: 78.8 cm/sec Lat Peak E' Stanford: 6.9 cm/sec Med Peak E' Stanford: 4.6 cm/sec MV A max st[place]: 63.2 cm/sec E/E' lat: 11.4 E/E' med: 17.1 MV E/A: 1.2 Ao V2 max: 132.4 cm/sec LV V1 max: 111.6 cm/sec MV dec slope: 335.4 cm/sec2 Ao max P.0 mmHg LV V1 max P.0 mmHg Ao V2 mean: 107.4 cm/sec LV V1 mean P.7 mmHg Ao mean P.8 mmHg LV V1 mean: 75.9 cm/sec Ao V2 VTI: 30.3 cm LV V1 VTI: 24.0 cm AV (velocity ratio): 0.79 PA V2 max: 107.6 cm/sec PI end-d stanford: 108.2 cm/sec TR max stanford: 245.5 cm/sec TR max P.1 mmHg ECHO/Echo Complete Interpretation Summary Normal LV size. Severe concentric left ventricular hypertrophy. The left ventricular ejection fraction is 60 %. Bubble contrast study negative for right to left interatrial shunt. Moderate diffuse thickening of the tricuspid valve. Cannot exclude amyloid The global longitudinal strain is borderline abnormal. T he global longitudinal strain = -15.9% (abnormal). Ordering Physician: Briana Whitehead Referring Physician: Jose L Li Performed By: April Linton RDCS, RVT
[2025-04-19 06:00] VITALS: BMI 28.0
[2025-04-19] MEDS: 0.9% Saline Lock 10 ML Syringe IV (09:09)
[2025-04-19 09:13] VITALS: BP 111/67; PULSE 68; RESP 14; TEMP 36.9; O2SAT 97
--- NOTE | 2025-04-19 10:06 | STRESSREP ---
Stress Test Report Pharmacologic myocardial perfusion stress test. 74-year-old man with a history of chest pain. Resting EKG demonstrates normal sinus rhythm with a rate of 68 bpm. Resting blood pressure is 144/88 mmHg. 0.4 mg of regadenoson was infused per usual protocol followed by rapid intravenous saline flush injection. Continuous EKG monitoring was performed. The maximum heart rate was 80 bpm which was 54% of max impacted heart rate the maximum workload was 1 metabolic equivalent. At rest there were no ST or T wave changes noted to suggest ischemia and at peak infusion nonspecific ST changes were noted which did not meet the criteria for ischemia. No clinical angina is noted. The final blood pressure was 07/10/1960 mmHg. Myocardial perfusion protocol. 11.8 mCi of technetium 99m sestamibi was injected at rest. 0.4 mg of regadenoson was infused per usual protocol. At peak infusion 36 mCi of technetium 99m sestamibi was injected stress images were obtained stress and rest images were reconstructed and compared in the short axis vertical long and horizontal long axis. Gated images were also obtained. Perfusion SPECT analysis: Review of the stress images demonstrate normal uptake of tracer noted in all areas of the myocardium. The resting images similar demonstrated normal uptake of tracer noted in all areas of the myocardium. No areas of reversibility are noted to suggest ischemia and no previous infarct is noted. Gated SPECT analysis: The gated ejection fraction is 56%. Conclusion: Normal pharmacologic myocardial perfusion stress test. Preserved ejection fraction.
[2025-04-19 10:45] VITALS: BP 111/67; PULSE 68
--- NOTE | 2025-04-19 15:04 | PCM.DC ---
Discharge Instructions DC O2, CPAP, BIPAP needs Home O2 Discharge instructions: No Dressing / Incision Discharge Activity: - (Increase activity as tolerated) Follow Up Care Test Results: Test results from this visit will be discussed in further detail at your follow-up appointment, if applicable. Discharge Plan Admission Admit Date/Time: 04/18/25 21:02 Primary Reason for Your Visit: Back pain Attending Provider: Renetta Doan Primary Care Provider: Jose L Li Consulting Providers: Briana Whitehead Instructions Patient Instructions: ED Fall Prevention Additional Instructions / Restrictions: DISCHARGE INSTRUCTIONS PLEASE READ *Please take this with you to your next doctors appointment* -Would recommend holding your losartan 50 mg at bedtime until you follow-up with your primary care physician as your blood pressure is very well-controlled and resuming this too soon could cause worsening kidney function - Resume your Lasix 04/21 if you continue to eat and drink well - Recommend following up with [facility] for your back pain as you indicate you have previously followed there -Would recommend lab work (BMP) to check your kidney function in 2 to 3 days through your primary care physician's office. Please call their office upon discharge to obtain order for lab work. - You mentioned having problems with shortness of breath when you are walking distances, consider discussing with your primary care physician if additional investigation warranted -Please call your primary care provider's office upon discharge to schedule a hospital follow up within 1 week. -For any concerning signs or symptoms please call 911 or proceed to the nearest emergency department Discharge Orders/Prescriptions Prescriptions: Continued clopidogrel 75 mg tablet 75 mg PO DAILY Patient Comments: holding two days d/t having colonoscopy on 04/17 folic acid 0.8 mg capsule 0.8 mg PO DAILY rosuvastatin 5 mg tablet 5 mg PO QHS tamsulosin 0.4 mg capsule 0.4 mg PO BID metoprolol tartrate 25 mg tablet 25 mg PO DAILY ipratropium bromide 0.03 % spray,non-aerosol 2 spray INTRANASAL BID Rx Instructions: administer into each nostril zinc 50 mg tablet 50 mg PO DAILY acetaminophen [Tylenol Extra Strength] 500 mg tablet 500 mg PO Q8H PRN (Reason: pain) loratadine 10 mg capsule 10 mg PO QDAY ergocalciferol (vitamin D2) 1,250 mcg (50,000 unit) capsule 1,250 mcg PO SA Held losartan 50 mg tablet 50 mg PO QPM Hold Instructions: Resume on 04/30/25. furosemide 40 mg tablet 40 mg PO Q OTHER DAY Qty: 45 3RF Hold Instructions: Resume on 04/21/25. Referrals / Follow Up: Jose L Li MD [Primary Care Provider, Family Practice] - Within 1 Week Disposition Disposition (needs filled in before D/C Order can be placed): Home, Self Care
[2025-04-19 15:12] VITALS: BP 119/86; PULSE 63; RESP 16; TEMP 36.8; O2SAT 98
--- NOTE | 2025-04-19 15:12 | DS.PCM_ITS ---
Providers Date of Admission: 04/18/25 Date of Discharge: 04/20/25 Primary Care Physician: Dr. Jose L Li MD Reason For Visit: Elevated trop Diagnosis Discharge Diagnosis (1) Acute kidney injury: Status: Acute Code(s): N17.9 - Acute kidney failure, unspecified (2) Elevated troponin: Status: Acute Code(s): R79.89 - Other specified abnormal findings of blood chemistry (3) HTN (hypertension): Status: Chronic Code(s): I10 - Essential (primary) hypertension (4) BPH (benign prostatic hyperplasia): Status: Acute Code(s): N40.0 - Benign prostatic hyperplasia without lower urinary tract symptoms Plan #ROSS 2/2 dehydration #Elevated troponin secondary to volume depletion and ROSS # Hypertension # BPH # History of TIA Medications at Discharge Home Medications clopidogrel 75 mg tablet 75 mg PO DAILY 11/08/18 folic acid 0.8 mg capsule 0.8 mg PO DAILY 11/08/18 rosuvastatin 5 mg tablet 5 mg PO QHS 11/08/18 ipratropium bromide 21 mcg (0.03 %) nasal spray 2 spray intranasal BID 11/14/19 zinc 50 mg tablet 50 mg PO DAILY 01/12/22 acetaminophen 500 mg tablet (Tylenol Extra Strength) 500 mg PO Q8H PRN pain 11/09/22 tamsulosin 0.4 mg capsule 0.4 mg PO BID 11/09/22 metoprolol tartrate 25 mg tablet 25 mg PO DAILY 05/15/23 loratadine 10 mg capsule 10 mg PO QDAY 05/01/24 furosemide 40 mg tablet 40 mg PO Q OTHER DAY #45 TABLETS 11/04/24 Held on 04/19/25. Instructions: Resume on 04/21/25. ergocalciferol (vitamin D2) 1,250 mcg (50,000 unit) capsule 1,250 mcg PO SA 04/15/25 losartan 50 mg tablet 50 mg PO QPM 04/15/25 Held on 04/19/25. Instructions: Resume on 04/30/25. Hospital Course Summary of Care Provided Minutes Spent on Discharge: 33 Hospital Course: Per HPI: The patient is a 74 y/o M w/ PMHx: HTN, HLD, Hx TIA, CKD stage III unclear subtype or GFR trending, BPH with obstructive pathology, Allergic rhinitis, Chronic back pain with chronic radiculopathy who presents to [facility] ED on 04/18/2025 with onset of concern for possible stool incontinence in the setting of chronic lumbar back pain with chronic bilateral lower extremity radiculopathy however upon further discussion patient actually underwent a bowel prep and a colonoscopy on 04/17/2025 and noted that it was not that he could not control it at all it was that he had to hurry to try and make it to the restroom to be able to not have an accident in addition he reports poor oral intake on current day of presentation following his scope with considerable bowel output following his prep with incidentally noted upon ED evaluation elevated troponins and patient reporting that for several years he has exertional shortness of breath and will occasionally have midsternal zinging sharp chest discomfort that will last only seconds with radiation to his bilateral shoulders that is unchanged with most recent cardiac evaluation in 2022 with negative stress testing at that time as well as previous cardiac catheterization with no marked coronary disease noted at that time however he rediscussed this in the ED upon his evaluation again in the setting of incidentally noted elevated troponin. Current evaluation he denies any chest discomfort or dyspnea but notes this is primarily exertion. He is able to walk in the emergency room with no concerns or perineal paresthesias with appropriate reflexes. Workup in the ED included T98.3, heart rate 67, BP 121/70, respiratory rate 16, 100% on room air with most recent repeat labs T98.8, heart rate 65, BP 109/75, respiratory rate 18, 98% on room air, CBC with WC 10.3, hemoglobin 13.1, platelet 236 without marked shift, BMP with carbon oxide 20.3, BUN/creatinine 60/2.70, GFR 24, glucose 105, troponin initial 119 with repeat delta 103, urinalysis unremarkable, lumbar spine MRI with postsurgical changes but no concerning findings, EKG with sinus rhythm with no acute evidence of ischemia with nonspecific ST-T changes similar to previous. In the ED patient administered 1 L normal saline and full-strength aspirin therapy. INTERVAL HISTORY: Patient brought in due to elevated troponins, denied any chest pain to me and echocardiogram with LVH but EF of 60% no wall motion abnormalities, did query borderline abnormal global longitudinal strain and cannot exclude amyloid, follow-up with PCP for further consideration of workup or referral for cardiac MRI. Stress test negative for acute ischemia. Patient's troponins did downtrend with supportive care. Suspect patient's elevated troponins were due to dehydration from bowel prep with volume depletion in the setting of ROSS leading to decreased clearance. Creatinine was downtrending on day of discharge. Patient reported that the reason why he came in, his lower back pain, was improved and that he has had several flares recently and is agreeable to following with [facility] to be seen before for this back pain. Scans did not show any cauda equina syndrome. Discussed following up with PCP closely for his urinary and bowel complaints. Patient ambulating around room and reports he is comfortable discharging home. No new or acute complaints on day of discharge. Discharge instructions as follows: -Would recommend holding your losartan 50 mg at bedtime until you follow-up with your primary care physician as your blood pressure is very well-controlled and resuming this too soon could cause worsening kidney function - Resume your Lasix 04/21 if you continue to eat and drink well - Recommend following up with [facility] for your back pain as you indicate you have previously followed there -Would recommend lab work (BMP) to check your kidney function in 2 to 3 days through your primary care physician's office. Please call their office upon discharge to obtain order for lab work. - You mentioned having problems with shortness of breath when you are walking distances, consider discussing with your primary care physician if additional investigation warranted -Please call your primary care provider's office upon discharge to schedule a hospital follow up within 1 week. -For any concerning signs or symptoms please call 911 or proceed to the nearest emergency department Physical Exam Narrative General: Alert, oriented, no apparent distress HEENT: Atraumatic, normocephalic Eyes: Anicteric, normal conjunctiva, extraocular movements grossly intact Neck: Supple Respiratory: Clear to auscultation bilaterally, normal respiratory effort Cardiovascular: Regular rate and rhythm GI: Soft, nontender, nondistended Extremities: No edema Musculoskeletal: Moving all extremities Neuro: No overt focal neurological deficits Skin: No rashes appreciated Psych: Cooperative Weight / BMI Weight Weight: 78.7 kg Body Mass Index (BMI) 28.0 ABG / Lab / Microbiology Data 04/19/25 02:40 04/19/25 02:40 Laboratory: Laboratory Results - last 24 hr 04/18/25 15:41: WBC 10.3, RBC 4.41 L, Hgb 13.1, Hct 39.3 L, MCV 89.1, MCH 29.7, MCHC 33.3, RDW Std Deviation 44.2 H, RDW Coeff of Mary 13.5, Plt Count 236, MPV 10.9, Immature Gran % (Auto) 0.400, Neut % (Auto) 58.2, Lymph % (Auto) 26.0, M estiven % (Auto) 12.8 H, Eos % (Auto) 2.0, Baso % (Auto) 0.6, Absolute Neuts (auto) 6.0, Absolute Lymphs (auto) 2.66, Nucleated RBC % 0, Sodium 136, Potassium 4.4, Chloride 101, Carbon Dioxide 20.3 L, Anion Gap 14, BUN 60 H, Creatinine 2.70 H, Estim Creat Clear Calc 24.48 L, Est GFR (MDRD) Non-Af 24 L, BUN/Creatinine Ratio 22.1 H, Glucose 105 H, Calcium 9.5, Troponin T High Sens 119 H* 04/18/25 18:16: Troponin T Hi Sens 2 Hr 103 H* 04/18/25 19:01: Urine Color Yellow, Urine Clarity Clear, Urine pH 5.0, Ur Specific Spruce 1.015, Urine Protein Negative, Urine Glucose (UA) Normal, Urine Ketones Negative, Urine Occult Blood Negative, Urine Nitrite Negative, Urine Bilirubin Negative, Urine Urobilinogen Normal, Ur Leukocyte Esterase Negative, Urine RBC 0-5 SEEN, Urine WBC 0-5 SEEN, Ur Squamous Epith Cells 0-5 SEEN, Urine Bacteria 0 SEEN, Urine Mucus 0 SEEN 04/18/25 20:30: Magnesium 2.3 H, Troponin T Hi Sens 4Hr 109 H* 04/18/25 22:36: Troponin T High Sens 107 H* D 04/19/25 00:29: Troponin T Hi Sens 2 Hr 102 H* 04/19/25 02:40: WBC 8.2, RBC 3.68 L, Hgb 10.9 L, Hct 33.0 L, MCV 89.7, MCH 29.6, MCHC 33.0, RDW Std Deviation 44.6 H, RDW Coeff of Mary 13.4, Plt Count 177, MPV 11.0, Immature Gran % (Auto) 0.200, Neut % (Auto) 57.6, Lymph % (Auto) 26.1, M estiven % (Auto) 12.1 H, Eos % (Auto) 3.4, Baso % (Auto) 0.6, Absolute Neuts (auto) 4.7, Absolute Lymphs (auto) 2.13, Nucleated RBC % 0, Sodium 137, Potassium 4.1, Chloride 105, Carbon Dioxide 21.1, Anion Gap 11, BUN 54 H, Creatinine 2.09 H, E stim Creat Clear Calc 30.90 L, Est GFR (MDRD) Non-Af 33 L, BUN/Creatinine Ratio 25.7 H, Glucose 144 H, Calcium 8.6, Total Bilirubin 0.34, AST 45 H, ALT 27, Alkaline Phosphatase 57, Troponin T Hi Sens 4Hr 96 H*, Total Protein 6.1, Albumin 3.5, Globulin 2.6, Albumin/Globulin Ratio 1.4, Triglycerides 71, Cholesterol 100, LDL Cholesterol, Calc 51, VLDL Cholesterol 14, HDL Cholesterol 33 L, Cholesterol/HDL Ratio 2.99 Radiography Diagnostic Testing: Radiology Impression Echocardiogram 04/19/25 05:55 Interpretation Summary Normal LV size. Severe concentric left ventricular hypertrophy. The left ventricular ejection fraction is 60 %. Bubble contrast study negative for right to left interatrial shunt. Moderate diffuse thickening of the tricuspid valve. Cannot exclude amyloid The global longitudinal strain is borderline abnormal. The global longitudinal strain = -15.9% (abnormal). Ordering Physician: Briana Whitehead Referring Physician: Jose L Li Performed By: April Linton, CHRIS, RVT D/C Instructions DC O2, CPAP, BIPAP Needs Home O2 Discharge instructions: No Meaningful Use Info Meaningful Use Meaningful Use Diagnoses (Choose all that apply): None applicable Discharge Plan Admission Admit Date/Time: 04/18/25 21:02 Primary Reason for Your Visit: Back pain Attending Provider: Renetta Doan Primary Care Provider: Jose L Li Consulting Providers: Briana Whitehead Instructions Patient Instructions: ED Fall Prevention Additional Instructions / Restrictions: DISCHARGE INSTRUCTIONS PLEASE READ *Please take this with you to your next doctors appointment* -Would recommend holding your losartan 50 mg at bedtime until you follow-up with your primary care physician as your blood pressure is very well-controlled and resuming this too soon could cause worsening kidney function - Resume your Lasix 04/21 if you continue to eat and drink well - Recommend following up with [facility] for your back pain as you indicate you have previously followed there -Would recommend lab work (BMP) to check your kidney function in 2 to 3 days through your primary care physician's office. Please call their office upon discharge to obtain order for lab work. - You mentioned having problems with shortness of breath when you are walking distances, consider discussing with your primary care physician if additional investigation warranted -Please call your primary care provider's office upon discharge to schedule a hospital follow up within 1 week. -For any concerning signs or symptoms please call 911 or proceed to the nearest emergency department Discharge Orders/Prescriptions Prescriptions: Continued clopidogrel 75 mg tablet 75 mg PO DAILY Patient Comments: holding two days d/t having colonoscopy on 04/17 folic acid 0.8 mg capsule 0.8 mg PO DAILY rosuvastatin 5 mg tablet 5 mg PO QHS tamsulosin 0.4 mg capsule 0.4 mg PO BID metoprolol tartrate 25 mg tablet 25 mg PO DAILY ipratropium bromide 0.03 % spray,non-aerosol 2 spray INTRANASAL BID Rx Instructions: administer into each nostril zinc 50 mg tablet 50 mg PO DAILY acetaminophen [Tylenol Extra Strength] 500 mg tablet 500 mg PO Q8H PRN (Reason: pain) loratadine 10 mg capsule 10 mg PO QDAY ergocalciferol (vitamin D2) 1,250 mcg (50,000 unit) capsule 1,250 mcg PO SA Held losartan 50 mg tablet 50 mg PO QPM Hold Instructions: Resume on 04/30/25. furosemide 40 mg tablet 40 mg PO Q OTHER DAY Qty: 45 3RF Hold Instructions: Resume on 04/21/25. Referrals / Follow Up: Jose L Li MD [Primary Care Provider, Family Practice] - Within 1 Week Disposition Disposition (needs filled in before D/C Order can be placed): Home, Self Care Charges/Coding Visit Charges Inpatient E&M: 69803 Disch Hosp >30min
[2025-04-19 15:21] VITALS: BP 119/86; PULSE 63; RESP 16; TEMP 36.8; O2SAT 98
== END 2025-04-19 16:24 | disposition home or self-care (01) ==
LOC: ED 20:59 → PCU 21:15
PROVIDERS: Admitting Provider Family Medicine; Emergency Provider Emergency Medicine; PCP Family Medicine; Visit Provider Internal Medicine
DX: N17.9 Acute kidney failure, unspecified (principal); N18.30 Chronic kidney disease, stage 3 unspecified; E86.0 Dehydration; R79.89 Other specified abnormal findings of blood chemistry; R06.02 Shortness of breath; I12.9 Hypertensive chronic kidney disease with stage 1 through stage 4 chronic kidney disease, or unspecified chronic kidney disease; I44.0 Atrioventricular block, first degree; N40.1 Benign prostatic hyperplasia with lower urinary tract symptoms; E55.9 Vitamin D deficiency, unspecified; E78.5 Hyperlipidemia, unspecified; N13.8 Other obstructive and reflux uropathy; J30.9 Allergic rhinitis, unspecified; R35.0 Frequency of micturition; M54.16 Radiculopathy, lumbar region; G89.29 Other chronic pain; Z86.73 Personal history of transient ischemic attack (TIA), and cerebral infarction without residual deficits; Z79.02 Long term (current) use of antithrombotics/antiplatelets; Z79.899 Other long term (current) drug therapy
CPT/HCPCS: 36415; 72158; 78452; 80048; 80053; 80061; 81001; 83735; 84484; 85025; 93005; 93017; 93306; 96360; 96361; 99221; 99284; A9500; A9575; A4216; G0378; J2785

== ENCOUNTER → 2025-05-02 | Outpatient (CLI) | payer MEDICARE, OTHER, SELFPAY ==
[2025-05-02 15:57] LABS: AST(SGOT) 29 U/L (<=37); Alanine Aminotransfer ALT/SGPT 19 U/L (<=46); Albumin, Serum 4.3 g/dL (3.4-4.8); Alkaline Phosphatase 69 U/L (40-129); Anion Gap 12 (5-15); BUN 38 mg/dL (4-19); BUN/Creat Ratio 30.6 RATIO (10-20); Calcium,Total 9.9 mg/dL (7.6-11.0); Carbon Dioxide 23.8 mmol/L (21.0-32.0); Chloride 104 mmol/L (98-108); Globulin 3.2 g/dL (2.2-4.2); Glucose 92 mg/dL (70-99); Potassium 4.4 mmol/L (3.3-5.1); Vitamin D,25 Hydroxy 68.3 ng/mL (30-100)
== END | disposition home or self-care (01) ==
LOC: MFPLAB 11:11
PROVIDERS: PCP Family Medicine; Visit Provider Family Medicine
DX: N17.9 Acute kidney failure, unspecified (principal)
CPT/HCPCS: 36415; 80053; 82306

== ENCOUNTER → 2025-05-26 | Outpatient (CLI) | payer MEDICARE, OTHER, SELFPAY | END | disposition home or self-care (01) | PROVIDERS: PCP Family Medicine; Referring Provider Family Medicine; Visit Provider Family Medicine | DX: R06.02 Shortness of breath (principal) | CPT/HCPCS: 94060; 94726; 94729 ==